=== PATIENT | male | born 1960 | race Caucasian/White ===

== ENCOUNTER → 2016-04-05 | Outpatient (CLI) | payer OTHER ==
[~2016-04-05] MED LIST: ALBUAER19 INH; AMLO-114 PO; AMOX1TAB43 PO; AMOX875T PO; ASPEC81 PO; ATOR-54 PO; DOXY100C76 PO; EMPA1TAB PO; FLUT230A INH; FRS/40 PO; GLC/500 PO; IMIQ0.00 TOP; INSUINJ4 SC; LISI40TA PO; LPT40 PO; POTA20TA13 PO; SITA1TAB27 PO
--- NOTE | 2016-04-05 14:27 | DIAGNOSTIC IMAGING REPORT ---
CT OF THE CHEST WITHOUT IV CONTRAST CLINICAL HISTORY: Hilar adenopathy COMPARISON STUDY: 12/18/2015 CT DOSE: 647.98 mGy.cm TECHNIQUE: CT of the thorax was performed from the thoracic inlet to the lung bases. Images are reviewed in the axial, sagittal, and coronal planes. IV contrast was not administered for this examination. FINDINGS: Thyroid: Imaged portions of the thyroid gland are normal in appearance. Thoracic aorta: The thoracic aorta is normal in course and caliber, noting standard 3 vessel arch anatomy. Heart: There are coronary artery calcifications present. There is a trace pericardial effusion. Lungs and pleural spaces: No pleural effusions are visualized. There is no focal pulmonary consolidation. Mediastinum: There is mild mediastinal lymphadenopathy similar to the preceding study. The largest right paratracheal lymph node measures 11 mm in short axis. There is also a stable prominent right cardiophrenic angle lymph node measuring 1 cm in short axis. Marian: Hilar structures are difficult to evaluate given the absence of intravenous contrast. Mildly prominent hilar lymph nodes remain stable. Axilla: There is no evidence of pathologic axillary lymphadenopathy Upper abdomen: The liver appears enlarged. The liver has a serrated serosal surface. Cirrhosis must be considered. The gallbladder surgically absent. Skeletal structures: There are no lytic or blastic osseous lesions. IMPRESSION: 1. Mild mediastinal lymphadenopathy, unchanged from the prior study 2. No evidence of focal pulmonary consolidation. No suspicious pulmonary nodules 3. Hepatomegaly. Cirrhotic liver morphology. Electronically signed by: Dylon London M.D. 04/05/2016 2:25 PM Dictated Date/Time: 04/05/2016 2:20 PM
== END | disposition home or self-care (01) ==
LOC: C.CTS 14:10
PROVIDERS: ATTEND Surgery
DX: R59.0 Localized enlarged lymph nodes (principal); K74.60 Unspecified cirrhosis of liver

== ENCOUNTER → 2016-06-23 | Day surgery (SDC) | payer OTHER ==
[2016-06-15 14:08] VITALS: Ht 177.8 cm; Wt 104.5 kg
[~2016-06-23] VITALS: Ht 177.8 cm; Wt 104.5 kg
[~2016-06-23] MED LIST changes: -AMOX1TAB43 PO; -AMOX875T PO; +ATOR-26 PO; -ATOR-54 PO; +ATROPINE SULFATE 0.1 MG/ML 5ML SYR IV PRN; +CETI10TA84 PO; +DEXL30CA5 PO; +EMPA1TAB3 PO; +EpHEDrine SULFATE INJ 50 MG/ML AMP IV PRN; +FURO40TA3 PO; -IMIQ0.00 TOP; +IMIQ5CRE4 TOP; +INSDGI SC; +INSU100I23 SQ; +LIDOCAINE HCL 2% 2 ML VIAL (20MG/ML) ONE; +NICO14DI5 TD; +PROPOFOL IV EMULSION 10 MG/ML 20 ML VIAL IV ONE; +SODIUM CHLORIDE 0.9% 500ML 500 ML IV ONE; +VNTHFA/IN INH
--- NOTE | 2016-06-23 09:18 | Endo History and Physical ---
History & Physical Date of Service: Jun 23, 2016. Chief Complaint: screening Referring Physician: Dr. Clotilde Vásquez History of Present Illness 55 yo presenting for screening colonoscopy-no symptoms and average risk. Past Medical History Diabetes, Reflux, High Cholesterol, Hypertension Past Surgical History Hx Cardiac Surgery: No Hx Internal Defibrillator: No Hx Pacemaker: No Hx Abdominal Surgery: Yes (cholecystectomy) Hx of Implantable Prosthesis: No Hx Post-Op Nausea and Vomiting: Yes Hx Cancer Surgery: No Hx Thoracic Surgery: No Hx Orthopedic: Yes (RIGHT FOOT MULTIPLE SURGERIES) Hx Urinary Tract Surgery: Yes (vasectomy) Family History None Social History Smoking Status: Former Smoker Hx Substance Use: No Hx Alcohol Use: No Allergies Coded Allergies: BEE STING (Verified Allergy, Intermediate, swelling, 06/15/16) Vancomycin (Verified Allergy, Unknown, ANAPHYLAXIS, 06/15/16) renal failure Current Medications Reported Home Medications Medications Dose Route/Sig Max Daily Dose Days Date Category Dose Instructions Zestril (Lisinopril) 40 Mg Tab 40 Mg PO QAM 06/15/16 Reported Imiquimod 5 % Cre 1 Dose TOP DAILY PRN 06/15/16 Reported Atorvastatin Calcium (Atorvastatin) 40 Mg Tab 40 Mg PO QAM 06/15/16 Reported Glucophage (Metformin Hcl) 500 Mg Tab 500 Mg PO BID 06/13/16 Reported Jardiance (Empagliflozin) 10 Mg Tab 10 Mg PO QAM 06/13/16 Reported Monodox (Doxycycline Monohydrate) 100 Mg Cap 100 Mg PO BID 30 05/10/16 Reported Potassium Chloride Er (Potassium Chloride Microencaps) 20 Meq Tab 1 Tab PO QAM 30 02/16/16 Reported Norvasc (Amlodipine Besylate) 10 Mg Tab 10 Mg PO QAM 11/03/15 Reported Lasix (Furosemide) 40 Mg Tab 40 Mg PO BID 11/03/15 Reported Aspirin EC Low Dose (Aspirin) 81 Mg Ectab 81 Mg PO Q2D 10/14/15 Reported Advair Hfa 230/21 Mcg (Fluticasone-Salmeterol 230/21 Mcg) 1 Aer Aer 2 Puffs INH BID 10/14/15 Reported RINSE MOUTH AFTER USE Ventolin Inhaler (Albuterol) Aers 2 Puffs INH QID PRN 10/14/15 Reported Januvia (Sitagliptin) 100 Mg Tab 100 Mg PO QAM 10/14/15 Reported Lantus Solostar Pen (Insulin Glargine) 100 Unit/ Inj 50 Units SC HS 10/14/15 Reported Vital Signs Weight (Kilograms): 104.55 Height (Feet): 5 Height (Inches): 10 Date Time Temp Pulse Resp B/P Pulse Ox O2 Delivery O2 Flow Rate FiO2 06/23/16 09:00 36.5 57 16 116/44 94 Room Air Physical Exam General Appearance: + obese Respiratory/Chest: Respiratory effort: no dyspnea Auscultation: breath sounds normal, CTA except as noted, no wheezing Cardiovascular: Apical Impulse: not displaced Heart Auscultation: RRR, normal S1, normal S2 Abdomen: Bowel Sounds: normal Inspection & Palpation: soft, non-distended Assessment and Plan 55 yo presenting for screening colonoscopy
--- NOTE | 2016-06-23 09:59 | GI REPORT ---
Procedure Date: 06/23/2016 8:59 AM Procedure: Colonoscopy Indications: Screening for colorectal malignant neoplasm Medicines: General Anesthesia Complications: No immediate complications. Estimated blood loss: None. Estimated Blood Loss: Estimated blood loss: none. Procedure: Pre-Anesthesia Assessment: - Pre-Anesthesia Assessment: - Prior to the procedure, a History and Physical was performed, and patient medications, allergies and sensitivities were reviewed. The patient's tolerance of previous anesthesia was reviewed. Please see [facility] for complete details. - The risks and benefits of the procedure and the sedation options and risks were discussed with the patient. All questions were answered and informed consent was obtained. - Patient identification and proposed procedure were verified prior to the procedure by the physician and the nurse. The procedure was verified in the pre-procedure area in the procedure room. After obtaining informed consent, the endoscope was passed carefully and meticuously under direct vision and only advanced when the lumen was clearly identified, C02 insuflation was utilized throughout the entirity of the procedure. Throughout the procedure, the patient's blood pressure, pulse, and oxygen saturations were monitored continuously. After I obtained informed consent, the scope was passed under direct vision. Throughout the procedure, the patient's blood pressure, pulse, and oxygen saturations were monitored continuously. The scope was introduced through the anus and advanced to the cecum, identified by appendiceal orifice and ileocecal valve. The colonoscopy was performed without difficulty. The patient tolerated the procedure well. The quality of the bowel preparation was unsatisfactory. Findings: Extensive amounts of stool was found in the entire colon, precluding visualization. A 3 mm polyp was found in the sigmoid colon. The polyp was sessile. The polyp was removed with a cold snare. Resection and retrieval were complete. Impression: - Preparation of the colon was unsatisfactory. - Stool in the entire examined colon. - One 3 mm polyp in the sigmoid colon, removed with a cold snare. Resected and retrieved. Recommendation: - Discharge patient to home (with escort). - Return to referring physician as previously scheduled. - Repeat colonoscopy with a 2 day prep because the bowel preparation was poor. Bill Flood MD 06/23/2016 9:58:49 AM This report has been signed electronically. Note Initiated On: 06/23/2016 8:59 AM I attest to the content of the Intraoperative Record and orders documented therein, exceptions below
--- NOTE | 2016-06-23 10:02 | Anesthesiology Progress Note ---
Anesthesia Post Op Note Date & Time Jun 23, 2016 at 10:01 Vital Signs Pain Intensity: 0 Vital Signs Past 12 Hours Date Time Temp Pulse Resp B/P Pulse Ox O2 Delivery O2 Flow Rate FiO2 06/23/16 09:00 36.5 57 16 116/44 94 Room Air Notes Mental Status: alert / awake / arousable, participated in evaluation Pt Amnestic to Procedure: Yes Nausea / Vomiting: adequately controlled Pain: adequately controlled Airway Patency, RR, SpO2: stable & adequate BP & HR: stable & adequate Hydration State: stable & adequate Anesthetic Complications: no major complications apparent
[2016-06-23 10:25] VITALS: BP 127/60; PULSE 58; O2SAT 94
--- NOTE | 2016-06-23 10:32 | Discharge Instructions ---
Endoscopy Patient Instructions Date / Procedure(s) Performed Jun 23, 2016. Colonoscopy Allergy Information Coded Allergies: BEE STING (Verified Allergy, Intermediate, swelling, 06/15/16) Vancomycin (Verified Allergy, Unknown, ANAPHYLAXIS, 06/15/16) renal failure Discharge Date / Findings Jun 23, 2016. - Preparation of the colon was unsatisfactory. - Stool in the entire examined colon. - One 3 mm polyp in the sigmoid colon, removed with a cold snare. Resected and retrieved. Recommendation: - Repeat colonoscopy with a 2 day prep because the bowel preparation was poor. Medication Instructions Stopped Medication(s): took Baby ASA yesterday Provider Instructions Activity Restrictions - No exercising or heavy lifting for 24 hours. - Do not drink alcohol the day of the procedure. - Do not drive a car or operate machinery until the day after the procedure. - Do not make any important decisions or sign important papers in 24 hours after the procedure. Following Day: - Return to full activity which may include returning to work/school. Diet Start your diet with liquids and light foods (jello, soup, juice, toast). Then eat your usual diet if not nauseated. Treatment For Common After Affects For mild abdominal pain, bloating, or excessive gas: - Rest - Eat lightly - Lie on right side Follow-Up Information Follow-up with Dr. Clotilde Vásquez as scheduled Anesthesia Information What You Should Know You have had a procedure that required some medicine to reduce anxiety and discomfort. This treatment is called moderate sedation. After receiving the treatment, you may be sleepy, but you will be able to breathe on your own. The effects of the treatment may last for several hours. Follow these instructions along with Activity/Diet recommendations noted above: * Do NOT do anything where dizziness or clumsiness would be dangerous. * Rest quietly at home today, then you can be up and about tomorrow. * Have a responsible person stay with you the rest of today. * You may have had an I.V. today. If so, you may take the dressing off later today. Recommendations Call your doctor if: * Trouble breathing * Continuous vomiting for more than 24 hours * Temperature above 101 degrees * Severe abdominal pain or bloating * Pain not relieved by pain medicine ordered * There is increased drainage or redness from any incision * A large amount of rectal bleeding greater than 2-3 tablespoons. (If you had a polyp/s removed or have hemorrhoids, a small amount of blood - from the rectum is to be expected.) * You have any unanswered questions or concerns. IN THE EVENT OF A SERIOUS EMERGENCY, GO TO THE NEAREST EMERGENCY ROOM Your discharge instructions were prepared by provider Bill Flood. Patient Instructions Signature Page Srinivasa Robertson Patient (or Guardian) Signature/Date: I have read and understand the instructions given to me by my caregivers. Caregiver/RN/Doctor Signature/Date: The above-named patient and/or guardian has received patient instructions on this date. + Original Patient Signature Page (only) stays with chart. Please make copy for patient.
== END | disposition home or self-care (01) ==
LOC: C.GI 08:06
PROVIDERS: ATTEND Internal Medicine
DX: Z12.11 Encounter for screening for malignant neoplasm of colon (principal); D12.5 Benign neoplasm of sigmoid colon; K21.9 Gastro-esophageal reflux disease without esophagitis; E11.9 Type 2 diabetes mellitus without complications; E78.5 Hyperlipidemia, unspecified; I10 Essential (primary) hypertension; Z79.4 Long term (current) use of insulin; Z98.890 Other specified postprocedural states; Z87.890 Personal history of sex reassignment; Z88.1 Allergy status to other antibiotic agents; Z79.82 Long term (current) use of aspirin

== ENCOUNTER 2016-12-15 17:16 | Inpatient (IN) | payer OTHER ==
[~2016-12-15] VITALS: Ht 175.3 cm; Wt 123.6 kg
[~2016-12-15 17:16] MED LIST changes: -ATOR-26 PO; -ATROPINE SULFATE 0.1 MG/ML 5ML SYR IV PRN; -CETI10TA84 PO; -DEXL30CA5 PO; -EMPA1TAB3 PO; -EpHEDrine SULFATE INJ 50 MG/ML AMP IV PRN; -FURO40TA3 PO; -INSDGI SC; -INSU100I23 SQ; -LIDOCAINE HCL 2% 2 ML VIAL (20MG/ML) ONE; -NICO14DI5 TD; -PROPOFOL IV EMULSION 10 MG/ML 20 ML VIAL IV ONE; -SODIUM CHLORIDE 0.9% 500ML 500 ML IV ONE; -VNTHFA/IN INH
--- NOTE | 2016-12-15 17:32 | EMERGENCY ROOM VISIT NOTE ---
History First contact with patient: 17:20 Chief Complaint: CARDIAC ASSESSMENT Stated Complaint: CARDIAC/ 3RD DEGREE BLOCK History of Present Illness The patient is a 55 year old male with a history of IDDMII who presents to the Emergency Room from [facility] via EMS. The patient notes that approx a month prior the patient started to suffer from billat LE edema R>L. The patient thought it was secondary to his right ankle surgery he had in the past and when he went to see his PCP the Lasix was increased in dose. The patient notes he had continued worsening in the bilat LE swelling but also worsening SOB. 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 He never suffered from any chest pain, syncope or dizziness. He followed up with his PCP today and with concern for this worsening SOB an EKG was done and was concerning for a third degree heart block. ED was contacted and patient was sent over via EMS. He has no cardiac history however patient is a smoker. Patient notes his father had multiple cardiac bypass surgeries around his age and also required a pig valve however he was unsure why. He notes no knowledge of a murmur in the past. last echo was 2015 and reflected preserved EF at that time. Review of Systems A 10 point review of systems was completed and was negative aside from above Past Medical/Surgical History Medical Problems: (1) Asthma, Unspecified (2) CAD (coronary artery disease) (3) Cellulitis (4) COPD (chronic obstructive pulmonary disease) (5) Diab Jill Wo Compl, Type Ii Or Unspec Type, Not Uncntrld (6) Diabetic foot ulcer (7) Diabetic peripheral neuropathy associated with type 2 diabetes mellitus (8) Esophageal Reflux (9) Hyperlipidemia Nec/Nos (10) Hypertension Nos (11) Loss of sensation (12) Osteomyelitis (13) Ulcer Surgical Problems: (1) H/O vasectomy (2) History of cholecystectomy Family History Cancer FH: hypertension FH: kidney disease FHx: heart disease Heart disease Lung disease Social History Smoking Status: Former Smoker Alcohol Use: occasionally Drug Use: none Marital Status: in relationship Occupation Status: employed Current/Historical Medications Scheduled Albuterol Hfa (Ventolin Hfa), 2-4 PUFFS INH Q6H Amlodipine (Norvasc), 10 MG PO QAM Aspirin (Aspirin EC Low Dose), 81 MG PO Q2D Atorvastatin (Atorvastatin Calcium), 40 MG PO QAM Empagliflozin (Jardiance), 10 MG PO QAM Fluticasone-Salmeterol 230/21 Mcg (Advair Hfa 230/21 Mcg), 2 PUFFS INH BID Furosemide (Lasix), 40 MG PO BID Insulin Glargine (Lantus), 50 UNITS SC HS Lisinopril (Zestril), 40 MG PO QAM Metformin Hcl (Glucophage), 500 MG PO BID Potassium Chloride Microencaps (Potassium Chloride Er), 1 TAB PO QAM Sitagliptin (Januvia), 100 MG PO QAM Scheduled PRN Imiquimod (Imiquimod), 1 DOSE TOP DAILY PRN for PRN Allergies Vancomycin Physical Exam Vital Signs Date Time Temp Pulse Resp B/P (MAP) Pulse Ox O2 Delivery O2 Flow Rate FiO2 12/15/16 19:00 95 22 85 Room Air 12/15/16 18:58 69 18 137/75 93 Room Air 12/15/16 18:55 88 18 95 Room Air 12/15/16 17:50 66 12/15/16 17:28 93 Room Air 12/15/16 17:23 36.3 58 18 159/64 93 Room Air 12/15/16 17:23 93 Room Air Physical Exam General: ambulatory, SOB with ambulation, obese Skin: no rashes noted, no suspicious lesions, no areas of inflammations/ lacerations/ erythema noted CVS: S1/ S2 noted, RRR, 3/6 systolic murmur noted ( new in onset), no cyanosis RVS: Poor air movement, no expiratory wheezing, not in acute respiratory distress ENT: no erythema/ injection/ ulcerations noted in the pharynx, no lymphadenopathy Neck: inspection WNL, full ROM of neck ABD: BSx4, no pain/ tenderness on palpation however distended abdomen; questionable ascites, organomegaly difficult to discern with obesity, negative murphys, psoas, Rovsing, CVA tenderness MSK: inspection of all limbs WNL except for bilat LE edema R>L +4, motor and sensation intact in all limbs NVS:PERRL, EOMI, sensation intact in all extremities Lymph: No lymphadenopathy palpable Medical Decision & Procedures ER Provider Diagnostic Interpretation: CHEST ONE VIEW PORTABLE HISTORY: 55 years-old Male SOB acute shortness of breath. COMPARISON: Chest radiograph 12/01/2016, chest CT 04/05/2016 TECHNIQUE: Portable upright AP view of the chest FINDINGS: Cardiac silhouette is mildly enlarged. Fullness of the right paratracheal tissues appears unchanged. Mild pulmonary vascular congestion is noted without pneumothorax, pleural effusion, focal airspace consolidation or overt pulmonary edema. The bones are grossly intact. IMPRESSION: 1. Cardiomegaly and pulmonary vascular congestion without overt pulmonary edema. 2. Fullness of the right paratracheal tissues redemonstrated, correlating with adenopathy seen on comparison chest CT. Laboratory Results 12/15/16 17:12 Red Blood Count 5.08, Mean Corpuscular Volume 87.4, Mean Corpuscular Hemoglobin 28.3, Mean Corpuscular Hemoglobin Concent 32.4, Mean Platelet Volume 10.4, Neutrophils (%) (Auto) 72.7, Lymphocytes (%) (Auto) 19.0, Monocytes (%) (Auto) 6.3, Eosinophils (%) (Auto) 1.4, Basophils (%) (Auto) 0.3, Neutrophils # (Auto) 11.01, Lymphocytes # (Auto) 2.88, Monocytes # (Auto) 0.95, Eosinophils # (Auto) 0.21, Basophils # (Auto) 0.05 12/15/16 17:12 Test 12/15/16 17:12 White Blood Count 15.15 K/uL (4.8-10.8) Red Blood Count 5.08 M/uL (4.7-6.1) Hemoglobin 14.4 g/dL (14.0-18.0) Hematocrit 44.4 % (42-52) Mean Corpuscular Volume 87.4 fL (80-100) Mean Corpuscular Hemoglobin 28.3 pg (25-34) Mean Corpuscular Hemoglobin Concent 32.4 g/dl (32-36) Platelet Count 312 K/uL (130-400) Mean Platelet Volume 10.4 fL (7.4-10.4) Neutrophils (%) (Auto) 72.7 % Lymphocytes (%) (Auto) 19.0 % Monocytes (%) (Auto) 6.3 % Eosinophils (%) (Auto) 1.4 % Basophils (%) (Auto) 0.3 % Neutrophils # (Auto) 11.01 K/uL (1.4-6.5) Lymphocytes # (Auto) 2.88 K/uL (1.2-3.4) Monocytes # (Auto) 0.95 K/uL (0.11-0.59) Eosinophils # (Auto) 0.21 K/uL (0-0.5) Basophils # (Auto) 0.05 K/uL (0-0.2) RDW Standard Deviation 47.5 fL (36.4-46.3) RDW Coefficient of Variation 14.8 % (11.5-14.5) Immature Granulocyte % (Auto) 0.3 % Immature Granulocyte # (Auto) 0.05 K/uL (0.00-0.02) Anion Gap 6.0 mmol/L (3-11) Est Creatinine Clear Calc Drug Dose 83.4 ml/min Estimated GFR () 71.2 Estimated GFR (Non- 61.4 BUN/Creatinine Ratio 18.2 (10-20) Calcium Level 9.0 mg/dl (8.5-10.1) Total Bilirubin 0.5 mg/dl (0.2-1) Aspartate Amino Transf (AST/SGOT) 19 U/L (15-37) Alanine Aminotransferase (ALT/SGPT) 24 U/L (12-78) Alkaline Phosphatase 173 U/L (45-117) Creatine Kinase MB 1.5 ng/ml (0.5-3.6) Creatine Kinase MB Ratio (0-3.0) Troponin I < 0.015 ng/ml (0-0.045) Pro-B-Type Natriuretic Peptide 381 pg/ml (0-900) Total Protein 8.2 gm/dl (6.4-8.2) Albumin 3.3 gm/dl (3.4-5.0) Globulin 4.9 gm/dl (2.5-4.0) Albumin/Globulin Ratio 0.7 (0.9-2) Lipase 200 U/L (73-393) Medications Administered Medications (Trade) Dose Ordered Sig/Jerica Route Start Time Stop Time Status Last Admin Dose Admin Albuterol/ Ipratropium (Duoneb) 3 ml NOW INH 12/15/16 18:00 12/15/16 18:30 DC 12/15/16 17:53 3 ML ECG Indication: SOB/dyspnea Rate (beats per minute): 51 Rhythm: other (AV dissociation; junctional rhythm ) Findings: no acute ischemic change, no ectopy Change: Change as noted above ED Course 1720: Assessed and evaluated by resident 1800: Duoneb 3 ml X 1 via nebulizer 1830: Patient reassessed and no improvement of symptoms 185: Ambulation trial 85% on RA with ambulation 1929: Discussed case with Dr Lockhart, plan for 40 mg IV lasix and valdes placement , patient will be assessed further by hospitalist Medical Decision Differential diagnosis includes but is not limited to myocardial infarction, COPD exacerbation, cirrhosis, CHF exacerbation, cor pulmonale, Av block. This is a 55 yo m that presented to the ED with SOB/ LE swelling and abnormal EKG. The patient's CBC reflected a leukocytosis however CXR did not reveal a source for infection and neither did the UA. The patient's CMP was unremarkable without acute process. Troponin and CKMB was negative and BNP was also negative. It is questionable considering the new onset murmur if the patient's worsening SOB and LE swelling is secondary to CHF vs COPD exacerbation. The patient did not have improvement of symptoms after duoneb administration and continued to remain hypoxic with ambulation. Considering ongoing hypoxia with physical exam reflecting right heart failure it would be appropriate for lasix 40 mg IV x 1. We will also place a valdes to adequately measure output. Patient will be evaluated further by the hospitalist with concern for evolving cardiovascular pathology. Blood Pressure Screening Patient's blood pressure: Elevated blood pressure Blood pressure disposition: Elevated BP felt to be situational Impression Primary Impression: Hypoxia Additional Impressions: Pulmonary congestion Lower extremity edema Departure Information Dispostion Admitted as an inpatient Condition [facility] (PCP) Patient Instructions My [facility] Problem Qualifiers
[2016-12-15 17:39] LABS: BASO % 0.3 %; BASO ABS # 0.05 K/uL (0-0.2); COMPLETE YES; EOS % 1.4 %; HEMATOCRIT 44.4 % (42-52); IG% 0.3 %; LYMPH ABS # 2.88 K/uL (1.2-3.4); MEAN CELL VOLUME 87.4 fL (80-100); MEAN CORPUSCULAR HEMOGLOBIN 28.3 pg (25-34); MEAN CORPUSCULAR HGB CONC 32.4 g/dl (32-36); MEAN PLATELET VOLUME 10.4 fL (7.4-10.4); MONO % 6.3 %; NEUT % 72.7 %; PLATELET COUNT 312 K/uL (130-400); RED BLOOD COUNT 5.08 M/uL (4.7-6.1); WHITE BLOOD COUNT 15.15 K/uL (4.8-10.8)
--- NOTE | 2016-12-15 17:52 | DIAGNOSTIC IMAGING REPORT ---
CHEST ONE VIEW PORTABLE HISTORY: 55 years-old Male SOB acute shortness of breath. COMPARISON: Chest radiograph 12/01/2016, chest CT 04/05/2016 TECHNIQUE: Portable upright AP view of the chest FINDINGS: Cardiac silhouette is mildly enlarged. Fullness of the right paratracheal tissues appears unchanged. Mild pulmonary vascular congestion is noted without pneumothorax, pleural effusion, focal airspace consolidation or overt pulmonary edema. The bones are grossly intact. IMPRESSION: 1. Cardiomegaly and pulmonary vascular congestion without overt pulmonary edema. 2. Fullness of the right paratracheal tissues redemonstrated, correlating with adenopathy seen on comparison chest CT. The above report was generated using voice recognition software. It may contain grammatical, syntax or spelling errors. Electronically signed by: Camron Granado M.D. 12/15/2016 5:51 PM Dictated Date/Time: 12/15/2016 5:48 PM
[2016-12-15] MEDS ORDERED: ALBUT/IPRATROP 3MG/0.5MG NEB 3 ML VIAL INH SCH (18:00)
[2016-12-15 18:02] LABS: ALT/SGPT 24 U/L (12-78); BLOOD UREA NITROGEN 24 mg/dl (7-18); BUN/CREATININE RATIO 18.2 (10-20); CARBON DIOXIDE 29 mmol/L (21-32); CHLORIDE 102 mmol/L (98-107); GLUCOSE 156 mg/dl (70-99); POTASSIUM 3.8 mmol/L (3.5-5.1); SODIUM 137 mmol/L (136-145)
[2016-12-15 18:08] LABS: ALB/GLOB RATIO 0.7 (0.9-2); ALKALINE PHOSPHATASE 173 U/L (45-117); AST/SGOT 19 U/L (15-37)
[2016-12-15] MEDS ORDERED: INSDGI SC (18:22)
[2016-12-15] MEDS ORDERED: VNTHFA/IN INH (18:22)
--- NOTE | 2016-12-15 18:39 | EMERGENCY ROOM VISIT NOTE ---
ED Visit Note First contact with patient: 17:20 Pt seen and evaluated at bedside with the resident when he arrived. Discussed with pt recent sx. States no sx currently. Concerning story for evolving pulmonary or cardiac pathology. Orders and results reviewed with resident. Pt hypoxic with ambulation. No sx at rest. Pt admitted to medicine service. VS otw stable.
[2016-12-15] MEDS ORDERED: FUROSEMIDE 40 MG/4 ML VIAL IV STA (20:21)
[2016-12-15 20:54] LABS: INR 1.1 (0.9-1.1); PROTHROMBIN TIME (PATIENT) 11.9 SECONDS (9.0-12.0)
--- NOTE | 2016-12-15 22:04 | DIAGNOSTIC IMAGING REPORT ---
KUB HISTORY: disended abdomen, patient feels bloated wt gain, const x 1 wk COMPARISON: Chest and abdominal series 12/19/2005. FINDINGS: The bowel gas pattern is unremarkable. There are no dilated loops of small bowel to suggest an obstruction. No renal calculi. No ureteral calculi. No pneumoperitoneum or pneumatosis. Vascular are noted. Large oval-shaped soft tissue mass within the pelvis. This measures 20 cm and likely represents a distended bladder. Cholecystectomy. IMPRESSION: 20 cm soft tissue mass within the pelvis which likely represents a distended bladder. Follow-up pelvic/bladder ultrasound recommended for confirmation. Electronically signed by: Darren Alexander M.D. 12/15/2016 10:02 PM Dictated Date/Time: 12/15/2016 10:00 PM
[2016-12-15 22:10] VITALS: BP 155/66; PULSE 54; TEMP 36.9; O2SAT 93; BMI 39.2
[2016-12-15] MEDS ORDERED: ACETAMINOPHEN 325 MG TAB PO PRN (22:15)
[2016-12-15] MEDS ORDERED: ONDANSETRON INJ 2 MG/ML 2 ML VIAL IV PRN (22:15)
[2016-12-15] MEDS ORDERED: DEXTROSE 50% 50 ML SYR IV PRN (22:15)
[2016-12-15] MEDS ORDERED: POLYETHYLENE (MIRALAX) 17 GM PACK PO PRN (22:15)
[2016-12-15] MEDS ORDERED: GLUCOSE 10 TABS/TUBE PO PRN (22:15)
[2016-12-15] MEDS ORDERED: GLUCAGON FOR INJ 1 MG VIAL SQ PRN (22:15)
[2016-12-15] MEDS ORDERED: GLUCOSE 40% GEL 15 GM TUBE PO PRN (22:15)
[2016-12-15] MEDS ORDERED: EMPA1TAB3 PO (22:16)
[2016-12-15] MEDS ORDERED: FURO40TA3 PO (22:16)
[2016-12-15] MEDS ORDERED: CETI10TA84 PO (22:16)
[2016-12-15] MEDS ORDERED: DEXL30CA5 PO (22:16)
[2016-12-15] MEDS ORDERED: ATOR-26 PO (22:16)
[2016-12-15] MEDS ORDERED: INSU100I23 SQ (22:16)
[2016-12-15] MEDS ORDERED: ASPIRIN 325 MG ECTAB PO STA (22:19)
--- NOTE | 2016-12-15 22:36 | History and Physical ---
History & Physical Date & Time of Service: Dec 15, 2016 at 21:51 Chief Complaint: Cardiac/ 3RD Degree Block Primary Care Physician: Kathy,[facility] History of Present Illness Source: patient, clinic records, hospital records This is a 55yo man with a PMH of DM II, non-obstructive CAD, HTN, HLD, tobacco use disorder and diastolic heart dysfunction who presents with worsening lower extremity edema. Patient has had a degree of swelling in his right leg since having ankle surgery a few years ago. However, swelling has worsened bilaterally over the last month despite patient's PCP increasing his lasix dose. A few weeks ago, patient endorses worsening dyspnea on exertion as well. 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 Has a been smoking for over 35 years but has reduced the amount in the last few years to 1/2 PPD. Also admits to drinking heavily at a family wedding a few weeks ago around the time that his LE edema and dyspnea worsened. Admits to a 20 pound weight gain in the last month. Went to the PCP for these worsening symptoms earlier today and had an EKG performed that was concerning for third degree heart block. Patient was encouraged to come to the ER for further evaluation. Patient denies any lightheadedness, chest pain, palpitations, PND, wheezing, abdominal pain, nausea, vomiting, calf pain, LE weakness or syncopal events. Does endorse orthopnea and a chronic dry cough. Has been experiencing constipation with associated abd distention. States that it has been "days" since his last bowel movement. Denies any history of MIs or arrhythmias. Had an echo performed in Oct 2015 that showed normal LV size, some left ventricular hypertrophy and normal systolic function with an EF of 60-65%. + Family history for CAD (father). Past Medical/Surgical History Medical Problems: (1) Asthma, Unspecified Status: Chronic (2) CAD (coronary artery disease) Status: Chronic (3) COPD (chronic obstructive pulmonary disease) Status: Chronic (4) Diab Jill Wo Compl, Type Ii Or Unspec Type, Not Uncntrld Status: Chronic (5) Esophageal Reflux Status: Chronic (6) Hyperlipidemia Nec/Nos Status: Chronic (7) Hypertension Nos Status: Chronic Surgical Problems: (1) H/O vasectomy Status: Resolved (2) History of cholecystectomy Status: Resolved Family History Cancer FH: hypertension FH: kidney disease FHx: heart disease Heart disease Lung disease Social History Smoking Status: Current Every Day Smoker (Smoked for over 35 years. Has reduced to 1/2 PPD for the last few years.) Alcohol Use: heavy (Endorses drinking heavily in the past. Reduced amount a few years ago.) Drug Use: none Marital Status: in relationship Housing status: lives alone Occupational Status: employed Multi-Drug Resistant Organisms History of MDRO: Yes Type of MDRO: MRSA Allergies Coded Allergies: BEE STING (Verified Allergy, Intermediate, swelling, 12/15/16) Vancomycin (Verified Allergy, Unknown, ANAPHYLAXIS, 12/15/16) renal failure Home Medications Scheduled Amlodipine (Norvasc), 10 MG PO QAM Atorvastatin (Lipitor), 80 MG PO HS Cetirizine (Zyrtec), 10 MG PO DAILY Dexlansoprazole (Dexilant), 30 MG PO DAILY Empagliflozin (Jardiance), 25 MG PO DAILY Furosemide (Lasix), 80 MG PO DAILY Furosemide (Lasix), 40 MG PO DAILY@1400 Insulin Glargine (Basaglar Kwikpen), 50 UNITS SQ HS Lisinopril (Zestril), 40 MG PO QAM Metformin Hcl (Glucophage), 500 MG PO BID Potassium Chloride Microencaps (Potassium Chloride Er), 40 MEQ PO QAM Sitagliptin (Januvia), 100 MG PO QAM Review of Systems Constitutional- no fever; no weight loss Eyes- no acute visual changes ENT- no sinus drainage; no pharyngitis Pulmonary- no cough, no wheezing, no shortness of breath Cardiac- See HPI GI- See HPI - no dysuria, no hematuria Musculoskeletal- no arthralgias, no myalgias Derm- no rashes, no new skin lesions, no changing skin lesions Hematologic- no unusual bruising, no unusual bleeding Lymphatics- no adenopathy Endocrine- no polyuria or polydipsia; no heat or cold intolerance Neuro- no headaches, no focal neurologic symptoms Psych- no anxiety, no depression Physical Exam Vital Signs Date Time Temp Pulse Resp B/P (MAP) Pulse Ox O2 Delivery O2 Flow Rate FiO2 12/15/16 20:45 53 16 110/70 96 Room Air 12/15/16 19:00 95 22 85 Room Air 12/15/16 18:58 69 18 137/75 93 Room Air 12/15/16 18:55 88 18 95 Room Air 12/15/16 17:50 66 12/15/16 17:28 93 Room Air 12/15/16 17:23 36.3 58 18 159/64 93 Room Air 12/15/16 17:23 93 Room Air General Appearance: no apparent distress, + obese Head: normocephalic, atraumatic Eyes: normal inspection, sclerae normal ENT: hearing grossly normal Neck: supple, no JVD, trachea midline, + pertinent finding (Thick, short neck ) Respiratory/Chest: chest non-tender, normal breath sounds, no respiratory distress, no accessory muscle use, + crackles (Bibasilar coarse crackles observed ) Cardiovascular: regular rate, rhythm, no murmur, normal peripheral pulses, + pertinent finding (Distant heart sounds ) Abdomen/GI: non tender, no organomegaly, + abnormal bowel sounds (decreased), + distended (Tense but non-tender) Back: normal inspection, no CVA tenderness Extremities/Musculoskelatal: no calf tenderness, no pedal edema, + swelling ( Bilateral LE swelling (R>L). 2+ pitting edema on L, 3+ on R. No skin breakdown. ), + pertinent finding (Clubbing of digits ) Neurologic/Psych: alert, normal mood/affect, oriented x 3 Skin: normal color, warm/dry, no rash Diagnostics Laboratory Results Results Past 24 Hours Test 12/15/16 17:12 Range/Units White Blood Count 15.15 4.8-10.8 K/uL Red Blood Count 5.08 4.7-6.1 M/uL Hemoglobin 14.4 14.0-18.0 g/dL Hematocrit 44.4 42-52 % Mean Corpuscular Volume 87.4 80-100 fL Mean Corpuscular Hemoglobin 28.3 25-34 pg Mean Corpuscular Hemoglobin Concent 32.4 32-36 g/dl Platelet Count 312 130-400 K/uL Mean Platelet Volume 10.4 7.4-10.4 fL Neutrophils (%) (Auto) 72.7 % Lymphocytes (%) (Auto) 19.0 % Monocytes (%) (Auto) 6.3 % Eosinophils (%) (Auto) 1.4 % Basophils (%) (Auto) 0.3 % Neutrophils # (Auto) 11.01 1.4-6.5 K/uL Lymphocytes # (Auto) 2.88 1.2-3.4 K/uL Monocytes # (Auto) 0.95 0.11-0.59 K/uL Eosinophils # (Auto) 0.21 0-0.5 K/uL Basophils # (Auto) 0.05 0-0.2 K/uL RDW Standard Deviation 47.5 36.4-46.3 fL RDW Coefficient of Variation 14.8 11.5-14.5 % Immature Granulocyte % (Auto) 0.3 % Immature Granulocyte # (Auto) 0.05 0.00-0.02 K/uL Prothrombin Time 11.9 9.0-12.0 SECONDS Prothromb Time International Ratio 1.1 0.9-1.1 Sodium Level 137 136-145 mmol/L Potassium Level 3.8 3.5-5.1 mmol/L Chloride Level 102 98-107 mmol/L Carbon Dioxide Level 29 21-32 mmol/L Anion Gap 6.0 3-11 mmol/L Blood Urea Nitrogen 24 7-18 mg/dl Creatinine 1.30 0.60-1.40 mg/dl Est Creatinine Clear Calc Drug Dose 83.4 ml/min Estimated GFR () 71.2 Estimated GFR (Non- 61.4 BUN/Creatinine Ratio 18.2 10-20 Random Glucose 156 70-99 mg/dl Calcium Level 9.0 8.5-10.1 mg/dl Total Bilirubin 0.5 0.2-1 mg/dl Aspartate Amino Transf (AST/SGOT) 19 15-37 U/L Alanine Aminotransferase (ALT/SGPT) 24 12-78 U/L Alkaline Phosphatase 173 45-117 U/L Creatine Kinase MB 1.5 0.5-3.6 ng/ml Creatine Kinase MB Ratio 0-3.0 Troponin I < 0.015 0-0.045 ng/ml Pro-B-Type Natriuretic Peptide 381 0-900 pg/ml Total Protein 8.2 6.4-8.2 gm/dl Albumin 3.3 3.4-5.0 gm/dl Globulin 4.9 2.5-4.0 gm/dl Albumin/Globulin Ratio 0.7 0.9-2 Lipase 200 73-393 U/L Diagnostic Radiology CXR: IMPRESSION: 1. Cardiomegaly and pulmonary vascular congestion without overt pulmonary edema. 2. Fullness of the right paratracheal tissues re-demonstrated, correlating with adenopathy seen on comparison chest CT. EKG Sinus bradycardia with A-V dissociation and Wide QRS rhythm Right bundle branch block , plus right ventricular hypertrophy (unconfirmed) My interpretation in sinus bradycardia with a possible junctional rhythm. RBBB, RVH, ST depression in V5-V6. Impression Assessment and Plan This is a 55yo man with a PMH of DM II, non-obstructive CAD, HTN, HLD, tobacco use disorder and diastolic heart dysfunction who presents with worsening lower extremity edema. Acutely decompensated HF: -Patient with history of diastolic dysfunction, LVH on 2016 echo -Presents with worsening LE edema, dyspnea on exertion, crackles on exam -Endorses recent alcohol binge, high Na diet, reported 20# wt gain -CXR with vascular congestion -EKG with evidence of RVH, ST depression in V5-V6 -Given 40 IV Lasix in ER -Ordered echo, repeat EKG for AM -Daily weights, strict I&Os, Na restriction diet -Cardio consult CAD: -Non obstructive -Denies chest pain -Continue statin, started on aspirin -EKG with evidence of ischemia -Trend enzymes, repeat EKG in AM HTN: -Normotensive -Continue home meds of amlodipine and lisinopril -Monitor kidney function and consider holding lisinopril if worsened DM II: -Hgb a1c of 8.4 on 10/27 -Hold home meds -Basal bolus regimen while in-patient -BG checks AC HS Urinary retention: -KUB with distended bladder -Follow up pelvic/bladder ultrasound recommended -Has not urinated since admission, despite 40 Lasix -Refused valdes catheter -Closely monitor Constipation: -Presents with abd distention, bloating -Has not had a bowel movement in a week -KUB without evidence of bowel obstruction -Scheduled suppository, miralax Bladder distention: -20 cm soft tissue mass within the pelvis which likely represents a distended bladder -Follow-up pelvic/bladder ultrasound recommended for confirmation Tobacco use disorder: -Discussed benefits of cessation in terms of chronic disease -Not interested in quitting at this time -Denies COPD diagnosis HLD: -Continue statin DVT Ppx: Lovenox Code status: FULL PCP: [facility] (used to see Janette) Dispo: Plan to return home once medically stable ADDENDUM: I have seen and examined the patient above and agree with the assessment and plan as stated. He ended up urinating shortly after the Lasix 1300cc in one go--clearly feeling much less distended. He was demonstrating no conversational dyspnea and was not requiring oxygen. Phys exam revealed a normal heart exam, clear lungs to auscultation, 2+LE edema bilaterally and abdominal distension without TTP and hypoactive bowel sounds. Cont with efforts to relieve constipation. Already seems improved from a respiratory standpoint. Also of concern were EKG findings related to AV dissociation--he was sent in from [facility] with concerns for 3HB, however, sinus edenilson was observed on most EKGs available and p-waves marched out with some occasional dropped, but overall looked to be a sinus rhythm with occasional junction rhythm. Morning EKG revealed Mobitz I block (Wenkebach). Trending serial cardiac enzymes, monitor on tele and echo ordered for am. Humberto, DO Level of Care Telemetry Resuscitation Status FULL RESUSCITATION VTE Prophylaxis VTE Risk Assessment Done? Y/N: Yes Risk Level: Moderate Given or contraindicated: Enoxaparin (Lovenox)SQ
[2016-12-15] MEDS ORDERED: BISACODYL 10 MG SUPP PR STA (22:43)
[2016-12-15 23:30] VITALS: BP 115/68; PULSE 71; TEMP 36.9; O2SAT 91
[2016-12-15] MEDS ORDERED: PNEUMOCOCCAL POLYSACCHARIDES 25 MCG/0.5 ML VIAL/SYR IM. ONE (23:30)
[2016-12-15] MEDS ORDERED: PNEUMOCOCCAL ADMINISTRATION CHARGE ONE (23:30)
[2016-12-15] MEDS ORDERED: GLYCERIN ADULT 1 EA SUPP PR PRN (23:45)
[2016-12-15 23:50] LABS: CKMB/CK RATIO 2.2 (0-3.0)
[2016-12-16] MEDS: INSULIN GLARGINE SOLOSTAR 100 UNITS/ML 3 ML PEN SC SCH ×3 (00:13→20:50)
[2016-12-16] MEDS: POLYETHYLENE (MIRALAX) 17 GM PACK PO SCH ×4 (00:16→20:45)
[2016-12-16] MEDS: ATORVASTATIN 40 MG TAB PO SCH ×2 (00:16→20:46)
[2016-12-16 04:25] VITALS: BP 116/54; PULSE 50; TEMP 36.8; O2SAT 90
[2016-12-16 04:39] LABS: URINE APPEARANCE CLEAR (CLEAR); URINE BILIRUBIN NEG (NEG); URINE COLOR YELLOW; URINE NITRITE NEG (NEG); URINE SPECIFIC GRAVITY 1.016 (1.000-1.030); UROBILINOGEN NEG (NEG)
[2016-12-16 04:43] LABS: MANUAL MICROSCOPIC REQUIRED? NO; REVIEW REQ? NO
[2016-12-16 05:41] LABS: HEMATOCRIT 42.2 % (42-52); MEAN CELL VOLUME 87.6 fL (80-100); MEAN CORPUSCULAR HEMOGLOBIN 27.4 pg (25-34); MEAN CORPUSCULAR HGB CONC 31.3 g/dl (32-36); MEAN PLATELET VOLUME 10.2 fL (7.4-10.4); PLATELET COUNT 297 K/uL (130-400); RED BLOOD COUNT 4.82 M/uL (4.7-6.1); WHITE BLOOD COUNT 16.54 K/uL (4.8-10.8)
[2016-12-16 06:10] LABS: BLOOD UREA NITROGEN 28 mg/dl (7-18); CALCIUM 8.5 mg/dl (8.5-10.1); CARBON DIOXIDE 31 mmol/L (21-32); CHLORIDE 103 mmol/L (98-107); CHOLESTEROL 102 mg/dl (0-200); GLUCOSE 188 mg/dl (70-99); POTASSIUM 3.6 mmol/L (3.5-5.1); SODIUM 139 mmol/L (136-145); TRIGLYCERIDES 152 mg/dl (0-150); VERY LOW DENSITY LIPOPROT CALC 30 mg/dl
[2016-12-16 06:20] LABS: CHOLESTEROL/HDL RATIO 4.6; CKMB/CK RATIO 2.1 (0-3.0); HDL CHOLESTEROL 22 mg/dl; LDL CHOLESTEROL CALCULATED 50 mg/dl
[2016-12-16] MEDS ORDERED: MILK AND MOLASSES ENEMA PR SCH (08:00)
[2016-12-16] MEDS ORDERED: PERFLUTREN LIPID MICROSPHERE (DEFINITY) IV ONE (08:05)
[2016-12-16] MEDS: ASPIRIN 81 MG ECTAB PO SCH (08:12)
[2016-12-16] MEDS: PANTOprazole SOD 40 MG TAB PO SCH (08:12)
[2016-12-16] MEDS: CETIRIZINE HCL 10 MG TAB PO SCH (08:14)
[2016-12-16] MEDS: AMLODIPINE BESYLATE 5 MG TAB PO SCH (08:14)
[2016-12-16 08:15] VITALS: BP 149/63; PULSE 86; TEMP 36.8; O2SAT 91
[2016-12-16] MEDS: INSULIN ASPART 100 UNITS/ML 3 ML PEN SC SCH ×4 (08:19→20:47)
[2016-12-16] MEDS ORDERED: LISINOPRIL 40 MG TAB PO SCH (09:00)
[2016-12-16] MEDS ORDERED: POTASSIUM CHLORIDE 20 MEQ TABCR PO SCH ×2 (09:00)
[2016-12-16] MEDS ORDERED: INSULIN GLARGINE SOLOSTAR 100 UNITS/ML 3 ML PEN SC SCH (09:00)
[2016-12-16] MEDS ORDERED: FUROSEMIDE INJ 40 MG in SYRINGE 0 ML IV ONE (09:30)
[2016-12-16] MEDS: ENOXAPARIN 40 MG/0.4 ML SYR SC SCH (09:35)
--- NOTE | 2016-12-16 09:56 | ECHOCARDIOGRAM REPORT ---
*NOTICE TO RECEIVING LIBERTARIAN AGENCY This information is strictly Confidential and protected under [place] law. [place] law prohibits you from making any further disclosure of this information unless further disclosure is expressly permitted by the written consent of the person to whom it pertains or is authorized by law. A general authorization for the release of medical or other information is not sufficient for this purpose. Hospital accepts no responsibility if the information is made available to any other person, INCLUDING THE PATIENT. Interpretation Summary * Name: KENDRA MANJARREZ Study Date: 12/16/2016 07:22 AM BP: 116/54 mmHg * Patient Location: C.2E\S\E202\S\1 HR: 50 * : 1960 (M/d/yyyy) Gender: Male Height: 69 in * Age: 55 yrs Ethnicity: [place] Weight: 272 lb * Ordering Physician: Mary Paul * Referring Physician: [facility] [place] [facility] * Performed By: Shahnaz Huang RDCS * * Reason For Study: CHF exacerbation, right heart strain * BSA: 2.4 m2 * -- Conclusions -- * Normal LV chamber size with mild concentric LVH. * Normal LV systolic function, EF 55-60%. * Mild hypokinesis of the mid to apical portions of the inferior/inferolateral jean, otherwise, hyperdynamic wall motion. * Grade II diastolic dysfunction. * Moderately calcified, trileaflet aortic valve with mild stenosis, no regurgitation. * Mild left atrial enlargement. Procedure Details * A complete two-dimensional transthoracic echocardiogram was performed (2D, M-mode, Doppler and color flow Doppler). * A contrast injection of Definity was performed to improve assessment of LV function. * Contrast was injected into an intravenous site in the left arm. * One vial of Definity ultrasound contrast was diluted in normal saline to a total volume of 10 ml. A total of '2' ml of solution was administered during imaging. * Lot # [id number] of Definity utilized for procedure. * Expiration date dec 28. * The attending nurse who injected the contrast agent was Robbie Dunlap RN. Left Ventricle * The left ventricle is normal in size. * There is mild concentric left ventricular hypertrophy. * Ejection Fraction = 55-60%. * Left ventricular systolic function is normal. * Mild hypokinesis of the mid to apical portions of the inferior/inferolateral jean, otherwise, hyperdynamic wall motion. Right Ventricle * The right ventricular cavity size is normal (basal dimension <4.2 cm in right ventricular apical 4-chamber view). * The right ventricular systolic function is normal as assessed by tricuspid annular plane systolic excursion (TAPSE) (normal >1.5 cm). Atria * The left atrium is mildly dilated. * Right atrial size is normal. * No ASD detected; PFO is not assessed. Mitral Valve * The mitral valve is normal in structure and function. Tricuspid Valve * The tricuspid valve is normal in structure and function. Aortic Valve * The aortic valve is trileaflet. * Moderately calcified, trileaflet aortic valve with mild stenosis, no regurgitation. Pulmonic Valve * The pulmonary valve is not well seen, but the Doppler examination is normal without significant regurgitation or stenosis. Great Vessels * The aortic root is normal size. Pericardium/Pleural * There is no pericardial effusion. Left Ventricular Diastolic Function * Diastolic dysfunction, Grade II (pseudonormalization pattern). MMode 2D Measurements and Calculations IVSd 1.2 cm LVIDd 5.3 cm LVIDs 3.1 cm LVPWd 1.3 cm IVS/LVPW 0.90 FS 42.2 % EDV(Teich) 136.7 ml ESV(Teich) 37.2 ml EF(Teich) 72.8 % EDV(cubed) 150.8 ml ESV(cubed) 29.1 ml EF(cubed) 80.7 % LV mass(C)d 263.7 grams LV mass(C)dI 112.0 grams/m\S\2 SV(Teich) 99.5 ml SI(Teich) 42.3 ml/m\S\2 SV(cubed) 121.7 ml SI(cubed) 51.7 ml/m\S\2 Ao root diam 3.3 cm Ao root area 8.7 cm\S\2 ACS 1.9 cm LA dimension 4.4 cm asc Aorta Diam 3.0 cm LA/Ao 1.3 LVAd ap4 36.1 cm\S\2 LVLd ap4 8.6 cm EDV(MOD-sp4) 125.2 ml EDV(sp4-el) 127.8 ml LVAs ap4 16.8 cm\S\2 LVLs ap4 6.7 cm ESV(MOD-sp4) 34.5 ml ESV(sp4-el) 35.7 ml EF(MOD-sp4) 72.4 % EF(sp4-el) 72.1 % LVAd ap2 38.0 cm\S\2 LVLd ap2 8.5 cm EDV(MOD-sp2) 140.1 ml EDV(sp2-el) 143.4 ml LVAs ap2 17.5 cm\S\2 LVLs ap2 6.2 cm ESV(MOD-sp2) 41.1 ml ESV(sp2-el) 42.0 ml EF(MOD-sp2) 70.6 % EF(sp2-el) 70.7 % LVLd %diff -1.41 % EDV(MOD-bp) 133.2 ml LVLs %diff -7.50 % ESV(MOD-bp) 38.7 ml EF(MOD-bp) 71.0 % SV(MOD-sp4) 90.7 ml SI(MOD-sp4) 38.5 ml/m\S\2 SV(MOD-sp2) 98.9 ml SI(MOD-sp2) 42.0 ml/m\S\2 SV(MOD-bp) 94.5 ml SI(MOD-bp) 40.1 ml/m\S\2 SV(sp4-el) 92.1 ml SI(sp4-el) 39.1 ml/m\S\2 SV(sp2-el) 101.4 ml SI(sp2-el) 43.1 ml/m\S\2 Doppler Measurements and Calculations MV E max lila 151.3 cm/sec MV dec time 0.31 sec Ao V2 max 314.8 cm/sec Ao max PG 39.8 mmHg Ao max PG (full) 33.2 mmHg Ao V2 mean 174.4 cm/sec Ao mean PG 15.7 mmHg Ao V2 VTI 67.0 cm LV V1 max PG 6.5 mmHg LV V1 max 127.8 cm/sec SV(Ao) 585.1 ml SI(Ao) 248.6 ml/m\S\2 PA V2 max 113.9 cm/sec PA max PG 5.2 mmHg PA acc slope 634.1 cm/sec\S\2 PA acc time 0.13 sec TR max lila 266.6 cm/sec PA pr(Accel) 22.8 mmHg
[2016-12-16] MEDS ORDERED: ATROPINE SULFATE 0.1 MG/ML 5ML SYR ONE (10:46)
--- NOTE | 2016-12-16 11:02 | CARDIOLOGY CONSULTATION ---
DATE OF CONSULTATION: 12/16/2016 CONSULTATION REQUESTED BY: Forrest Dueñas PA-C. REASON FOR CONSULTATION: Acute decompensated heart failure. HISTORY OF PRESENT ILLNESS: Mr. Robertson is a 55-year-old gentleman who has been lost to cardiac followup for over a year now. He presented to [facility] on 12/15/2016 with a complaint of dyspnea on exertion and lower extremity edema. The patient states he noticed his symptoms starting approximately 3-4 weeks ago. He states that he felt his legs starting to become swollen with fluid. He is not sure if his abdomen became more distended either, but he did note a 20-pound weight gain. At that time, he also started developing some dyspnea with exertion. 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 Otherwise, he denies any chest pain, palpitations or syncope. He states that he has been compliant with his medications, however, admits to dietary indiscretion and did have a week of binge drinking alcohol approximately 2 weeks ago for his son's wedding. Also, of note, the patient was last seen as an outpatient in 11/2015 when nuclear stress test was ordered; however, the patient did not follow up with the stress testing nor with followup cardiac appointments since then. PAST SURGICAL HISTORY: 1. Vasectomy. 2. Cholecystectomy. 3. Colonoscopy. MEDICAL ILLNESSES: 1. Diabetes. 2. Obesity. 3. Nonobstructive coronary artery disease by cardiac catheterization in 2012. 4. History of poor healing foot ulcers. 5. Dyslipidemia. 6. Ongoing tobacco abuse. 7. Hypertension. FAMILY HISTORY: Remarkable for father who developed heart disease in his 50s and myocardial infarction at age 58. SOCIAL HISTORY: The patient is a lifelong smoker and continues to smoke; however, he states he has been cutting down. He has a previous history of alcohol abuse, last alcoholic beverage approximately 2 weeks ago at his son's wedding. Denies recreational drug use. He does not exercise. REVIEW OF SYSTEMS: As per HPI. All other review of systems reviewed and negative at this time. ALLERGIES: 1. VANCOMYCIN. 2. BEE STINGS. MEDICATIONS AN OUTPATIENT: 1. Aspirin 81 mg daily. 2. Atorvastatin 40 mg daily. 3. Amlodipine 10 mg daily. 4. Lasix 40 mg b.i.d. 5. Lisinopril 40 mg daily. 6. Potassium chloride 20 mEq daily. 7. Metformin b.i.d. 8. Insulin as directed. 9. Prilosec daily. PHYSICAL EXAMINATION: VITAL SIGNS: Temperature 36.8, pulse 86, respiratory rate 12, blood pressure 149/63. GENERAL: Awake, alert, oriented x3, in no acute distress. HEENT: Normocephalic, atraumatic. Pupils equal, round and reactive to light and accommodation. Extraocular muscles intact. Anicteric sclerae. Moist mucous membranes. NECK: Short. Unable to appreciate for any JVD. No bruits. CARDIOVASCULAR: Regular but distant. Unable to appreciate any murmurs, rubs or gallops. PULMONARY: Poor air movement in bilateral bases with scant rhonchi. No rales or wheezing. ABDOMEN: Bowel sounds x4, soft, obese. No rebound, guarding, tenderness. No organomegaly. EXTREMITIES: +3 lower extremity pitting edema on the right, +2 on the left. Barely palpable pedal pulses bilaterally. SKIN: Warm and dry with chronic venous stasis changes of the lower extremities. TEST RESULTS: Chest x-ray upon admission was read as cardiomegaly and pulmonary vascular congestion without overt pulmonary edema, fullness of the right parenchymal tissue redemonstrated correlating with adenopathy seen on previous chest CT. A 12-lead EKG performed in the Emergency Department independently reviewed at this time shows sinus bradycardia with questionable AV disassociation and junctional rhythm. Telemetry monitoring shows intermittent Mobitz type 1 Wenckebach heart block, asymptomatic with rates down into the 40s. A 2D echocardiogram was read as normal LV chamber size with mild concentric LVH. Overall, normal LV systolic function, EF 55-60%, with mild hypokinesis of the mid to apical portions of the inferior/inferolateral jean, otherwise hyperdynamic motion. Grade 2 diastolic dysfunction, moderately calcified trileaflet aortic valve with mild stenosis, no regurgitation, mild left atrial enlargement. IMPRESSION: 1. Acute decompensated diastolic heart failure. 2. New inferior/inferolateral wall motion abnormality. 3. Intermittent asymptomatic Mobitz type 1 heart block. 4. History of renal failure with a combination of diuretics and lisinopril. 5. Ongoing tobacco abuse. 6. Hypertension. 7. Dyslipidemia. 8. Morbid obesity. RECOMMENDATIONS: Mr. Robertson was counseled given the fact that he did not undergo an ischemic evaluation a year ago and has continued to smoke since then, that I have no doubt he has progressive coronary artery disease, especially in light of the new wall motion abnormality on his echocardiogram. So I believe the most prudent course of action at this point will be for diuresis for now and close monitoring on telemetry for any higher grade AV block. His lisinopril will be discontinued given the history of renal failure. As he is diuresed, his electrolytes will be followed and repleted as necessary. My hope is that we would be able to diurese him for the next few days and then undergo cardiac catheterization, but this will be pending his renal function. He was counseled that my suspicion is that he does have significant atherosclerotic disease, but again, cardiac catheterization will be needed to accurately diagnose and evaluate. So at this point, no AV cierra blocking agents will be introduced obviously given the AV block. His lisinopril was held, but he will be continued on his amlodipine and we can add hydralazine if necessary for further blood pressure control. The above findings were all reviewed with the patient as was the possible serious nature of his disease. He states that he understands and wishes to proceed as per above recommendations.
[2016-12-16 12:40] VITALS: BP 137/61; PULSE 50; TEMP 36.7; O2SAT 92
[2016-12-16 13:43] VITALS: Ht 175.3 cm; Wt 123.6 kg
--- NOTE | 2016-12-16 16:13 | Progress Note ---
Internal Med Progress Note Date of Service: Dec 16, 2016. Provider Documentation: SUBJECTIVE: The patient was seen and examined Feels a little unwell but denies any CP,Palpitation ,SOB NO abdominal pain ,nausea and or vomiting OBJECTIVE: Vital Signs-as noted below Exam: General-NO distress at rest Eyes-normal ENT-normal Neck-Supple Lungs-Clear to auscultate bilaterally Heart-Regular Abdomen-Distended,soft,no organomegaly Bowel sound present Extremities-+2 edema bilaterally Neuro-AAOx3 Lab data as noted below. ASSESSMENT & PLAN: This is a 55yo man with a PMH of DM II, non-obstructive CAD, HTN, HLD, tobacco use disorder and diastolic heart dysfunction who presents with worsening lower extremity edema. Acutely decompensated Diastolic HF: -Patient with history of diastolic dysfunction, LVH on 2015 echo -Presents with worsening LE edema, dyspnea on exertion, crackles on exam and ~2- 0lbs weight gain -CXR with vascular congestion -EKG with evidence of RVH, ST depression in V5-V6.Intermittent 2nd Degree ,type I block -ECHO:: Normal LV chamber size with mild concentric LVH. * Normal LV systolic function, EF 55-60%. * Mild hypokinesis of the mid to apical portions of the inferior/ inferolateral jean, otherwise, hyperdynamic wall motion. * Grade II diastolic dysfunction. * Moderately calcified, trileaflet aortic valve with mild stenosis, no regurgitation. * Mild left atrial enlargement. Appreciate Cardiology input CAD: New Infero-lateral wall motion abnormality in ECHO -Non obstructive as per history -Continue statin, started on aspirin -Serial Dino -negative for ACS -Likely t o have Cardiac Cath on Monday HTN: -Normotensive now -Continue home meds of amlodipine -will hold Lisinopril -Monitor kidney function and consider holding lisinopril if worsened DM II: HB E8D-xbod at 8.8 -Hgb a1c of 8.4 on 10/27 -Hold home meds -Basal bolus regimen while in-patient -BG checks AC HS Urinary retention: -KUB with distended bladder -Follow up pelvic/bladder ultrasound recommended -Has not urinated since admission -Refused valdes catheter -Closely monitor Constipation: -Presents with abd distention, bloating -Has not had a bowel movement in a week -KUB without evidence of bowel obstruction -Scheduled suppository, miralax Tobacco use disorder: -Discussed benefits of cessation in terms of chronic disease -Not interested in quitting at this time -Denies COPD diagnosis HLD: -Continue statin DVT Ppx: Lovenox Code status: FULL Vital Signs: Date Time Temp Pulse Resp B/P (MAP) Pulse Ox O2 Delivery O2 Flow Rate FiO2 12/16/16 12:40 36.7 50 18 137/61 (86) 92 Room Air 12/16/16 12:00 Room Air 12/16/16 08:15 36.8 86 18 149/63 (91) 91 Room Air 12/16/16 08:00 Room Air 12/16/16 04:25 36.8 50 18 116/54 (74) 90 Room Air 12/16/16 04:00 Room Air 12/15/16 23:59 Room Air 12/15/16 23:30 36.9 71 18 115/68 (84) 91 Room Air 12/15/16 22:10 36.9 54 20 155/66 93 Room Air 12/15/16 20:45 53 16 110/70 96 Room Air 12/15/16 19:00 95 22 85 Room Air 12/15/16 18:58 69 18 137/75 93 Room Air 12/15/16 18:55 88 18 95 Room Air 12/15/16 17:50 66 12/15/16 17:28 93 Room Air 12/15/16 17:23 36.3 58 18 159/64 93 Room Air 12/15/16 17:23 93 Room Air Lab Results: Results Past 24 Hours Test 12/15/16 17:12 12/15/16 22:58 12/15/16 23:27 12/16/16 04:10 Range/Units White Blood Count 15.15 4.8-10.8 K/uL Red Blood Count 5.08 4.7-6.1 M/uL Hemoglobin 14.4 14.0-18.0 g/dL Hematocrit 44.4 42-52 % Mean Corpuscular Volume 87.4 80-100 fL Mean Corpuscular Hemoglobin 28.3 25-34 pg Mean Corpuscular Hemoglobin Concent 32.4 32-36 g/dl Platelet Count 312 130-400 K/uL Mean Platelet Volume 10.4 7.4-10.4 fL Neutrophils (%) (Auto) 72.7 % Lymphocytes (%) (Auto) 19.0 % Monocytes (%) (Auto) 6.3 % Eosinophils (%) (Auto) 1.4 % Basophils (%) (Auto) 0.3 % Neutrophils # (Auto) 11.01 1.4-6.5 K/uL Lymphocytes # (Auto) 2.88 1.2-3.4 K/uL Monocytes # (Auto) 0.95 0.11-0.59 K/uL Eosinophils # (Auto) 0.21 0-0.5 K/uL Basophils # (Auto) 0.05 0-0.2 K/uL RDW Standard Deviation 47.5 36.4-46.3 fL RDW Coefficient of Variation 14.8 11.5-14.5 % Immature Granulocyte % (Auto) 0.3 % Immature Granulocyte # (Auto) 0.05 0.00-0.02 K/uL Prothrombin Time 11.9 9.0-12.0 SECONDS Prothromb Time International Ratio 1.1 0.9-1.1 Sodium Level 137 136-145 mmol/L Potassium Level 3.8 3.5-5.1 mmol/L Chloride Level 102 98-107 mmol/L Carbon Dioxide Level 29 21-32 mmol/L Anion Gap 6.0 3-11 mmol/L Blood Urea Nitrogen 24 7-18 mg/dl Creatinine 1.30 0.60-1.40 mg/dl Est Creatinine Clear Calc Drug Dose 83.4 ml/min Estimated GFR () 71.2 Estimated GFR (Non- 61.4 BUN/Creatinine Ratio 18.2 10-20 Random Glucose 156 70-99 mg/dl Calcium Level 9.0 8.5-10.1 mg/dl Total Bilirubin 0.5 0.2-1 mg/dl Aspartate Amino Transf (AST/SGOT) 19 15-37 U/L Alanine Aminotransferase (ALT/SGPT) 24 12-78 U/L Alkaline Phosphatase 173 45-117 U/L Creatine Kinase MB 1.5 1.2 0.5-3.6 ng/ml Creatine Kinase MB Ratio 2.2 0-3.0 Troponin I < 0.015 < 0.015 0-0.045 ng/ml Pro-B-Type Natriuretic Peptide 381 0-900 pg/ml Total Protein 8.2 6.4-8.2 gm/dl Albumin 3.3 3.4-5.0 gm/dl Globulin 4.9 2.5-4.0 gm/dl Albumin/Globulin Ratio 0.7 0.9-2 Lipase 200 73-393 U/L Total Creatine Kinase 54 39-308 U/L Hepatitis C Antibody Screen NEG NEG Bedside Glucose 104 70-99 mg/dl Urine Color YELLOW Urine Appearance CLEAR CLEAR Urine pH 5.0 4.5-7.5 Urine Specific [place] 1.016 1.000-1.030 Urine Protein NEG NEG Urine Glucose (UA) 3+ NEG Urine Ketones NEG NEG Urine Occult Blood NEG NEG Urine Nitrite NEG NEG Urine Bilirubin NEG NEG Urine Urobilinogen NEG NEG Urine Leukocyte Esterase NEG NEG Test 12/16/16 05:16 12/16/16 06:54 12/16/16 11:26 Range/Units White Blood Count 16.54 4.8-10.8 K/uL Red Blood Count 4.82 4.7-6.1 M/uL Hemoglobin 13.2 14.0-18.0 g/dL Hematocrit 42.2 42-52 % Mean Corpuscular Volume 87.6 80-100 fL Mean Corpuscular Hemoglobin 27.4 25-34 pg Mean Corpuscular Hemoglobin Concent 31.3 32-36 g/dl RDW Standard Deviation 47.4 36.4-46.3 fL RDW Coefficient of Variation 14.9 11.5-14.5 % Platelet Count 297 130-400 K/uL Mean Platelet Volume 10.2 7.4-10.4 fL Sodium Level 139 136-145 mmol/L Potassium Level 3.6 3.5-5.1 mmol/L Chloride Level 103 98-107 mmol/L Carbon Dioxide Level 31 21-32 mmol/L Anion Gap 5.0 3-11 mmol/L Blood Urea Nitrogen 28 7-18 mg/dl Creatinine 1.20 0.60-1.40 mg/dl Est Creatinine Clear Calc Drug Dose 89.2 ml/min Estimated GFR () 78.4 Estimated GFR (Non- 67.7 BUN/Creatinine Ratio 23.0 10-20 Random Glucose 188 70-99 mg/dl Estimated Average Glucose 206 mg/dl Hemoglobin A1c 8.8 4.5-5.6 % Calcium Level 8.5 8.5-10.1 mg/dl Total Creatine Kinase 52 39-308 U/L Creatine Kinase MB 1.1 0.5-3.6 ng/ml Creatine Kinase MB Ratio 2.1 0-3.0 Troponin I < 0.015 0-0.045 ng/ml Triglycerides Level 152 0-150 mg/dl Cholesterol Level 102 0-200 mg/dl HDL Cholesterol 22 mg/dl LDL Cholesterol, Calculated 50 mg/dl VLDL Cholesterol, Calculated 30 mg/dl Cholesterol/HDL Ratio 4.6 Bedside Glucose 160 191 70-99 mg/dl Microbiology Results 12/16/16 Urine Culture, Received Pending
[2016-12-16 16:36] VITALS: BP 124/49; PULSE 51; TEMP 36.6; O2SAT 91
[2016-12-16] MEDS ORDERED: MAGNESIUM HYDROXIDE SUSP 30 ML UDC PO PRN (18:30)
[2016-12-16] MEDS ORDERED: NURSING VERBAL MED ORDER ONE (18:30)
[2016-12-16 19:46] VITALS: BP_SYST 124; BP_SYST 128; BP_DIAS 64; BP_DIAS 91; PULSE 50; PULSE 69; TEMP 36.5; TEMP 37.1; O2SAT 92
[2016-12-16] MEDS: FUROSEMIDE INJ 40 MG in SYRINGE 0 ML IV SCH (20:45)
[2016-12-16] MEDS: POTASSIUM CHLORIDE 20 MEQ TABCR PO SCH (20:46)
[2016-12-16] MEDS ORDERED: FUROSEMIDE INJ 40 MG in SYRINGE 0 ML IV SCH (21:00)
[2016-12-17] VITALS (8 sets, daily range): BP systolic 115–149; BP diastolic 59–76; PULSE 41–101; TEMP 36.5–36.7; O2SAT 79–94
[2016-12-17 06:02] LABS: HEMATOCRIT 40.5 % (42-52); MEAN CORPUSCULAR HGB CONC 31.9 g/dl (32-36); MEAN PLATELET VOLUME 10.3 fL (7.4-10.4); PLATELET COUNT 282 K/uL (130-400); WHITE BLOOD COUNT 15.36 K/uL (4.8-10.8)
[2016-12-17 06:53] LABS: BUN/CREATININE RATIO 26.3 (10-20); CALCIUM 8.6 mg/dl (8.5-10.1); CREATININE 1.4 mg/dl (0.60-1.40); MAGNESIUM 2.8 mg/dl (1.8-2.4); PHOSPHORUS 4.4 mg/dl (2.5-4.9); POTASSIUM 4.9 mmol/L (3.5-5.1)
[2016-12-17] MEDS: ASPIRIN 81 MG ECTAB PO SCH (07:55)
[2016-12-17] MEDS: AMLODIPINE BESYLATE 5 MG TAB PO SCH (07:56)
[2016-12-17] MEDS: CETIRIZINE HCL 10 MG TAB PO SCH (07:57)
[2016-12-17] MEDS: PANTOprazole SOD 40 MG TAB PO SCH (07:57)
[2016-12-17] MEDS: INSULIN GLARGINE SOLOSTAR 100 UNITS/ML 3 ML PEN SC SCH ×2 (07:58→20:48)
[2016-12-17] MEDS: INSULIN ASPART 100 UNITS/ML 3 ML PEN SC SCH ×4 (08:01→20:47)
[2016-12-17] MEDS: POTASSIUM CHLORIDE 20 MEQ TABCR PO SCH (08:02)
[2016-12-17] MEDS: POLYETHYLENE (MIRALAX) 17 GM PACK PO SCH ×2 (08:02→20:55)
[2016-12-17] MEDS: ENOXAPARIN 40 MG/0.4 ML SYR SC SCH (08:03)
[2016-12-17] MEDS: FUROSEMIDE INJ 40 MG in SYRINGE 0 ML IV SCH ×2 (08:04→20:44)
--- NOTE | 2016-12-17 11:19 | Cardiology Follow-Up ---
Subjective Subjective Date of Service: Dec 17, 2016. Pt evaluation today including: conversation w/ patient, physical exam, chart review, lab review, review of studies, review of inpatient medication list Additional Details: Pt seen and examined, states that he feels fine. Denies any change in sob since admission. Denies cp, palpitations, lightheadedness or dizziness. Tele reviewed: sinus rhythm with competing junctional rhythm and Mobitz type I. No sign of higher AV cierra block present. Problem List Medical Problems: (1) Chest pain Status: Acute (2) Lower extremity edema Status: Acute (3) PICC line infection Status: Acute (4) Pulmonary congestion Status: Acute (5) Scrotal edema Status: Acute (6) Swelling of both lower extremities Status: Acute Review of Systems Respiratory: + shortness of breath, + dyspnea on exertion, No see HPI, No cough , No sputum, No wheezing, No dyspnea at rest, No hemoptysis, No problem reported Cardiac: + palpitations, No see HPI, No chest pain, No orthopnea, No PND, No edema, No claudication, No problem reported Objective Vital Signs Last Vital Signs Documentation Date Time Temp Pulse Resp B/P (MAP) Pulse Ox O2 Delivery O2 Flow Rate FiO2 12/17/16 08:00 Room Air 12/17/16 07:55 36.5 45 18 130/61 (84) 90 12/17/16 04:22 2.0 Physical Exam: General Appearance: WD/WN, no apparent distress, + obese, + pertinent finding ( slight conversational dyspnea) Eyes: bilateral eyes normal inspection, bilateral eyes PERRL, bilateral eyes EOMI ENT: normal ENT inspection, hearing grossly normal, pharynx normal Neck: supple, no adenopathy, thyroid normal, no JVD, no carotid bruits, trachea midline Respiratory/Chest: chest non-tender, normal breath sounds, no respiratory distress, no accessory muscle use, + decreased breath sounds Cardiovascular: regular rate, rhythm, + bradycardia, + pertinent finding ( distant) Abdomen: normal bowel sounds, non tender, soft, no organomegaly, no pulsatile mass Extremities: non-tender, normal inspection, no calf tenderness, + pertinent finding (+1 B/L LE pitting edema) Neurologic/Psychiatric: lead handler II-XII nml as tested, no motor/sensory deficits, alert, normal mood/affect, oriented x 3 Skin: normal color, warm/dry, no rash Lymphatic: no adenopathy Assessment and Plan 1. acute decompensated systolic/diastolic failure diuresing well, over 3L out will cont with bid lasix for now stop KCl supplements cont strict I/O's renal function remaining stable will hold lasix in AM and dose further on physical exam 2. CAD new inferior wall abnormality likely represents myocardial infarction of the RCA, which would also explain arrhythmias no sign of active ischemia, no role for heparin no indication for emergent cardiac cath, clinically stable will cont with medical optimization prior to cath, likely 12/19 cont asa no beta blockers due to bradycardia 3. junctional rhythm/Mobitz I conduction system abnormality likely secondary to RCA infarct (the supplying vessel to the conduction system) clinically stable asymptomatic maintaining BP no need for temporary pacer at this time my suspicion is that conduction system disease is secondary to lack of perfusion, hopefully, once perfusion restored conduction system will improve avoid all AV cierra blocking agents cont to monitor closely in MICU atropine and external pacer at bedside 4. CKD stable even with diuresis lisinopril held cont to follow 5. tobacco abuse cessation counseling offered to speak to patient's family to discuss clinical findings and potentially grave nature, he declined
--- NOTE | 2016-12-17 13:39 | Progress Note ---
Internal Med Progress Note Date of Service: Dec 17, 2016. Provider Documentation: SUBJECTIVE: The patient was seen and examined Feels a little unwell but denies any CP,Palpitation ,SOB NO abdominal pain ,nausea and or vomiting No acute symptoms Remains stable otherwise OBJECTIVE: Vital Signs-as noted below Exam: General-NO distress at rest Eyes-normal ENT-normal Neck-Supple Lungs-Clear to auscultate bilaterally Heart-Regular Abdomen-Distended,soft,no organomegaly Bowel sound present Extremities-+2 edema bilaterally Neuro-AAOx3 Lab data as noted below. ASSESSMENT & PLAN: This is a 55yo man with a PMH of DM II, non-obstructive CAD, HTN, HLD, tobacco use disorder and diastolic heart dysfunction who presents with worsening lower extremity edema. Acutely decompensated Diastolic HF: -Patient with history of diastolic dysfunction, LVH on 2015 echo -Presents with worsening LE edema, dyspnea on exertion, crackles on exam and ~2- 0lbs weight gain -CXR with vascular congestion -EKG with evidence of RVH, ST depression in V5-V6.Intermittent 2nd Degree ,type I block -ECHO:: Normal LV chamber size with mild concentric LVH. * Normal LV systolic function, EF 55-60%. * Mild hypokinesis of the mid to apical portions of the inferior/ inferolateral jean, otherwise, hyperdynamic wall motion. * Grade II diastolic dysfunction. * Moderately calcified, trileaflet aortic valve with mild stenosis, no regurgitation. * Mild left atrial enlargement. Appreciate Cardiology input Diuresing well CAD: New Infero-lateral wall motion abnormality in ECHO -Non obstructive as per history -Continue statin, started on aspirin -Serial Dino -negative for ACS -Likely t o have Cardiac Cath on Monday Junctional Rhythm Admitted with 2nd degree Type 1 intermittent heart block Junction rhythm today -rate ~44 Remains hemodynamically stable May need PPM HTN: -Normotensive now -Continue home meds of amlodipine -will hold Lisinopril -Monitor kidney function and consider holding lisinopril if worsened DM II: HB G3Y-cdeg at 8.8 -Hgb a1c of 8.4 on 10/27 -Hold home meds -Basal bolus regimen while in-patient -BG checks AC HS Urinary retention: -KUB with distended bladder -Follow up pelvic/bladder ultrasound recommended -Refused valdes catheter -Closely monitor Constipation: -Presents with abd distention, bloating -Has not had a bowel movement in a week -KUB without evidence of bowel obstruction -Scheduled suppository, miralax Tobacco use disorder: -Discussed benefits of cessation in terms of chronic disease -Not interested in quitting at this time -Denies COPD diagnosis HLD: -Continue statin DVT Ppx: Lovenox Code status: FULL Vital Signs: Date Time Temp Pulse Resp B/P (MAP) Pulse Ox O2 Delivery O2 Flow Rate FiO2 12/17/16 11:55 36.5 41 18 149/62 (91) 94 Room Air 12/17/16 08:00 Room Air 12/17/16 07:55 36.5 45 18 130/61 (84) 90 Room Air 12/17/16 04:22 92 Nasal Cannula 2.0 12/17/16 04:17 36.5 48 19 122/59 (80) 79 Room Air 12/17/16 04:15 Room Air 12/17/16 00:32 36.7 54 20 136/59 (84) 91 Room Air 12/17/16 00:00 Room Air 12/16/16 20:00 Room Air 12/16/16 19:46 36.5 50 22 124/64 (84) 92 Room Air 12/16/16 16:36 36.6 51 20 124/49 (74) 91 Room Air 12/16/16 16:00 Room Air Lab Results: Results Past 24 Hours Test 12/16/16 16:24 12/16/16 20:37 12/17/16 05:16 12/17/16 06:27 Range/Units Bedside Glucose 143 160 154 70-99 mg/dl White Blood Count 15.36 4.8-10.8 K/uL Red Blood Count 4.60 4.7-6.1 M/uL Hemoglobin 12.9 14.0-18.0 g/dL Hematocrit 40.5 42-52 % Mean Corpuscular Volume 88.0 80-100 fL Mean Corpuscular Hemoglobin 28.0 25-34 pg Mean Corpuscular Hemoglobin Concent 31.9 32-36 g/dl RDW Standard Deviation 47.9 36.4-46.3 fL RDW Coefficient of Variation 14.9 11.5-14.5 % Platelet Count 282 130-400 K/uL Mean Platelet Volume 10.3 7.4-10.4 fL Sodium Level 139 136-145 mmol/L Potassium Level 4.9 3.5-5.1 mmol/L Chloride Level 103 98-107 mmol/L Carbon Dioxide Level 29 21-32 mmol/L Anion Gap 7.0 3-11 mmol/L Blood Urea Nitrogen 37 7-18 mg/dl Creatinine 1.40 0.60-1.40 mg/dl Est Creatinine Clear Calc Drug Dose 76.6 ml/min Estimated GFR () 65.1 Estimated GFR (Non- 56.2 BUN/Creatinine Ratio 26.3 10-20 Random Glucose 174 70-99 mg/dl Calcium Level 8.6 8.5-10.1 mg/dl Phosphorus Level 4.4 2.5-4.9 mg/dl Magnesium Level 2.8 1.8-2.4 mg/dl Test 12/17/16 11:30 Range/Units Bedside Glucose 208 70-99 mg/dl
[2016-12-17] MEDS ORDERED: NURSING VERBAL MED ORDER ONE (16:30)
[2016-12-17] MEDS ORDERED: NITROGLYCERIN 0.4 MG SL PER TAB CHARGE SL PRN (16:45)
[2016-12-17] MEDS ORDERED: MAGNESIUM CITRATE 296 ML/BTL PO PRN (18:00)
[2016-12-17] MEDS: ATORVASTATIN 40 MG TAB PO SCH (20:44)
[2016-12-18] VITALS (15 sets, daily range): BP systolic 114–163; BP diastolic 51–79; PULSE 41–50; TEMP 36.4–36.8; O2SAT 89–98
[2016-12-18] MEDS: INSULIN ASPART 100 UNITS/ML 3 ML PEN SC SCH ×4 (07:00→20:36)
[2016-12-18] MEDS: ENOXAPARIN 40 MG/0.4 ML SYR SC SCH (09:00)
[2016-12-18] MEDS: CETIRIZINE HCL 10 MG TAB PO SCH (09:00)
[2016-12-18] MEDS: ASPIRIN 81 MG ECTAB PO SCH (09:00)
[2016-12-18] MEDS: PANTOprazole SOD 40 MG TAB PO SCH (09:00)
[2016-12-18] MEDS: AMLODIPINE BESYLATE 5 MG TAB PO SCH (09:00)
[2016-12-18] MEDS: POLYETHYLENE (MIRALAX) 17 GM PACK PO SCH ×2 (09:00→20:37)
[2016-12-18] MEDS: INSULIN GLARGINE SOLOSTAR 100 UNITS/ML 3 ML PEN SC SCH ×2 (09:00→20:36)
[2016-12-18 09:32] LABS: BUN/CREATININE RATIO 28.5 (10-20); CALCIUM 8.9 mg/dl (8.5-10.1); CREATININE 1.4 mg/dl (0.60-1.40); POTASSIUM 5.5 mmol/L (3.5-5.1)
--- NOTE | 2016-12-18 09:36 | Cardiology Follow-Up ---
Subjective Subjective Date of Service: Dec 18, 2016. Pt evaluation today including: conversation w/ patient, physical exam, chart review, lab review, review of studies, review of inpatient medication list Additional Details: Pt seen and examined urgently, called by nursing this AM with concern for worsening bradycardia and questionable QRS duration change. Pt states that he "feels pissy cause you won't let me eat". He denies cp, sob, palpitations, lightheadness or dizziness. States that he feels fine and wants to go home. Tele reviewed: junctional rhythm persists with rates down into 30's while sleeping, witnessed apnea reported. Problem List Medical Problems: (1) Chest pain Status: Acute (2) Lower extremity edema Status: Acute (3) PICC line infection Status: Acute (4) Pulmonary congestion Status: Acute (5) Scrotal edema Status: Acute (6) Swelling of both lower extremities Status: Acute Review of Systems Respiratory: + shortness of breath, + dyspnea on exertion, No see HPI, No cough , No sputum, No wheezing, No dyspnea at rest, No hemoptysis, No problem reported Cardiac: + palpitations, No see HPI, No chest pain, No orthopnea, No PND, No edema, No claudication, No problem reported Objective Vital Signs Last Vital Signs Documentation Date Time Temp Pulse Resp B/P (MAP) Pulse Ox O2 Delivery O2 Flow Rate FiO2 12/18/16 08:00 91 Nasal Cannula 3.0 12/18/16 07:57 36.5 50 20 147/58 (87) Physical Exam: General Appearance: WD/WN, no apparent distress, + obese, + pertinent finding ( slight conversational dyspnea) Eyes: bilateral eyes normal inspection, bilateral eyes PERRL, bilateral eyes EOMI ENT: normal ENT inspection, hearing grossly normal, pharynx normal Neck: supple, no adenopathy, thyroid normal, no JVD, no carotid bruits, trachea midline Respiratory/Chest: chest non-tender, normal breath sounds, no respiratory distress, no accessory muscle use, + decreased breath sounds Cardiovascular: regular rate, rhythm, + bradycardia, + pertinent finding ( distant) Abdomen: normal bowel sounds, non tender, soft, no organomegaly, no pulsatile mass Extremities: non-tender, normal inspection, no calf tenderness, + pertinent finding (+1 B/L LE pitting edema) Neurologic/Psychiatric: cardiovascular technologist II-XII nml as tested, no motor/sensory deficits, alert, normal mood/affect, oriented x 3 Skin: normal color, warm/dry, no rash Lymphatic: no adenopathy Assessment and Plan 1. acute decompensated systolic/diastolic failure diuresing well, over 3L out will hold further diuretics for now 2. CAD new inferior wall abnormality likely represents myocardial infarction of the RCA, which would also explain arrhythmias no sign of active ischemia, no role for heparin no indication for emergent cardiac cath, clinically stable will cont with medical optimization prior to cath, likely 12/19 cont asa no beta blockers due to bradycardia 3. junctional rhythm/Mobitz I conduction system abnormality likely secondary to RCA infarct (the supplying vessel to the conduction system) clinically stable asymptomatic maintaining BP no need for temporary pacer at this time my suspicion is that conduction system disease is secondary to lack of perfusion, hopefully, once perfusion restored conduction system will improve avoid all AV cierra blocking agents no real change overnight, no indication for emergent cath or temporary pacemaker at this time will transfer to SICU for closer monitoring temporary pacer pads in place 4. CKD stable even with diuresis lisinopril held cont to follow 5. tobacco abuse cessation counseling offered to speak to patient's family to discuss clinical findings and potentially grave nature, he declined. I have now insisted that I speak to family and he is currently deciding who to call but doesn't want to bother his children.
--- NOTE | 2016-12-18 12:16 | Progress Note ---
Progress Note Date of Service Dec 18, 2016. Progress Note Pt chose to have me speak with soon to be daughter in law, Reta Ramos. Discussed findings, clinical setting, concerns, risks and possible outcomes with her. She verbalized that she understood, agreed with the plan and that all her questions were answered to satisfaction.
[2016-12-18] MEDS ORDERED: INSULIN HUMAN REGULAR IV SCH (14:30)
[2016-12-18] MEDS ORDERED: DEXTROSE 50% 50 ML SYR IV ONE ×2 (14:30→14:45)
--- NOTE | 2016-12-18 14:35 | Progress Note ---
Internal Med Progress Note Date of Service: Dec 18, 2016. Provider Documentation: SUBJECTIVE: The patient was seen and examined Generally tired Noted to have very slow Junctional rhythm Transferred to ICU for Possible Temp. PM OBJECTIVE: Vital Signs-as noted below Exam: General-NO distress at rest Eyes-normal ENT-normal Neck-Supple Lungs-Clear to auscultate bilaterally Heart-Regular Abdomen-Distended,soft,no organomegaly Bowel sound present Extremities-+2 edema bilaterally Neuro-AAOx3 Lab data as noted below. ASSESSMENT & PLAN: This is a 55yo man with a PMH of DM II, non-obstructive CAD, HTN, HLD, tobacco use disorder and diastolic heart dysfunction who presents with worsening lower extremity edema. Junctional Bradyarrhythmia Admitted with 2nd degree Type 1 intermittent heart block Junction rhythm today -rate ~44 Remains hemodynamically stable Heart rate went down to 20s at some point Appreciate prompt response from cardiology Patient transferee to ICU for Possible Temporary PM and or Isoproterenol infusion Acutely decompensated Diastolic HF: -Patient with history of diastolic dysfunction, LVH on 2015 echo -Presents with worsening LE edema, dyspnea on exertion, crackles on exam and ~2- 0lbs weight gain -CXR with vascular congestion -EKG with evidence of RVH, ST depression in V5-V6.Intermittent 2nd Degree ,type I block -ECHO:: Normal LV chamber size with mild concentric LVH. * Normal LV systolic function, EF 55-60%. * Mild hypokinesis of the mid to apical portions of the inferior/ inferolateral jean, otherwise, hyperdynamic wall motion. * Grade II diastolic dysfunction. * Moderately calcified, trileaflet aortic valve with mild stenosis, no regurgitation. * Mild left atrial enlargement. Appreciate Cardiology input Diuresing well Continue current dose of Lasix CAD: New Infero-lateral wall motion abnormality in ECHO -Non obstructive as per history -Continue statin, started on aspirin -Serial Dino -negative for ACS -Likely t o have Cardiac Cath on Monday -And PPM placement -may be at the same sitting HTN: -Normotensive now -Continue home meds of amlodipine -will hold Lisinopril -Monitor kidney function and consider holding lisinopril if worsened DM II: HB L3X-aooi at 8.8 -Hgb a1c of 8.4 on 10/27 -Hold home meds -Basal bolus regimen while in-patient -BG checks AC HS Urinary retention: -KUB with distended bladder -Follow up pelvic/bladder ultrasound recommended -Refused valdes catheter -Closely monitor Constipation: -Presents with abd distention, bloating -Has not had a bowel movement in a week -KUB without evidence of bowel obstruction -Scheduled suppository, miralax Tobacco use disorder: -Discussed benefits of cessation in terms of chronic disease -Not interested in quitting at this time -Denies COPD diagnosis HLD: -Continue statin DVT Ppx: Lovenox Code status: FULL Vital Signs: Date Time Temp Pulse Resp B/P (MAP) Pulse Ox O2 Delivery O2 Flow Rate FiO2 12/18/16 13:00 42 18 114/58 (76) 95 Room Air 4.0 12/18/16 08:00 91 Nasal Cannula 3.0 12/18/16 07:57 36.5 50 20 147/58 (87) 95 2.0 12/18/16 04:20 Nasal Cannula 3.0 12/18/16 04:03 36.4 45 18 149/64 (92) 90 Nasal Cannula 3.0 12/18/16 00:25 Nasal Cannula 3.0 12/18/16 00:05 36.6 49 18 122/56 (78) 93 Nasal Cannula 3.0 12/17/16 20:44 Room Air 12/17/16 20:28 36.7 43 18 121/59 (79) 91 Room Air 12/17/16 16:47 36.7 43 18 133/61 (85) 91 Room Air 12/17/16 16:00 Room Air Lab Results: Results Past 24 Hours Test 12/17/16 16:29 12/17/16 16:32 12/17/16 20:18 12/18/16 00:20 Range/Units Troponin I < 0.015 < 0.015 0-0.045 ng/ml Bedside Glucose 226 226 70-99 mg/dl Test 12/18/16 07:07 12/18/16 08:55 12/18/16 11:27 Range/Units Bedside Glucose 180 158 70-99 mg/dl Sodium Level 136 136-145 mmol/L Potassium Level 5.5 3.5-5.1 mmol/L Chloride Level 101 98-107 mmol/L Carbon Dioxide Level 33 21-32 mmol/L Anion Gap 2.0 3-11 mmol/L Blood Urea Nitrogen 40 7-18 mg/dl Creatinine 1.40 0.60-1.40 mg/dl Est Creatinine Clear Calc Drug Dose 77.3 ml/min Estimated GFR () 65.1 Estimated GFR (Non- 56.2 BUN/Creatinine Ratio 28.5 10-20 Random Glucose 180 70-99 mg/dl Calcium Level 8.9 8.5-10.1 mg/dl Microbiology Results 12/18/16 MRSA DNA Surveillance Screen, Received Pending
[2016-12-18] MEDS ORDERED: INSULIN HUMAN REGULAR PER UNIT 10 UNITS in SYRINGE 9.9 ML IV ONE (14:50)
[2016-12-18 17:55] LABS: BUN/CREATININE RATIO 34.4 (10-20); CALCIUM 8.8 mg/dl (8.5-10.1); CREATININE 1.2 mg/dl (0.60-1.40); MAGNESIUM 3.6 mg/dl (1.8-2.4); POTASSIUM 5.1 mmol/L (3.5-5.1)
--- NOTE | 2016-12-18 18:32 | Critical Care Consultation ---
Critical Care Consultation Date of Consultation: Dec 18, 2016. Attending Physician: Fabi Rebolledo M.D. Reason for Consultation: Bradycardia. History of Present Illness I personally examined this patient, reviewed his clinical and laboratory data, interpreted his x-ray, discuss patient with cardiology colleagues and formulate further plan of care. In summary, the patient is a 55 year old gentleman lifelong smoker who presented to [facility] complaining of exertional shortness of breath, 20 pound weight gain, increasing lower extremity edema over the last 3-4 weeks. He denied having any chest pain. Patient was initially treated in the regular nursing floor. His echocardiography revealed normal biventricular systolic function, concentric left ventricular hypertrophy , mild hypokinesis of the mid to apical portions of the inferior/inferolateral jean, otherwise hyperdynamic wall motion, grade 2 diastolic dysfunction. Diuresis was initiated with creatinine elevation up to 1.4. Patient was noticed to have intermittent Mobitz type I heart block with episodes of idioventricular rhythm and heart rate reaching below 30. Patient was transferred critically ill to the cardiovascular intensive care unit for further monitoring and management in preparation for cardiac catheterization. Past Medical/Surgical History Past medical history: 1. Diabetes. 2. Obesity. 3. Nonobstructive coronary artery disease by cardiac catheterization in 2012. 4. History of poor healing foot ulcers. 5. Dyslipidemia. 6. Ongoing tobacco abuse. 7. Hypertension. Past surgical history: 1. Vasectomy. 2. Cholecystectomy. 3. Colonoscopy. Family History Cancer FH: hypertension FH: kidney disease FHx: heart disease Heart disease Lung disease FAMILY HISTORY: Remarkable for father who developed heart disease in his 50s and myocardial infarction at age 58. Social History Lifelong smoker, still actively smoking. He states that he has been cutting down. Social alcohol use, denies any IV or recreational drug use. Smoking Status: Current Every Day Smoker (Smoked for over 35 years. Has reduced to 1/2 PPD for the last few years.) Alcohol Use: heavy (Endorses drinking heavily in the past. Reduced amount a few years ago.) Drug Use: none Marital Status: in relationship Occupation Status: employed Allergies Coded Allergies: BEE STING (Verified Allergy, Intermediate, swelling, 12/15/16) Vancomycin (Verified Allergy, Unknown, ANAPHYLAXIS, 12/15/16) renal failure Home Medications Scheduled Amlodipine (Norvasc), 10 MG PO QAM Atorvastatin (Lipitor), 80 MG PO HS Cetirizine (Zyrtec), 10 MG PO DAILY Dexlansoprazole (Dexilant), 30 MG PO DAILY Empagliflozin (Jardiance), 25 MG PO DAILY Furosemide (Lasix), 80 MG PO DAILY Furosemide (Lasix), 40 MG PO DAILY@1400 Insulin Glargine (Basaglar Kwikpen), 50 UNITS SQ HS Lisinopril (Zestril), 40 MG PO QAM Metformin Hcl (Glucophage), 500 MG PO BID Potassium Chloride Microencaps (Potassium Chloride Er), 40 MEQ PO QAM Sitagliptin (Januvia), 100 MG PO QAM Current Inpatient Medications Current Inpatient Medications Medications (Trade) Dose Ordered Sig/Jerica Route Start Time Stop Time Status Last Admin Dose Admin Enoxaparin Sodium (Lovenox Inj) 40 mg DAILY SC 12/16/16 09:00 01/15/17 08:59 12/17/16 08:03 40 MG Acetaminophen (Tylenol Tab) 650 mg Q4H PRN PO 12/15/16 22:15 01/14/17 22:14 Ondansetron HCl (Zofran Inj) 4 mg Q6H PRN IV 12/15/16 22:15 01/14/17 22:14 Aspirin (Ecotrin Tab) 81 mg QAM PO 12/16/16 09:00 01/15/17 08:59 12/17/16 07:55 81 MG Polyethylene (Miralax Powder Packet) 17 gm DAILY PRN PO 12/15/16 22:15 01/14/17 22:14 Insulin Aspart (novoLOG ASPART) SLIDING SCALE If C... ACHS SC 12/16/16 07:00 01/15/17 06:59 12/17/16 20:47 2 UNITS Glucose (Glucose 40% Gel) 15-30 GRAMS 15 GRAMS... UD PRN PO 12/15/16 22:15 01/14/17 22:14 Glucose (Glucose Chew Tab) 4-8 Tablets 4 Tabl... UD PRN PO 12/15/16 22:15 01/14/17 22:14 Dextrose (Dextrose 50% 50ML Syringe) 25-50ML OF 50% DW IV FOR... UD PRN IV 12/15/16 22:15 01/14/17 22:14 Glucagon (Glucagon Inj) 1 mg UD PRN SQ 12/15/16 22:15 01/14/17 22:14 Insulin Glargine (Lantus Solostar Pen) 11 units Q12 SC 12/15/16 22:18 01/15/17 08:59 12/17/16 20:48 11 UNITS Amlodipine Besylate (Norvasc Tab) 10 mg QAM PO 12/16/16 09:00 01/15/17 08:59 12/17/16 07:56 10 MG Atorvastatin Calcium (Lipitor Tab) 80 mg HS PO 12/15/16 22:30 01/14/17 22:29 12/17/16 20:44 80 MG Cetirizine HCl (zyrTEC TAB) 10 mg DAILY PO 12/16/16 09:00 01/15/17 08:59 12/17/16 07:57 10 MG Pantoprazole Sodium (Protonix Tab) 40 mg QAM PO 12/16/16 09:00 01/15/17 08:59 12/17/16 07:57 40 MG Glycerin (Glycerin Adult Supp) [address] 12/15/16 23:45 01/14/17 23:44 12/16/16 01:04 1 EA Polyethylene (Miralax Powder Packet) 17 gm BID PO 12/16/16 09:00 01/15/17 08:59 12/17/16 20:55 17 GM Magnesium Hydroxide (Milk Of Magnesia Susp) 30 ml BID PRN PO 12/16/16 18:30 01/15/17 18:29 12/17/16 15:56 30 ML Nitroglycerin (Nitrostat Tab) 0.4 mg Q5M PRN SL 12/17/16 16:45 01/16/17 16:44 Magnesium Citrate (Citrate Of Magnesia Soln) 296 ml DAILY PRN PO 12/17/16 18:00 01/16/17 17:59 12/17/16 17:50 296 ML Review of Systems Patient complains of exertional shortness of breath, lower extremity swelling, weight gain. Otherwise, he denies having any chest pain, chest tightness, fever , chills, productive cough, sputum production, abdominal pain, nausea, vomiting , diarrhea, constipation, lower back pain. Physical Exam Date Time Temp Pulse Resp B/P (MAP) Pulse Ox O2 Delivery O2 Flow Rate FiO2 12/18/16 16:00 95 Nasal Cannula 4.0 12/18/16 16:00 36.8 47 17 142/57 (85) 94 Room Air 4.0 12/18/16 15:00 49 15 124/51 (75) 95 Room Air 4.0 12/18/16 14:00 47 15 114/58 (76) 96 Room Air 4.0 12/18/16 13:00 42 18 114/58 (76) 95 Room Air 4.0 12/18/16 12:00 Nasal Cannula 4.0 12/18/16 08:00 91 Nasal Cannula 3.0 12/18/16 07:57 36.5 50 20 147/58 (87) 95 2.0 12/18/16 04:20 Nasal Cannula 3.0 12/18/16 04:03 36.4 45 18 149/64 (92) 90 Nasal Cannula 3.0 12/18/16 00:25 Nasal Cannula 3.0 12/18/16 00:05 36.6 49 18 122/56 (78) 93 Nasal Cannula 3.0 12/17/16 20:44 Room Air 12/17/16 20:28 36.7 43 18 121/59 (79) 91 Room Air VITAL SIGNS: Temperature 36.8, pulse 86, respiratory rate 12, blood pressure 149/63. GENERAL: Awake, alert, oriented x3, in no acute distress sitting in the bed. HEENT: Normocephalic, atraumatic. Pupils equal, round and reactive to light and accommodation. Extraocular muscles intact. Anicteric sclerae. Moist mucous membranes, no rash. NECK: Supple, no bruit, no apparent JVD. CARDIOVASCULAR: Distant heart sounds, regular S1-S2, no S3. No murmurs. PULMONARY: Poor air movement bilaterally, no crackles no wheezing. ABDOMEN: Soft, nontender, no hepatosplenomegaly, no palpable masses. Bowel sounds were present. EXTREMITIES: +3 lower extremity pitting edema on the right, +2 on the left. Barely palpable pedal pulses bilaterally. SKIN: Warm and dry with chronic venous stasis changes of the lower extremities. Neurology: Alert and oriented 3, nonfocal examination. Psychiatric: Normal affect. Laboratory Results Last 24 Hours Test 12/17/16 20:18 12/18/16 00:20 12/18/16 07:07 12/18/16 08:55 Bedside Glucose 226 mg/dl 180 mg/dl Troponin I < 0.015 ng/ml Sodium Level 136 mmol/L Potassium Level 5.5 mmol/L Chloride Level 101 mmol/L Carbon Dioxide Level 33 mmol/L Anion Gap 2.0 mmol/L Blood Urea Nitrogen 40 mg/dl Creatinine 1.40 mg/dl Est Creatinine Clear Calc Drug Dose 77.3 ml/min Estimated GFR () 65.1 Estimated GFR (Non- 56.2 BUN/Creatinine Ratio 28.5 Random Glucose 180 mg/dl Calcium Level 8.9 mg/dl Test 12/18/16 11:27 12/18/16 16:03 12/18/16 17:05 Bedside Glucose 158 mg/dl 156 mg/dl Sodium Level 137 mmol/L Potassium Level 5.1 mmol/L Chloride Level 102 mmol/L Carbon Dioxide Level 30 mmol/L Anion Gap 5.0 mmol/L Blood Urea Nitrogen 41 mg/dl Creatinine 1.20 mg/dl Est Creatinine Clear Calc Drug Dose 90.2 ml/min Estimated GFR () 78.4 Estimated GFR (Non- 67.7 BUN/Creatinine Ratio 34.4 Random Glucose 152 mg/dl Calcium Level 8.8 mg/dl Magnesium Level 3.6 mg/dl Assessment & Plan 1. Acute decompensated diastolic heart failure with normal biventricular systolic function. Diuresis is on hold in view of increasing creatinine in preparation for cardiac catheterization 2. Mobitz type I heart block with episodes of idioventricular rhythm and bradycardia into the 30s. We'll monitor patient in the ICU setting. Pacemaker at the bedside. Should patient develop benign cause significant bradycardia we will proceed with temporary transvenous pacemaker placement. 3. History of renal dysfunction, elevated creatinine with diuresis and lisinopril. Diuresis is on hold. 4. Leukocytosis is likely reactive in no signs of infection. 5. Hypertension on Norvasc. 6. Dyslipidemia on Lipitor. 7. Morbid obesity 8. Active smoking. Patient was counseled about smoking cessation. 9. Diabetes mellitus on Lantus and insulin sliding scale. 10. GI: Protonix for stress ulcer prophylaxis. 9. Patient is full code. I spent totally 31 minutes of critical care time about managing this patient.
[2016-12-18] MEDS ORDERED: ATROPINE SULFATE 0.1 MG/ML 5ML SYR ONE (18:34)
[2016-12-18] MEDS: ATORVASTATIN 40 MG TAB PO SCH (20:37)
[2016-12-19] VITALS (45 sets, daily range): BP systolic 118–163; BP diastolic 51–76; PULSE 40–90; TEMP 36.4–37; O2SAT 81–98
[2016-12-19 06:05] LABS: HEMATOCRIT 41.2 % (42-52); MEAN CELL VOLUME 90.4 fL (80-100); MEAN CORPUSCULAR HEMOGLOBIN 29.2 pg (25-34); MEAN CORPUSCULAR HGB CONC 32.3 g/dl (32-36); MEAN PLATELET VOLUME 10.3 fL (7.4-10.4); PLATELET COUNT 266 K/uL (130-400); RED BLOOD COUNT 4.56 M/uL (4.7-6.1); WHITE BLOOD COUNT 20.36 K/uL (4.8-10.8)
[2016-12-19 07:11] LABS: BUN/CREATININE RATIO 33.2 (10-20); CALCIUM 8.5 mg/dl (8.5-10.1); CREATININE 1.3 mg/dl (0.60-1.40); POTASSIUM 6.5 mmol/L (3.5-5.1)
[2016-12-19] MEDS: INSULIN ASPART 100 UNITS/ML 3 ML PEN SC SCH ×4 (08:06→21:00)
[2016-12-19] MEDS: PANTOprazole SOD 40 MG TAB PO SCH (08:08)
[2016-12-19] MEDS: AMLODIPINE BESYLATE 5 MG TAB PO SCH (08:08)
[2016-12-19] MEDS ORDERED: DEXTROSE 50% 50 ML SYR IV STA ×2 (08:19→08:24)
[2016-12-19] MEDS ORDERED: ALBUTEROL 0.5% NEB SOLN 2.5 MG/0.5 ML VIAL INH STA (08:20)
[2016-12-19] MEDS ORDERED: SODIUM POLYST. SULF SUSP 15G/60ML PO STA (08:21)
[2016-12-19] MEDS ORDERED: INSULIN HUMAN REGULAR PER UNIT 10 UNITS in SYRINGE 9.9 ML IV STA (08:24)
[2016-12-19] MEDS ORDERED: CALCIUM GLUCONATE 10% 1,000 MG in SODIUM CHLORIDE 0.9% 50ML 50 ML IV STA (08:30)
[2016-12-19] MEDS ORDERED: INSULIN HUMAN REGULAR IV SCH (08:30)
[2016-12-19] MEDS ORDERED: SODIUM BICARB 8.4% INJ 50 MEQ/50 ML SYR IV STA (08:32)
[2016-12-19] MEDS: CETIRIZINE HCL 10 MG TAB PO SCH (09:00)
[2016-12-19] MEDS: ASPIRIN 81 MG ECTAB PO SCH (09:06)
[2016-12-19] MEDS ORDERED: PHARMACY GLYCEMIC MGMT CONSULT PRN (09:30)
[2016-12-19] MEDS: INSULIN GLARGINE SOLOSTAR 100 UNITS/ML 3 ML PEN SC SCH ×2 (09:40→21:43)
[2016-12-19 10:01] LABS: VEN BLD GAS O2 SATURATION 66.5 %
--- NOTE | 2016-12-19 11:07 | Cardiology Follow-Up ---
Subjective Subjective Date of Service: Dec 19, 2016. Pt evaluation today including: conversation w/ patient, conversation w/ family , physical exam, chart review, lab review, review of studies, review of inpatient medication list Additional Details: Pt seen and examined with mother at bedside, issues with potassium this AM, being corrected. Remains symptom free, anxious for discharge and to eat. Denies cp, sob, palpitations, lightheadedness or dizziness. Tele reviewed: junction rhythm with ectopy. Problem List Medical Problems: (1) Chest pain Status: Acute (2) Lower extremity edema Status: Acute (3) PICC line infection Status: Acute (4) Pulmonary congestion Status: Acute (5) Scrotal edema Status: Acute (6) Swelling of both lower extremities Status: Acute Review of Systems Respiratory: + shortness of breath, + dyspnea on exertion, No see HPI, No cough , No sputum, No wheezing, No dyspnea at rest, No hemoptysis, No problem reported Cardiac: + palpitations, No see HPI, No chest pain, No orthopnea, No PND, No edema, No claudication, No problem reported Objective Vital Signs Last Vital Signs Documentation Date Time Temp Pulse Resp B/P (MAP) Pulse Ox O2 Delivery O2 Flow Rate FiO2 12/19/16 09:52 Oxymask 6.0 12/19/16 09:30 47 21 95 12/19/16 09:02 138/57 (84) 12/19/16 08:19 36.9 Physical Exam: General Appearance: WD/WN, no apparent distress, + obese, + pertinent finding ( slight conversational dyspnea) Eyes: bilateral eyes normal inspection, bilateral eyes PERRL, bilateral eyes EOMI ENT: normal ENT inspection, hearing grossly normal, pharynx normal Neck: supple, no adenopathy, thyroid normal, no JVD, no carotid bruits, trachea midline Respiratory/Chest: chest non-tender, normal breath sounds, no respiratory distress, no accessory muscle use, + decreased breath sounds Cardiovascular: regular rate, rhythm, + bradycardia, + pertinent finding ( distant) Abdomen: normal bowel sounds, non tender, soft, no organomegaly, no pulsatile mass Extremities: non-tender, normal inspection, no calf tenderness, + pertinent finding (+1 B/L LE pitting edema) Neurologic/Psychiatric: mink slicer II-XII nml as tested, no motor/sensory deficits, alert, normal mood/affect, oriented x 3 Skin: normal color, warm/dry, no rash Lymphatic: no adenopathy Assessment and Plan 1. acute decompensated systolic/diastolic failure diuresing well, over 3L out will hold further diuretics for now 2. CAD new inferior wall abnormality likely represents myocardial infarction of the RCA, which would also explain arrhythmias no sign of active ischemia, no role for heparin no indication for emergent cardiac cath, clinically stable after further discussion and contemplation given that there is no sign of active ischemia and that the inferior wall is likely scar at this point will prioritize pacemaker placement over cath today will need further work up but will consider cath vs. nuclear stress to evaluate for potential ischemia 3. junctional rhythm/Mobitz I conduction system abnormality likely secondary to RCA infarct (the supplying vessel to the conduction system) clinically stable will proceed with dual chamber ppm placement today appreciate Dr. Saini's input 4. CKD stable even with diuresis lisinopril held cont to follow 5. tobacco abuse cessation counseling 6. hyperkalemia unclear etiology given diuresis and the fact that CATHERINE has been held for several days receiving appropriate treatment long discussion with patient and his mother, both agree with above plan
[2016-12-19] MEDS ORDERED: CEFAZOLIN IV 1,000 MG in DEXTROSE 5% 50ML 50 ML IV SCH (11:30)
[2016-12-19] MEDS: LIDOCAINE HCL 1% 20 ML VIAL ONE ×2 (11:37→12:18)
[2016-12-19] MEDS: MIDAZOLAM HCL 5 MG/ML 1 ML VIAL ONE ×2 (11:37→12:18)
[2016-12-19] MEDS: FENTANYL CITRATE INJ 50 MCG/1 ML 2 ML VIAL ONE (11:37)
[2016-12-19] MEDS: BUPIVACAINE 0.5 % 5 MG/1 ML MPF 30ML VIAL ONE ×2 (11:38→12:19)
[2016-12-19] MEDS: BACITRACIN 50000 UNIT VIAL ONE ×2 (11:38→12:18)
[2016-12-19] MEDS: KEFZOL SPECIAL PROCEDURE STOCK 1 GM ADDVIAL IV ONE ×2 (12:00→12:19)
--- NOTE | 2016-12-19 12:53 | Procedure Note ---
Procedure Note Date of Service Dec 19, 2016. Procedure Note Procedure performed: Implant of dual chamber permanent pacemaker Staff web page developer: Jax Saini MD Indication: symptomatic bradycardia. The patient is a 55-year-old gentleman who was recent med to [facility] with symptoms of dyspnea on exertion. He was noted to have an element of significant bradycardia. He has also noted on telemetry to have significant sinus node dysfunction with resultant junctional rhythm. Based on his symptoms and conduction disease he was felt to be a good candidate for permanent pacemaker due to symptomatic non reversible sinus node dysfunction. A dual-chamber device was selected as he has intact AV conduction and we wish to maintain AV synchrony. Procedure detail: The patient was informed of the risks benefits and alternatives to the intended procedure and he wished to proceed. He was taken to the electrophysiology suite in a fasting state. A preoperative antibiotic had been administered. The patient was monitored electrocardiographically throughout today's procedure and conscious sedation was administered per protocol. The left upper pectoral area is prepped and draped in usual sterile fashion. This area was anesthetized using subcutaneous menstruation of a xylocaine solution. An incision was made at this site and carried down to the prepectoralis fascia using sharp dissection. Electrocautery was also employed for dissection as well as for hemostasis. A device pocket was fashioned tissues above the pectoralis muscle. Subsequent to this maneuver the left axillary vein was accessed using modified Seldinger technique. Sheaths were placed over guidewires at this site use salt a passage of the pacing leads to the respective chambers under fluoroscopic guidance. This included right atrial and right ventricular leads. Adequate sensing and threshold parameters were obtained prior to Active fixation of the leads to the endocardial surface. The proximal portion leads were then sutured the prepectoral fascia using nonabsorbable suture. The device pocket was irrigated with antibiotic solution. The leads were then attached to the device. The device and leads were then placed in the pocket and pocket was closed in 3 layers of absorbable suture. Steri-Strips and sterile dressing were applied. The device was tested noninvasively prior to occlusion the procedure. The patient tolerated procedure well there no immediate complications. Equipment used: New pulse generator: Labelling Machine Operator [employer]. Model number A2DR01. Serial number [id number] Right atrial lead: Labelling Machine Operator [employer]. Model 4. 076. Serial number [id number] Right ventricular lead: Labelling Machine Operator [employer]: Model 4. 076. Serial number [id number] Measured data: Right atrial lead: P-waves measure 1. 5 mV. Pacing threshold was 1 volt at 0.4 milliseconds with a pacing impedance of 615 Ohms Right ventricular lead: R-waves measured 5.1 mV. Pacing threshold was 0.9 volts at 0.4 milliseconds with a pacing impedance of 679 Ohms Impression: Successful implantation of dual-chamber permanent pacemaker
--- NOTE | 2016-12-19 13:23 | Pharmacy Progress Note ---
Glycemic Control Intl Consult Date of Service Dec 19, 2016. Scope Glycemic Pharmacist consulted by Dr Rome on 12/19/16 for glycemic control and to write orders per [facility] inpatient glycemic control protocol Objective Weight (Kilograms): 125.100 Accuchecks BSG (last 24hrs): Test 12/18/16 16:03 12/18/16 17:05 12/18/16 20:29 12/19/16 04:36 Bedside Glucose 156 mg/dl (70-99) 180 mg/dl (70-99) 157 mg/dl (70-99) Random Glucose 152 mg/dl (70-99) Test 12/19/16 05:33 Random Glucose 162 mg/dl (70-99) Laboratory Data (last 24hrs) Test 12/18/16 17:05 12/19/16 05:33 12/19/16 07:23 12/19/16 09:39 Anion Gap 5.0 mmol/L 5.0 mmol/L BUN/Creatinine Ratio 34.4 33.2 Blood Urea Nitrogen 41 mg/dl 43 mg/dl Creatinine 1.20 mg/dl 1.30 mg/dl Potassium Level 5.1 mmol/L 6.5 mmol/L 6.4 mmol/L 5.5 mmol/L Sodium Level 137 mmol/L 135 mmol/L White Blood Count 20.36 K/uL Test 12/19/16 12:00 HbA1c Test 12/16/16 05:16 Hemoglobin A1c 8.8 % (4.5-5.6) H Recent Pertinent Medications Outpatient Anti-diabetic Regimen: * Insulin glargine 100 units/mL 50 units HS * Orals (Januvia, Jardiance) The patient is currently receiving: * Basal insulin: Lantus 11 units every 12 hours * Correctional Insulin: Novolog Correction per scale ACHS Goal Range: Low 140 mg/dL - High 180 mg/dL Correction Factor: 35 mg/dL/unit * Prandial insulin: Per carb ratio of 1 unit per 12 grams CHO consumed Risk Factors for Insulin Resistance: * Diet Assessment & Plan ASSESSMENT: * 55 yo M admitted to ICU with CHF/mobitz 1 * Pt NPO for cardiac intervention this AM * Fasting BSG 162 mg/dL - I instructed nurse to go ahead and give Lantus this AM as this is a low dose (wt base stress of 1) * Pt normally takes a very basal heavy regimen as an outpatient * When eating, I feel he will need tighter coverage and will make appropriate changes today and titrate tomorrow * ADA & AACE recommend a goal blood sugar range 140-180 mg/dl for the majority of critically ill & non-critically ill patients. However, more stringent targets may be selected in individual cases. PLAN FOR INPATIENT GLYCEMIC CONTROL: * Hold outpatient oral diabetes medications * Basal insulin with LANTUS 10-20 units SQ BID, depending on BSG * Correctional Insulin with NOVOLOG per scale ACHS * Goal Range: Low 120 mg/dL - High 160 mg/dL * Correction Factor: 25 mg/dL/unit * Nutritional / Prandial insulin per carb ratio of 1 unit per 8 grams CHO consumed * Please note that the plan above was derived based on current level of insulin resistance and hospital stress. These recommendations are appropriate for inpatient admission only. Plan of care upon discharge will need to be reassessed to avoid potential outpatient hypo/hyperglycemia. Thank you.
[2016-12-19] MEDS: ENOXAPARIN 40 MG/0.4 ML SYR SC SCH (14:49)
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
--- NOTE | 2016-12-19 16:13 | Progress Note ---
Progress Note Date of Service Dec 19, 2016. Progress Note Pt received dual chamber ppm, tolerated well. Discussed options for ischemic work up given lack of symptoms or objective ischemia. Will proceed with 2day Lexiscan nuclear stress test. Ok to transfer to tele from cardiac standpoint.
--- NOTE | 2016-12-19 17:40 | Progress Note ---
Internal Med Progress Note Date of Service: Dec 19, 2016. Provider Documentation: SUBJECTIVE: The patient was seen and examined Generally tired Noted to have very slow Junctional rhythm Transferred to ICU for Possible Temp. PM Remains bradycardic Will have PPM this morning OBJECTIVE: Vital Signs-as noted below Exam: General-NO distress at rest Eyes-normal ENT-normal Neck-Supple Lungs-Clear to auscultate bilaterally Heart-Regular Abdomen-Distended,soft,no organomegaly Bowel sound present Extremities-+2 edema bilaterally Neuro-AAOx3 Lab data as noted below. ASSESSMENT & PLAN: This is a 55yo man with a PMH of DM II, non-obstructive CAD, HTN, HLD, tobacco use disorder and diastolic heart dysfunction who presents with worsening lower extremity edema. Hyperkalemia Acute and repeat test remained high Received Insulin+Dextrose,Albuterol Nebs,Calcium Gluconate ,Sodi-bicarb and Kayexalate Will recheck if elevated will give more Kayexalate Junctional Bradyarrhythmia Admitted with 2nd degree Type 1 intermittent heart block Junction rhythm today -rate ~44 Remains hemodynamically stable Heart rate went down to 20s at some point Appreciate prompt response from cardiology Patient transferee to ICU for Possible Temporary PM and or Isoproterenol infusion No Cardiac Cath now S/P PPM placement Acutely decompensated Diastolic HF: -Patient with history of diastolic dysfunction, LVH on 2015 echo -Presents with worsening LE edema, dyspnea on exertion, crackles on exam and ~2- 0lbs weight gain -CXR with vascular congestion -EKG with evidence of RVH, ST depression in V5-V6.Intermittent 2nd Degree ,type I block -ECHO:: Normal LV chamber size with mild concentric LVH. * Normal LV systolic function, EF 55-60%. * Mild hypokinesis of the mid to apical portions of the inferior/ inferolateral jean, otherwise, hyperdynamic wall motion. * Grade II diastolic dysfunction. * Moderately calcified, trileaflet aortic valve with mild stenosis, no regurgitation. * Mild left atrial enlargement. Appreciate Cardiology input Diuresing well Continue current dose of Lasix CAD: New Infero-lateral wall motion abnormality in ECHO -Non obstructive as per history -Continue statin, started on aspirin -Serial Dino -negative for ACS -Likely t o have Cardiac Cath on Monday-not now -s/p PPM placement -Myocardial Perfusion scan down the line HTN: -Normotensive now -Continue home meds of amlodipine -will hold Lisinopril -Monitor kidney function and consider holding lisinopril if worsened DM II: HB [id number] at 8.8 -Hgb a1c of 8.4 on 10/27 -Hold home meds -Basal bolus regimen while in-patient -BG checks AC HS Urinary retention: -KUB with distended bladder -Follow up pelvic/bladder ultrasound recommended -Refused valdes catheter -Closely monitor Constipation: -Presents with abd distention, bloating -Has not had a bowel movement in a week -KUB without evidence of bowel obstruction -Scheduled suppository, miralax Tobacco use disorder: -Discussed benefits of cessation in terms of chronic disease -Not interested in quitting at this time -Denies COPD diagnosis HLD: -Continue statin DVT Ppx: Lovenox Code status: FULL Vital Signs: Date Time Temp Pulse Resp B/P (MAP) Pulse Ox O2 Delivery O2 Flow Rate FiO2 12/19/16 16:00 94 Nasal Cannula 4.0 12/19/16 13:46 60 14 139/59 (85) 97 Oxymask 6.0 12/19/16 13:31 60 21 145/60 (88) 97 12/19/16 13:16 60 19 163/70 (101) 92 12/19/16 13:15 97 Oxymask 7.0 12/19/16 13:06 61 20 140/60 (86) 92 Oxymask 6.0 12/19/16 12:58 60 18 124/57 (79) 93 Mask 6 12/19/16 12:45 60 18 126/57 (80) 93 Mask 6 12/19/16 11:03 42 18 118/53 (74) 97 12/19/16 11:00 42 22 96 12/19/16 09:52 Oxymask 6.0 12/19/16 09:30 47 21 95 12/19/16 09:02 54 21 138/57 (84) 95 12/19/16 09:00 73 18 97 12/19/16 08:39 48 14 95 Mask 6.0 12/19/16 08:30 54 24 81 12/19/16 08:19 36.9 47 16 133/64 (87) 97 Oxymask 6.0 12/19/16 08:00 47 11 98 12/19/16 08:00 Oxymask 12/19/16 07:45 95 Oxymask 6.0 12/19/16 07:30 60 20 93 12/19/16 07:02 90 19 131/56 (81) 92 12/19/16 07:00 79 21 94 Oxymask 6.0 12/19/16 06:02 69 22 132/67 (88) 94 Oxymask 6.0 12/19/16 05:41 36.5 44 18 128/63 97 Mask 6.0 12/19/16 05:01 53 17 119/52 (74) 95 Oxymask 6.0 12/19/16 04:01 36.8 63 19 136/64 (88) 91 Oxymask 6.0 12/19/16 04:00 97 Oxymask 6.0 12/19/16 03:02 44 18 128/63 (84) 90 Oxymask 6.0 12/19/16 02:02 71 21 145/60 (88) 95 Oxymask 6.0 12/19/16 01:01 42 15 135/59 (84) 94 Oxymask 6.0 12/19/16 00:01 36.5 40 14 138/53 (81) 95 Oxymask 6.0 12/19/16 00:01 97 Oxymask 6.0 12/18/16 23:02 44 16 148/59 (88) 95 Oxymask 6.0 12/18/16 22:05 41 20 133/61 (85) 95 Nasal Cannula 4.0 12/18/16 20:00 96 Nasal Cannula 4.0 12/18/16 19:56 36.4 42 22 137/59 (85) 95 Nasal Cannula 4.0 12/18/16 18:00 43 15 163/58 (93) 95 Room Air 4.0 Lab Results: Results Past 24 Hours Test 12/18/16 20:29 12/19/16 04:36 12/19/16 05:33 12/19/16 07:23 Range/Units Bedside Glucose 180 157 70-99 mg/dl White Blood Count 20.36 4.8-10.8 K/uL Red Blood Count 4.56 4.7-6.1 M/uL Hemoglobin 13.3 14.0-18.0 g/dL Hematocrit 41.2 42-52 % Mean Corpuscular Volume 90.4 80-100 fL Mean Corpuscular Hemoglobin 29.2 25-34 pg Mean Corpuscular Hemoglobin Concent 32.3 32-36 g/dl RDW Standard Deviation 49.5 36.4-46.3 fL RDW Coefficient of Variation 15.0 11.5-14.5 % Platelet Count 266 130-400 K/uL Mean Platelet Volume 10.3 7.4-10.4 fL Sodium Level 135 136-145 mmol/L Potassium Level 6.5 6.4 3.5-5.1 mmol/L Chloride Level 102 98-107 mmol/L Carbon Dioxide Level 28 21-32 mmol/L Anion Gap 5.0 3-11 mmol/L Blood Urea Nitrogen 43 7-18 mg/dl Creatinine 1.30 0.60-1.40 mg/dl Est Creatinine Clear Calc Drug Dose 84.0 ml/min Estimated GFR () 71.2 Estimated GFR (Non- 61.4 BUN/Creatinine Ratio 33.2 10- Random Glucose 162 70-99 mg/dl Calcium Level 8.5 8.5-10.1 mg/dl Test 12/19/16 09:39 12/19/16 09:47 12/19/16 13:28 12/19/16 15:12 Range/Units Potassium Level 5.5 6.0 3.5-5.1 mmol/L Osmolality 307 301 280-300 mOsm/kg Thyroid Stimulating Hormone (TSH) 2.290 0.300-4.500 uIu/ml Random Cortisol 20.96 mcg/dl Venous Blood pH 7.31 7.36-7.41 Venous Blood Partial Pressure CO2 64 38.0-50.0 mmHg Venous Blood Partial Pressure O2 38 mmHg Venous Blood HCO3 31 mmol/L Venous Blood Oxygen Saturation 66.5 % Venous Blood Base Excess 3.0 mEq/L Bedside Glucose 162 70-99 mg/dl Test 12/19/16 15:30 12/19/16 15:43 12/19/16 15:46 Range/Units Urine pH 5.0 4.5-7.5 Urine Osmolality 398 500-800 mOms/kg Bedside Glucose 135 70-99 mg/dl Urine Random Sodium 34 mEq/L Urine Random Potassium 26.7 mEq/L Urine Random Chloride 28 mEq/L
--- NOTE | 2016-12-19 18:12 | Cardiology Consultation ---
Cardiology Consultation Date of Consultation: Dec 19, 2016. Requesting Physician: Bruce Reason for Consultation: bradycardia History of Present Illness Patient is a 61-year-old gentleman with a history of nonobstructive coronary disease who presents to [facility] with symptoms of progressive dyspnea and weight gain. Patient states that for several weeks he has been experiencing dyspnea on exertion. This has been associated with some weight gain as well. Patient denies significant symptoms at rest and did not describe overt orthopnea. He is not aware of any palpitations. He has been having some mild lightheadedness at times and dizziness but no syncope. He denies any symptoms of chest discomfort. He did not report symptoms of chest discomfort with exertion or at other times recently. Past Medical/Surgical History Nonobstructive coronary disease on catheterization in 2012 Diabetes mellitus Hyperlipidemia Hypertension Tobacco abuse Past surgical history Vasectomy Cholecystectomy Family History Cancer FH: hypertension FH: kidney disease FHx: heart disease Heart disease Lung disease Significant for coronary artery disease at a premature age in his father Social History Smoking Status: Current Every Day Smoker History of Alcohol Use: No Moderate alcohol use. Continued tobacco abuse Review of Systems Respiratory: + shortness of breath, + dyspnea on exertion, No see HPI, No cough , No sputum, No wheezing, No dyspnea at rest, No hemoptysis, No problem reported Cardiac: + palpitations, No see HPI, No chest pain, No orthopnea, No PND, No edema, No claudication, No problem reported All Other Systems: Reviewed and Negative Allergies Coded Allergies: BEE STING (Verified Allergy, Intermediate, swelling, 12/15/16) Vancomycin (Verified Allergy, Unknown, ANAPHYLAXIS, 12/15/16) renal failure Medications Current Inpatient Medications Medications (Trade) Dose Ordered Sig/Jerica Route Start Time Stop Time Status Last Admin Dose Admin Enoxaparin Sodium (Lovenox Inj) 40 mg DAILY SC 12/16/16 09:00 01/15/17 08:59 12/19/16 14:49 40 MG Acetaminophen (Tylenol Tab) 650 mg Q4H PRN PO 12/15/16 22:15 01/14/17 22:14 Ondansetron HCl (Zofran Inj) 4 mg Q6H PRN IV 12/15/16 22:15 01/14/17 22:14 Aspirin (Ecotrin Tab) 81 mg QAM PO 12/16/16 09:00 01/15/17 08:59 10/9/17 09:06 81 MG Polyethylene (Miralax Powder Packet) 17 gm DAILY PRN PO 12/15/16 22:15 01/14/17 22:14 Insulin Aspart (novoLOG ASPART) SLIDING SCALE If C... ACHS SC 12/16/16 07:00 01/15/17 06:59 12/19/16 17:36 3 UNITS Glucose (Glucose 40% Gel) 15-30 GRAMS 15 GRAMS... UD PRN PO 12/15/16 22:15 01/14/17 22:14 Glucose (Glucose Chew Tab) 4-8 Tablets 4 Tabl... UD PRN PO 12/15/16 22:15 01/14/17 22:14 Dextrose (Dextrose 50% 50ML Syringe) 25-50ML OF 50% DW IV FOR... UD PRN IV 12/15/16 22:15 01/14/17 22:14 Glucagon (Glucagon Inj) 1 mg UD PRN SQ 12/15/16 22:15 01/14/17 22:14 Amlodipine Besylate (Norvasc Tab) 10 mg QAM PO 12/16/16 09:00 01/15/17 08:59 12/19/16 08:08 10 MG Atorvastatin Calcium (Lipitor Tab) 80 mg HS PO 12/15/16 22:30 01/14/17 22:29 12/18/16 20:37 80 MG Cetirizine HCl (zyrTEC TAB) 10 mg DAILY PO 12/16/16 09:00 01/15/17 08:59 12/17/16 07:57 10 MG Pantoprazole Sodium (Protonix Tab) 40 mg QAM PO 12/16/16 09:00 01/15/17 08:59 12/19/16 08:08 40 MG Glycerin (Glycerin Adult Supp) 1 ea DAILY PRN AR 12/15/16 23:45 01/14/17 23:44 12/16/16 01:04 1 EA Magnesium Hydroxide (Milk Of Magnesia Susp) 30 ml BID PRN PO 12/16/16 18:30 01/15/17 18:29 12/17/16 15:56 30 ML Nitroglycerin (Nitrostat Tab) 0.4 mg Q5M PRN SL 12/17/16 16:45 01/16/17 16:44 Magnesium Citrate (Citrate Of Magnesia Soln) 296 ml DAILY PRN PO 12/17/16 18:00 01/16/17 17:59 12/17/16 17:50 296 ML Miscellaneous Information (Consult Glycemic Management Pharmacy) 1 ea UD PRN N/A 12/19/16 09:30 01/18/17 09:29 Cefazolin Sodium 1000 mg/Dextrose 55 ml @ 110 mls/hr PREOP IV 12/19/16 11:30 12/19/16 23:59 Insulin Glargine (Lantus Solostar Pen) SEE PROTOCOL Q12 SC 12/19/16 21:00 01/18/17 20:59 Cefazolin Sodium 1000 mg/Dextrose 55 ml @ 100 mls/hr Q8H IV 12/19/16 20:00 12/20/16 04:32 Oxycodone HCl (Roxicodone Immediate Rel Tab) 5 mg Q4 PRN PO 12/19/16 13:00 01/02/17 12:59 Physical Exam Vital Signs Past 12 Hours Date Time Temp Pulse Resp B/P (MAP) Pulse Ox O2 Delivery O2 Flow Rate FiO2 12/19/16 16:00 94 Nasal Cannula 4.0 12/19/16 13:46 60 14 139/59 (85) 97 Oxymask 6.0 12/19/16 13:31 60 21 145/60 (88) 97 12/19/16 13:16 60 19 163/70 (101) 92 12/19/16 13:15 97 Oxymask 7.0 12/19/16 13:06 61 20 140/60 (86) 92 Oxymask 6.0 12/19/16 12:58 60 18 124/57 (79) 93 Mask 6 12/19/16 12:45 60 18 126/57 (80) 93 Mask 6 12/19/16 11:03 42 18 118/53 (74) 97 12/19/16 11:00 42 22 96 12/19/16 09:52 Oxymask 6.0 12/19/16 09:30 47 21 95 12/19/16 09:02 54 21 138/57 (84) 95 12/19/16 09:00 73 18 97 12/19/16 08:39 48 14 95 Mask 6.0 12/19/16 08:30 54 24 81 12/19/16 08:19 36.9 47 16 133/64 (87) 97 Oxymask 6.0 12/19/16 08:00 47 11 98 12/19/16 08:00 Oxymask 12/19/16 07:45 95 Oxymask 6.0 12/19/16 07:30 60 20 93 12/19/16 07:02 90 19 131/56 (81) 92 12/19/16 07:00 79 21 94 Oxymask 6.0 Data Laboratory Results: Last 24 Hours Test 12/18/16 20:29 12/19/16 04:36 12/19/16 05:33 12/19/16 07:23 Bedside Glucose 180 mg/dl 157 mg/dl White Blood Count 20.36 K/uL Red Blood Count 4.56 M/uL Hemoglobin 13.3 g/dL Hematocrit 41.2 % Mean Corpuscular Volume 90.4 fL Mean Corpuscular Hemoglobin 29.2 pg Mean Corpuscular Hemoglobin Concent 32.3 g/dl RDW Standard Deviation 49.5 fL RDW Coefficient of Variation 15.0 % Platelet Count 266 K/uL Mean Platelet Volume 10.3 fL Sodium Level 135 mmol/L Potassium Level 6.5 mmol/L 6.4 mmol/L Chloride Level 102 mmol/L Carbon Dioxide Level 28 mmol/L Anion Gap 5.0 mmol/L Blood Urea Nitrogen 43 mg/dl Creatinine 1.30 mg/dl Est Creatinine Clear Calc Drug Dose 84.0 ml/min Estimated GFR () 71.2 Estimated GFR (Non- 61.4 BUN/Creatinine Ratio 33.2 Random Glucose 162 mg/dl Calcium Level 8.5 mg/dl Test 12/19/16 09:39 12/19/16 09:47 12/19/16 13:28 12/19/16 15:12 Potassium Level 5.5 mmol/L 6.0 mmol/L Osmolality 307 mOsm/kg 301 mOsm/kg Thyroid Stimulating Hormone (TSH) 2.290 uIu/ml Random Cortisol 20.96 mcg/dl Venous Blood pH 7.31 Venous Blood Partial Pressure CO2 64 mmHg Venous Blood Partial Pressure O2 38 mmHg Venous Blood HCO3 31 mmol/L Venous Blood Oxygen Saturation 66.5 % Venous Blood Base Excess 3.0 mEq/L Bedside Glucose 162 mg/dl Test 12/19/16 15:30 12/19/16 15:43 12/19/16 15:46 12/19/16 18:00 Urine pH 5.0 Urine Osmolality 398 mOms/kg Bedside Glucose 135 mg/dl Urine Random Sodium 34 mEq/L Urine Random Potassium 26.7 mEq/L Urine Random Chloride 28 mEq/L Imaging: Chest x-ray did not demonstrate any acute cardiopulmonary disease EKG: Severe sinus bradycardia with competing junctional rhythm and right bundle -branch block Telemetry reviewed: AV dissociation Assessment & Plan Symptomatic bradycardia: Patient appears to have significant sinus node dysfunction with very slow sinus rates and competing junctional rhythm. It is very likely that this accounts for the symptoms leading up to his admission. He likely has an element of chronotropic incompetence associated with his conduction disease. He does have some new wall motion abnormalities but overall his left ventricular function is preserved. There is a possibility that he did have a inferior myocardial infarction and resultant conduction disease, but the primary problem appears to be sinus node dysfunction not AV node dysfunction. The patient monitored for some time without any resolution of his conduction disease and continues to have symptoms. He likely will require medical therapy for his suspected infarct to include beta blockade which at this time is contraindicated given his conduction disease. Therefore, would seem reasonable to recommend a dual-chamber pacemaker in order to improve his symptoms, address is conduction disease and facilitate optimal medical therapy. I discussed the risks benefits alternatives with the patient today and that he has consented to the procedure.
[2016-12-19] MEDS: OXYCODONE HCL IR 5 MG TAB (IMMEDIATE RELEASE) PO PRN (18:39)
[2016-12-19 18:55] LABS: BUN/CREATININE RATIO 30.3 (10-20); CALCIUM 8.4 mg/dl (8.5-10.1); CREATININE 1.3 mg/dl (0.60-1.40); MAGNESIUM 3.1 mg/dl (1.8-2.4)
[2016-12-19 18:56] LABS: POTASSIUM 4.9 mmol/L (3.5-5.1)
[2016-12-19 19:30] LABS: BETA-HYDROXYBUTYRATE 0.41 mg/dL (0.2-2.81)
[2016-12-19] MEDS: CEFAZOLIN IV 1,000 MG in DEXTROSE 5% 50ML 50 ML IV SCH (19:41)
--- NOTE | 2016-12-19 21:11 | Nephrology Consultation ---
Nephrology Consultation Date of Consultation: Dec 19, 2016. Attending Physician: Dr Rebolledo Requesting Physician: Dr Rebolledo Reason for Consultation: Hyperkalemia History of Present Illness 55 year old male presented here w/ worsening LE edema and concerns per pt about eadmitted 12/15 for acute systolic/diastolic HF whom I'm asked to see for hyperkalemia. Other PMH includes DM, HTN, HL, active tobacco use, GERD, seasonal allergies. His admission K was 3.8. He has been gently diuresed ( about 3L over 4 days) and was continued on 40 mEq po bid K supplements, last dose 12/17. Yesterday am his K was 5.5; this am it was 6.5. He had calcium, insulin IV, albuterol, kayexalate this am. K went down initially but on recheck at 1500 is back to 6.0. Lasix had been given liberally but is now since 12/17 stopped. Lisinopril was stopped 12/16. his baseline creatinine appears to range from 1.0-1.4 and has been in this range since admission. cardiology has been following and notes new probable RCA infarct, accompanied by junctional rhythm at times; the pt went for pacer placement today and is undergoing myocardial perfusion scan. Progressive hypoxia starting 12/18. On recheck this evening w/ no intervention, K is down to 4.9. So far through this hospital stay, creatinine has remained at baseline 1.1-1.3. Past Medical/Surgical History -DM on metformin, sitagliptin, empagliflozin, lantus -HTN on lisinopril, amlodipine, lasix -HL -chronic hypokalemia on 40 mEq daily -tobacco abuse -remberto -extensive surgeries to R foot 04/2014 and long f/u at wound clinic afterward, chronic RLE edema ever since Family History Cancer FH: hypertension FH: kidney disease FHx: heart disease Heart disease Lung disease Social History Smoking Status: Current Every Day Smoker Alcohol Use: occasionally Drug Use: none Marital Status: in relationship Occupation Status: employed Allergies Coded Allergies: BEE STING (Verified Allergy, Intermediate, swelling, 12/15/16) Vancomycin (Verified Allergy, Unknown, ANAPHYLAXIS, 12/15/16) renal failure Medications Current Inpatient Medications Medications (Trade) Dose Ordered Sig/Jerica Route Start Time Stop Time Status Last Admin Dose Admin Enoxaparin Sodium (Lovenox Inj) 40 mg DAILY SC 12/16/16 09:00 01/15/17 08:59 12/19/16 14:49 40 MG Acetaminophen (Tylenol Tab) 650 mg Q4H PRN PO 12/15/16 22:15 01/14/17 22:14 Ondansetron HCl (Zofran Inj) 4 mg Q6H PRN IV 12/15/16 22:15 01/14/17 22:14 Aspirin (Ecotrin Tab) 81 mg QAM PO 12/16/16 09:00 01/15/17 08:59 12/19/16 09:06 81 MG Polyethylene (Miralax Powder Packet) 17 gm DAILY PRN PO 12/15/16 22:15 01/14/17 22:14 Insulin Aspart (novoLOG ASPART) SLIDING SCALE If C... ACHS SC 12/16/16 07:00 01/15/17 06:59 12/18/16 20:36 2 UNITS Glucose (Glucose 40% Gel) 15-30 GRAMS 15 GRAMS... UD PRN PO 12/15/16 22:15 01/14/17 22:14 Glucose (Glucose Chew Tab) 4-8 Tablets 4 Tabl... UD PRN PO 12/15/16 22:15 01/14/17 22:14 Dextrose (Dextrose 50% 50ML Syringe) 25-50ML OF 50% DW IV FOR... UD PRN IV 12/15/16 22:15 01/14/17 22:14 Glucagon (Glucagon Inj) 1 mg UD PRN SQ 12/15/16 22:15 01/14/17 22:14 Amlodipine Besylate (Norvasc Tab) 10 mg QAM PO 12/16/16 09:00 01/15/17 08:59 12/19/16 08:08 10 MG Atorvastatin Calcium (Lipitor Tab) 80 mg HS PO 12/15/16 22:30 01/14/17 22:29 12/18/16 20:37 80 MG Cetirizine HCl (zyrTEC TAB) 10 mg DAILY PO 12/16/16 09:00 01/15/17 08:59 12/17/16 07:57 10 MG Pantoprazole Sodium (Protonix Tab) 40 mg QAM PO 12/16/16 09:00 01/15/17 08:59 12/19/16 08:08 40 MG Glycerin (Glycerin Adult Supp) 1 ea DAILY PRN MA 12/15/16 23:45 01/14/17 23:44 12/16/16 01:04 1 EA Magnesium Hydroxide (Milk Of Magnesia Susp) 30 ml BID PRN PO 12/16/16 18:30 01/15/17 18:29 12/17/16 15:56 30 ML Nitroglycerin (Nitrostat Tab) 0.4 mg Q5M PRN SL 12/17/16 16:45 01/16/17 16:44 Magnesium Citrate (Citrate Of Magnesia Soln) 296 ml DAILY PRN PO 12/17/16 18:00 01/16/17 17:59 12/17/16 17:50 296 ML Miscellaneous Information (Consult Glycemic Management Pharmacy) 1 ea UD PRN N/A 12/19/16 09:30 01/18/17 09:29 Cefazolin Sodium 1000 mg/Dextrose 55 ml @ 110 mls/hr PREOP IV 12/19/16 11:30 12/19/16 23:59 Insulin Glargine (Lantus Solostar Pen) SEE PROTOCOL Q12 SC 12/19/16 21:00 01/18/17 20:59 Cefazolin Sodium 1000 mg/Dextrose 55 ml @ 100 mls/hr Q8H IV 12/19/16 20:00 12/20/16 04:32 Oxycodone HCl (Roxicodone Immediate Rel Tab) 5 mg Q4 PRN PO 12/19/16 13:00 01/02/17 12:59 Home Meds and Scripts Medications Dose Route/Sig Max Daily Dose Days Date Category Dexilant (Dexlansoprazole) 30 Mg Cap 30 Mg PO DAILY 12/15/16 Reported Zyrtec (Cetirizine HCl) 10 Mg Tab 10 Mg PO DAILY 12/15/16 Reported Basaglar Kwikpen (Insulin Glargine) 100 Unit/Ml Inj 50 Units SQ HS 12/15/16 Reported Lipitor (Atorvastatin Calcium) 80 Mg Tab 80 Mg PO HS 30 12/15/16 Reported Jardiance (Empagliflozin) 25 Mg Tab 25 Mg PO DAILY 12/15/16 Reported Zestril (Lisinopril) 40 Mg Tab 40 Mg PO QAM 06/15/16 Reported Glucophage (Metformin Hcl) 500 Mg Tab 500 Mg PO BID 06/13/16 Reported Potassium Chloride Er (Potassium Chloride Microencaps) 20 Meq Tab 40 Meq PO QAM 30 02/16/16 Reported Norvasc (Amlodipine Besylate) 10 Mg Tab 10 Mg PO QAM 11/03/15 Reported Lasix (Furosemide) 40 Mg Tab 80 Mg PO DAILY 11/03/15 Reported Januvia (Sitagliptin) 100 Mg Tab 100 Mg PO QAM 10/14/15 Reported Review of Systems Constitutional: + weakness, + fatigue, No fever Eyes: No worsening of vision ENT: No hearing loss Respiratory: + shortness of breath Cardiac: + edema, No chest pain, No palpitations Abdomen: No pain, No nausea, No vomiting, No diarrhea Musculoskeletal: + joint pain (currently L shoulder pain after pacer), No muscle pain Male : No dysuria, No urinary frequency, No incontinence Neuro: + weakness, No memory loss Psych: + anxiety, No depression symptoms Heme: No abnormal bleeding/bruising Endo: + fatigue Skin: No rash Physical Exam Date Time Temp Pulse Resp B/P (MAP) Pulse Ox O2 Delivery O2 Flow Rate FiO2 12/19/16 16:00 94 Nasal Cannula 4.0 12/19/16 13:46 60 14 139/59 (85) 97 Oxymask 6.0 12/19/16 13:31 60 21 145/60 (88) 97 12/19/16 13:16 60 19 163/70 (101) 92 12/19/16 13:15 97 Oxymask 7.0 12/19/16 13:06 61 20 140/60 (86) 92 Oxymask 6.0 12/19/16 12:58 60 18 124/57 (79) 93 Mask 6 12/19/16 12:45 60 18 126/57 (80) 93 Mask 6 12/19/16 11:03 42 18 118/53 (74) 97 12/19/16 11:00 42 22 96 12/19/16 09:52 Oxymask 6.0 12/19/16 09:30 47 21 95 12/19/16 09:02 54 21 138/57 (84) 95 12/19/16 09:00 73 18 97 12/19/16 08:39 48 14 95 Mask 6.0 12/19/16 08:30 54 24 81 12/19/16 08:19 36.9 47 16 133/64 (87) 97 Oxymask 6.0 12/19/16 08:00 47 11 98 12/19/16 08:00 Oxymask 12/19/16 07:45 95 Oxymask 6.0 12/19/16 07:30 60 20 93 12/19/16 07:02 90 19 131/56 (81) 92 12/19/16 07:00 79 21 94 Oxymask 6.0 12/19/16 06:02 69 22 132/67 (88) 94 Oxymask 6.0 12/19/16 05:41 36.5 44 18 128/63 97 Mask 6.0 12/19/16 05:01 53 17 119/52 (74) 95 Oxymask 6.0 12/19/16 04:01 36.8 63 19 136/64 (88) 91 Oxymask 6.0 12/19/16 04:00 97 Oxymask 6.0 12/19/16 03:02 44 18 128/63 (84) 90 Oxymask 6.0 12/19/16 02:02 71 21 145/60 (88) 95 Oxymask 6.0 12/19/16 01:01 42 15 135/59 (84) 94 Oxymask 6.0 12/19/16 00:01 36.5 40 14 138/53 (81) 95 Oxymask 6.0 12/19/16 00:01 97 Oxymask 6.0 12/18/16 23:02 44 16 148/59 (88) 95 Oxymask 6.0 12/18/16 22:05 41 20 133/61 (85) 95 Nasal Cannula 4.0 12/18/16 20:00 96 Nasal Cannula 4.0 12/18/16 19:56 36.4 42 22 137/59 (85) 95 Nasal Cannula 4.0 12/18/16 18:00 43 15 163/58 (93) 95 Room Air 4.0 24-Hour Column 12/20/16 08:00 Intake Total 70 ml Balance 70 ml General Appearance: no apparent distress, + obese, + pertinent finding (on 02 NC up in chair oriented x 3, irritable) Eyes: EOMI ENT: hearing grossly normal Neck: supple Respiratory/Chest: no respiratory distress, + decreased breath sounds, + crackles (R side; minimal air mvt on L) Cardiovascular: regular rate, rhythm (paced), + pertinent finding (RLE 3+ edema , LLE 1+) Abdomen: normal bowel sounds, non tender, soft (no valdes) Extremities: + pedal edema (R>L) Neurologic/Psych: alert, normal mood/affect, oriented x 3 Skin: no jaundice, warm/dry, no rash Diagnostics Last 24 Hours Test 12/18/16 20:29 12/19/16 04:36 12/19/16 05:33 12/19/16 07:23 Bedside Glucose 180 mg/dl 157 mg/dl White Blood Count 20.36 K/uL Red Blood Count 4.56 M/uL Hemoglobin 13.3 g/dL Hematocrit 41.2 % Mean Corpuscular Volume 90.4 fL Mean Corpuscular Hemoglobin 29.2 pg Mean Corpuscular Hemoglobin Concent 32.3 g/dl RDW Standard Deviation 49.5 fL RDW Coefficient of Variation 15.0 % Platelet Count 266 K/uL Mean Platelet Volume 10.3 fL Sodium Level 135 mmol/L Potassium Level 6.5 mmol/L 6.4 mmol/L Chloride Level 102 mmol/L Carbon Dioxide Level 28 mmol/L Anion Gap 5.0 mmol/L Blood Urea Nitrogen 43 mg/dl Creatinine 1.30 mg/dl Est Creatinine Clear Calc Drug Dose 84.0 ml/min Estimated GFR () 71.2 Estimated GFR (Non- 61.4 BUN/Creatinine Ratio 33.2 Random Glucose 162 mg/dl Calcium Level 8.5 mg/dl Test 12/19/16 09:39 12/19/16 09:47 12/19/16 13:28 12/19/16 15:12 Potassium Level 5.5 mmol/L 6.0 mmol/L Osmolality 307 mOsm/kg 301 mOsm/kg Thyroid Stimulating Hormone (TSH) 2.290 uIu/ml Random Cortisol 20.96 mcg/dl Venous Blood pH 7.31 Venous Blood Partial Pressure CO2 64 mmHg Venous Blood Partial Pressure O2 38 mmHg Venous Blood HCO3 31 mmol/L Venous Blood Oxygen Saturation 66.5 % Venous Blood Base Excess 3.0 mEq/L Bedside Glucose 162 mg/dl Test 12/19/16 15:30 12/19/16 15:43 12/19/16 15:46 Urine pH 5.0 Urine Osmolality 398 mOms/kg Bedside Glucose 135 mg/dl Urine Random Sodium 34 mEq/L Urine Random Potassium 26.7 mEq/L Urine Random Chloride 28 mEq/L Diagnostic Radiology: CXR > cardiomegaly and mild plm vascular congestion; fullness of R paratracheal tissues KUB 12/15>large ST mass, likely his bladder Assessment & Plan 55 y/o M w/ combined systolic/diastolic HF, newly discovered RCA infarct and some junctional rhythms has ongoing hyperkalemia. Hyperkalemia appears to be medication related but will rule out other causes like tissue injury. Last lasix dose was 12/17 2100. He was on RA on 12/17 but has had ongoing and often > 3L 02nc requirement since then. -added ck to labs from earlier though doubt an issue here -check pvr q shift x2 > had urinary retention on presentation -redose lasix in AM, sooner if worsening respiratory distress -redose kayexalate 30 gm, insulin if K > 5.5 -recheck bmp at 2300 and again in am; lactate w/ 2300 labs -mary renin ratio will be nearly impossible to interpret in this clinical context w/ so many parameters changing at once Appreciate consult; will follow with you. Care coordinated w/ Dr Rome
[2016-12-19] MEDS: ATORVASTATIN 40 MG TAB PO SCH (21:42)
[2016-12-20] VITALS (7 sets, daily range): BP systolic 119–144; BP diastolic 49–65; PULSE 60–63; TEMP 36.7–37.1; O2SAT 88–94
[2016-12-20] MEDS: OXYCODONE HCL IR 5 MG TAB (IMMEDIATE RELEASE) PO PRN ×2 (00:04→12:38)
[2016-12-20 00:13] LABS: POTASSIUM 4.8 mmol/L (3.5-5.1)
[2016-12-20] MEDS: CEFAZOLIN IV 1,000 MG in DEXTROSE 5% 50ML 50 ML IV SCH (04:06)
[2016-12-20 04:21] LABS: MEAN CELL VOLUME 89.9 fL (80-100); MEAN CORPUSCULAR HEMOGLOBIN 28.8 pg (25-34); MEAN PLATELET VOLUME 10.3 fL (7.4-10.4); PLATELET COUNT 263 K/uL (130-400); RED BLOOD COUNT 4.45 M/uL (4.7-6.1); WHITE BLOOD COUNT 18.33 K/uL (4.8-10.8)
[2016-12-20 05:01] LABS: BUN/CREATININE RATIO 30.7 (10-20); CALCIUM 8.5 mg/dl (8.5-10.1); CREATININE 1.2 mg/dl (0.60-1.40); MAGNESIUM 3.2 mg/dl (1.8-2.4); POTASSIUM 5.1 mmol/L (3.5-5.1)
[2016-12-20] MEDS ORDERED: CEFAZOLIN SOD 1000MG/55 ML D5W IV SCH (06:00)
--- NOTE | 2016-12-20 06:46 | Critical Care Progress Note ---
Critical Care Progress Note Date of Service Dec 20, 2016. ICU Day ICU Day Number: [address] Rome Subjective The patient was seen and examined at bedside. No acute overnight events. Telemetry shows paced rhythm in the 60s. Pt is NPO for the second half of his stress test today. Pt received two total tabs of Roxicodone the previous evening for pain. Approx 15 min was spent in the room this AM. Pt lamented his medical condition. Stated that he sits at home sometimes wondering "what the hell happened". Pt enjoys spending time with his sons who like to go out to dinner. Pt denies suicidal ideation or plans to self harm. Pt is also lamenting the at times fractured structure of medicine, "one doc tells you this, and another doc tells you that" specifically referring to his leg injury several years ago where he was told two separate times that he would have to have a leg amputation. Patient is resting comfortably in bed. Denies having any pain. No pain from the pacer site. Plan of care was described to the patient and all questions were answered. ROS: No chest pain, no SOB, no dyspnea on exertion, no palpitations, no fevers, no chills, no nausea, no vomiting, no diarrhea, no dysuria, no rash. Objective Gen: No acute distress. Sitting at bedside. Denies SI. Pt is conversive, reports enjoying spending time with sons. HEENT: Head - normocephalic and atraumatic. Pupils are equal, round, and reactive to light. Extraocular eye muscles are intact and sclera are anicteric. Ears - bilaterally patent canals with noninjected tympanic membranes and no evidence of hemotympanum. Nose - moist nasal mucosa without discharge. Mouth - moist buccal mucosa. Oropharynx is nonerythematous and there is no tonsillar exudate or edema noted. Neck: Supple; no JVD, nuchal rigidity, cervical lymphadenopathy, or auscultated bruits. Heart: Regular rate and rhythm. There is a normal S1 and S2 with no murmurs, clicks, or gallops appreciated. Pacer site non tender, non erythematous, covered by dressing. Lungs: Clear to auscultation bilaterally with no wheezes, rales, or rhonchi. Abdomen: Soft, completely nontender, nondistended, with good bowel sounds. There are no palpable pulsatile masses or hepatosplenomegaly. There is no guarding, rigidity, or rebound noted. Extremities: No evidence of cyanosis, clubbing, or edema. There are easily palpable peripheral pulses. Neuro: The patient is awake and alert, oriented to day, time, and place. Muscle strength is 5/5 in all 4 extremities. 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 There are no cerebellar signs. Current SOFA Score SOFA Score Response (Comments) Value Platelets (x10) > 150 0 Bilirubin (mg/dL) < 1.2 0 Erik Coma Score 15 0 Level of Hypotension No Hypotension 0 Creatinine (mg/dL) 1.2 - 1.9 1 Total 1 Assessment & Plan 55M with a PMHx of CAD, DM2, HTN and tobacco smoking p/w dyspnea and worsening LE edema x 4 weeks. Pt was found to have a Motbitz Type 1 heart rhythm that progressed to a Junctional Rhythm. Pt received a dual chamber permanent biventricular pacemaker on 12/19/[address] Saini. Second half of nuclear stress test today with Dr. Barrera. Possible discharge if findings are benign. Hospital course has been complicated by Hyperkalemia. Neuro: * AAOx3 * Pain control with Tylenol 650mg PO Q6H PRN + Roxicodone 5mg Q4H PRN. ( received 2 doses in 24 hours) CV - * s/p Bi Ventricular Pacemaker Placement on 12/19/16. * Pt now has a ventricularly paced rhythm. * Second half of cardiac stress test today with Dr. Barrera. * CAD: c/w ASA 81mg daily, Lipitor 80mg, * HTN: c/w Amlodipine 10mg daily, holding Lisinopril due to EDWARD. * HLD: Lipitor 40mg daily. * Smoker: Advised to quit smoking. Nicotine Patch PRN for Anxiety. Resp - * O2 titrated down to 3LNC/min, pt may be developing a new oxygen requirement. Because pt is self pay, Medicare Application pending, obtaining home oxygen may be cost prohibitive. * X-ray results showed no acute process. * Allergies: c/w Cetirizine 10mg daily. Renal/ - * EDWARD: Creatinine is 1.3-->1.2 (today) * -4.5L out since admission. * Pt was on Lasix 80mg Am and 40mg PM at home. * We will resume diuresis with IV Lasix 40mg BID. * Had a discussing with patient about taking daily weights at home - this was suggested to pt by [id number] who are both in the medical field. Daily weights is unlikely to be harmful for the pt and I mentioned that it was not a bad idea. GI/Diet - * NPO until stress test then DM2 Diet, low sodium, low potassium. * GI Proph: Pantoprazole 40mg daily Endo - * Blood Sugars elevated on admission, HBA1C was 8.8, pt started in insulin (not on insulin at home). * K+ was 6.5-->5.1 today, likely will trend down with insulin and resuming Lasix * Renal on board and recommendations include restarting Lasix, low sodium diet, checking BMP and Lactate at 5pm today. * Mg2+ was 3.6. Heme - * Hgb 13.30-->12.8, Platelets 266K-->263K * DVT Proph: Lovenox 40mg SQ daily ID - * Afebrile, WBC elevated, likely reactive. * Pt received Ancef pre Pacemaker Placement. MSK - * PT and OT on board. Dispo: Likely home today after Stress test. Full Code Resident Physician Supervision Note: Dr. Westfall was resident physician during care of patient. I separately evaluated patient and did history and exam. I discussed the case with the resident and generally agree with the findings and plan. Patient has continued hyperkalemia, albeit to a much lesser extent. Seen by nephrology and started on diuretics again. I suspect the patient's hypoxemia while his oxygen requirement is new and he has likely had long-standing COPD and will require follow-up in the near future. He currently has a application in for medical assistance does not have health insurance. This appears to be unfortunately, however understandably, influencing his care decisions. He has been cleared by cardiology, he is stable for downgraded out of the ICU to finish his evaluation of his hyper ketonemia which is likely multifactorial to ensure safe discharge and follow-up. Documented By: Reji Rome DO Consults & Procedures Consultants: Cardiology Human Resources Trainer Nephrology - 12/19/16 Procedures: Dual Chamber Pacemaker Placement on 12/19/16 Data Medications: Current Inpatient Medications Medications (Trade) Dose Ordered Sig/Jerica Route Start Time Stop Time Status Last Admin Dose Admin Enoxaparin Sodium (Lovenox Inj) 40 mg DAILY SC 12/16/16 09:00 01/15/17 08:59 12/19/16 14:49 40 MG Acetaminophen (Tylenol Tab) 650 mg Q4H PRN PO 12/15/16 22:15 01/14/17 22:14 Ondansetron HCl (Zofran Inj) 4 mg Q6H PRN IV 12/15/16 22:15 01/14/17 22:14 Aspirin (Ecotrin Tab) 81 mg QAM PO 12/16/16 09:00 01/15/17 08:59 12/19/16 09:06 81 MG Polyethylene (Miralax Powder Packet) 17 gm DAILY PRN PO 12/15/16 22:15 01/14/17 22:14 Insulin Aspart (novoLOG ASPART) SLIDING SCALE If C... ACHS SC 12/16/16 07:00 01/15/17 06:59 12/19/16 21:00 3 UNITS Glucose (Glucose 40% Gel) 15-30 GRAMS 15 GRAMS... UD PRN PO 12/15/16 22:15 01/14/17 22:14 Glucose (Glucose Chew Tab) 4-8 Tablets 4 Tabl... UD PRN PO 12/15/16 22:15 01/14/17 22:14 Dextrose (Dextrose 50% 50ML Syringe) 25-50ML OF 50% DW IV FOR... UD PRN IV 12/15/16 22:15 01/14/17 22:14 Glucagon (Glucagon Inj) 1 mg UD PRN SQ 12/15/16 22:15 01/14/17 22:14 Amlodipine Besylate (Norvasc Tab) 10 mg QAM PO 12/16/16 09:00 01/15/17 08:59 12/19/16 08:08 10 MG Atorvastatin Calcium (Lipitor Tab) 80 mg HS PO 12/15/16 22:30 01/14/17 22:29 12/19/16 21:42 80 MG Cetirizine HCl (zyrTEC TAB) 10 mg DAILY PO 12/16/16 09:00 01/15/17 08:59 12/17/16 07:57 10 MG Pantoprazole Sodium (Protonix Tab) 40 mg QAM PO 12/16/16 09:00 01/15/17 08:59 12/19/16 08:08 40 MG Glycerin (Glycerin Adult Supp) 1 ea DAILY PRN [place] 12/15/16 23:45 01/14/17 23:44 12/16/16 01:04 1 EA Magnesium Hydroxide (Milk Of Magnesia Susp) 30 ml BID PRN PO 12/16/16 18:30 01/15/17 18:29 12/17/16 15:56 30 ML Nitroglycerin (Nitrostat Tab) 0.4 mg Q5M PRN SL 12/17/16 16:45 01/16/17 16:44 Magnesium Citrate (Citrate Of Magnesia Soln) 296 ml DAILY PRN PO 12/17/16 18:00 01/16/17 17:59 12/17/16 17:50 296 ML Miscellaneous Information (Consult Glycemic Management Pharmacy) 1 ea UD PRN N/A 12/19/16 09:30 01/18/17 09:29 Insulin Glargine (Lantus Solostar Pen) SEE PROTOCOL Q12 SC 12/19/16 21:00 01/18/17 20:59 12/19/16 21:43 20 UNITS Oxycodone HCl (Roxicodone Immediate Rel Tab) 5 mg Q4 PRN PO 12/19/16 13:00 01/02/17 12:59 12/20/16 00:04 5 MG Vital Signs: Date Time Temp Pulse Resp B/P (MAP) Pulse Ox O2 Delivery O2 Flow Rate FiO2 12/20/16 06:00 36.8 61 21 140/58 (85) 93 Nasal Cannula 4.0 12/20/16 04:00 36.9 60 19 144/62 (89) 92 Nasal Cannula 4.0 12/20/16 04:00 Nasal Cannula 4.0 12/20/16 02:00 63 19 119/54 (75) 94 Nasal Cannula 4.0 12/20/16 00:00 Nasal Cannula 4.0 12/20/16 00:00 37.1 60 18 130/49 (76) 94 Nasal Cannula 4.0 12/19/16 23:00 63 21 149/64 (92) 94 Nasal Cannula 4.0 12/19/16 22:00 60 21 154/63 (93) 95 Nasal Cannula 4.0 12/19/16 21:00 60 27 138/70 (92) 95 Nasal Cannula 4.0 12/19/16 20:00 Nasal Cannula 4.0 12/19/16 20:00 37.0 60 25 152/74 (100) 95 Nasal Cannula 4.0 12/19/16 19:32 58 24 140/72 (94) 95 Nasal Cannula 4.0 12/19/16 17:47 60 23 150/51 (84) 12/19/16 17:32 60 23 149/58 (88) 94 Nasal Cannula 4.0 12/19/16 17:16 60 17 150/71 (97) 12/19/16 17:02 60 23 140/56 (84) Nasal Cannula 4.0 12/19/16 17:00 60 20 12/19/16 16:47 60 26 149/61 (90) 12/19/16 16:31 60 24 136/70 (92) 95 Nasal Cannula 4.0 12/19/16 16:16 60 17 145/66 (92) 12/19/16 16:01 72 20 156/76 (102) 12/19/16 16:00 94 Nasal Cannula 4.0 12/19/16 16:00 61 18 Nasal Cannula 4.0 12/19/16 15:47 36.4 62 19 151/71 (97) 94 12/19/16 15:01 60 16 129/72 (91) 98 12/19/16 15:00 60 17 98 12/19/16 13:46 60 14 139/59 (85) 97 Oxymask 6.0 12/19/16 13:31 60 21 145/60 (88) 97 12/19/16 13:16 60 19 163/70 (101) 92 12/19/16 13:15 97 Oxymask 7.0 12/19/16 13:06 61 20 140/60 (86) 92 Oxymask 6.0 12/19/16 12:58 60 18 124/57 (79) 93 Mask 6 12/19/16 12:45 60 18 126/57 (80) 93 Mask 6 12/19/16 11:03 42 18 118/53 (74) 97 12/19/16 11:00 42 22 96 12/19/16 09:52 Oxymask 6.0 12/19/16 09:30 47 21 95 12/19/16 09:02 54 21 138/57 (84) 95 12/19/16 09:00 73 18 97 12/19/16 08:39 48 14 95 Mask 6.0 12/19/16 08:30 54 24 81 12/19/16 08:19 36.9 47 16 133/64 (87) 97 Oxymask 6.0 12/19/16 08:00 47 11 98 12/19/16 08:00 Oxymask 12/19/16 07:45 95 Oxymask 6.0 12/19/16 07:30 60 20 93 12/19/16 07:02 90 19 131/56 (81) 92 12/19/16 07:00 79 21 94 Oxymask 6.0 Laboratory Results: Last 24 Hours Test 12/19/16 07:23 12/19/16 09:39 12/19/16 09:47 12/19/16 13:28 Potassium Level 6.4 mmol/L 5.5 mmol/L Osmolality 307 mOsm/kg Thyroid Stimulating Hormone (TSH) 2.290 uIu/ml Random Cortisol 20.96 mcg/dl Venous Blood pH 7.31 Venous Blood Partial Pressure CO2 64 mmHg Venous Blood Partial Pressure O2 38 mmHg Venous Blood HCO3 31 mmol/L Venous Blood Oxygen Saturation 66.5 % Venous Blood Base Excess 3.0 mEq/L Bedside Glucose 162 mg/dl Test 12/19/16 15:12 12/19/16 15:30 12/19/16 15:43 12/19/16 15:46 Potassium Level 6.0 mmol/L Osmolality 301 mOsm/kg Urine pH 5.0 Urine Osmolality 398 mOms/kg Bedside Glucose 135 mg/dl Urine Random Sodium 34 mEq/L Urine Random Potassium 26.7 mEq/L Urine Random Chloride 28 mEq/L Test 12/19/16 18:12 12/19/16 21:39 12/19/16 23:55 12/20/16 03:57 Sodium Level 133 mmol/L 134 mmol/L Potassium Level 4.9 mmol/L 4.8 mmol/L 5.1 mmol/L Chloride Level 99 mmol/L 100 mmol/L Carbon Dioxide Level 30 mmol/L 29 mmol/L Anion Gap 4.0 mmol/L 5.0 mmol/L Blood Urea Nitrogen 39 mg/dl 37 mg/dl Creatinine 1.30 mg/dl 1.20 mg/dl Est Creatinine Clear Calc Drug Dose 84.0 ml/min 91.0 ml/min Estimated GFR () 71.2 78.4 Estimated GFR (Non- 61.4 67.7 BUN/Creatinine Ratio 30.3 30.7 Random Glucose 304 mg/dl 151 mg/dl Calcium Level 8.4 mg/dl 8.5 mg/dl Magnesium Level 3.1 mg/dl 3.2 mg/dl Beta-Hydroxybutyric Acid 0.41 mg/dL Bedside Glucose 208 mg/dl Total Creatine Kinase 50 U/L White Blood Count 18.33 K/uL Red Blood Count 4.45 M/uL Hemoglobin 12.8 g/dL Hematocrit 40.0 % Mean Corpuscular Volume 89.9 fL Mean Corpuscular Hemoglobin 28.8 pg Mean Corpuscular Hemoglobin Concent 32.0 g/dl RDW Standard Deviation 49.0 fL RDW Coefficient of Variation 14.7 % Platelet Count 263 K/uL Mean Platelet Volume 10.3 fL Phosphorus Level 4.0 mg/dl Resident Involvement: Resident Care Provided Care Provided: Adult Hospital Medicine
--- NOTE | 2016-12-20 06:55 | DIAGNOSTIC IMAGING REPORT ---
CHEST 2 VIEWS ROUTINE CLINICAL HISTORY: 55 years-old Male presenting with EXACT TIME ORDERED Evaluate for pneumothorax and lead placement. TECHNIQUE: PA and lateral views of the chest were obtained. COMPARISON: 12/15/2016. FINDINGS: Left-sided cardiac pacer with leads to the right atrium and right ventricular apex. Prominence of the superior mediastinal contour in the right paratracheal region, unchanged and likely correlating to a combination of mediastinal lymphadenopathy and mediastinal lipomatosis better seen on CT from 04/05/2016. Hazy bibasilar opacities, slightly increased from prior. Small bilateral pleural effusions increased from prior. No pneumothorax. Osseous structures normal. Upper abdomen normal. IMPRESSION: 1. Cardiomegaly with increasing bibasilar opacities could represent developing pulmonary edema. Increasing small bilateral pleural effusions. 2. No pneumothorax. Electronically signed by: Shawn Ferrara M.D. 12/20/2016 6:54 AM Dictated Date/Time: 12/20/2016 6:52 AM
[2016-12-20] MEDS: AMLODIPINE BESYLATE 5 MG TAB PO SCH (08:13)
[2016-12-20] MEDS: ASPIRIN 81 MG ECTAB PO SCH (08:13)
[2016-12-20] MEDS: CETIRIZINE HCL 10 MG TAB PO SCH (08:14)
[2016-12-20] MEDS: ENOXAPARIN 40 MG/0.4 ML SYR SC SCH (08:14)
[2016-12-20] MEDS: PANTOprazole SOD 40 MG TAB PO SCH (08:14)
[2016-12-20] MEDS: INSULIN ASPART 100 UNITS/ML 3 ML PEN SC SCH ×4 (08:18→20:33)
[2016-12-20] MEDS: INSULIN GLARGINE SOLOSTAR 100 UNITS/ML 3 ML PEN SC SCH ×2 (08:24→20:33)
[2016-12-20] MEDS ORDERED: FUROSEMIDE INJ 20 MG in SYRINGE 0 ML IV STA (09:39)
--- NOTE | 2016-12-20 09:54 | Nephrology Progress Note ---
Nephrology Progress Note Date of Service: Dec 20, 2016. Subjective c/o poor sleep, being NPO; feels edema slightly better; denies voiding issues; NPO currently for 11 am remainder of cardiac test; also still on 4L 02 Objective Date Time Temp Pulse Resp B/P (MAP) Pulse Ox O2 Delivery O2 Flow Rate FiO2 12/20/16 08:00 93 Nasal Cannula 2.0 12/20/16 08:00 36.9 60 21 131/61 (84) 93 Nasal Cannula 3.0 12/20/16 06:00 36.8 61 21 140/58 (85) 93 Nasal Cannula 4.0 12/20/16 04:00 36.9 60 19 144/62 (89) 92 Nasal Cannula 4.0 12/20/16 04:00 Nasal Cannula 4.0 12/20/16 02:00 63 19 119/54 (75) 94 Nasal Cannula 4.0 12/20/16 00:00 Nasal Cannula 4.0 12/20/16 00:00 37.1 60 18 130/49 (76) 94 Nasal Cannula 4.0 12/19/16 23:00 63 21 149/64 (92) 94 Nasal Cannula 4.0 12/19/16 22:00 60 21 154/63 (93) 95 Nasal Cannula 4.0 12/19/16 21:00 60 27 138/70 (92) 95 Nasal Cannula 4.0 12/19/16 20:00 Nasal Cannula 4.0 12/19/16 20:00 37.0 60 25 152/74 (100) 95 Nasal Cannula 4.0 12/19/16 19:32 58 24 140/72 (94) 95 Nasal Cannula 4.0 12/19/16 17:47 60 23 150/51 (84) 12/19/16 17:32 60 23 149/58 (88) 94 Nasal Cannula 4.0 12/19/16 17:16 60 17 150/71 (97) 12/19/16 17:02 60 23 140/56 (84) Nasal Cannula 4.0 12/19/16 17:00 60 20 12/19/16 16:47 60 26 149/61 (90) 12/19/16 16:31 60 24 136/70 (92) 95 Nasal Cannula 4.0 12/19/16 16:16 60 17 145/66 (92) 12/19/16 16:01 72 20 156/76 (102) 12/19/16 16:00 94 Nasal Cannula 4.0 12/19/16 16:00 61 18 Nasal Cannula 4.0 12/19/16 15:47 36.4 62 19 151/71 (97) 94 12/19/16 15:01 60 16 129/72 (91) 98 12/19/16 15:00 60 17 98 12/19/16 13:46 60 14 139/59 (85) 97 Oxymask 6.0 12/19/16 13:31 60 21 145/60 (88) 97 12/19/16 13:16 60 19 163/70 (101) 92 12/19/16 13:15 97 Oxymask 7.0 12/19/16 13:06 61 20 140/60 (86) 92 Oxymask 6.0 12/19/16 12:58 60 18 124/57 (79) 93 Mask 6 12/19/16 12:45 60 18 126/57 (80) 93 Mask 6 12/19/16 11:03 42 18 118/53 (74) 97 12/19/16 11:00 42 22 96 12/19/16 09:52 Oxymask 6.0 Physical Exam: General Appearance: no apparent distress, + obese, + pertinent finding (on NC 3-4L up in chair oriented x 3, today less irritable) Eyes: EOMI ENT: hearing grossly normal Neck: supple Respiratory/Chest: no respiratory distress, + decreased breath sounds, + crackles (again R side; minimal air mvt on L) Cardiovascular: regular rate, rhythm (paced), + pertinent finding (RLE 3+ edema , LLE 1+) Abdomen: normal bowel sounds, non tender, soft (no valdes) Extremities: + pedal edema (R>L) Neurologic/Psych: alert, normal mood/affect, oriented x 3 Skin: no jaundice, warm/dry, no rash Current Inpatient Medications Medications (Trade) Dose Ordered Sig/Jerica Route Start Time Stop Time Status Last Admin Dose Admin Enoxaparin Sodium (Lovenox Inj) 40 mg DAILY SC 12/16/16 09:00 01/15/17 08:59 12/20/16 08:14 40 MG Acetaminophen (Tylenol Tab) 650 mg Q4H PRN PO 12/15/16 22:15 01/14/17 22:14 Ondansetron HCl (Zofran Inj) 4 mg Q6H PRN IV 12/15/16 22:15 01/14/17 22:14 Aspirin (Ecotrin Tab) 81 mg QAM PO 12/16/16 09:00 01/15/17 08:59 12/20/16 08:13 81 MG Polyethylene (Miralax Powder Packet) 17 gm DAILY PRN PO 12/15/16 22:15 01/14/17 22:14 Insulin Aspart (novoLOG ASPART) SLIDING SCALE If C... ACHS SC 12/16/16 07:00 01/15/17 06:59 12/20/16 08:18 1 UNITS Glucose (Glucose 40% Gel) 15-30 GRAMS 15 GRAMS... UD PRN PO 12/15/16 22:15 01/14/17 22:14 Glucose (Glucose Chew Tab) 4-8 Tablets 4 Tabl... UD PRN PO 12/15/16 22:15 01/14/17 22:14 Dextrose (Dextrose 50% 50ML Syringe) 25-50ML OF 50% DW IV FOR... UD PRN IV 12/15/16 22:15 01/14/17 22:14 Glucagon (Glucagon Inj) 1 mg UD PRN SQ 12/15/16 22:15 01/14/17 22:14 Amlodipine Besylate (Norvasc Tab) 10 mg QAM PO 12/16/16 09:00 01/15/17 08:59 12/20/16 08:13 10 MG Atorvastatin Calcium (Lipitor Tab) 80 mg HS PO 12/15/16 22:30 01/14/17 22:29 12/19/16 21:42 80 MG Cetirizine HCl (zyrTEC TAB) 10 mg DAILY PO 12/16/16 09:00 01/15/17 08:59 12/20/16 08:14 10 MG Pantoprazole Sodium (Protonix Tab) 40 mg QAM PO 12/16/16 09:00 01/15/17 08:59 12/20/16 08:14 40 MG Glycerin (Glycerin Adult Supp) 1 ea DAILY PRN [place] 12/15/16 23:45 01/14/17 23:44 12/16/16 01:04 1 EA Magnesium Hydroxide (Milk Of Magnesia Susp) 30 ml BID PRN PO 12/16/16 18:30 01/15/17 18:29 12/17/16 15:56 30 ML Nitroglycerin (Nitrostat Tab) 0.4 mg Q5M PRN SL 12/17/16 16:45 01/16/17 16:44 Magnesium Citrate (Citrate Of Magnesia Soln) 296 ml DAILY PRN PO 12/17/16 18:00 01/16/17 17:59 12/17/16 17:50 296 ML Miscellaneous Information (Consult Glycemic Management Pharmacy) 1 ea UD PRN N/A 12/19/16 09:30 01/18/17 09:29 Insulin Glargine (Lantus Solostar Pen) SEE PROTOCOL Q12 SC 12/19/16 21:00 01/18/17 20:59 12/20/16 08:24 15 UNITS Oxycodone HCl (Roxicodone Immediate Rel Tab) 5 mg Q4 PRN PO 12/19/16 13:00 01/02/17 12:59 12/20/16 00:04 5 MG Last 24 Hours Test 12/19/16 09:39 12/19/16 09:47 12/19/16 13:28 12/19/16 15:12 Potassium Level 5.5 mmol/L 6.0 mmol/L Osmolality 307 mOsm/kg 301 mOsm/kg Thyroid Stimulating Hormone (TSH) 2.290 uIu/ml Random Cortisol 20.96 mcg/dl Venous Blood pH 7.31 Venous Blood Partial Pressure CO2 64 mmHg Venous Blood Partial Pressure O2 38 mmHg Venous Blood HCO3 31 mmol/L Venous Blood Oxygen Saturation 66.5 % Venous Blood Base Excess 3.0 mEq/L Bedside Glucose 162 mg/dl Test 12/19/16 15:30 12/19/16 15:43 12/19/16 15:46 12/19/16 18:12 Urine pH 5.0 Urine Osmolality 398 mOms/kg Bedside Glucose 135 mg/dl Urine Random Sodium 34 mEq/L Urine Random Potassium 26.7 mEq/L Urine Random Chloride 28 mEq/L Sodium Level 133 mmol/L Potassium Level 4.9 mmol/L Chloride Level 99 mmol/L Carbon Dioxide Level 30 mmol/L Anion Gap 4.0 mmol/L Blood Urea Nitrogen 39 mg/dl Creatinine 1.30 mg/dl Est Creatinine Clear Calc Drug Dose 84.0 ml/min Estimated GFR () 71.2 Estimated GFR (Non- 61.4 BUN/Creatinine Ratio 30.3 Random Glucose 304 mg/dl Calcium Level 8.4 mg/dl Magnesium Level 3.1 mg/dl Beta-Hydroxybutyric Acid 0.41 mg/dL Test 12/19/16 21:39 12/19/16 23:55 12/20/16 03:57 12/20/16 07:11 Bedside Glucose 208 mg/dl 150 mg/dl Potassium Level 4.8 mmol/L 5.1 mmol/L Total Creatine Kinase 50 U/L White Blood Count 18.33 K/uL Red Blood Count 4.45 M/uL Hemoglobin 12.8 g/dL Hematocrit 40.0 % Mean Corpuscular Volume 89.9 fL Mean Corpuscular Hemoglobin 28.8 pg Mean Corpuscular Hemoglobin Concent 32.0 g/dl RDW Standard Deviation 49.0 fL RDW Coefficient of Variation 14.7 % Platelet Count 263 K/uL Mean Platelet Volume 10.3 fL Sodium Level 134 mmol/L Chloride Level 100 mmol/L Carbon Dioxide Level 29 mmol/L Anion Gap 5.0 mmol/L Blood Urea Nitrogen 37 mg/dl Creatinine 1.20 mg/dl Est Creatinine Clear Calc Drug Dose 91.0 ml/min Estimated GFR () 78.4 Estimated GFR (Non- 67.7 BUN/Creatinine Ratio 30.7 Random Glucose 151 mg/dl Calcium Level 8.5 mg/dl Phosphorus Level 4.0 mg/dl Magnesium Level 3.2 mg/dl Test 12/20/16 08:12 Potassium Level 5.5 mmol/L Assessment & Plan 55 y/o M w/ combined systolic/diastolic HF, newly discovered RCA infarct and some junctional rhythms has ongoing mild hyperkalemia. Hyperkalemia appears to be medication related but will rule out other causes like tissue injury. Only med he remains on that commonly contributes is enoxaparin, obviously not optional. Last lasix dose was 12/17 2099. He was on RA on 12/17 but has had ongoing and often >3L 02nc requirement since then. CXR 12/20 shows possible early pulm edema. CK is wnl. -recheck bmp at 1700 ordered; would also check lactate then as it is not yet done -restarted lasix 40 mg IV twice daily, timed so as not to disrupt sleep -needs low K, <2 gm daily Na, diabetic diet when taking po -agree w/ daily standing weight Appreciate consult; will follow with you. Care coordinated w/ [facility]
[2016-12-20] MEDS ORDERED: FUROSEMIDE INJ 40 MG in SYRINGE 0 ML IV ONE ×2 (10:00→15:00)
--- NOTE | 2016-12-20 10:07 | Cardiology Follow-Up ---
Subjective Date of Service: Dec 20, 2016. Pt evaluation today including: conversation w/ patient, physical exam, chart review, lab review, review of studies, conversation w/ executive search consultant, review of inpatient medication list History of Present Illness This morning the patient claims to be feeling well. He does have some discomfort at the pacemaker implant site which is fairly mild and improving. He had some concerns regarding discharge in the timing of discharge. He has been ambulatory around his room and denies significant complaints. He states that overall he feels slightly better than he did yesterday. Social History Smoking Status: Current Every Day Smoker History of Alcohol Use: No Review of Systems Respiratory: + shortness of breath Cardiac: + edema, No chest pain, No palpitations Objective Vital Signs Past 12 Hours Date Time Temp Pulse Resp B/P (MAP) Pulse Ox O2 Delivery O2 Flow Rate FiO2 12/20/16 08:00 93 Nasal Cannula 2.0 12/20/16 08:00 36.9 60 21 131/61 (84) 93 Nasal Cannula 3.0 12/20/16 06:00 36.8 61 21 140/58 (85) 93 Nasal Cannula 4.0 12/20/16 04:00 36.9 60 19 144/62 (89) 92 Nasal Cannula 4.0 12/20/16 04:00 Nasal Cannula 4.0 12/20/16 02:00 63 19 119/54 (75) 94 Nasal Cannula 4.0 12/20/16 00:00 Nasal Cannula 4.0 12/20/16 00:00 37.1 60 18 130/49 (76) 94 Nasal Cannula 4.0 12/19/16 23:00 63 21 149/64 (92) 94 Nasal Cannula 4.0 Last Recorded Weight-Kilograms: 123.600 Physical Exam The patient is alert and oriented. Mood and affect appeared normal. He answered all questions appropriately. The pacemaker implant site was clean dry and intact. There is no significant bleeding or ecchymosis. This is a very small hematoma at the implant site. Minimally tender to palpation. Data Laboratory Results: Last 24 Hours Test 12/19/16 13:28 12/19/16 15:12 12/19/16 15:30 12/19/16 15:43 Bedside Glucose 162 mg/dl 135 mg/dl Potassium Level 6.0 mmol/L Osmolality 301 mOsm/kg Urine pH 5.0 Urine Osmolality 398 mOms/kg Test 12/19/16 15:46 12/19/16 18:12 12/19/16 21:39 12/19/16 23:55 Urine Random Sodium 34 mEq/L Urine Random Potassium 26.7 mEq/L Urine Random Chloride 28 mEq/L Sodium Level 133 mmol/L Potassium Level 4.9 mmol/L 4.8 mmol/L Chloride Level 99 mmol/L Carbon Dioxide Level 30 mmol/L Anion Gap 4.0 mmol/L Blood Urea Nitrogen 39 mg/dl Creatinine 1.30 mg/dl Est Creatinine Clear Calc Drug Dose 84.0 ml/min Estimated GFR () 71.2 Estimated GFR (Non- 61.4 BUN/Creatinine Ratio 30.3 Random Glucose 304 mg/dl Calcium Level 8.4 mg/dl Magnesium Level 3.1 mg/dl Beta-Hydroxybutyric Acid 0.41 mg/dL Bedside Glucose 208 mg/dl Total Creatine Kinase 50 U/L Test 12/20/16 03:57 12/20/16 07:11 12/20/16 08:12 White Blood Count 18.33 K/uL Red Blood Count 4.45 M/uL Hemoglobin 12.8 g/dL Hematocrit 40.0 % Mean Corpuscular Volume 89.9 fL Mean Corpuscular Hemoglobin 28.8 pg Mean Corpuscular Hemoglobin Concent 32.0 g/dl RDW Standard Deviation 49.0 fL RDW Coefficient of Variation 14.7 % Platelet Count 263 K/uL Mean Platelet Volume 10.3 fL Sodium Level 134 mmol/L Potassium Level 5.1 mmol/L 5.5 mmol/L Chloride Level 100 mmol/L Carbon Dioxide Level 29 mmol/L Anion Gap 5.0 mmol/L Blood Urea Nitrogen 37 mg/dl Creatinine 1.20 mg/dl Est Creatinine Clear Calc Drug Dose 91.0 ml/min Estimated GFR () 78.4 Estimated GFR (Non- 67.7 BUN/Creatinine Ratio 30.7 Random Glucose 151 mg/dl Calcium Level 8.5 mg/dl Phosphorus Level 4.0 mg/dl Magnesium Level 3.2 mg/dl Bedside Glucose 150 mg/dl Imaging: Chest x-ray demonstrated stable lead positions. There was no pneumothorax. He did have evidence of some pulmonary vascular congestion and a small effusion. Telemetry reviewed: Atrial paced rhythm A complete device interrogation was performed this morning. Normal lead function. Good sensing and thresholds. Normal device function. Assessment and Plan Symptomatic bradycardia: Status post implantation of Medtronic dual-chamber permanent pacemaker. No complications from the procedure. Normal device function. This point I recommend keeping the wound dry and Steri-Strips intact until follow-up in the clinic within 1 week. He should refrain from lifting left arm above his shoulder behind his neck for a period of 6 weeks.
[2016-12-20] MEDS ORDERED: REGADENOSON 0.4 MG/5 ML SYR ONE (10:36)
--- NOTE | 2016-12-20 11:56 | Pharmacy Progress Note ---
Glycemic: Assessment & Plan Date of Service Dec 20, 2016. Assessment & Plan ASSESSMENT: * 55 yo M s/p pacemaker placement, remains in ICU * Pt NPO this AM for further cardiac work up around 11am but should be able to eat after * Fasting BSG 150 mg/dL * Continue current Lantus orders and re-evaluate as diet advances * Pt normally takes a very basal heavy regimen as an outpatient so basal has been reduced while here to adjust for addition of Novolog * When eating his needs will increase but I have not been able to assess current Novolog coverage to make any changes * Re-evaluate in the AM if still admitted PLAN FOR INPATIENT GLYCEMIC CONTROL: * Hold outpatient oral diabetes medications * Basal insulin with LANTUS 10-20 units SQ BID, depending on BSG * Correctional Insulin with NOVOLOG per scale ACHS * Goal Range: Low 110 mg/dL - High 140 mg/dL * Correction Factor: 20 mg/dL/unit * Nutritional / Prandial insulin per carb ratio of 1 unit per 6 grams CHO consumed * Please note that the plan above was derived based on current level of insulin resistance and hospital stress. These recommendations are appropriate for inpatient admission only. Plan of care upon discharge will need to be reassessed to avoid potential outpatient hypo/hyperglycemia. Thank you.
[2016-12-20] MEDS: NICOTINE 14 MG/24 HR TDSY TD SCH (12:26)
--- NOTE | 2016-12-20 12:36 | Progress Note ---
Internal Med Progress Note Date of Service: Dec 20, 2016. Provider Documentation: SUBJECTIVE: The patient was seen and examined Generally tired Noted to have very slow Junctional rhythm Transferred to ICU for Possible Temp. PM S/P Dual Chamber PPM on 12/19/16 Doing well following that OBJECTIVE: Vital Signs-as noted below Exam: General-No distress at rest Eyes-normal ENT-normal Neck-Supple Lungs-Clear to auscultate bilaterally Heart-Regular Abdomen-Distended,soft,no organomegaly Bowel sound present Extremities-+2 edema bilaterally ,Chronic Neuro-AAOx3 Lab data as noted below. ASSESSMENT & PLAN: This is a 55yo man with a PMH of DM II, non-obstructive CAD, HTN, HLD, tobacco use disorder and diastolic heart dysfunction who presents with worsening lower extremity edema. Hyperkalemia Acute and repeat test remained high Received Insulin+Dextrose,Albuterol Nebs,Calcium Gluconate ,Sodi-bicarb and Kayexalate Will recheck if elevated will give more Kayexalate Appreciate Nephrology input Potassium is reasonably stable Junctional Bradyarrhythmia Admitted with 2nd degree Type 1 intermittent heart block Junction rhythm today -rate ~44 Remains hemodynamically stable Heart rate went down to 20s at some point Appreciate prompt response from cardiology Patient transferee to ICU for Possible Temporary PM and or Isoproterenol infusion No Cardiac Cath now S/P PPM placement 12/19/16 Acutely decompensated Diastolic HF: -Patient with history of diastolic dysfunction, LVH on 2015 echo -Presents with worsening LE edema, dyspnea on exertion, crackles on exam and ~2- 0lbs weight gain -CXR with vascular congestion -EKG with evidence of RVH, ST depression in V5-V6.Intermittent 2nd Degree ,type I block -ECHO:: Normal LV chamber size with mild concentric LVH. * Normal LV systolic function, EF 55-60%. * Mild hypokinesis of the mid to apical portions of the inferior/ inferolateral jean, otherwise, hyperdynamic wall motion. * Grade II diastolic dysfunction. * Moderately calcified, trileaflet aortic valve with mild stenosis, no regurgitation. * Mild left atrial enlargement. Appreciate Cardiology input Diuresing well Continue current dose of Lasix Will have Myocardial perfusion scan today CAD: New Infero-lateral wall motion abnormality in ECHO -Non obstructive as per history -Continue statin, started on aspirin -Serial Dino -negative for ACS -Likely t o have Cardiac Cath on Monday-not now -s/p PPM placement -Myocardial Perfusion scan today HTN: -Normotensive now -Continue home meds of amlodipine -will hold Lisinopril -Monitor kidney function and consider holding lisinopril if worsened DM II: HB A0V-[id number] at 8.8 -Hgb a1c of 8.4 on 10/27 -Hold home meds -Basal bolus regimen while in-patient -BG checks AC HS Urinary retention: -KUB with distended bladder -Follow up pelvic/bladder ultrasound recommended -Refused valdes catheter -Closely monitor Constipation: -Presents with abd distention, bloating -Has not had a bowel movement in a week -KUB without evidence of bowel obstruction -Scheduled suppository, miralax Tobacco use disorder: -Discussed benefits of cessation in terms of chronic disease -Not interested in quitting at this time -Denies COPD diagnosis HLD: -Continue statin DVT Ppx: Lovenox Code status: FULL Vital Signs: Date Time Temp Pulse Resp B/P (MAP) Pulse Ox O2 Delivery O2 Flow Rate FiO2 12/20/16 08:00 Nasal Cannula 12/20/16 08:00 93 Nasal Cannula 2.0 12/20/16 08:00 36.9 60 21 131/61 (84) 93 Nasal Cannula 3.0 12/20/16 06:00 36.8 61 21 140/58 (85) 93 Nasal Cannula 4.0 12/20/16 04:00 36.9 60 19 144/62 (89) 92 Nasal Cannula 4.0 12/20/16 04:00 Nasal Cannula 4.0 12/20/16 02:00 63 19 119/54 (75) 94 Nasal Cannula 4.0 12/20/16 00:00 Nasal Cannula 4.0 12/20/16 00:00 37.1 60 18 130/49 (76) 94 Nasal Cannula 4.0 12/19/16 23:00 63 21 149/64 (92) 94 Nasal Cannula 4.0 12/19/16 22:00 60 21 154/63 (93) 95 Nasal Cannula 4.0 12/19/16 21:00 60 27 138/70 (92) 95 Nasal Cannula 4.0 12/19/16 20:00 Nasal Cannula 4.0 12/19/16 20:00 37.0 60 25 152/74 (100) 95 Nasal Cannula 4.0 12/19/16 19:32 58 24 140/72 (94) 95 Nasal Cannula 4.0 12/19/16 17:47 60 23 150/51 (84) 12/19/16 17:32 60 23 149/58 (88) 94 Nasal Cannula 4.0 12/19/16 17:16 60 17 150/71 (97) 12/19/16 17:02 60 23 140/56 (84) Nasal Cannula 4.0 12/19/16 17:00 60 20 12/19/16 16:47 60 26 149/61 (90) 12/19/16 16:31 60 24 136/70 (92) 95 Nasal Cannula 4.0 12/19/16 16:16 60 17 145/66 (92) 12/19/16 16:01 72 20 156/76 (102) 12/19/16 16:00 94 Nasal Cannula 4.0 12/19/16 16:00 61 18 Nasal Cannula 4.0 12/19/16 15:47 36.4 62 19 151/71 (97) 94 12/19/16 15:01 60 16 129/72 (91) 98 12/19/16 15:00 60 17 98 12/19/16 13:46 60 14 139/59 (85) 97 Oxymask 6.0 12/19/16 13:31 60 21 145/60 (88) 97 12/19/16 13:16 60 19 163/70 (101) 92 12/19/16 13:15 97 Oxymask 7.0 12/19/16 13:06 61 20 140/60 (86) 92 Oxymask 6.0 12/19/16 12:58 60 18 124/57 (79) 93 Mask 6 12/19/16 12:45 60 18 126/57 (80) 93 Mask 6 Lab Results: Results Past 24 Hours Test 12/19/16 13:28 12/19/16 15:12 12/19/16 15:30 12/19/16 15:43 Range/Units Bedside Glucose 162 135 70-99 mg/dl Potassium Level 6.0 3.5-5.1 mmol/L Osmolality 301 280-300 mOsm/kg Urine pH 5.0 4.5-7.5 Urine Osmolality 398 500-800 mOms/kg Test 12/19/16 15:46 12/19/16 18:12 12/19/16 21:39 12/19/16 23:55 Range/Units Urine Random Sodium 34 mEq/L Urine Random Potassium 26.7 mEq/L Urine Random Chloride 28 mEq/L Sodium Level 133 136-145 mmol/L Potassium Level 4.9 4.8 3.5-5.1 mmol/L Chloride Level 99 98-107 mmol/L Carbon Dioxide Level 30 21-32 mmol/L Anion Gap 4.0 3-11 mmol/L Blood Urea Nitrogen 39 7-18 mg/dl Creatinine 1.30 0.60-1.40 mg/dl Est Creatinine Clear Calc Drug Dose 84.0 ml/min Estimated GFR () 71.2 Estimated GFR (Non- 61.4 BUN/Creatinine Ratio 30.3 10-20 Random Glucose 304 70-99 mg/dl Calcium Level 8.4 8.5-10.1 mg/dl Magnesium Level 3.1 1.8-2.4 mg/dl Beta-Hydroxybutyric Acid 0.41 0.2-2.81 mg/dL Bedside Glucose 208 70-99 mg/dl Total Creatine Kinase 50 39-308 U/L Test 12/20/16 03:57 12/20/16 07:11 12/20/16 08:12 Range/Units White Blood Count 18.33 4.8-10.8 K/uL Red Blood Count 4.45 4.7-6.1 M/uL Hemoglobin 12.8 14.0-18.0 g/dL Hematocrit 40.0 42-52 % Mean Corpuscular Volume 89.9 80-100 fL Mean Corpuscular Hemoglobin 28.8 25-34 pg Mean Corpuscular Hemoglobin Concent 32.0 32-36 g/dl RDW Standard Deviation 49.0 36.4-46.3 fL RDW Coefficient of Variation 14.7 11.5-14.5 % Platelet Count 263 130-400 K/uL Mean Platelet Volume 10.3 7.4-10.4 fL Sodium Level 134 136-145 mmol/L Potassium Level 5.1 5.5 3.5-5.1 mmol/L Chloride Level 100 98-107 mmol/L Carbon Dioxide Level 29 21-32 mmol/L Anion Gap 5.0 3-11 mmol/L Blood Urea Nitrogen 37 7-18 mg/dl Creatinine 1.20 0.60-1.40 mg/dl Est Creatinine Clear Calc Drug Dose 91.0 ml/min Estimated GFR () 78.4 Estimated GFR (Non- 67.7 BUN/Creatinine Ratio 30.7 10-20 Random Glucose 151 70-99 mg/dl Calcium Level 8.5 8.5-10.1 mg/dl Phosphorus Level 4.0 2.5-4.9 mg/dl Magnesium Level 3.2 1.8-2.4 mg/dl Bedside Glucose 150 70-99 mg/dl
--- NOTE | 2016-12-20 14:26 | Cardiology Follow-Up ---
Subjective Subjective Date of Service: Dec 20, 2016. Pt evaluation today including: conversation w/ patient, conversation w/ family , physical exam, chart review, lab review, review of studies, review of inpatient medication list Additional Details: Pt seen and examined, states that he feels well. Notices that breathing has improved since pacemaker insertion and strength has improved. Denies cp, sob, palpitations, lightheadedness or dizziness. Tele reviewed: atrial-paced rhythm Device interrogation: appropriate function with 98% atrial pacing Problem List Medical Problems: (1) Chest pain Status: Acute (2) Lower extremity edema Status: Acute (3) PICC line infection Status: Acute (4) Pulmonary congestion Status: Acute (5) Scrotal edema Status: Acute (6) Swelling of both lower extremities Status: Acute Review of Systems Constitutional: + weakness, + fatigue, No fever Eyes: No worsening of vision Respiratory: No see HPI, No cough, No sputum, No wheezing, No shortness of breath, No dyspnea on exertion, No dyspnea at rest, No hemoptysis, No problem reported Cardiac: No see HPI, No chest pain, No orthopnea, No PND, No edema, No claudication, No palpitations, No problem reported Musculoskeletal: + joint pain (currently L shoulder pain after pacer), No muscle pain Male : No dysuria, No urinary frequency, No incontinence Neurologic: + weakness, No memory loss Psychiatric: + anxiety, No depression symptoms Heme: No abnormal bleeding/bruising Endo: + fatigue Objective Vital Signs Last Vital Signs Documentation Date Time Temp Pulse Resp B/P (MAP) Pulse Ox O2 Delivery O2 Flow Rate FiO2 12/20/16 12:30 92 Nasal Cannula 2.0 12/20/16 12:30 36.7 60 20 136/65 (88) Physical Exam: General Appearance: WD/WN, no apparent distress, + obese, + pertinent finding ( slight conversational dyspnea) Eyes: bilateral eyes normal inspection, bilateral eyes PERRL, bilateral eyes EOMI ENT: normal ENT inspection, hearing grossly normal, pharynx normal Neck: supple, no adenopathy, thyroid normal, no JVD, no carotid bruits, trachea midline Respiratory/Chest: chest non-tender, normal breath sounds, no respiratory distress, no accessory muscle use, + decreased breath sounds Cardiovascular: regular rate, rhythm, no edema, no JVD, no murmur, + gallop/S4 Abdomen: normal bowel sounds, non tender, soft, no organomegaly, no pulsatile mass Extremities: non-tender, normal inspection, no calf tenderness, + pertinent finding (+1 B/L LE pitting edema) Neurologic/Psychiatric: bin packer II-XII nml as tested, no motor/sensory deficits, alert, normal mood/affect, oriented x 3 Skin: normal color, warm/dry, no rash Lymphatic: no adenopathy Assessment and Plan 1. acute decompensated systolic/diastolic failure diuresed well diuretics restarted for potassium level 2. CAD no obstructive disease present nonischemic Lexiscan nuclear stress no need for further work up at this time did reinforce need for lifestyle modification to decrease future risk 3. junctional rhythm/Mobitz I s/p dual chamber PPM tolerated well 98% pacing overnight likely the cause of decompensation 4. CKD stable even with diuresis lisinopril held 5. tobacco abuse cessation counseling 6. hyperkalemia unclear etiology given diuresis and the fact that CATHERINE has been held for several days nephrology following overall, ok to d/c to home or to [facility] from cardiac standpoint my office will arrange pacer follow up and follow up with me would d/c home on aspirin and amlodipine likely will need further antihypertensives given that CATHERINE is held possibly HCTZ, will discuss with nephrology before making any diuretic changes
--- NOTE | 2016-12-20 14:27 | MYOCARDIAL PERFUSION SCAN ---
MYOCARDIAL PERFUSION REPORT DATE OF STRESS PORTION: 12/20/2016 This is a 2-day nuclear medicine [facility] technetium-99 myocardial perfusion scan. INDICATION: Acute decompensated heart failure with possible inferior wall hypokinesis. REST EKG: Showed a ventricularly paced rhythm at 60 beats per minute. Stress EKG was unchanged. TECHNIQUE: For the stress portion of the study 23.9 mCi of technetium-99m Cardiolite IV was injected at 11:25 a.m. on 12/20/2016. Thirty minutes following the injection imaging of the heart was performed in multiple projections. For the rest portion of the study 24 mCi of technetium-99m Cardiolite was injected at 1730 on 12/19/2016. One hour following the injection imaging of the heart was performed in the same projections. FINDINGS: Shows homogenous perfusion throughout the myocardium with no deficits. Gated imaging is suboptimal given pacing but unremarkable. CONCLUSION: Normal myocardial perfusion imaging study with no inducible ischemia or scar.
[2016-12-20] MEDS ORDERED: FUROSEMIDE INJ 20 MG in SYRINGE 0 ML IV SCH (15:00)
[2016-12-20] MEDS ORDERED: SODIUM CHLORIDE 0.65% NA SOLN 45 ML (OCEAN) ONE (17:34)
[2016-12-20 18:05] LABS: BUN/CREATININE RATIO 28.6 (10-20); CALCIUM 8.7 mg/dl (8.5-10.1); CREATININE 1.2 mg/dl (0.60-1.40); POTASSIUM 4.6 mmol/L (3.5-5.1)
[2016-12-20] MEDS: ATORVASTATIN 40 MG TAB PO SCH (20:30)
[2016-12-21 00:18] VITALS: BP 151/67; PULSE 60; TEMP 36.8; O2SAT 92
[2016-12-21 03:05] VITALS: BP 143/61; PULSE 71; TEMP 36.9; O2SAT 93
[2016-12-21 04:26] LABS: HEMATOCRIT 38.7 % (42-52); MEAN CELL VOLUME 87.8 fL (80-100); MEAN CORPUSCULAR HEMOGLOBIN 28.3 pg (25-34); MEAN CORPUSCULAR HGB CONC 32.3 g/dl (32-36); MEAN PLATELET VOLUME 9.9 fL (7.4-10.4); PLATELET COUNT 237 K/uL (130-400); RED BLOOD COUNT 4.41 M/uL (4.7-6.1); WHITE BLOOD COUNT 16.26 K/uL (4.8-10.8)
[2016-12-21 05:01] LABS: BUN/CREATININE RATIO 33.1 (10-20); CALCIUM 8.4 mg/dl (8.5-10.1); CREATININE 1.1 mg/dl (0.60-1.40); MAGNESIUM 2.7 mg/dl (1.8-2.4); POTASSIUM 4.7 mmol/L (3.5-5.1)
[2016-12-21 05:09] LABS: PHOSPHORUS 2.7 mg/dl (2.5-4.9)
[2016-12-21 07:30] VITALS: BP 167/74; PULSE 60; TEMP 36.8; O2SAT 94
[2016-12-21] MEDS: CETIRIZINE HCL 10 MG TAB PO SCH (07:44)
[2016-12-21] MEDS: FUROSEMIDE INJ 40 MG in SYRINGE 0 ML IV SCH ×2 (07:44→14:50)
[2016-12-21] MEDS: ASPIRIN 81 MG ECTAB PO SCH (07:44)
[2016-12-21] MEDS: AMLODIPINE BESYLATE 5 MG TAB PO SCH (07:44)
[2016-12-21] MEDS: PANTOprazole SOD 40 MG TAB PO SCH (07:44)
[2016-12-21] MEDS: ENOXAPARIN 40 MG/0.4 ML SYR SC SCH (07:45)
[2016-12-21] MEDS: NICOTINE 14 MG/24 HR TDSY TD SCH (07:46)
[2016-12-21] MEDS: INSULIN ASPART 100 UNITS/ML 3 ML PEN SC SCH ×2 (09:42→12:21)
[2016-12-21] MEDS: INSULIN GLARGINE SOLOSTAR 100 UNITS/ML 3 ML PEN SC SCH (09:43)
[2016-12-21 11:30] VITALS: BP 132/66; PULSE 60; TEMP 36.7; O2SAT 95
--- NOTE | 2016-12-21 11:51 | Progress Note ---
Internal Med Progress Note Date of Service: Dec 21, 2016. Provider Documentation: SUBJECTIVE: The patient was seen and examined Generally tired Noted to have very slow Junctional rhythm Transferred to ICU for Possible Temp. PM S/P Dual Chamber PPM on 12/19/16 S/P negative myocardial perfusion scan 12/21 Has had some nose bleed last night No more bleeding this morning Also saturation went down last night to 70s Normalized with the administration of Oxygen OBJECTIVE: Vital Signs-as noted below Exam: General-No distress at rest Eyes-normal ENT-normal Neck-Supple Lungs-Clear to auscultate bilaterally decreased braeth sound bilaterally Heart-Regular Abdomen-Distended,soft,no organomegaly Bowel sound present Extremities-+2 edema bilaterally ,Chronic Neuro-AAOx3 Lab data as noted below. ASSESSMENT & PLAN: This is a 55yo man with a PMH of DM II, non-obstructive CAD, HTN, HLD, tobacco use disorder and diastolic heart dysfunction who presents with worsening lower extremity edema. Hyperkalemia-resolved Acute and repeat test remained high Received Insulin+Dextrose,Albuterol Nebs,Calcium Gluconate ,Sodi-bicarb and Kayexalate Will recheck if elevated will give more Kayexalate Appreciate Nephrology input and recommendation Potassium is reasonably stable Potassium this AM is 4.7 Discharge on Lasix 80 mg ,no Potassium now May need to start Lisinopril down the line Junctional Bradyarrhythmia Admitted with 2nd degree Type 1 intermittent heart block Junction rhythm today -rate ~44 Remains hemodynamically stable Heart rate went down to 20s at some point Appreciate prompt response from cardiology Patient transferee to ICU for Possible Temporary PM and or Isoproterenol infusion No Cardiac Cath now S/P PPM placement 12/19/16 No more issues Acutely decompensated Diastolic HF: -Patient with history of diastolic dysfunction, LVH on 2015 echo -Presents with worsening LE edema, dyspnea on exertion, crackles on exam and ~2- 0lbs weight gain -CXR with vascular congestion -EKG with evidence of RVH, ST depression in V5-V6.Intermittent 2nd Degree ,type I block -ECHO:: Normal LV chamber size with mild concentric LVH. * Normal LV systolic function, EF 55-60%. * Mild hypokinesis of the mid to apical portions of the inferior/ inferolateral jean, otherwise, hyperdynamic wall motion. * Grade II diastolic dysfunction. * Moderately calcified, trileaflet aortic valve with mild stenosis, no regurgitation. * Mild left atrial enlargement. Appreciate Cardiology input Diuresing well Continue current dose of Lasix S/P Negative Myocardial perfusion scan CAD: New Infero-lateral wall motion abnormality in ECHO -Non obstructive as per history -Continue statin, started on aspirin -Serial Dino -negative for ACS -Likely t o have Cardiac Cath on Monday-not now -s/p PPM placement -Myocardial Perfusion scan-Negative HTN: -Normotensive now -Continue home meds of amlodipine -will hold Lisinopril -Monitor kidney function and consider holding lisinopril if worsened DM II: HB I0F-ncgg at 8.8 -Hgb a1c of 8.4 on 10/27 -Hold home meds -Basal bolus regimen while in-patient -BG checks AC HS -remains stable Urinary retention: -KUB with distended bladder -Follow up pelvic/bladder ultrasound recommended -Refused valdes catheter -Closely monitor Constipation: -Presents with abd distention, bloating -Has not had a bowel movement in a week -KUB without evidence of bowel obstruction -Scheduled suppository, miralax Tobacco use disorder: -Discussed benefits of cessation in terms of chronic disease -Not interested in quitting at this time -Denies COPD diagnosis HLD: -Continue statin DVT Ppx: Lovenox Code status: FULL Discharge home today Vital Signs: Date Time Temp Pulse Resp B/P (MAP) Pulse Ox O2 Delivery O2 Flow Rate FiO2 12/21/16 11:30 36.7 60 18 132/66 (88) 95 Nasal Cannula 2.0 Humidified Oxygen 12/21/16 08:00 Room Air Nasal Cannula 12/21/16 07:30 36.8 60 18 167/74 (105) 94 Nasal Cannula 2.0 12/21/16 04:00 Room Air 12/21/16 03:05 36.9 71 18 143/61 (88) 93 Nasal Cannula 2.0 12/21/16 00:18 36.8 60 20 151/67 (95) 92 Nasal Cannula 2.0 12/21/16 00:00 Room Air 12/20/16 20:00 Room Air 12/20/16 16:00 Nasal Cannula 2.0 12/20/16 16:00 36.8 60 20 127/60 (82) 88 Room Air 12/20/16 12:30 92 Nasal Cannula 2.0 12/20/16 12:30 36.7 60 20 136/65 (88) 92 Nasal Cannula 2.0 Lab Results: Results Past 24 Hours Test 12/20/16 12:28 12/20/16 16:16 12/20/16 16:55 12/21/16 00:55 Range/Units Bedside Glucose 150 191 196 70-99 mg/dl Sodium Level 132 136-145 mmol/L Potassium Level 4.6 3.5-5.1 mmol/L Chloride Level 98 98-107 mmol/L Carbon Dioxide Level 32 21-32 mmol/L Anion Gap 2.0 3-11 mmol/L Blood Urea Nitrogen 34 7-18 mg/dl Creatinine 1.20 0.60-1.40 mg/dl Est Creatinine Clear Calc Drug Dose 90.4 ml/min Estimated GFR () 78.4 Estimated GFR (Non- 67.7 BUN/Creatinine Ratio 28.6 10-20 Random Glucose 199 70-99 mg/dl Lactic Acid Level 1.0 0.4-2.0 mmol/L Calcium Level 8.7 8.5-10.1 mg/dl Test 12/21/16 04:09 12/21/16 04:44 12/21/16 06:18 Range/Units White Blood Count 16.26 4.8-10.8 K/uL Red Blood Count 4.41 4.7-6.1 M/uL Hemoglobin 12.5 14.0-18.0 g/dL Hematocrit 38.7 42-52 % Mean Corpuscular Volume 87.8 80-100 fL Mean Corpuscular Hemoglobin 28.3 25-34 pg Mean Corpuscular Hemoglobin Concent 32.3 32-36 g/dl RDW Standard Deviation 47.2 36.4-46.3 fL RDW Coefficient of Variation 14.5 11.5-14.5 % Platelet Count 237 130-400 K/uL Mean Platelet Volume 9.9 7.4-10.4 fL Sodium Level 136 136-145 mmol/L Potassium Level 4.7 3.5-5.1 mmol/L Chloride Level 100 98-107 mmol/L Carbon Dioxide Level 34 21-32 mmol/L Anion Gap 2.0 3-11 mmol/L Blood Urea Nitrogen 36 7-18 mg/dl Creatinine 1.10 0.60-1.40 mg/dl Est Creatinine Clear Calc Drug Dose 98.6 ml/min Estimated GFR () 87.1 Estimated GFR (Non- 75.2 BUN/Creatinine Ratio 33.1 10-20 Random Glucose 175 70-99 mg/dl Calcium Level 8.4 8.5-10.1 mg/dl Phosphorus Level 2.7 2.5-4.9 mg/dl Magnesium Level 2.7 1.8-2.4 mg/dl Bedside Glucose 157 70-99 mg/dl
--- NOTE | 2016-12-21 12:28 | Cardiology Follow-Up ---
Subjective General Date of Service: Dec 21, 2016. Chief Complaint: SOB Pt evaluation today including: conversation w/ patient, physical exam, chart review, lab review, review of studies, review of inpatient medication list History of Present Illness Patient sitting in chair this morning. Notes ongoing LE edema, unchanged. States SOB improved from yesterday. Still wearing O2. No chest pain. No significant incisional pain from pacemaker. No orthopnea, PND. Cough improving. Allergies Coded Allergies: BEE STING (Verified Allergy, Intermediate, swelling, 12/15/16) Vancomycin (Verified Allergy, Unknown, ANAPHYLAXIS, 12/15/16) renal failure Social History Smoking Status: Current Every Day Smoker Hx Tobacco Use In Past Year?: Yes Hx Alcohol Use - Type And Amou: No Hx Substance Use - Type And Am: No Problem List Medical Problems: (1) Chest pain Status: Acute (2) Lower extremity edema Status: Acute (3) PICC line infection Status: Acute (4) Pulmonary congestion Status: Acute (5) Scrotal edema Status: Acute (6) Swelling of both lower extremities Status: Acute Review of Systems Respiratory: + shortness of breath, + dyspnea on exertion, No cough, No dyspnea at rest, No hemoptysis Cardiac: + edema, No chest pain, No orthopnea, No PND, No palpitations Physical Exam Vital Signs Last Vital Signs Documentation Date Time Temp Pulse Resp B/P (MAP) Pulse Ox O2 Delivery O2 Flow Rate FiO2 12/21/16 07:30 36.8 60 18 167/74 (105) 94 Nasal Cannula 2.0 Physical Exam Constitutional: General Apperance: overweight Level of Distress: NAD, chronically ill Psychiatric: Mental Status: active & alert Orientation: to time, to place, to person Eyes: Pupils: PERRLA Neck: supple Lungs: Auscultation: deminished air movement, expiratory wheezing, wet rales/ crackles Cardiovascular: Heart Auscultation: RRR, no murmurs Extremities: edema (2+ b/l) Assessment and Plan Assessment and Plan 1. acute decompensated systolic/diastolic failure diuresing well on IV diuretic therapy. Takes furosemide 40 mg BID at home. 2. CAD no obstructive disease present nonischemic Lexiscan nuclear stress no need for further work up at this time did reinforce need for lifestyle modification to decrease future risk 3. junctional rhythm/Mobitz I s/p dual chamber PPM tolerated well 98% pacing overnight likely the cause of decompensation 4. CKD stable lisinopril held 5. tobacco abuse cessation counseling 6. hyperkalemia -improved unclear etiology given diuresis and the fact that CATHERINE has been held for several days nephrology following Continue IV diuretic therapy today, transition to oral pending discharge today or tomorrow. Recommend 2 Step Will need 1 week device check and 2-4 week f/u with Dr. Barrera. Case discussed with Dr. Rashid. CARDIOLOGY ATTENDING ADDENDUM: The patient was seen and personally examined. Agree with Sandi Lr PA-C's findings and plans as documented above. Ok for D/C and outpatient follow-up Laboratory Results Last 24 Hours Test 12/20/16 12:28 12/20/16 16:16 12/20/16 16:55 12/21/16 00:55 Bedside Glucose 150 mg/dl 191 mg/dl 196 mg/dl Sodium Level 132 mmol/L Potassium Level 4.6 mmol/L Chloride Level 98 mmol/L Carbon Dioxide Level 32 mmol/L Anion Gap 2.0 mmol/L Blood Urea Nitrogen 34 mg/dl Creatinine 1.20 mg/dl Est Creatinine Clear Calc Drug Dose 90.4 ml/min Estimated GFR () 78.4 Estimated GFR (Non- 67.7 BUN/Creatinine Ratio 28.6 Random Glucose 199 mg/dl Lactic Acid Level 1.0 mmol/L Calcium Level 8.7 mg/dl Test 12/21/16 04:09 12/21/16 04:44 12/21/16 06:18 White Blood Count 16.26 K/uL Red Blood Count 4.41 M/uL Hemoglobin 12.5 g/dL Hematocrit 38.7 % Mean Corpuscular Volume 87.8 fL Mean Corpuscular Hemoglobin 28.3 pg Mean Corpuscular Hemoglobin Concent 32.3 g/dl RDW Standard Deviation 47.2 fL RDW Coefficient of Variation 14.5 % Platelet Count 237 K/uL Mean Platelet Volume 9.9 fL Sodium Level 136 mmol/L Potassium Level 4.7 mmol/L Chloride Level 100 mmol/L Carbon Dioxide Level 34 mmol/L Anion Gap 2.0 mmol/L Blood Urea Nitrogen 36 mg/dl Creatinine 1.10 mg/dl Est Creatinine Clear Calc Drug Dose 98.6 ml/min Estimated GFR () 87.1 Estimated GFR (Non- 75.2 BUN/Creatinine Ratio 33.1 Random Glucose 175 mg/dl Calcium Level 8.4 mg/dl Phosphorus Level 2.7 mg/dl Magnesium Level 2.7 mg/dl Bedside Glucose 157 mg/dl
[2016-12-21] MEDS ORDERED: ASPEC81 PO (14:03)
[2016-12-21] MEDS ORDERED: NICO14DI5 TD (14:03)
--- NOTE | 2016-12-21 14:07 | Discharge Instructions ---
Discharge Instructions Date of Service Dec 21, 2016. Admission Reason for Admission: Dyspnea And Respiratory Abnormalities Discharge Discharge Diagnosis / Problem: Acute CHF,Junctional Bradyarrhythmia s/p PPM.DM Discharge Goals Goal(s): Prevent Disease Progression Activity Recommendations Activity Limitations: resume your previous activity . Instructions / Follow-Up Instructions / Follow-Up Please make an appointment with your PCP in 1 week.Have your PRP checked.Cardiology will call you with appointment.This point I recommend keeping the wound dry and Steri-Strips intact until follow-up in the clinic within 1 week. He should refrain from lifting left arm above his shoulder behind his neck for a period of 6 weeks. Current Hospital Diet Patient's current hospital diet: Low Sodium Diet (2gm Na), Diabetes Type 1 Diet , Low Potassium Diet (2g K) Discharge Diet Recommended Diet: Low Sodium Diet (2gm Na), Diabetes Type 2 Diet, Low Potassium Diet (2g K) Fluid Restriction: 1500 ml (6 cups) Pending Studies Studies pending at discharge: no Laboratory Results Hemoglobin A1c Test 12/16/16 05:16 Range/Units Estimated Average Glucose 206 mg/dl Hemoglobin A1c 8.8 H 4.5-5.6 % Lipid Panel Test 12/16/16 05:16 Range/Units Triglycerides Level 152 H 0-150 mg/dl Cholesterol Level 102 0-200 mg/dl HDL Cholesterol 22 mg/dl Cholesterol/HDL Ratio 4.6 LDL Cholesterol, Calculated 50 mg/dl Medical Emergencies . Who to Call and When: Medical Emergencies: If at any time you feel your situation is an emergency, please call 911 immediately. . Non-Emergent Contact Non-Emergency issues call your: Primary Care Provider . Past History Medical & Surgical History: (1) Asthma, Unspecified (2) Hypertension Nos (3) CAD (coronary artery disease) (4) HLD (hyperlipidemia) (5) Diabetes type 2, uncontrolled (6) Diabetic peripheral neuropathy associated with type 2 diabetes mellitus (7) Tobacco use disorder (8) Pulmonary congestion (9) History of alcohol abuse (10) Lower extremity edema (11) History of cholecystectomy (12) H/O vasectomy . "Provider Documentation" section prepared by Fabi Rebolledo. . Synchronous Motor Assembler Recommendations Synchronous Motor Assembler Recommendations: Keep the wound dry and Steri-Strips intact until follow-up in the clinic within 1 week VTE Core Measure Inpt VTE Proph given/why not?: Enoxaparin (Lovenox)SQ
[2016-12-21 14:20] VITALS: BP 132/66; PULSE 60; TEMP 36.7; O2SAT 95
--- NOTE | 2016-12-27 17:12 | Discharge Summary ---
Discharge Summary Date of Service Dec 27, 2016. Discharge Summary Admission Date: Dec 15, 2016 at 20:32 Discharge Date: Dec 21, 2016 Discharge Disposition: Home Principal Diagnosis: Acute CHF,Junctional Bradyarrhythmia s/p PPM.DM Secondary Diagnoses/Problems: Please see H&P and Hospital Progress note Consultations: Cardiology,Nephrology and Metal Cleaner Medication Reconciliation New Medications: Aspirin (Aspirin EC Low Dose) 81 Mg Ectab 81 MG PO QAM for 30 Days, #30 Nicotine (Nicoderm Cq 14MG Patch) 14 Mg/24 Hr Dis 1 PATCH TD DAILY for 30 Days, #30 Continued Medications: Amlodipine (Norvasc) 10 Mg Tab 10 MG PO QAM, TAB Atorvastatin (Lipitor) 80 Mg Tab 80 MG PO HS for 30 Days, TAB 5 Refills Cetirizine (Zyrtec) 10 Mg Tab 10 MG PO DAILY, TAB Dexlansoprazole (Dexilant) 30 Mg Cap 30 MG PO DAILY Empagliflozin (Jardiance) 25 Mg Tab 25 MG PO DAILY Furosemide (Lasix) 40 Mg Tab 80 MG PO DAILY, TAB Furosemide (Lasix) 40 Mg Tab 40 MG PO DAILY@1400, TAB Insulin Glargine (Basaglar Kwikpen) 100 Unit/Ml Inj 50 UNITS SQ HS Lisinopril (Zestril) 40 Mg Tab 40 MG PO QAM, TAB Metformin Hcl (Glucophage) 500 Mg Tab 500 MG PO BID, TAB Potassium Chloride Microencaps (Potassium Chloride Er) 20 Meq Tab 20 MEQ PO QAM for 30 Days, #30 TAB 5 Refills Sitagliptin (Januvia) 100 Mg Tab 100 MG PO QAM Admission Information HPI (per Admitting provider): This is a 55yo man with a PMH of DM II, non-obstructive CAD, HTN, HLD, tobacco use disorder and diastolic heart dysfunction who presents with worsening lower extremity edema. Patient has had a degree of swelling in his right leg since having ankle surgery a few years ago. However, swelling has worsened bilaterally over the last month despite patient's PCP increasing his lasix dose. A few weeks ago, patient endorses worsening dyspnea on exertion as well. 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 Has a been smoking for over 35 years but has reduced the amount in the last few years to 1/2 PPD. Also admits to drinking heavily at a family wedding a few weeks ago around the time that his LE edema and dyspnea worsened. Admits to a 20 pound weight gain in the last month. Went to the PCP for these worsening symptoms earlier today and had an EKG performed that was concerning for third degree heart block. Patient was encouraged to come to the ER for further evaluation. Patient denies any lightheadedness, chest pain, palpitations, PND, wheezing, abdominal pain, nausea, vomiting, calf pain, LE weakness or syncopal events. Does endorse orthopnea and a chronic dry cough. Has been experiencing constipation with associated abd distention. States that it has been "days" since his last bowel movement. Denies any history of MIs or arrhythmias. Had an echo performed in Oct 2015 that showed normal LV size, some left ventricular hypertrophy and normal systolic function with an EF of 60-65%. + Family history for CAD (father). Past Medical/Surgical History Medical Problems: (1) Asthma, Unspecified Status: Chronic (2) CAD (coronary artery disease) Status: Chronic (3) COPD (chronic obstructive pulmonary disease) Status: Chronic (4) Diab Jill Wo Compl, Type Ii Or Unspec Type, Not Uncntrld Status: Chronic (5) Esophageal Reflux Status: Chronic (6) Hyperlipidemia Nec/Nos Status: Chronic (7) Hypertension Nos Status: Chronic Surgical Problems: (1) H/O vasectomy Status: Resolved (2) History of cholecystectomy Status: Resolved Family History Cancer FH: hypertension FH: kidney disease FHx: heart disease Heart disease Lung disease Social History Smoking Status: Current Every Day Smoker (Smoked for over 35 years. Has reduced to 1/2 PPD for the last few years.) Alcohol Use: heavy (Endorses drinking heavily in the past. Reduced amount a few years ago.) Drug Use: none Marital Status: in relationship Housing status: lives alone Occupational Status: employed Multi-Drug Resistant Organisms History of MDRO: Yes Type of MDRO: MRSA Allergies Coded Allergies: BEE STING (Verified Allergy, Intermediate, swelling, 12/15/16) Vancomycin (Verified Allergy, Unknown, ANAPHYLAXIS, 12/15/16) renal failure Home Medications Scheduled Amlodipine (Norvasc), 10 MG PO QAM Atorvastatin (Lipitor), 80 MG PO HS Cetirizine (Zyrtec), 10 MG PO DAILY Dexlansoprazole (Dexilant), 30 MG PO DAILY Empagliflozin (Jardiance), 25 MG PO DAILY Furosemide (Lasix), 80 MG PO DAILY Furosemide (Lasix), 40 MG PO DAILY@1400 Insulin Glargine (Basaglar Kwikpen), 50 UNITS SQ HS Lisinopril (Zestril), 40 MG PO QAM Metformin Hcl (Glucophage), 500 MG PO BID Potassium Chloride Microencaps (Potassium Chloride Er), 40 MEQ PO QAM Sitagliptin (Januvia), 100 MG PO QAM Review of Systems Constitutional- no fever; no weight loss Eyes- no acute visual changes ENT- no sinus drainage; no pharyngitis Pulmonary- no cough, no wheezing, no shortness of breath Cardiac- See HPI GI- See HPI - no dysuria, no hematuria Musculoskeletal- no arthralgias, no myalgias Derm- no rashes, no new skin lesions, no changing skin lesions Hematologic- no unusual bruising, no unusual bleeding Lymphatics- no adenopathy Endocrine- no polyuria or polydipsia; no heat or cold intolerance Neuro- no headaches, no focal neurologic symptoms Psych- no anxiety, no depression Physical Exam Vital Signs Date Time Temp Pulse Resp B/P (MAP) Pulse Ox O2 Delivery O2 Flow Rate FiO2 12/15/16 20:45 53 16 110/70 96 Room Air 12/15/16 19:00 95 22 85 Room Air 12/15/16 18:58 69 18 137/75 93 Room Air 12/15/16 18:55 88 18 95 Room Air 12/15/16 17:50 66 12/15/16 17:28 93 Room Air 12/15/16 17:23 36.3 58 18 159/64 93 Room Air 12/15/16 17:23 93 Room Air General Appearance: no apparent distress, + obese Head: normocephalic, atraumatic Eyes: normal inspection, sclerae normal ENT: hearing grossly normal Neck: supple, no JVD, trachea midline, + pertinent finding (Thick, short neck ) Respiratory/Chest: chest non-tender, normal breath sounds, no respiratory distress, no accessory muscle use, + crackles (Bibasilar coarse crackles observed ) Cardiovascular: regular rate, rhythm, no murmur, normal peripheral pulses, + pertinent finding (Distant heart sounds ) Abdomen/GI: non tender, no organomegaly, + abnormal bowel sounds (decreased), + distended (Tense but non-tender) Back: normal inspection, no CVA tenderness Extremities/Musculoskelatal: no calf tenderness, no pedal edema, + swelling ( Bilateral LE swelling (R>L). 2+ pitting edema on L, 3+ on R. No skin breakdown. ), + pertinent finding (Clubbing of digits ) Neurologic/Psych: alert, normal mood/affect, oriented x 3 Skin: normal color, warm/dry, no rash Diagnostics Laboratory Results Results Past 24 Hours Test 12/15/16 17:12 Range/Units White Blood Count 15.15 4.8-10.8 K/uL Red Blood Count 5.08 4.7-6.1 M/uL Hemoglobin 14.4 14.0-18.0 g/dL Hematocrit 44.4 42-52 % Mean Corpuscular Volume 87.4 80-100 fL Mean Corpuscular Hemoglobin 28.3 25-34 pg Mean Corpuscular Hemoglobin Concent 32.4 32-36 g/dl Platelet Count 312 130-400 K/uL Mean Platelet Volume 10.4 7.4-10.4 fL Neutrophils (%) (Auto) 72.7 % Lymphocytes (%) (Auto) 19.0 % Monocytes (%) (Auto) 6.3 % Eosinophils (%) (Auto) 1.4 % Basophils (%) (Auto) 0.3 % Neutrophils # (Auto) 11.01 1.4-6.5 K/uL Lymphocytes # (Auto) 2.88 1.2-3.4 K/uL Monocytes # (Auto) 0.95 0.11-0.59 K/uL Eosinophils # (Auto) 0.21 0-0.5 K/uL Basophils # (Auto) 0.05 0-0.2 K/uL RDW Standard Deviation 47.5 36.4-46.3 fL RDW Coefficient of Variation 14.8 11.5-14.5 % Immature Granulocyte % (Auto) 0.3 % Immature Granulocyte # (Auto) 0.05 0.00-0.02 K/uL Prothrombin Time 11.9 9.0-12.0 SECONDS Prothromb Time International Ratio 1.1 0.9-1.1 Sodium Level 137 136-145 mmol/L Potassium Level 3.8 3.5-5.1 mmol/L Chloride Level 102 98-107 mmol/L Carbon Dioxide Level 29 21-32 mmol/L Anion Gap 6.0 3-11 mmol/L Blood Urea Nitrogen 24 7-18 mg/dl Creatinine 1.30 0.60-1.40 mg/dl Est Creatinine Clear Calc Drug Dose 83.4 ml/min Estimated GFR () 71.2 Estimated GFR (Non- 61.4 BUN/Creatinine Ratio 18.2 10-20 Random Glucose 156 70-99 mg/dl Calcium Level 9.0 8.5-10.1 mg/dl Total Bilirubin 0.5 0.2-1 mg/dl Aspartate Amino Transf (AST/SGOT) 19 15-37 U/L Alanine Aminotransferase (ALT/SGPT) 24 12-78 U/L Alkaline Phosphatase 173 45-117 U/L Creatine Kinase MB 1.5 0.5-3.6 ng/ml Creatine Kinase MB Ratio 0-3.0 Troponin I < 0.015 0-0.045 ng/ml Pro-B-Type Natriuretic Peptide 381 0-900 pg/ml Total Protein 8.2 6.4-8.2 gm/dl Albumin 3.3 3.4-5.0 gm/dl Globulin 4.9 2.5-4.0 gm/dl Albumin/Globulin Ratio 0.7 0.9-2 Lipase 200 73-393 U/L Diagnostic Radiology CXR: IMPRESSION: 1. Cardiomegaly and pulmonary vascular congestion without overt pulmonary edema. 2. Fullness of the right paratracheal tissues re-demonstrated, correlating with adenopathy seen on comparison chest CT. EKG Sinus bradycardia with A-V dissociation and Wide QRS rhythm Right bundle branch block , plus right ventricular hypertrophy (unconfirmed) My interpretation in sinus bradycardia with a possible junctional rhythm. RBBB, RVH, ST depression in V5-V6. Impression Assessment and Plan This is a 55yo man with a PMH of DM II, non-obstructive CAD, HTN, HLD, tobacco use disorder and diastolic heart dysfunction who presents with worsening lower extremity edema. Acutely decompensated HF: -Patient with history of diastolic dysfunction, LVH on 2016 echo -Presents with worsening LE edema, dyspnea on exertion, crackles on exam -Endorses recent alcohol binge, high Na diet, reported 20# wt gain -CXR with vascular congestion -EKG with evidence of RVH, ST depression in V5-V6 -Given 40 IV Lasix in ER -Ordered echo, repeat EKG for AM -Daily weights, strict I&Os, Na restriction diet -Cardio consult CAD: -Non obstructive -Denies chest pain -Continue statin, started on aspirin -EKG with evidence of ischemia -Trend enzymes, repeat EKG in AM HTN: -Normotensive -Continue home meds of amlodipine and lisinopril -Monitor kidney function and consider holding lisinopril if worsened DM II: -Hgb a1c of 8.4 on 10/27 -Hold home meds -Basal bolus regimen while in-patient -BG checks AC HS Urinary retention: -KUB with distended bladder -Follow up pelvic/bladder ultrasound recommended -Has not urinated since admission, despite 40 Lasix -Refused valdes catheter -Closely monitor Constipation: -Presents with abd distention, bloating -Has not had a bowel movement in a week -KUB without evidence of bowel obstruction -Scheduled suppository, miralax Bladder distention: -20 cm soft tissue mass within the pelvis which likely represents a distended bladder -Follow-up pelvic/bladder ultrasound recommended for confirmation Tobacco use disorder: -Discussed benefits of cessation in terms of chronic disease -Not interested in quitting at this time -Denies COPD diagnosis HLD: -Continue statin DVT Ppx: Lovenox Code status: FULL PCP: [facility] (used to see [facility]) Dispo: Plan to return home once medically stable ADDENDUM: I have seen and examined the patient above and agree with the assessment and plan as stated. He ended up urinating shortly after the Lasix 1300cc in one go--clearly feeling much less distended. He was demonstrating no conversational dyspnea and was not requiring oxygen. Phys exam revealed a normal heart exam, clear lungs to auscultation, 2+LE edema bilaterally and abdominal distension without TTP and hypoactive bowel sounds. Cont with efforts to relieve constipation. Already seems improved from a respiratory standpoint. Also of concern were EKG findings related to AV dissociation--he was sent in from CV with concerns for 3HB, however, sinus edenilson was observed on most EKGs available and p-waves marched out with some occasional dropped, but overall looked to be a sinus rhythm with occasional junction rhythm. Morning EKG revealed Mobitz I block (Wenkebach). Trending serial cardiac enzymes, monitor on tele and echo ordered for am. DO Humberto Level of Care Telemetry Resuscitation Status FULL RESUSCITATION VTE Prophylaxis VTE Risk Assessment Done? Y/N: Yes Risk Level: Moderate Given or contraindicated: Enoxaparin (Lovenox)SQ <Electronically signed by Jeanna Dueñas P.A.-C.> <Electronically signed by Mary Paul DO> Physical Exam (per Admitting): General Appearance: no apparent distress, + obese Head: normocephalic, atraumatic Eyes: normal inspection, sclerae normal ENT: hearing grossly normal Neck: supple, no JVD, trachea midline, + pertinent finding (Thick, short neck ) Respiratory/Chest: chest non-tender, normal breath sounds, no respiratory distress, no accessory muscle use, + crackles (Bibasilar coarse crackles observed ) Cardiovascular: regular rate, rhythm, no murmur, normal peripheral pulses, + pertinent finding (Distant heart sounds ) Abdomen/GI: non tender, no organomegaly, + abnormal bowel sounds (decreased) , + distended (Tense but non-tender) Back: normal inspection, no CVA tenderness Extremities/Musculoskelatal: no calf tenderness, no pedal edema, + swelling (Bilateral LE swelling (R>L). 2+ pitting edema on L, 3+ on R. No skin breakdown. ), + pertinent finding (Clubbing of digits ) Neurologic/Psych: alert, normal mood/affect, oriented x 3 Skin: normal color, warm/dry, no rash Hospital Course This is a 55yo man with a PMH of DM II, non-obstructive CAD, HTN, HLD, tobacco use disorder and diastolic heart dysfunction who presents with worsening lower extremity edema. Hyperkalemia-resolved Acute and repeat test remained high Received Insulin+Dextrose,Albuterol Nebs,Calcium Gluconate ,Sodi-bicarb and Kayexalate Will recheck if elevated will give more Kayexalate Appreciate Nephrology input and recommendation Potassium is reasonably stable Potassium this AM is 4.7 Discharge on Lasix 80 mg ,no Potassium now May need to start Lisinopril down the line Junctional Bradyarrhythmia Admitted with 2nd degree Type 1 intermittent heart block Junction rhythm today -rate ~44 Remains hemodynamically stable Heart rate went down to 20s at some point Appreciate prompt response from cardiology Patient transferee to ICU for Possible Temporary PM and or Isoproterenol infusion No Cardiac Cath now S/P PPM placement 12/19/16 No more issues Acutely decompensated Diastolic HF: -Patient with history of diastolic dysfunction, LVH on 2016 echo -Presents with worsening LE edema, dyspnea on exertion, crackles on exam and ~2- 0lbs weight gain -CXR with vascular congestion -EKG with evidence of RVH, ST depression in V5-V6.Intermittent 2nd Degree ,type I block -ECHO:: Normal LV chamber size with mild concentric LVH. * Normal LV systolic function, EF 55-60%. * Mild hypokinesis of the mid to apical portions of the inferior/ inferolateral jean, otherwise, hyperdynamic wall motion. * Grade II diastolic dysfunction. * Moderately calcified, trileaflet aortic valve with mild stenosis, no regurgitation. * Mild left atrial enlargement. Appreciate Cardiology input Diuresing well Continue current dose of Lasix S/P Negative Myocardial perfusion scan CAD: New Infero-lateral wall motion abnormality in ECHO -Non obstructive as per history -Continue statin, started on aspirin -Serial Dino -negative for ACS -Likely t o have Cardiac Cath on Monday-not now -s/p PPM placement -Myocardial Perfusion scan-Negative HTN: -Normotensive now -Continue home meds of amlodipine -will hold Lisinopril -Monitor kidney function and consider holding lisinopril if worsened DM II: HB [id number] at 8.8 -Hgb a1c of 8.4 on 10/27 -Hold home meds -Basal bolus regimen while in-patient -BG checks AC HS -remains stable Urinary retention: -KUB with distended bladder -Follow up pelvic/bladder ultrasound recommended -Refused valdes catheter -Closely monitor Constipation: -Presents with abd distention, bloating -Has not had a bowel movement in a week -KUB without evidence of bowel obstruction -Scheduled suppository, miralax Tobacco use disorder: -Discussed benefits of cessation in terms of chronic disease -Not interested in quitting at this time -Denies COPD diagnosis HLD: -Continue statin DVT Ppx: Lovenox Code status: FULL Discharge home today Total time spent on discharge = This includes examination of the patient, discharge planning, medication reconciliation, and communication with other providers. Discharge Instructions Date of Service Dec 21, 2016. Admission Reason for Admission: Dyspnea And Respiratory Abnormalities Discharge Discharge Diagnosis / Problem: Acute CHF,Junctional Bradyarrhythmia s/p PPM.DM Discharge Goals Goal(s): Prevent Disease Progression Activity Recommendations Activity Limitations: resume your previous activity . Instructions / Follow-Up Instructions / Follow-Up Please make an appointment with your PCP in 1 week.Have your PRP checked.Cardiology will call you with appointment.This point I recommend keeping the wound dry and Steri-Strips intact until follow-up in the clinic within 1 week. He should refrain from lifting left arm above his shoulder behind his neck for a period of 6 weeks. Current Hospital Diet Patient's current hospital diet: Low Sodium Diet (2gm Na), Diabetes Type 1 Diet , Low Potassium Diet (2g K) Discharge Diet Recommended Diet: Low Sodium Diet (2gm Na), Diabetes Type 2 Diet, Low Potassium Diet (2g K) Fluid Restriction: 1500 ml (6 cups) Pending Studies Studies pending at discharge: no Laboratory Results Hemoglobin A1c Test 12/16/16 05:16 Range/Units Estimated Average Glucose 206 mg/dl Hemoglobin A1c 8.8 H 4.5-5.6 % Lipid Panel Test 12/16/16 05:16 Range/Units Triglycerides Level 152 H 0-150 mg/dl Cholesterol Level 102 0-200 mg/dl HDL Cholesterol 22 mg/dl Cholesterol/HDL Ratio 4.6 LDL Cholesterol, Calculated 50 mg/dl Medical Emergencies . Who to Call and When: Medical Emergencies: If at any time you feel your situation is an emergency, please call 911 immediately. . Non-Emergent Contact Non-Emergency issues call your: Primary Care Provider . Past History Medical & Surgical History: (1) Asthma, Unspecified (2) Hypertension Nos (3) CAD (coronary artery disease) (4) HLD (hyperlipidemia) (5) Diabetes type 2, uncontrolled (6) Diabetic peripheral neuropathy associated with type 2 diabetes mellitus (7) Tobacco use disorder (8) Pulmonary congestion (9) History of alcohol abuse (10) Lower extremity edema (11) History of cholecystectomy (12) H/O vasectomy . "Provider Documentation" section prepared by Fabi Rebolledo. . Senior Research Project Manager Recommendations Senior Research Project Manager Recommendations: Keep the wound dry and Steri-Strips intact until follow-up in the clinic within 1 week VTE Core Measure Inpt VTE Proph given/why not?: Enoxaparin (Lovenox)SQ <Electronically signed by Fabi Rebolledo M.D.>
== END 2016-12-21 18:03 | disposition home or self-care (01) | DRG 243 ==
LOC: EDBD 17:16 → C.EDB 17:17 → C.2E 20:32 → ENRESERV 20:38 → C.MSICU 12-18 09:32 → C.2T 12-20 18:36
PROVIDERS: ADMIT Hospitalist; ATTEND Internal Medicine
PROC: 02HK3JZ Insertion of Pacemaker Lead into Right Ventricle, Percutaneous Approach (ICD-10-PCS; principal; 2016-12-19 11:53)
PROC: 02H63JZ Insertion of Pacemaker Lead into Right Atrium, Percutaneous Approach (ICD-10-PCS; principal; 2016-12-19 11:53)
PROC: 0JH606Z Insertion of Pacemaker, Dual Chamber into Chest Subcutaneous Tissue and Fascia, Open Approach (ICD-10-PCS; principal; 2016-12-19 11:53)
DX: I50.43 Acute on chronic combined systolic (congestive) and diastolic (congestive) heart failure (principal); I13.0 Hypertensive heart and chronic kidney disease with heart failure and stage 1 through stage 4 chronic kidney disease, or unspecified chronic kidney disease; N17.9 Acute kidney failure, unspecified; Z82.49 Family history of ischemic heart disease and other diseases of the circulatory system; F17.200 Nicotine dependence, unspecified, uncomplicated; I25.10 Atherosclerotic heart disease of native coronary artery without angina pectoris; E78.5 Hyperlipidemia, unspecified; R33.9 Retention of urine, unspecified; K59.00 Constipation, unspecified; N32.89 Other specified disorders of bladder; F10.21 Alcohol dependence, in remission; I44.1 Atrioventricular block, second degree; E66.01 Morbid (severe) obesity due to excess calories; N18.9 Chronic kidney disease, unspecified; Z79.82 Long term (current) use of aspirin; Z79.4 Long term (current) use of insulin; E11.22 Type 2 diabetes mellitus with diabetic chronic kidney disease; E87.5 Hyperkalemia; R00.1 Bradycardia, unspecified; Z72.89 Other problems related to lifestyle

== ENCOUNTER → 2017-04-25 | Day surgery (SDC) | payer OTHER ==
[2017-04-18 11:59] VITALS: Ht 177.8 cm; Wt 109.1 kg
[~2017-04-25] VITALS: Ht 177.8 cm; Wt 109.1 kg
[~2017-04-25] MED LIST changes: -ALBUAER19 INH; -ASPEC81 PO; +ASPI81TA28 PO; +ATOR-26 PO; +CETI10TA73 PO; -DOXY100C76 PO; -EMPA1TAB PO; +EMPA1TAB3 PO; +ERGO500037 PO; -FLUT230A INH; -FRS/40 PO; +FURO80TA63 PO; -IMIQ5CRE4 TOP; +INSU100I23 SQ; -INSUINJ4 SC; +KETAMINE HCL INJ 50 MG/ML 10 ML VIAL ONE; +LIDOCAINE HCL 2% 2 ML VIAL (20MG/ML) ONE; -LPT40 PO; +PRLSR20 PO; +PROPOFOL IV EMULSION 10 MG/ML 20 ML VIAL IV ONE; -SITA1TAB27 PO; +SODIUM CHLORIDE 0.9% 500ML 500 ML IV ONE; +VNTHFA/IN INH
--- NOTE | 2017-04-25 08:56 | Endo History and Physical ---
History & Physical Date of Service: Apr 25, 2017. Chief Complaint: Referring Physician: History of Present Illness 56 yo presenting for screening colonoscopy. Presented in 06/2016 for index exam, suboptimal preparation, he was recommended to repeat as soon as possible with 2 day prep, and now presents for exam. Past Medical History Diabetes, Reflux, High Cholesterol, Hypertension Past Surgical History Hx Cardiac Surgery: Yes (HEART CATH, NO STENTS) Hx Internal Defibrillator: No Hx Pacemaker: Yes (MEDTRONIC 12/2016) Hx Abdominal Surgery: Yes (DENIZ) Hx of Implantable Prosthesis: No Hx Post-Op Nausea and Vomiting: Yes Hx Cancer Surgery: No Hx Thoracic Surgery: No Hx Orthopedic: Yes (RIGHT FOOT AND ANKLE SURGERY) Hx Urinary Tract Surgery: No Family History None Social History Smoking Status: Current Every Day Smoker Hx Substance Use: No Hx Alcohol Use: No Allergies Coded Allergies: BEE STING (Verified Allergy, Intermediate, swelling, 04/18/17) Vancomycin (Verified Allergy, Unknown, ANAPHYLAXIS, 04/18/17) renal failure Current Medications Reported Home Medications Medications Dose Route/Sig Max Daily Dose Days Date Category Ventolin Hfa (Albuterol) 200 Puffs/72757 Mcg Aers 2-4 Puffs INH Q6H PRN 04/18/17 Reported Aspirin Ec (Aspirin) 81 Mg Tab 81 Mg PO QAM 04/18/17 Reported Vitamin D 97777 Unit (Ergocalciferol) 50,000 Unit Cap 50,000 Unit PO WK 04/18/17 Reported All Day Allergy (Cetirizine Hcl) 10 Mg Tab 1 Tab PO DAILY PRN 04/18/17 Reported Lasix (Furosemide) 80 Mg Tab 0.5 Tab PO QPM 04/18/17 Reported Lasix (Furosemide) 80 Mg Tab 1 Tab PO QAM 04/18/17 Reported Prilosec (Omeprazole) 20 Mg Capcr 20 Mg PO QAM 04/18/17 Reported Basaglar Kwikpen (Insulin Glargine) 100 Unit/Ml Inj 50 Units SQ HS 12/15/16 Reported Lipitor (Atorvastatin Calcium) 80 Mg Tab 80 Mg PO QAM 12/15/16 Reported Jardiance (Empagliflozin) 25 Mg Tab 25 Mg PO QAM 12/15/16 Reported Zestril (Lisinopril) 40 Mg Tab 40 Mg PO QAM 06/15/16 Reported Glucophage (Metformin Hcl) 500 Mg Tab 500 Mg PO BID 06/13/16 Reported Potassium Chloride Er (Potassium Chloride Microencaps) 20 Meq Tab 20 Meq PO QAM 02/16/16 Reported Norvasc (Amlodipine Besylate) 10 Mg Tab 10 Mg PO QAM 11/03/15 Reported Vital Signs Weight (Kilograms): 109.09 Height (Feet): 5 Height (Inches): 10 Physical Exam General Appearance: WD/WN, no apparent distress Respiratory/Chest: Respiratory effort: no dyspnea Auscultation: breath sounds normal, CTA except as noted Cardiovascular: Apical Impulse: not displaced Heart Auscultation: RRR, normal S1, normal S2 Abdomen: Bowel Sounds: normal Inspection & Palpation: soft, non-distended, no tenderness, guarding & rebound Assessment and Plan 56 yo presenting for colonoscopy for f/u screening colonoscopy after poor prep in June 2016.
--- NOTE | 2017-04-25 10:12 | GI REPORT ---
Procedure Date: 04/25/2017 9:16 AM Procedure: Colonoscopy Indications: High risk colon cancer surveillance: Personal history of colonic polyps Medicines: Monitored Anesthesia Care Complications: No immediate complications. Estimated blood loss: None. Estimated Blood Loss: Estimated blood loss: none. Procedure: Pre-Anesthesia Assessment: - Pre-Anesthesia Assessment: - Prior to the procedure, a History and Physical was performed, and patient medications, allergies and sensitivities were reviewed. The patient's tolerance of previous anesthesia was reviewed. Please see Whisper for complete details. - The risks and benefits of the procedure and the sedation options and risks were discussed with the patient. All questions were answered and informed consent was obtained. - Patient identification and proposed procedure were verified prior to the procedure by the physician and the nurse. The procedure was verified in the pre-procedure area in the procedure room. After obtaining informed consent, the endoscope was passed carefully and meticuously under direct vision and only advanced when the lumen was clearly identified, C02 insuflation was utilized throughout the entirity of the procedure. Throughout the procedure, the patient's blood pressure, pulse, and oxygen saturations were monitored continuously. After I obtained informed consent, the scope was passed under direct vision. Throughout the procedure, the patient's blood pressure, pulse, and oxygen saturations were monitored continuously. The scope was introduced through the anus and advanced to the cecum, identified by appendiceal orifice and ileocecal valve. The colonoscopy was performed without difficulty. The patient tolerated the procedure well. The quality of the bowel preparation was unsatisfactory. Findings: Semi-liquid stool was found in the entire colon, precluding visualization. A 5 mm polyp was found in the transverse colon. The polyp was sessile. The polyp was removed with a cold snare. Resection and retrieval were complete. A 6 mm polyp was found in the rectum. The polyp was pedunculated. The polyp was removed with a hot snare. Resection and retrieval were complete. Multiple small-mouthed diverticula were found in the sigmoid colon. Internal hemorrhoids were found during retroflexion. The perianal exam findings include anal condylomata. Impression: - Preparation of the colon was unsatisfactory. - Stool in the entire examined colon. - One 5 mm polyp in the transverse colon, removed with a cold snare. Resected and retrieved. - One 6 mm polyp in the rectum, removed with a hot snare. Resected and retrieved. - Diverticulosis in the sigmoid colon. - Internal hemorrhoids. - Anal condylomata found on perianal exam. Recommendation: - Discharge patient to home (with escort). - Repeat colonoscopy with a 2 day Go-Lytely prep because the bowel preparation was poor, this was recommended previously, but was not followed. - Return to referring physician as previously scheduled. - No internal condyloma were identified, external ones should be managed via dermatology and or surgical resection. Bill Flood MD 04/25/2017 10:12:18 AM This report has been signed electronically. Note Initiated On: 04/25/2017 9:16 AM I attest to the content of the Intraoperative Record and orders documented therein, exceptions below
--- NOTE | 2017-04-25 10:23 | Anesthesiology Progress Note ---
Anesthesia Post Op Note Date & Time Apr 25, 2017 at 10:23 Vital Signs Pain Intensity: 0 Vital Signs Past 12 Hours Date Time Temp Pulse Resp B/P (MAP) Pulse Ox O2 Delivery O2 Flow Rate FiO2 04/25/17 09:13 36.6 75 20 112/54 (73) 97 Room Air Notes Mental Status: alert / awake / arousable, participated in evaluation Pt Amnestic to Procedure: Yes Nausea / Vomiting: adequately controlled Pain: adequately controlled Airway Patency, RR, SpO2: stable & adequate BP & HR: stable & adequate Hydration State: stable & adequate Anesthetic Complications: no major complications apparent
--- NOTE | 2017-04-25 10:25 | Discharge Instructions ---
Endoscopy Patient Instructions Date / Procedure(s) Performed Apr 25, 2017. Colonoscopy Allergy Information Coded Allergies: Vancomycin (Verified Allergy, Severe, ANAPHYLAXIS, 04/25/17) renal failure BEE STING (Verified Allergy, Intermediate, swelling, 04/18/17) Discharge Date / Findings Apr 25, 2017. Findings: Semi-liquid stool was found in the entire colon, precluding visualization. A 5 mm polyp was found in the transverse colon. The polyp was sessile. The polyp was removed with a cold snare. Resection and retrieval were complete. A 6 mm polyp was found in the rectum. The polyp was pedunculated. The polyp was removed with a hot snare. Resection and retrieval were complete. Multiple small-mouthed diverticula were found in the sigmoid colon. Internal hemorrhoids were found during retroflexion. The perianal exam findings include anal condylomata. Impression: - Preparation of the colon was unsatisfactory. - Stool in the entire examined colon. - One 5 mm polyp in the transverse colon, removed with a cold snare. Resected and retrieved. - One 6 mm polyp in the rectum, removed with a hot snare. Resected and retrieved. - Diverticulosis in the sigmoid colon. - Internal hemorrhoids. - Anal condylomata found on perianal exam. Recommendation: - Discharge patient to home (with escort). - Repeat colonoscopy with a 2 day Go-Lytely prep because the bowel preparation was poor, this was recommended previously, but was not followed. - Return to referring physician as previously scheduled. - No internal condyloma were identified, external ones should be managed via dermatology and or surgical resection. Medication Instructions Stopped Medication(s): stopped ASA 04/23,Metformin 04/23 Provider Instructions Activity Restrictions - No exercising or heavy lifting for 24 hours. - Do not drink alcohol the day of the procedure. - Do not drive a car or operate machinery until the day after the procedure. - Do not make any important decisions or sign important papers in 24 hours after the procedure. Following Day: - Return to full activity which may include returning to work/school. Diet Start your diet with liquids and light foods (jello, soup, juice, toast). Then eat your usual diet if not nauseated. Treatment For Common After Affects For mild abdominal pain, bloating, or excessive gas: - Rest - Eat lightly - Lie on right side Follow-Up Information Follow-up with Dr.Timothy Savage as scheduled Anesthesia Information What You Should Know You have had a procedure that required some medicine to reduce anxiety and discomfort. This treatment is called moderate sedation. After receiving the treatment, you may be sleepy, but you will be able to breathe on your own. The effects of the treatment may last for several hours. Follow these instructions along with Activity/Diet recommendations noted above: * Do NOT do anything where dizziness or clumsiness would be dangerous. * Rest quietly at home today, then you can be up and about tomorrow. * Have a responsible person stay with you the rest of today. * You may have had an I.V. today. If so, you may take the dressing off later today. Recommendations Call your doctor if: * Trouble breathing * Continuous vomiting for more than 24 hours * Temperature above 101 degrees * Severe abdominal pain or bloating * Pain not relieved by pain medicine ordered * There is increased drainage or redness from any incision * A large amount of rectal bleeding greater than 2-3 tablespoons. (If you had a polyp/s removed or have hemorrhoids, a small amount of blood - from the rectum is to be expected.) * You have any unanswered questions or concerns. IN THE EVENT OF A SERIOUS EMERGENCY, GO TO THE NEAREST EMERGENCY ROOM Your discharge instructions were prepared by provider Bill Flood. Patient Instructions Signature Page Srinivasa Robertson Patient (or Guardian) Signature/Date: I have read and understand the instructions given to me by my caregivers. Caregiver/RN/Doctor Signature/Date: The above-named patient and/or guardian has received patient instructions on this date. + Original Patient Signature Page (only) stays with chart. Please make copy for patient.
[2017-04-25 10:44] VITALS: BP 110/46; PULSE 60; O2SAT 97
== END | disposition home or self-care (01) ==
LOC: C.GI 08:43
PROVIDERS: ATTEND Internal Medicine
DX: Z12.11 Encounter for screening for malignant neoplasm of colon (principal); D12.3 Benign neoplasm of transverse colon; K62.1 Rectal polyp; K57.30 Diverticulosis of large intestine without perforation or abscess without bleeding; K64.8 Other hemorrhoids; Z86.010 Personal history of colon polyps; E11.9 Type 2 diabetes mellitus without complications; E78.00 Pure hypercholesterolemia, unspecified; I10 Essential (primary) hypertension; J44.9 Chronic obstructive pulmonary disease, unspecified; F17.200 Nicotine dependence, unspecified, uncomplicated; Z91.030 Bee allergy status; Z88.1 Allergy status to other antibiotic agents; Z90.49 Acquired absence of other specified parts of digestive tract; Z98.890 Other specified postprocedural states; Z79.899 Other long term (current) drug therapy; Z79.4 Long term (current) use of insulin; Z95.0 Presence of cardiac pacemaker; I25.10 Atherosclerotic heart disease of native coronary artery without angina pectoris

== ENCOUNTER 2017-10-30 15:33 | Inpatient (IN) | payer OTHER ==
[2017-10-30] VITALS (7 sets, daily range): BP systolic 126–145; BP diastolic 54–74; PULSE 60–82; TEMP 35.8; O2SAT 83–93; BMI 41.7
[~2017-10-30] VITALS: Ht 175.3 cm; Wt 120.6 kg
[~2017-10-30 15:33] MED LIST changes: +ADVIN10/60 INH; -AMLO-114 PO; -ATOR-26 PO; +CRG3125 PO; -EMPA1TAB3 PO; +FLUT0.15 NAE; -FURO80TA63 PO; +FUROSEMIDE INJ 60 MG in SYRINGE 0 ML IV SCH; -GLC/500 PO; -KETAMINE HCL INJ 50 MG/ML 10 ML VIAL ONE; -LIDOCAINE HCL 2% 2 ML VIAL (20MG/ML) ONE; +METF1000 PO; +MRLP17X PO; +NRV/10 PO; -POTA20TA13 PO; -PROPOFOL IV EMULSION 10 MG/ML 20 ML VIAL IV ONE; -SODIUM CHLORIDE 0.9% 500ML 500 ML IV ONE; +SUCCINYLCHOLINE CHLORIDE 20 MG/ML 10 ML VIAL IV ONE
[2017-10-30] MEDS ORDERED: ASPIRIN 81 MG CHEW PO STA (16:09)
--- NOTE | 2017-10-30 16:36 | DIAGNOSTIC IMAGING REPORT ---
CHEST ONE VIEW PORTABLE CLINICAL HISTORY: 56 years-old Male presenting with CHEST PAIN. TECHNIQUE: Portable upright AP view of the chest was obtained. COMPARISON: 6 at . FINDINGS: Left subclavian pacer with lead to the right atrium and right ventricular apex. Persistent prominence of the superior mediastinal contour, possibly lipomatosis. Cardiac silhouette moderately enlarged. Pulmonary vascular prominence. Diffuse added density of the lungs suggested with a basilar predilection. Small right pleural effusion. No pneumothorax. IMPRESSION: 1. Cardiomegaly with volume overload/congestive change. No tenzin pulmonary edema. 2. Small right pleural effusion. Electronically signed by: Shawn Ferrara M.D. 10/30/2017 4:35 PM Dictated Date/Time: 10/30/2017 4:33 PM
[2017-10-30 16:38] LABS: BASO % 0.5 %; BASO ABS # 0.06 K/uL (0-0.2); EOS % 1.6 %; EOS ABS # 0.18 K/uL (0-0.5); HEMATOCRIT 41.1 % (42-52); IG# 0.03 K/uL (0.00-0.02); LYMPH % 20.8 %; MEAN CELL VOLUME 82.2 fL (80-100); MEAN CORPUSCULAR HGB CONC 31.6 g/dl (32-36); MEAN PLATELET VOLUME 9.6 fL (7.4-10.4); MONO % 7.2 %; MONO ABS # 0.83 K/uL (0.11-0.59); NEUT % 69.6 %; NEUT ABS # 8.02 K/uL (1.4-6.5); PLATELET COUNT 230 K/uL (130-400); RED CELL DISTRIBUTION WIDTH CV 16.6 % (11.5-14.5); RED CELL DISTRIBUTION WIDTH SD 50.4 fL (36.4-46.3); WHITE BLOOD COUNT 11.52 K/uL (4.8-10.8)
[2017-10-30] MEDS ORDERED: CETI10TA84 PO (16:52)
[2017-10-30] MEDS ORDERED: CARV3.122 PO (16:52)
[2017-10-30] MEDS ORDERED: [UNRECOGNIZED DRUG - CODE] PO (16:52)
[2017-10-30] MEDS ORDERED: INSU100I23 SC (16:52)
[2017-10-30] MEDS ORDERED: FLNIN/ NAE (16:52)
[2017-10-30] MEDS ORDERED: ADVIN10/60 INH (16:52)
[2017-10-30] MEDS ORDERED: POLY335019 PO (16:52)
[2017-10-30] MEDS ORDERED: SPIR100T PO (16:52)
[2017-10-30] MEDS ORDERED: LSX40 PO (16:52)
[2017-10-30 17:15] LABS: BLOOD UREA NITROGEN 54 mg/dl (7-18); CARBON DIOXIDE 33 mmol/L (21-32); CREATININE 1.48 mg/dl (0.60-1.40); GLUCOSE 89 mg/dl (70-99); POTASSIUM 4.3 mmol/L (3.5-5.1); SODIUM 137 mmol/L (136-145)
[2017-10-30] MEDS ORDERED: OPTIRAY 320 IV PRN (17:45)
--- NOTE | 2017-10-30 18:19 | DIAGNOSTIC IMAGING REPORT ---
CT ANGIOGRAPHY OF THE CHEST, PULMONARY EMBOLUS PROTOCOL CLINICAL HISTORY: Fluid. Abnormal labs. Evaluate for pulmonary embolus. COMPARISON STUDY: Chest CT August 25, 2017 and chest radiograph October 30, 2017. TECHNIQUE: Following IV administration of 107 mL of Optiray-320, helical axial images of the chest were obtained utilizing the pulmonary embolus protocol. Maximal intensity projections and sagittal and coronal reformats were viewed on an independent 3D workstation. IV contrast was administered without complication. A dose lowering technique was utilized adhering to the principles of ALARA. CT DOSE: 731.18 mGy.cm FINDINGS: No pulmonary emboli are identified although segmental and subsegmental pulmonary arteries are suboptimally assessed on this exam. There is no thoracic aortic dissection. Heart is moderately enlarged. There is no pericardial effusion. Extensive coronary artery calcification is noted. Multiple mildly enlarged mediastinal and bilateral hilar lymph nodes have mildly decreased in size since exam of August 25, 2017. An index right paratracheal lymph node shown image 226 of 283 measures 1.5 cm in short axis diameter. It previously measured 1.6 cm. A small right pleural effusion has slightly decreased in size since CT of August 25, 2017. Right lower lobe opacity favors atelectasis. There is no pneumothorax. Several healed left rib fractures are noted. Numerous upper lobe predominant pulmonary nodules are noted. These measure up to 6 mm. Overall, these have increased in number and size since exam of August 25, 2017 however nodules have likely decreased in size. Anasarca is noted. Moderate upper abdominal ascites is noted. Liver is cirrhotic. IMPRESSION: 1. No pulmonary emboli identified although segmental and subsegmental pulmonary arteries suboptimally assessed due to respiratory motion. 2. Small right pleural effusion with right lower lobe airspace opacity suggestive of atelectasis. 3. Slight improvement in mediastinal and bilateral hilar lymphadenopathy since CT of August 25, 2017. This remains indeterminate. Overall, increase in size and number of upper lobe predominant pulmonary nodules, including perifissural nodules. Metastatic disease is within the differential however the distribution is atypical. The findings raise the possibility of a granulomatous process such as sarcoidosis. Short-term follow-up chest CT in 3 months is recommended as a neoplastic process cannot be excluded. 4. Mild pulmonary edema. 5. Cirrhosis with upper abdominal ascites. Anasarca. Electronically signed by: Roberto Shultz M.D. 10/30/2017 6:17 PM Dictated Date/Time: 10/30/2017 5:57 PM
[2017-10-30] MEDS ORDERED: FUROSEMIDE INJ 40 MG in SYRINGE 0 ML IV ONE (18:30)
--- NOTE | 2017-10-30 19:14 | EMERGENCY ROOM VISIT NOTE ---
History Report prepared by Magy: Marisabel Macedo Under the Supervision of: Dr. Rafael Coffey M.D. First contact with patient: 15:55 Chief Complaint: ABNORMAL DIAGNOSTIC TESTING Stated Complaint: FLUID, ABNORMAL LABS, SENT BY History of Present Illness The patient is a 56 year old male who presents to the Emergency Room with complains of shortness of breath and feeling as though he is retaining fluid for the last 1 week ago. The patient states that he was put in Lasix and potassium by Dr. Barrera, who he last saw one week ago. He notes that he was taken off Lasix and switched on to a new medication, but that he was still retaining water. Therefore, he states that he started taking the Lasix again and stopped taking the newly prescribed medication. The patient states that the last time he took the prescribed medication was this morning. The patient complains of shortness of breath. The patient denies chest pain. . He denies dating any aspirin today. The patient notes that he has sleep apnea and a pacemaker. He notes that he sleeps laying flat with 1 pillow. Source of History: patient Onset: 1 week ago Position: other (full body) Quality: other (fluid retension) Timing: worsening Associated Symptoms: + SOB, No chest pain Review of Systems See HPI for pertinent positives and negatives. A total of ten systems were reviewed and were otherwise negative. Past Medical & Surgical Medical Problems: (1) Asthma, Unspecified (2) CAD (coronary artery disease) (3) Diabetes type 2, uncontrolled (4) Diabetic peripheral neuropathy associated with type 2 diabetes mellitus (5) Esophageal Reflux (6) History of alcohol abuse (7) History of diabetic ulcer of foot (8) HLD (hyperlipidemia) (9) Hypertension Nos (10) Respiratory failure, acute (11) Tobacco use disorder Surgical Problems: (1) H/O vasectomy (2) History of cholecystectomy Social History Problems: (1) Cellulitis (2) Osteomyelitis Family History Cancer FH: hypertension FH: kidney disease FHx: heart disease Heart disease Lung disease Social History Smoking Status: Never Smoker Alcohol Use: occasionally Drug Use: none Marital Status: in relationship Housing Status: lives with family Occupation Status: employed Current/Historical Medications Scheduled Amlodipine Besylate (Amlodipine Besylate), 10 MG PO DAILY Aspirin (Aspirin Ec), 81 MG PO QAM Atorvastatin (Lipitor), 40 MG PO DAILY Carvedilol (Coreg), 3.125 MG PO BIDM Ergocalciferol (Vitamin D 04287 Unit), 50,000 INTER.UNIT PO WK Fluticasone Prop/Salmeterol (Advair Diskus 100/50 60 Dose), 1 PUFF INH BID Furosemide (Furosemide), 40 MG PO BID Insulin Glargine (Basaglar Kwikpen), 70 UNITS SC HS Lisinopril (Zestril), 40 MG PO QAM Metformin HCl (Metformin Hydrochloride), 500 MG PO HOLD Omeprazole (Prilosec), 20 MG PO QAM Spironolactone (Aldactone), 100 MG PO QAM Scheduled PRN Albuterol Hfa (Ventolin Hfa), 2 PUFFS INH Q6H PRN for SOB/Wheezing Cetirizine (Zyrtec), 10 MG PO DAILY PRN for Allergy Symptoms Fluticasone Propionate (Fluticasone Propionate), 2 SPRAYS JANNIE DAILY PRN for Allergy Symptoms Polyethylene Glycol 3350 (Miralax), 17 GM PO DAILY PRN for Constipation Allergies Coded Allergies: Vancomycin (Verified Allergy, Severe, ANAPHYLAXIS, 10/06/17) renal failure BEE STING (Verified Allergy, Intermediate, swelling, 10/06/17) Physical Exam Vital Signs Date Time Temp Pulse Resp B/P (MAP) Pulse Ox O2 Delivery O2 Flow Rate FiO2 10/30/17 20:03 60 16 138/81 98 BiPAP 30 10/30/17 20:00 60 20 92 BiPAP/CPAP 30 10/30/17 19:55 61 93 30 10/30/17 19:53 61 23 117/70 90 BiPAP 30 10/30/17 19:21 71 18 109/64 10/30/17 18:07 60 18 95 Nasal Cannula 5.0 10/30/17 17:40 60 16 120/65 93 Nasal Cannula 5.0 10/30/17 17:39 60 10/30/17 17:21 63 14 92 Nasal Cannula 5.0 10/30/17 17:20 60 14 87 Nasal Cannula 4.0 10/30/17 17:04 60 20 115/65 91 Nasal Cannula 4.0 10/30/17 16:51 92 Nasal Cannula 10/30/17 16:15 Nasal Cannula 10/30/17 15:56 70 10/30/17 15:38 36.6 74 22 134/79 88 Room Air Physical Exam Physical Exam GENERAL: He is oriented to person, place, and time. He appears well-developed and well-nourished. He appears distressed. HENT: Exam performed. Head: Normocephalic and atraumatic. Right Ear: External ear normal. No mastoid tenderness. Left Ear: External ear normal. No mastoid tenderness. Mouth/Throat: The oropharynx is clear and moist. No trismus in the jaw. No dental abscesses or uvula swelling. No oropharyngeal exudate or tonsillar abscesses. EYES: Conjunctivae and EOM are normal. Pupils are equal, round, and reactive to light. Right eye exhibits no discharge. Left eye exhibits no discharge. No scleral icterus. NECK: Normal range of motion. Neck supple. Mild JVD present. No spinous process tenderness present. No carotid bruit present. No rigidity. No tracheal deviation and normal range of motion present. No Brudzinski's sign and no Kernig 's sign noted. CV: Normal rate, regular rhythm, normal heart sounds and intact distal pulses. 1+ pitting edema bilateral lower extremities. Palpable radial pulses bue. PULM/CHEST: Rales at the bases. Chest Wall: He exhibits no tenderness. ABD: The abdomen is soft. Bowel sounds are normal. He has no distension. No mass is present. There is no tenderness. There is no rebound, no guarding, no Caldwell's sign and no tenderness at McBurney's point. Rovsig negative. MUSC/SKEL: Normal range of motion. 1+ pitting edema bilaterally. LYMPH: No cervical adenopathy. NEURO: He is alert and oriented to person, place, and time. He has normal strength. No cranial nerve deficit or sensory deficit. Coordination and gait normal. GCS eye subscore is 4. GCS verbal subscore is 5. GCS motor subscore is 6. Cerebellar tests wnl. SKIN: Skin is warm and dry. He is not diaphoretic. PSYCH: He has a normal mood and affect. Behavior is normal. Judgment and thought content normal. Medical Decision & Procedures ER Provider Diagnostic Interpretation: Radiology results as stated below per my review and radiologist interpretation: CHEST ONE VIEW PORTABLE CLINICAL HISTORY: 56 years-old Male presenting with CHEST PAIN. TECHNIQUE: Portable upright AP view of the chest was obtained. COMPARISON: 6 at . FINDINGS: Left subclavian pacer with lead to the right atrium and right ventricular apex. Persistent prominence of the superior mediastinal contour, possibly lipomatosis. Cardiac silhouette moderately enlarged. Pulmonary vascular prominence. Diffuse added density of the lungs suggested with a basilar predilection. Small right pleural effusion. No pneumothorax. IMPRESSION: 1. Cardiomegaly with volume overload/congestive change. No tenzin pulmonary edema. 2. Small right pleural effusion. Electronically signed by: Shawn Ferrara M.D. 10/30/2017 4:35 PM Dictated Date/Time: 10/30/2017 4:[address] ANGIOGRAPHY OF THE CHEST, PULMONARY EMBOLUS PROTOCOL CLINICAL HISTORY: Fluid. Abnormal labs. Evaluate for pulmonary embolus. COMPARISON STUDY: Chest CT August 25, 2017 and chest radiograph October 30, 2017. TECHNIQUE: Following IV administration of 107 mL of Optiray-320, helical axial images of the chest were obtained utilizing the pulmonary embolus protocol. Maximal intensity projections and sagittal and coronal reformats were viewed on an independent 3D workstation. IV contrast was administered without complication. A dose lowering technique was utilized adhering to the principles of ALARA. CT DOSE: 731.18 mGy.cm FINDINGS: No pulmonary emboli are identified although segmental and subsegmental pulmonary arteries are suboptimally assessed on this exam. There is no thoracic aortic dissection. Heart is moderately enlarged. There is no pericardial effusion. Extensive coronary artery calcification is noted. Multiple mildly enlarged mediastinal and bilateral hilar lymph nodes have mildly decreased in size since exam of August 25, 2017. An index right paratracheal lymph node shown image 226 of 283 measures 1.5 cm in short axis diameter. It previously measured 1.6 cm. A small right pleural effusion has slightly decreased in size since CT of August 25, 2017. Right lower lobe opacity favors atelectasis. There is no pneumothorax. Several healed left rib fractures are noted. Numerous upper lobe predominant pulmonary nodules are noted. These measure up to 6 mm. Overall, these have increased in number and size since exam of August 25, 2017 however nodules have likely decreased in size. Anasarca is noted. Moderate upper abdominal ascites is noted. Liver is cirrhotic. IMPRESSION: 1. No pulmonary emboli identified although segmental and subsegmental pulmonary arteries suboptimally assessed due to respiratory motion. 2. Small right pleural effusion with right lower lobe airspace opacity suggestive of atelectasis. 3. Slight improvement in mediastinal and bilateral hilar lymphadenopathy since CT of August 25, 2017. This remains indeterminate. Overall, increase in size and number of upper lobe predominant pulmonary nodules, including perifissural nodules. Metastatic disease is within the differential however the distribution is atypical. The findings raise the possibility of a granulomatous process such as sarcoidosis. Short-term follow-up chest CT in 3 months is recommended as a neoplastic process cannot be excluded. 4. Mild pulmonary edema. 5. Cirrhosis with upper abdominal ascites. Anasarca. Electronically signed by: Roberto Shultz M.D. 10/30/2017 6:17 PM Dictated Date/Time: 10/30/2017 5:57 PM Laboratory Results 10/30/17 16:15 Red Blood Count 5.00, Mean Corpuscular Volume 82.2, Mean Corpuscular Hemoglobin 26.0, Mean Corpuscular Hemoglobin Concent 31.6, Mean Platelet Volume 9.6, Neutrophils (%) (Auto) 69.6, Lymphocytes (%) (Auto) 20.8, Monocytes (%) (Auto) 7.2, Eosinophils (%) (Auto) 1.6, Basophils (%) (Auto) 0.5, Neutrophils # (Auto) 8.02, Lymphocytes # (Auto) 2.40, Monocytes # (Auto) 0.83, Eosinophils # (Auto) 0.18, Basophils # (Auto) 0.06 10/30/17 16:15 Test 10/30/17 16:15 10/30/17 19:30 10/30/17 19:45 White Blood Count 11.52 K/uL (4.8-10.8) Red Blood Count 5.00 M/uL (4.7-6.1) Hemoglobin 13.0 g/dL (14.0-18.0) Hematocrit 41.1 % (42-52) Mean Corpuscular Volume 82.2 fL (80-100) Mean Corpuscular Hemoglobin 26.0 pg (25-34) Mean Corpuscular Hemoglobin Concent 31.6 g/dl (32-36) Platelet Count 230 K/uL (130-400) Mean Platelet Volume 9.6 fL (7.4-10.4) Neutrophils (%) (Auto) 69.6 % Lymphocytes (%) (Auto) 20.8 % Monocytes (%) (Auto) 7.2 % Eosinophils (%) (Auto) 1.6 % Basophils (%) (Auto) 0.5 % Neutrophils # (Auto) 8.02 K/uL (1.4-6.5) Lymphocytes # (Auto) 2.40 K/uL (1.2-3.4) Monocytes # (Auto) 0.83 K/uL (0.11-0.59) Eosinophils # (Auto) 0.18 K/uL (0-0.5) Basophils # (Auto) 0.06 K/uL (0-0.2) RDW Standard Deviation 50.4 fL (36.4-46.3) RDW Coefficient of Variation 16.6 % (11.5-14.5) Immature Granulocyte % (Auto) 0.3 % Immature Granulocyte # (Auto) 0.03 K/uL (0.00-0.02) Prothrombin Time 12.1 SECONDS (9.0-12.0) Prothromb Time International Ratio 1.2 (0.9-1.1) Activated Partial Thromboplast Time 29.2 SECONDS (21.0-31.0) Partial Thromboplastin Ratio 1.1 Anion Gap 6.0 mmol/L (3-11) Est Creatinine Clear Calc Drug Dose 75.2 ml/min Estimated GFR () 60.4 Estimated GFR (Non- 52.1 BUN/Creatinine Ratio 36.3 (10-20) Calcium Level 9.0 mg/dl (8.5-10.1) Troponin I < 0.015 ng/ml (0-0.045) Pro-B-Type Natriuretic Peptide 655 pg/ml (0-900) Venous Blood pH 7.26 (7.36-7.41) Venous Blood Partial Pressure CO2 71 mmHg (38.0-50.0) Venous Blood Partial Pressure O2 51 mmHg Venous Blood HCO3 32 mmol/L Venous Blood Oxygen Saturation 81.0 % Venous Blood Base Excess 2.7 mEq/L Bedside Glucose 81 mg/dl (70-99) Laboratory results reviewed by me Medications Administered Medications (Trade) Dose Ordered Sig/Jerica Route Start Time Stop Time Status Last Admin Dose Admin Aspirin (Aspirin Chew) 324 mg NOW STAT PO 10/30/17 16:09 10/30/17 16:10 DC 10/30/17 17:05 324 MG Furosemide 40 mg/ Syringe 4 ml @ 4 mls/min ONE ONCE IV 10/30/17 18:30 10/30/17 18:31 DC 10/30/17 19:25 4 MLS/MIN Albuterol/ Ipratropium (Duoneb) 3 ml NOW STAT INH 10/30/17 19:43 10/30/17 19:44 DC 10/30/17 19:59 3 ML Methylprednisolone Sodium Succinate (Solu-Medrol IV) 40 mg STK-MED ONCE .ROUTE 10/30/17 19:58 10/30/17 19:59 DC 10/30/17 20:00 40 MG ECG Per My Interpretation Indication: SOB/dyspnea Rate (beats per minute): 61 Findings: paced rhythm, other (883 NM interval. QRS 154. QTC 459. No ST segment elevation or depression.) ED Course 155: The patient was evaluated in room C7. A complete history and physical exam was performed. Patient was immediately placed on cardiac catheterization technician and oxygen saturation. Oxygen saturation on room air ranged from 80-85%. Patient states he does not wear oxygen at home. Patient's was stated started on 5 L oxygen and his oxygen saturation improved. 1609: Ordered Aspirin 324 mg PO. 1826: Vital signs were stable while on 5 liters of oxygen. The patient was resting comfortably on oxygen. The chest x-ray and CTAs are concerning for fluid overload. BMP was 655. The troponin was negative. The CTA was negative for PE. Will give Lasix 40 mg and admit to hospital services. 0: Ordered Furosemide 40 mg/Syringe 4 ml @ 4 mls/min IV. 0: Jeanna Aguila accepted the patient for admission. 5: Was called to bedside by nursing staff because the patient became more disoriented and confused. the oxygen was removed. It is thought that the supplemental oxygen decreased the patient's respiratory drive and a worsening hypercapnia as a reason for the patient's altered mental status. POC glucose was repeated. Repeat acuucheck within normal limits. Repeat VBG sent. Patient was moved to the recursion bay in B1. He became more oriented and alert on arrival to trauma bay. We made the decision to hold off with intubation. Patient was started on BiPAP 15/5 with [address] Farris- ICU who agreed to admit the patient. Dr Tamika Aguila was made aware and agreed with the plan. Patient's pO2 is pending and will be checked before sending to ICU. 2005: Patient is more awake on BiPAP. Awake, alert, and oriented X3. Repeated blood gas showed an improved pO2 of 71. Svetlana pH is 7.26. Patient will be continued on BiPAP. Will continue to hold off on intubation. Dr Tamika Aguila came down and evaluated the patient and agrees with the treatment plan. 2030: The patient was reevaluated with Dr Tamika Aguila. He states to hold off on intubation. We will see if he improves once BiPAP settings are changed. He will be reevaluated and closely monitored before sending to the ICU. Medical Decision 1556: The patient was evaluated in room C7. A complete history and physical exam was performed. Patient was immediately placed on cardiac catheterization technician and oxygen saturation. Oxygen saturation on room air ranged from 80-85%. Patient states he does not wear oxygen at home. Patient's was stated started on 5 L oxygen and his oxygen saturation improved. 1609: Ordered Aspirin 324 mg PO. 1826: Vital signs were stable while on 5 liters of oxygen. The patient was resting comfortably on oxygen. The chest x-ray and CTAs are concerning for fluid overload. BMP was 655. The troponin was negative. The CTA was negative for PE. Will give Lasix 40 mg and admit to hospital services. 1830: Ordered Furosemide 40 mg/Syringe 4 ml @ 4 mls/min IV. 1830: Jeanna Aguila accepted the patient for admission. 1945: Was called to bedside by nursing staff because the patient became more disoriented and confused. the oxygen was removed. It is thought that the supplemental oxygen decreased the patient's respiratory drive and a worsening hypercapnia as a reason for the patient's altered mental status. POC glucose was repeated. Repeat acuucheck within normal limits. Repeat VBG sent. Patient was moved to the recursion bay in B1. He became more oriented and alert on arrival to trauma bay. We made the decision to hold off with intubation. Patient was started on BiPAP 15/5 with [address] Farris- ICU who agreed to admit the patient. Dr Tamika Aguila was made aware and agreed with the plan. Patient's pO2 is pending and will be checked before sending to ICU. 2004: Patient is more awake on BiPAP. Awake, alert, and oriented X3. Repeated blood gas showed an improved pO2 of 71. Svetlana pH is 7.26. Patient will be continued on BiPAP. Will continue to hold off on intubation. Dr Tamika Aguila came down and evaluated the patient and agrees with the treatment plan. 2029: The patient was reevaluated with Dr Tamika Aguila. He states to hold off on intubation. We will see if he improves once BiPAP settings are changed. He will be reevaluated and closely monitored before sending to the ICU. Medication Reconcilliation Current Medication List: was personally reviewed by ri Blood Pressure Screening Patient's blood pressure: Normal blood pressure Consults Time Called: 1828 Consulting Physician: Jeanna Aguila Returned Call: [phone]: Jeanna Aguila accepted the patient for admission. Additional Consults: Time Called: 1939 Consulted Physician: Spoke with Dr. Farris- ICU Returned Call: 1944 Additional Comments: 1944: Was called to bedside by nursing staff because the patient became more disoriented and confused. the oxygen was removed. Respiratory drive was decreased due to supplementary oxygen. PCC was repeated. Repeat acuu within normal limits. [facility] He became more oriented and alert. We made the decision to hold off with intubation. Patient was started on BiPAP 15/5 with 30 FI oxygen. Spoke with Dr. Farris- ICU who agreed to admit the patient. Dr. Wayne was made aware and agreed with the plan. Patient's pO2 is pending and will be checked before sending to ICU. Time Called: 2003 Consulted Physician: Dr Tamika Aguila Returned Call: 2004 Additional Comments: 2004: Patient is more awake on BiPAP. Awake, alert, and oriented X3. Repeated blood gas showed an improved pO2 of 71. Svetlana pH is 7.26. Patient will be continued on BiPAP. Will continue to hold off on intubation. Dr Tamika Aguila came down and evaluated the patient and agrees with the treatment plan. Impression Primary Impression: Hypoxia Additional Impression: CHF exacerbation Critical Care I have personally spent greater than 95 minutes of critical care time in the direct management of this patient. This includes bedside care, interpretation of diagnostic studies, and testing, discussion with consultants, patient, and family members, and other required patient management activities. This 95 minutes is in excess of all separately billable procedures. Scribe Attestation The scribe's documentation has been prepared under my direction and personally reviewed by me in its entirety. I confirm that the note above accurately reflects all work, treatment, procedures, and medical decision making performed by me. The chart was completed utilizing [employer] Speech voice recognition software. Grammatical errors, random word insertions, pronoun errors, and incomplete sentences are an occasional consequence of this system due to software limitations, ambient noise, and hardware issues. Any formal questions or concerns about the content, text, or information contained within the body of this dictation should be directly addressed to the physician for clarification. Departure Information Dispostion Being Evaluated By Hospitalist Referrals Aashish Savage MD (PCP) Forms HOME CARE DOCUMENTATION FORM, IMPORTANT VISIT INFORMATION, WORK / SCHOOL INSTRUCTIONS Patient Instructions My [facility] Problem Qualifiers
[2017-10-30] MEDS ORDERED: RAPID SEQUENCE INDUCTION BAG ONE ×2 (19:36→22:53)
[2017-10-30] MEDS ORDERED: ALBUT/IPRATROP 3MG/0.5MG NEB 3 ML VIAL INH STA (19:43)
[2017-10-30] MEDS ORDERED: METHYLPREDNISOLONE IV 40 MG in SYRINGE 0 ML IV STA (19:54)
[2017-10-30] MEDS ORDERED: LPT40 PO (20:18)
[2017-10-30] MEDS ORDERED: CARBOHYDRATES FOR HYPOGLYCEMIA PO PRN (21:00)
[2017-10-30] MEDS ORDERED: LEVALBUTEROL/IPRATROPIUM NEB INH PRN (21:00)
[2017-10-30] MEDS ORDERED: DEXTROSE 50% 50 ML SYR IV PRN (21:00)
[2017-10-30] MEDS ORDERED: GLUCOSE 10 TABS/TUBE PO PRN (21:00)
[2017-10-30] MEDS ORDERED: ACETAMINOPHEN 325 MG TAB PO PRN (21:00)
[2017-10-30] MEDS ORDERED: ICU PROTOCOL FOR HYPERGLYCEMIA PRN (21:00)
[2017-10-30] MEDS ORDERED: GLUCAGON FOR INJ 1 MG VIAL SQ PRN (21:00)
[2017-10-30] MEDS ORDERED: NITROGLYCERIN 0.4 MG SL PER TAB CHARGE SL PRN (21:00)
[2017-10-30] MEDS ORDERED: GLUCOSE 40% GEL 15 GM TUBE PO PRN (21:00)
[2017-10-30] MEDS ORDERED: INSULIN ASPART 100 UNITS/ML 3 ML PEN SC STA (21:07)
[2017-10-30] MEDS ORDERED: INSULIN GLARGINE SOLOSTAR 100 UNITS/ML 3 ML PEN SC STA (21:11)
[2017-10-30 21:15] LABS: INR 1.2 (0.9-1.1); PTT PATIENT 29.2 SECONDS (21.0-31.0)
[2017-10-30] MEDS ORDERED: TRAMADOL HCL 50 MG TAB PO PRN (21:15)
[2017-10-30] MEDS ORDERED: POLYETHYLENE (MIRALAX) 17 GM PACK PO PRN (21:15)
[2017-10-30] MEDS ORDERED: PROCHLORPERAZINE INJ 5 MG in SYRINGE 4 ML IV PRN (21:15)
[2017-10-30] MEDS ORDERED: LEVALBUTEROL 1.25MG/0.5ML NEB INH PRN (21:30)
[2017-10-30] MEDS ORDERED: IPRATROPIUM BROMIDE NEB SOLN 0.02% 2.5 ML VIAL INH PRN (21:30)
[2017-10-30] MEDS ORDERED: NURSING VERBAL MED ORDER ONE (21:30)
[2017-10-30 21:44] LABS: ALBUMIN 3.2 gm/dl (3.4-5.0); TOTAL PROTEIN 8.4 gm/dl (6.4-8.2)
--- NOTE | 2017-10-30 22:05 | DIAGNOSTIC IMAGING REPORT ---
ASCITES-ABDOMEN LIMITED CLINICAL HISTORY: Abdominal distention. COMPARISON STUDY: CT of the abdomen and pelvis August 14, 2013. FINDINGS: Moderate abdominal and pelvic ascites is noted. The liver is cirrhotic. IMPRESSION: Moderate ascites. Electronically signed by: Roberto Shultz M.D. 10/30/2017 10:03 PM Dictated Date/Time: 10/30/2017 10:02 PM
--- NOTE | 2017-10-30 22:54 | Progress Note ---
Internal Med Progress Note Date of Service: Oct 30, 2017. Provider Documentation: Worsening respiratory acidosis noted on follow-up ABG on the BiPAP. Anesthesiologist information technology assistant (Dr. Gibbs) requested to intubate patient to facilitate mechanical ventilation. Patient family updated of plan of care. Vital Signs: Date Time Temp Pulse Resp B/P (MAP) Pulse Ox O2 Delivery O2 Flow Rate FiO2 10/31/17 09:09 100 10/31/17 07:22 100 10/31/17 06:01 36.8 60 20 112/52 (72) 94 Mechanical Ventilator 100 10/31/17 05:49 60 110/53 10/31/17 05:01 36.8 60 20 107/53 (71) 94 Mechanical Ventilator 100 10/31/17 04:20 100 10/31/17 04:01 36.7 61 24 114/58 (76) 95 Mechanical Ventilator 100 10/31/17 03:01 36.8 60 24 111/58 (75) 92 Mechanical Ventilator 100 10/31/17 02:01 36.7 61 24 111/58 (75) 93 Mechanical Ventilator 100 10/31/17 01:30 100 10/31/17 01:01 36.3 60 5 116/62 (80) 91 Mechanical Ventilator 80 10/31/17 00:02 62 20 94/49 (64) 91 Mechanical Ventilator 60 10/30/17 23:59 80 10/30/17 23:59 Mechanical Ventilator 80 10/30/17 23:30 80 10/30/17 23:01 79 20 126/54 (78) 83 BiPAP 50 10/30/17 22:02 63 12 145/60 (88) 86 BiPAP 50 10/30/17 21:01 35.8 61 18 128/74 (92) 92 BiPAP 40 10/30/17 21:00 35.8 82 18 133/71 90 BiPAP 5.0 30 10/30/17 21:00 74 29 133/71 (91) 91 BiPAP 30 10/30/17 20:59 64 90 30 10/30/17 20:40 64 21 126/86 93 10/30/17 20:20 63 21 131/72 95 BiPAP 30 10/30/17 20:03 60 16 138/81 98 BiPAP 30 10/30/17 20:00 60 20 92 BiPAP/CPAP 30 10/30/17 19:55 61 93 30 8/20/18 19:53 61 23 117/70 90 BiPAP 30 10/30/17 19:21 71 18 109/64 10/30/17 18:07 60 18 95 Nasal Cannula 5.0 10/30/17 17:40 60 16 120/65 93 Nasal Cannula 5.0 10/30/17 17:39 60 10/30/17 17:21 63 14 92 Nasal Cannula 5.0 10/30/17 17:20 60 14 87 Nasal Cannula 4.0 10/30/17 17:04 60 20 115/65 91 Nasal Cannula 4.0 10/30/17 16:51 92 Nasal Cannula 10/30/17 16:15 Nasal Cannula 10/30/17 15:56 70 10/30/17 15:38 36.6 74 22 134/79 88 Room Air Lab Results: Results Past 24 Hours Test 10/30/17 16:15 10/30/17 16:18 10/30/17 19:30 10/30/17 19:45 Range/Units White Blood Count 11.52 4.8-10.8 K/uL Red Blood Count 5.00 4.7-6.1 M/uL Hemoglobin 13.0 14.0-18.0 g/dL Hematocrit 41.1 42-52 % Mean Corpuscular Volume 82.2 80-100 fL Mean Corpuscular Hemoglobin 26.0 25-34 pg Mean Corpuscular Hemoglobin Concent 31.6 32-36 g/dl Platelet Count 230 130-400 K/uL Mean Platelet Volume 9.6 7.4-10.4 fL Neutrophils (%) (Auto) 69.6 % Lymphocytes (%) (Auto) 20.8 % Monocytes (%) (Auto) 7.2 % Eosinophils (%) (Auto) 1.6 % Basophils (%) (Auto) 0.5 % Neutrophils # (Auto) 8.02 1.4-6.5 K/uL Lymphocytes # (Auto) 2.40 1.2-3.4 K/uL Monocytes # (Auto) 0.83 0.11-0.59 K/uL Eosinophils # (Auto) 0.18 0-0.5 K/uL Basophils # (Auto) 0.06 0-0.2 K/uL RDW Standard Deviation 50.4 36.4-46.3 fL RDW Coefficient of Variation 16.6 11.5-14.5 % Immature Granulocyte % (Auto) 0.3 % Immature Granulocyte # (Auto) 0.03 0.00-0.02 K/uL Prothrombin Time 12.1 9.0-12.0 SECONDS Prothromb Time International Ratio 1.2 0.9-1.1 Activated Partial Thromboplast Time 29.2 21.0-31.0 SECONDS Partial Thromboplastin Ratio 1.1 Sodium Level 137 136-145 mmol/L Potassium Level 4.3 3.5-5.1 mmol/L Chloride Level 98 98-107 mmol/L Carbon Dioxide Level 33 21-32 mmol/L Anion Gap 6.0 3-11 mmol/L Blood Urea Nitrogen 54 7-18 mg/dl Creatinine 1.48 0.60-1.40 mg/dl Est Creatinine Clear Calc Drug Dose 75.2 ml/min Estimated GFR () 60.4 Estimated GFR (Non- 52.1 BUN/Creatinine Ratio 36.3 10-20 Random Glucose 89 70-99 mg/dl Calcium Level 9.0 8.5-10.1 mg/dl Magnesium Level 2.1 1.8-2.4 mg/dl Total Bilirubin 0.6 0.2-1 mg/dl Direct Bilirubin 0.2 0-0.2 mg/dl Aspartate Amino Transf (AST/SGOT) 17 15-37 U/L Alanine Aminotransferase (ALT/SGPT) 16 12-78 U/L Alkaline Phosphatase 175 45-117 U/L Troponin I < 0.015 0-0.045 ng/ml Pro-B-Type Natriuretic Peptide 655 0-900 pg/ml Total Protein 8.4 6.4-8.2 gm/dl Albumin 3.2 3.4-5.0 gm/dl Procalcitonin 0.17 0-0.5 ng/ml Venous Blood pH 7.30 7.26 7.36-7.41 Venous Blood Partial Pressure CO2 74 71 38.0-50.0 mmHg Venous Blood Partial Pressure O2 31 51 mmHg Venous Blood HCO3 35 32 mmol/L Venous Blood Oxygen Saturation < 60.0 81.0 % Venous Blood Base Excess 6.8 2.7 mEq/L Bedside Glucose 81 70-99 mg/dl Test 10/30/17 21:24 10/30/17 21:32 8/20/18 22:21 10/31/17 00:02 Range/Units Ammonia 39.1 11-32 umol/L Ethyl Alcohol mg/dL < 3.0 0-3 mg/dl Urine Color YELLOW Urine Appearance CLEAR CLEAR Urine pH 5.0 4.5-7.5 Urine Specific [place] 1.014 1.000-1.030 Urine Protein NEG NEG Urine Glucose (UA) NEG NEG Urine Ketones NEG NEG Urine Occult Blood NEG NEG Urine Nitrite NEG NEG Urine Bilirubin NEG NEG Urine Urobilinogen NEG NEG Urine Leukocyte Esterase NEG NEG Blood Gas Sample Site L Radial Bedside Blood Gas pH (LAB) 7.21 7.35-7.45 Bedside Blood Gas pCO2 (LAB) 84 35-46 mmHg Bedside Blood Gas pO2 (LAB) 70 80-95 mmHg Bedside Blood Gas HCO3 (LAB) 34 19-24 meq/L Bedside Blood Gas Total CO2 36 24-31 mEq/l Bedside Blood Gas Base Excess (LAB) 6.0 -9-1.8 meq/L Bedside Blood Gas O2 Saturation 89.0 90-95 % Tate Test Pass Oxygen Delivery Device BIPAP Bedside Oxygen Rate (breaths/min) 20 Bedside FiO2 40 % Blood Gas IPAP 20 Bedside Glucose 133 70-99 mg/dl Test 10/31/17 00:16 10/31/17 04:13 10/31/17 04:35 10/31/17 05:26 Range/Units Blood Gas Sample Site L Radial L Radial Bedside Blood Gas pH (LAB) 7.24 7.46 7.35-7.45 Bedside Blood Gas pCO2 (LAB) 77 40 35-46 mmHg Bedside Blood Gas pO2 (LAB) 56 67 80-95 mmHg Bedside Blood Gas HCO3 (LAB) 33 28 19-24 meq/L Bedside Blood Gas Total CO2 36 30 24-31 mEq/l Bedside Blood Gas Base Excess (LAB) 6.0 4.0 -9-1.8 meq/L Bedside Blood Gas O2 Saturation 83.0 94.0 90-95 % Tate Test Pass Pass Oxygen Delivery Device Ventilator Ventilator Bedside Oxygen Rate (breaths/min) 20 24 Blood Gas Minute Ventilation 10 12 Bedside FiO2 80 100 % Blood Gas Tidal Volume 500 550 Blood Gas PEEP 5 5 White Blood Count 11.80 4.8-10.8 K/uL Red Blood Count 4.91 4.7-6.1 M/uL Hemoglobin 12.5 14.0-18.0 g/dL Hematocrit 40.1 42-52 % Mean Corpuscular Volume 81.7 80-100 fL Mean Corpuscular Hemoglobin 25.5 25-34 pg Mean Corpuscular Hemoglobin Concent 31.2 32-36 g/dl Platelet Count 247 130-400 K/uL Mean Platelet Volume 9.8 7.4-10.4 fL Neutrophils (%) (Auto) 90.8 % Lymphocytes (%) (Auto) 7.6 % Monocytes (%) (Auto) 1.0 % Eosinophils (%) (Auto) 0.1 % Basophils (%) (Auto) 0.2 % Neutrophils # (Auto) 10.72 1.4-6.5 K/uL Lymphocytes # (Auto) 0.90 1.2-3.4 K/uL Monocytes # (Auto) 0.12 0.11-0.59 K/uL Eosinophils # (Auto) 0.01 0-0.5 K/uL Basophils # (Auto) 0.02 0-0.2 K/uL RDW Standard Deviation 49.6 36.4-46.3 fL RDW Coefficient of Variation 16.6 11.5-14.5 % Immature Granulocyte % (Auto) 0.3 % Immature Granulocyte # (Auto) 0.03 0.00-0.02 K/uL Sodium Level 135 136-145 mmol/L Potassium Level 5.0 3.5-5.1 mmol/L Chloride Level 100 98-107 mmol/L Carbon Dioxide Level 27 21-32 mmol/L Anion Gap 8.0 3-11 mmol/L Blood Urea Nitrogen 55 7-18 mg/dl Creatinine 1.51 0.60-1.40 mg/dl Est Creatinine Clear Calc Drug Dose 72.4 ml/min Estimated GFR () 59.0 Estimated GFR (Non- 50.9 BUN/Creatinine Ratio 36.7 10-20 Random Glucose 134 70-99 mg/dl Calcium Level 8.4 8.5-10.1 mg/dl Ammonia 21.0 11-32 umol/L Troponin I < 0.015 0-0.045 ng/ml Test 10/31/17 06:07 Range/Units Bedside Glucose 129 70-99 mg/dl Microbiology Results 10/30/17 MRSA DNA Surveillance Screen - Final, Complete Specimen Positive for MRSA by DNA Probe
[2017-10-30] MEDS ORDERED: PROPOFOL IV EMULSION 10 MG/ML 100 ML VIAL ONE (23:05)
--- NOTE | 2017-10-30 23:37 | Procedure Note ---
Procedure Note Procedure Date Oct 30, 2017. Procedure Description Procedure Name: Emergency Intubation Procedure time out: side/site verified, patient ID confirmed, correct procedure Consent obtained: emergent consent implied Performed by: attending Indications: therapeutic Contraindications: none Description: The patient's SpO2 was 89 on BiPap. BP was 120s/80s with HR 60s. The patient was moving around in bed but was not coherent. The patient was ramped with pillows behind his shoulders. The respiratory therapist bag mask ventilated the patient to SpO2 of 91%. Propofol 200 mg IV and succinylcholine 170 mg IV were given followed by a saline flush. A Glidescope 4 blade was inserted into the mouth. The patient's mouth was filled with thick mucus which was suctioned. His vocal cords were visualized and the 8.0 ETT was placed with some difficulty after readjusting the Glidescope blade. Placement was confirmed with EZ cap and bilateral breath sounds. The patient's SpO2 briefly dropped to 85 but soon increased to 98 with assisted bag ventilations. The patient's BP stayed in the 120s/80s with HR in the 60s. The Glidescope blade was noted to have what looked like white gum on it from the patient's mouth. A CXR will be done and read by Dr. Mojica to evaluate for proper placement. Dr. Mojica will monitor the patient, manage his ventilator settings, and provide further sedation. Report was given to the ICU staff. Complications: none Patient tolerated procedure: well Post-procedure vital signs: reviewed and stable Comments: I was called to help with an emergent intubation in the ICU by Dr. Mojica. The patient is a 56 y/o male in respiratory failure. He presented to the ED tonight with SOB. PMH includes CAD, dyslipidemia, pacemaker, HTN, CHF exacerbation, asthma, COPD, morbid obesity, DM type 2, hx alcohol abuse, peripheral neuropathy, kidney disease, and GERD. The patient has never had a stroke. His potassium is 4.3. The patient has a thick neck, 3 FB TMD, and intact teeth. MP exam was not able to be performed as the patient was grunting and moving around but not following commands.
[2017-10-31] VITALS (42 sets, daily range): BP systolic 92–127; BP diastolic 40–68; PULSE 60–63; TEMP 36.3–37.5; O2SAT 90–99; Ht 175.3 cm; Wt 120.6 kg
[2017-10-31] MEDS ORDERED: DOXYCYCLINE IV 100 MG in DEXTROSE 5% 100ML 100 ML IV ONE ×2
[2017-10-31] MEDS: PROPOFOL IV EMULSION 10 MG/ML 100 ML VIAL IV PRN ×8 (00:14→20:38)
[2017-10-31] MEDS: HEPARIN SOD 5000 UNIT/0.5 ML CARP SQ SCH ×4 (00:16→21:39)
[2017-10-31] MEDS: FENTANYL CITRATE INJ 50 MCG/1 ML 2 ML VIAL IV PRN ×4 (00:35→16:29)
[2017-10-31] MEDS ORDERED: LORAZEPAM 2 MG/ML 1 ML VIAL IV PRN (01:15)
[2017-10-31] MEDS: LEValbuterol HFA 15GM INHALER INH SCH ×5 (01:22→19:15)
[2017-10-31] MEDS: IPRATROPIUM BROMIDE HFA INHALER INH SCH ×5 (01:22→19:15)
[2017-10-31] MEDS ORDERED: FUROSEMIDE INJ 20 MG in SYRINGE 0 ML IV ONE ×2 (01:45→13:45)
[2017-10-31] MEDS ORDERED: LEVALBUTEROL 1.25MG/0.5ML NEB INH SCH (03:00)
[2017-10-31] MEDS ORDERED: IPRATROPIUM BROMIDE NEB SOLN 0.02% 2.5 ML VIAL INH SCH (03:00)
[2017-10-31] MEDS ORDERED: LEVALBUTEROL/IPRATROPIUM NEB INH SCH (03:00)
[2017-10-31] MEDS ORDERED: ACETAMINOPHEN IV 650 MG in EMPTY BAG 0 ML IV PRN (03:30)
[2017-10-31 04:50] LABS: BASO % 0.2 %; BASO ABS # 0.02 K/uL (0-0.2); EOS % 0.1 %; EOS ABS # 0.01 K/uL (0-0.5); HEMATOCRIT 40.1 % (42-52); HEMOGLOBIN 12.5 g/dL (14.0-18.0); IG# 0.03 K/uL (0.00-0.02); LYMPH % 7.6 %; MEAN CELL VOLUME 81.7 fL (80-100); MEAN CORPUSCULAR HEMOGLOBIN 25.5 pg (25-34); MEAN CORPUSCULAR HGB CONC 31.2 g/dl (32-36); MEAN PLATELET VOLUME 9.8 fL (7.4-10.4); MONO ABS # 0.12 K/uL (0.11-0.59); NEUT % 90.8 %; NEUT ABS # 10.72 K/uL (1.4-6.5); PLATELET COUNT 247 K/uL (130-400); RED CELL DISTRIBUTION WIDTH CV 16.6 % (11.5-14.5); RED CELL DISTRIBUTION WIDTH SD 49.6 fL (36.4-46.3)
[2017-10-31 05:11] LABS: BLOOD UREA NITROGEN 55 mg/dl (7-18); CALCIUM 8.4 mg/dl (8.5-10.1); CARBON DIOXIDE 27 mmol/L (21-32); CREATININE 1.51 mg/dl (0.60-1.40); GLUCOSE 134 mg/dl (70-99); SODIUM 135 mmol/L (136-145)
[2017-10-31] MEDS: METOPROLOL TARTRATE 1 MG/ML VIAL IV. SCH ×3 (05:49→16:44)
--- NOTE | 2017-10-31 06:34 | HISTORY & PHYSICAL EXAMINATION ---
DATE OF ADMISSION: 10/30/2017 CHIEF COMPLAINT: Abnormal labs, fluid as per records. PRIMARY CARE PHYSICIAN: Dr. Savage. HISTORY OF PRESENT ILLNESS: History obtained from patient, ER provider, family, and records. Limited history from the patient secondary to lethargic state. Medical history significant for chronic diastolic heart failure, EF of 55-60%, symptomatic bradycardia status post PPM, nonocclusive CAD; COPD/restrictive lung disease as per records, YECENIA, CPAP intolerance, DM2, insulin requiring, ongoing tobacco abuse, cirrhosis, past alcohol abuse, chronic anemia (baseline hemoglobin of 12-13) Ongoing tobacco abuse Recent confinement last August 2017 for decompensated heart failure. 2D echo during confinement showed EF of 55-60% grossly normal valvular structure and function. PFTs showed restrictive lung disease. Patient had a followup with [facility] Cardiology outpatient last week. Complaints of worsening abdominal bloating, lower extremity edema and dyspnea, progressive weight gain. Patient refused ER recommendations. Diuretics titrated. Outpatient blood work showed increase in creatinine 1.8. Patient's car distributor directed patient to go to the ER for admission and treatment. Patient denies cough symptoms. Patient's legs noted to be red as per mother. At the Emergency Room, the patient received Lasix. Later on noted to be unresponsive. BiPAP initiated. MEDICAL HISTORY: As above. OPERATIONS: Vasectomy, cholecystectomy, pacemaker placement. HOME MEDICATIONS: Include Prilosec, metformin, MiraLax, Aldactone, vitamin D, Advair, fluticasone, furosemide, Zestril, Ventolin, aspirin, Lipitor, amlodipine, Coreg, Zyrtec. ALLERGIES: TO BEE STING, VANCOMYCIN. FAMILY HISTORY: Cannot be obtained. PERSONAL AND SOCIAL HISTORY: Ongoing tobacco abuse as per children, past alcohol abuse. 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 REVIEW OF SYSTEMS: Could not be reliably obtained. PHYSICAL EXAMINATION: VITAL SIGNS: Blood pressure noted to be 134/69, pulse rate 74, RR 24, T 37 O2 sats 88 on room air, later 90 on BiPAP. GENERAL: Noted to be lethargic, obese, no respiratory distress. SKIN: Pallor, warm. HEENT: Partial alopecia. Pale palpebral conjunctivae. No ptosis. Dry mucosa. BiPAP in place NECK: Short, supple. CHEST: Decreased breath sounds, bilateral crackles. HEART: Regular rate and rhythm. No murmur. ABDOMEN: Some distention, nontender. EXTREMITIES: LE erythema, no tenderness. NEUROLOGIC: Lethargic. No facial asymmetry. Gait and stance not assessed. LABORATORY DATA: Hemoglobin 13 white cells 11.2, platelets 230. Sodium noted to be 137, potassium 4.3, chloride 98, CO2 30, BUN, crea 1.4, glucose was noted to be 89. VBG: pH 7.30, pCO2 74. EKG as per my interpretation, paced rhythm. CTA showed no PE, small R perfusion, atelectasis, pulmonary edema, anasarca, slight improvement of mediastinal bilateral hilar adenopathy from August 2017, increase in size in bilateral pulmonary nodules, possible granulomatous process. ASSESSMENT: 1. Acute hypoxemic, hypercapnic respiratory failure multifactorial : decompensated heart failure, medication noncompliance ? RLD exacerbation 2. Respiratory acidosis secondary to above 3. cirrhosis as per records Past history EtOH abuse Patient presenting w fluid overload, 4. abdominal distension, rule out ascites 5. LE swelling secondary to CHF/liver disease, cellulitis, no sepsis rule out DVT 6. YECENIA, CPAP noncompliance. 7. Hypertension, stable. 8. Symptomatic bradycardia status post pacemaker, paced rhythm. 9. hx nonocclusive CAD 10. ARF 2 to illness, diuretic Rx 11. DM2 insulin requiring, suboptimal control as of recent inpatient Hemoglobin A1c of 14.1 from August 2017. 12. ongoing tobacco abuse PLAN: ICU NIPPV Diuretic Rx, monitor daily renal function with diuretic Rx Strict IOs, daily weights, CHF re-education Cardiology consult. RE CHF Nebs, steroids for possible RLD exacerbation Pulmonary consult RE respiratory failure Follow-up ABG May need endotracheal intubation to facilitate mechanical ventilation if no improvement. N.p.o. for now. Abdominal ultrasound rule out ascites, may need dx/tx paracentesis if significant LE Dopplers rule out DVT, Doxycycline for LE cellulitis Hold Amlodipine for now given leg swelling. Hold CATHERINE inhibitor until creatinine at baseline. Basal insulin adjusted for n.p.o. state. ISS BG goal 140-180 PT, OT eval. Nicotine patch prn Patient will require re-education about chronic medical conditions once more awake. DVT prophylaxis, Heparin subQ. Full code. Total critical care time was 50 minutes. Patient's family updated on patient's critical condition. They are frustrated about not being aware of patient's chronic illnesses. Requesting updates from providers. Ms. Darling Robertson (mother) [phone] Mr. Wolfgang Robertson (son) [phone] Mr. Joel Robertson (son) [phone] [facility]
--- NOTE | 2017-10-31 07:02 | DIAGNOSTIC IMAGING REPORT ---
VENOUS DOPPLER LWR EXT BILA CLINICAL HISTORY: 56 years-old Male presenting with leg swelling. TECHNIQUE: Real-time grayscale and color and spectral Doppler ultrasound imaging of the veins of the bilateral lower extremities was performed. Compression and augmentation were also utilized. COMPARISON: 08/25/2017. FINDINGS: RIGHT: Common femoral vein: Patent. Greater saphenous vein: Patent. Deep femoral vein: Patent. Femoral vein: Patent. Popliteal vein: Patent. Calf veins: Patent. LEFT: Common femoral vein: Patent. Greater saphenous vein: Patent. Deep femoral vein: Patent. Femoral vein: Patent. Popliteal vein: Patent. Calf veins: Patent. Other: Bilateral enlarged though benign appearing lymph nodes in the inguinal regions. Subcutaneous edema in the bilateral lower extremities. IMPRESSION: No evidence of deep venous thrombosis. Electronically signed by: Shawn Ferrara M.D. 10/31/2017 7:00 AM Dictated Date/Time: 10/31/2017 6:34 AM
--- NOTE | 2017-10-31 07:13 | DIAGNOSTIC IMAGING REPORT ---
CHEST ONE VIEW PORTABLE CLINICAL HISTORY: 56 years-old Male presenting with post et. TECHNIQUE: Portable upright AP view of the chest was obtained. COMPARISON: 10/30/2017. FINDINGS: Left subclavian pacer with leads to the right atrium and right ventricular apex. Endotracheal tube terminates 4.3 cm from the angel. The superior mediastinum remains enlarged. Moderate cardiac silhouette enlargement. Pulmonary basilar prominence. Mildly low lung volumes. Diffuse added density of the lungs is increased from prior. No large pleural effusion or pneumothorax. Osseous structures normal. IMPRESSION: 1. Appropriately positioned endotracheal tube. 2. Cardiomegaly with volume overload. Added density of the lungs could suggest developing pulmonary edema. Electronically signed by: Shawn Ferrara M.D. 10/31/2017 7:12 AM Dictated Date/Time: 10/31/2017 6:34 AM
[2017-10-31] MEDS ORDERED: CARVEDILOL 3.125 MG TAB PO SCH (07:15)
[2017-10-31] MEDS: INSULIN ASPART 100 UNITS/ML 3 ML PEN SC SCH ×4 (07:39→20:51)
[2017-10-31] MEDS ORDERED: FUROSEMIDE INJ 60 MG in SYRINGE 0 ML IV SCH (09:00)
[2017-10-31] MEDS ORDERED: ASPIRIN 81 MG ECTAB PO SCH (09:00)
[2017-10-31] MEDS ORDERED: ATORVASTATIN 40 MG TAB PO SCH (09:00)
[2017-10-31] MEDS ORDERED: PANTOprazole SOD 40 MG TAB PO SCH (09:00)
[2017-10-31] MEDS ORDERED: FUROSEMIDE INJ 40 MG in SYRINGE 0 ML IV SCH (09:00)
[2017-10-31] MEDS ORDERED: ASPIRIN 81 MG CHEW PO SCH (09:00)
[2017-10-31] MEDS: DOXYCYCLINE IV 100 MG in DEXTROSE 5% 100ML 100 ML IV SCH ×2 (09:14→21:37)
[2017-10-31] MEDS: PANTOprazole INJ 40 MG in SYRINGE 0 ML IV SCH (09:14)
[2017-10-31] MEDS: METHYLPREDNISOLONE IV 20 MG in SYRINGE 0 ML IV SCH ×2 (09:15→16:02)
[2017-10-31] MEDS: INSULIN GLARGINE SOLOSTAR 100 UNITS/ML 3 ML PEN SC SCH ×2 (09:17→20:53)
--- NOTE | 2017-10-31 10:05 | Clinical Documentation Query ---
CHRISSIE Navarro : CLINICAL DOCUMENTATION QUERIES QUERY 1 OF 2 Patient is a 56 year old male admitted for "Acute hypoxemic, hypercapnic respiratory failure multifactorial : decompensated heart failure, medication noncompliance ? RLD exacerbation". Patient noted to be lethargic in the above setting. In the setting of hypercarbia and hypoxemia, consider this alteration of mental status as suggested below. Thank you. In your clinical opinion is this patient being managed for: ( X ) Metabolic encephalopathy ( ) Not Agree ( ) Other explanation of clinical findings (No explanation is considered a No Response) ( ) Unable to determine ( ) Need to Discuss (Phone CDS or qliq) (No discussion is considered a No Response) The medical record reflects the following clinical findings, treatment, and risk factors. Clinical Indicators: As above Treatment: PPV, subsequently intubated, supplemental oxygen, VBG's/ABG's, Lasix, Doxycycline, Solumedrol Risk Factors: Obesity, YECENIA, chronic diastolic CHF, COPD/RLD QUERY 2 OF 2 Please specify the type of CHF experienced by your patient. History of chronic diastolic heart failure, EF of 55-60% per records. In your clinical opinion is this patient being managed for: ( X) Acute (on chronic) diastolic CHF ( ) Not Agree ( ) Other explanation of clinical findings (No explanation is considered a No Response) ( ) Unable to determine ( ) Need to Discuss (Phone CDS or qliq) (No discussion is considered a No Response) The medical record reflects the following clinical findings, treatment, and risk factors. Clinical Indicators: As above Treatment: IV Lasix, daily weights, ICU admission, I/O, serial chemistries Risk Factors: Obesity, COPD, chronic diastolic CHF, YECENIA Please clarify and document your clinical opinion in the progress notes and discharge summary. Terms such as "probable", "suspected", "likely", "questionable", "possible", or "still to be ruled out" are acceptable. IF IN AGREEMENT, YOU MUST DOCUMENT ABOVE DIAGNOSTIC STATEMENT IN DAILY PROGRESS NOTES AND DISCHARGE SUMMARY. This document is not part of the patient's record. Thank You, Reji Jimenez, RN [phone]
--- NOTE | 2017-10-31 10:40 | ECHOCARDIOGRAM REPORT ---
*NOTICE TO RECEIVING DEMOCRAT AGENCY This information is strictly Confidential and protected under [place] law. [place] law prohibits you from making any further disclosure of this information unless further disclosure is expressly permitted by the written consent of the person to whom it pertains or is authorized by law. A general authorization for the release of medical or other information is not sufficient for this purpose. Hospital accepts no responsibility if the information is made available to any other person, INCLUDING THE PATIENT. Interpretation Summary * Name: KENDRA MANJARREZ Study Date: 10/31/2017 08:45 AM BP: 112/52 mmHg * Patient Location: .MSICU\S\E108\S\1 HR: 60 * : 1960 (M/d/yyyy) Gender: Male Height: 69 in * Age: 56 yrs Ethnicity: [place] Weight: 283 lb * Ordering Physician: Pedro Pablo Barrera DO * Referring Physician: Pedro Pablo Barrera D.O. * Performed By: Jocelyn Williamson RDCS * * Reason For Study: LV FUNCTION, CHF * BSA: 2.4 m2 * -- Conclusions -- * Limited study to assess LV systolic function. * Normal LV chamber size with moderate concentric LVH. * Hyperdynamic LV systolic function, EF >70%. * Paradoxical septal motion is consistent with right ventricular pressure overload, otherwise, no segmental left ventricular wall motion abnormalities are noted. * Small, loculated posterior pericardial effusion without hemodynamic significance. Procedure Details * The study was technically limited. * The study was technically difficult. * There were technical limitations due to patient'ssupine positioning while on mechanical ventilation * A contrast injection of Definity was performed to improve assessment of LV function. * Contrast was injected into an intravenous site in the right arm. * One vial of Definity ultrasound contrast was diluted in normal saline to a total volume of 10 ml. A total of '3' ml of solution was administered during imaging. * Lot # [id number] of Definity utilized for procedure. * Expiration date 09/28. Left Ventricle * The left ventricle is normal in size. * There is moderate concentric left ventricular hypertrophy. * Ejection Fraction = >70 %. * The left ventricle is hyperdynamic. * No segmental left ventricular wall motion abnormalities are noted. * The left ventricular wall motion is normal. * Paradoxical septal motion is consistent with right ventricular volume overload. MMode 2D Measurements and Calculations IVSd 1.0 cm IVSs 1.9 cm LVIDd 5.5 cm LVIDs 3.0 cm LVPWd 1.6 cm LVPWs 2.2 cm IVS/LVPW 0.63 FS 44.5 % EDV(Teich) 145.8 ml ESV(Teich) 36.2 ml EF(Teich) 75.2 % EDV(cubed) 164.0 ml ESV(cubed) 28.1 ml EF(cubed) 82.9 % % IVS thick 81.3 % % LVPW thick 35.4 % LV mass(C)d 317.7 grams LV mass(C)dI 132.7 grams/m\S\2 LV mass(C)s 283.9 grams LV mass(C)sI 118.6 grams/m\S\2 SV(Teich) 109.7 ml SI(Teich) 45.8 ml/m\S\2 SV(cubed) 135.9 ml SI(cubed) 56.8 ml/m\S\2 LVAd ap4 38.0 cm\S\2 LVLd ap4 8.9 cm EDV(MOD-sp4) 139.2 ml EDV(sp4-el) 137.3 ml LVAs ap4 16.6 cm\S\2 LVLs ap4 7.3 cm ESV(MOD-sp4) 31.4 ml ESV(sp4-el) 31.8 ml EF(MOD-sp4) 77.4 % EF(sp4-el) 76.8 % LVAd ap2 30.7 cm\S\2 LVLd ap2 7.7 cm EDV(MOD-sp2) 102.9 ml EDV(sp2-el) 103.6 ml LVAs ap2 14.0 cm\S\2 LVLs ap2 6.5 cm ESV(MOD-sp2) 24.4 ml ESV(sp2-el) 25.5 ml EF(MOD-sp2) 76.3 % EF(sp2-el) 75.3 % LVLd %diff -15.78 % EDV(MOD-bp) 128.2 ml LVLs %diff -12.50 % ESV(MOD-bp) 28.3 ml EF(MOD-bp) 78.0 % SV(MOD-sp4) 107.8 ml SI(MOD-sp4) 45.0 ml/m\S\2 SV(MOD-sp2) 78.5 ml SI(MOD-sp2) 32.8 ml/m\S\2 SV(MOD-bp) 100.0 ml SI(MOD-bp) 41.8 ml/m\S\2 SV(sp4-el) 105.5 ml SI(sp4-el) 44.1 ml/m\S\2 SV(sp2-el) 78.1 ml SI(sp2-el) 32.6 ml/m\S\2
--- NOTE | 2017-10-31 11:05 | DIAGNOSTIC IMAGING REPORT ---
KUB CLINICAL HISTORY: 56 years-old Male presenting with New OG tube inserted. Check placement. . TECHNIQUE: Single supine view of the abdomen was obtained. COMPARISON: 12/15/2016. FINDINGS: Orogastric tube terminates in the gastric body with sidehole also likely contained within the gastric lumen. Cholecystectomy clips noted. Nonobstructive bowel gas pattern. No gross pneumoperitoneum. Allowing for bowel gas and stool, no calcifications to suggest nephrolithiasis. Degenerative changes of the spine. Air bronchograms evident in the retrocardiac region. IMPRESSION: 1. Appropriately positioned orogastric tube. 2. No acute intra-abdominal pathology. 3. Consolidation versus atelectasis at the lung bases. Electronically signed by: Shawn Ferrara M.D. 10/31/2017 11:04 AM Dictated Date/Time: 10/31/2017 11:01 AM
--- NOTE | 2017-10-31 11:22 | Gastrointestinal Consultation ---
Gastrointestinal Consultation Date of Consultation: Oct 31, 2017 Attending Physician: Santos Trejo Consulting Physician: Vern Becerra Reason for Consultation: Ascites, cirrhosis. History of Present Illness Patient is a 56 year old male who presented to ED w respiratory distress, volume overload initially needing BiPAP and then intubation currently on mechanical vent. Unable to obtain hx from him, chart reviewed. He has hx of YECENIA on CPAP, chronic diastolic HF, EF 55-60%, COPD, DM II, CAD, anemia, cirrhosis suspected from ETOH abuse. GI consulted for ascites. He was managed by MELBA Taveras in outpt GI clinic. Had 20+lbs weight gain since 1 month ago. He had 3L ascites removal via u/s guided paracentesis on 10/06/17. SAAG >1.1 thus ascites suspected to be from heart failure related. He was maintained on Lasix 40mg BID, and Spironolactone 100mg BID. Cr rising from 0.9 -> 1.8 recently. Since admitted he's placed on Lasix 40mg IV BID, with 1.7L net negative output. Imaging studies: - CXR showed signs of cardiomegaly w congestive changes - Chest CTA showed no PEs, + pulmonary nodules ? sarcoidosis or metastatic disease, + mild pulmonary edema, cirrhosis w upper abd varices, anasarca - Abd u/s: moderate ascites - Venous doppler: no DVTs on bilateral LE. - Echocardiogram: completed, pending results. Past Medical/Surgical History Medical Problems: (1) Chest pain Status: Acute (2) CHF exacerbation Status: Acute (3) Hypomagnesemia Status: Acute (4) Hypoxia Status: Acute (5) Hypoxia Status: Acute (6) Lower extremity edema Status: Acute (7) PICC line infection Status: Acute (8) Pulmonary congestion Status: Acute (9) Pulmonary edema Status: Acute (10) Scrotal edema Status: Acute (11) Swelling of both lower extremities Status: Acute Past Medical History: See above. Past Surgical History: Lap cholecystectomy Vasectomy Family History Cancer FH: hypertension FH: kidney disease FHx: heart disease Heart disease Lung disease Social History Smoking Status: Current Every Day Smoker Alcohol Use: occasionally Drug Use: none Marital Status: in relationship Housing Status: lives with family Occupation Status: employed Allergies Coded Allergies: Vancomycin (Verified Allergy, Severe, ANAPHYLAXIS, 10/06/17) renal failure BEE STING (Verified Allergy, Intermediate, swelling, 10/06/17) Current Medications Home Meds and Scripts Medications Dose Route/Sig Max Daily Dose Days Date Category Dose Instructions Aldactone (Spironolactone) 100 Mg Tab 100 Mg PO QAM 10/30/17 Reported Fluticasone Propionate 120 Sprays/6000 Mcg Inha 2 Sprays JANNIE DAILY PRN 10/30/17 Reported Zyrtec (Cetirizine HCl) 10 Mg Tab 10 Mg PO DAILY PRN 10/30/17 Reported Furosemide 40 Mg Tab 40 Mg PO BID 10/30/17 Reported TAKE TWO TABLETS EVERY MORNING AND IN THE AFTERNOON Metformin Hydrochloride (Metformin HCl) 500 Mg Tab 500 Mg PO HOLD 10/30/17 Reported MEDICATION CURRENTLY BEING HELD UNTIL OTHERWISE DIRECTED TO TAKE BY PCP Basaglkelvin Juniorikpen (Insulin Glargine) 100 Unit/Ml Inj 70 Units SC HS 10/30/17 Reported Miralax (Polyethylene Glycol 3350) 1 Pow Pow 17 Gm PO DAILY PRN 10/30/17 Reported Advair Diskus 100/50 60 Dose (Fluticasone Prop/Salmeterol) 1 Ea Aerp 1 Puff INH BID 10/30/17 Reported Coreg (Carvedilol) 3.125 Mg Tab 3.125 Mg PO BIDM 10/30/17 Reported Amlodipine Besylate 10 Mg Tab 10 Mg PO DAILY 10/06/17 Reported Lipitor (Atorvastatin Calcium) 40 Mg Tab 40 Mg PO DAILY 08/25/17 Reported Ventolin Hfa (Albuterol) 200 Puffs/62145 Mcg Aers 2 Puffs INH Q6H PRN 04/18/17 Reported Aspirin Ec (Aspirin) 81 Mg Tab 81 Mg PO QAM 04/18/17 Reported Vitamin D 81571 Unit (Ergocalciferol) 50,000 Unit Cap 50,000 Inter.unit PO WK 04/18/17 Reported TAKE THIS MEDICATION EVERY MONDAY Prilosec (Omeprazole) 20 Mg Capcr 20 Mg PO QAM 04/18/17 Reported Zestril (Lisinopril) 40 Mg Tab 40 Mg PO QAM 06/15/16 Reported Review of Systems Constitutional: + see HPI (Unable to obtain, pt sedated on mechanical vent. ) Physical Exam Date Time Temp Pulse Resp B/P (MAP) Pulse Ox O2 Delivery O2 Flow Rate FiO2 10/31/17 09:09 100 10/31/17 07:22 100 10/31/17 06:01 36.8 60 20 112/52 (72) 94 Mechanical Ventilator 100 10/31/17 05:49 60 110/53 10/31/17 05:01 36.8 60 20 107/53 (71) 94 Mechanical Ventilator 100 10/31/17 04:20 100 10/31/17 04:01 36.7 61 24 114/58 (76) 95 Mechanical Ventilator 100 10/31/17 03:01 36.8 60 24 111/58 (75) 92 Mechanical Ventilator 100 10/31/17 02:01 36.7 61 24 111/58 (75) 93 Mechanical Ventilator 100 10/31/17 01:30 100 10/31/17 01:01 36.3 60 5 116/62 (80) 91 Mechanical Ventilator 80 10/31/17 00:02 62 20 94/49 (64) 91 Mechanical Ventilator 60 10/30/17 23:59 80 18 23:59 Mechanical Ventilator 80 10/30/17 23:30 80 10/30/17 23:01 79 20 126/54 (78) 83 BiPAP 50 18 22:02 63 12 145/60 (88) 86 BiPAP 50 18 21:01 35.8 61 18 128/74 (92) 92 BiPAP 40 18 21:00 35.8 82 18 133/71 90 BiPAP 5.0 30 18 21:00 74 29 133/71 (91) 91 BiPAP 30 18 20:59 64 90 30 18 20:40 64 21 126/86 93 18 20:20 63 21 131/72 95 BiPAP 30 10/30/18 20:03 60 16 138/81 98 BiPAP 30 820/18 20:00 60 20 92 BiPAP/CPAP 30 18 19:55 61 93 30 8/20/18 19:53 61 23 117/70 90 BiPAP 30 8/20/18 19:21 71 18 109/64 8/20/18 18:07 60 18 95 Nasal Cannula 5.0 2018 17:40 60 16 120/65 93 Nasal Cannula 5.0 18 17:39 60 8/20/18 17:21 63 14 92 Nasal Cannula 5.0 10/30/17 17:20 60 14 87 Nasal Cannula 4.0 10/30/17 17:04 60 20 115/65 91 Nasal Cannula 4.0 10/30/17 16:51 92 Nasal Cannula 10/30/17 16:15 Nasal Cannula 10/30/17 15:56 70 10/30/17 15:38 36.6 74 22 134/79 88 Room Air General Appearance: no apparent distress, + obese Respiratory/Chest: + decreased breath sounds, + pertinent finding (on mechanical vent) Cardiovascular: regular rate, rhythm, no gallop, no murmur Abdomen: + abnormal bowel sounds (hypoactive bowel sounds. ), + distended Extremities: + pedal edema Neurologic/Psych: + pertinent finding (sedated on mechanical vent) Skin: normal color, no jaundice, no rash Laboratory Results Last 24 Hours Test 10/30/17 16:15 10/30/17 16:18 10/30/17 19:30 10/30/17 19:45 White Blood Count 11.52 K/uL Red Blood Count 5.00 M/uL Hemoglobin 13.0 g/dL Hematocrit 41.1 % Mean Corpuscular Volume 82.2 fL Mean Corpuscular Hemoglobin 26.0 pg Mean Corpuscular Hemoglobin Concent 31.6 g/dl Platelet Count 230 K/uL Mean Platelet Volume 9.6 fL Neutrophils (%) (Auto) 69.6 % Lymphocytes (%) (Auto) 20.8 % Monocytes (%) (Auto) 7.2 % Eosinophils (%) (Auto) 1.6 % Basophils (%) (Auto) 0.5 % Neutrophils # (Auto) 8.02 K/uL Lymphocytes # (Auto) 2.40 K/uL Monocytes # (Auto) 0.83 K/uL Eosinophils # (Auto) 0.18 K/uL Basophils # (Auto) 0.06 K/uL RDW Standard Deviation 50.4 fL RDW Coefficient of Variation 16.6 % Immature Granulocyte % (Auto) 0.3 % Immature Granulocyte # (Auto) 0.03 K/uL Prothrombin Time 12.1 SECONDS Prothromb Time International Ratio 1.2 Activated Partial Thromboplast Time 29.2 SECONDS Partial Thromboplastin Ratio 1.1 Sodium Level 137 mmol/L Potassium Level 4.3 mmol/L Chloride Level 98 mmol/L Carbon Dioxide Level 33 mmol/L Anion Gap 6.0 mmol/L Blood Urea Nitrogen 54 mg/dl Creatinine 1.48 mg/dl Est Creatinine Clear Calc Drug Dose 75.2 ml/min Estimated GFR () 60.4 Estimated GFR (Non- 52.1 BUN/Creatinine Ratio 36.3 Random Glucose 89 mg/dl Calcium Level 9.0 mg/dl Magnesium Level 2.1 mg/dl Total Bilirubin 0.6 mg/dl Direct Bilirubin 0.2 mg/dl Aspartate Amino Transf (AST/SGOT) 17 U/L Alanine Aminotransferase (ALT/SGPT) 16 U/L Alkaline Phosphatase 175 U/L Troponin I < 0.015 ng/ml Pro-B-Type Natriuretic Peptide 655 pg/ml Total Protein 8.4 gm/dl Albumin 3.2 gm/dl Procalcitonin 0.17 ng/ml Venous Blood pH 7.30 7.26 Venous Blood Partial Pressure CO2 74 mmHg 71 mmHg Venous Blood Partial Pressure O2 31 mmHg 51 mmHg Venous Blood HCO3 35 mmol/L 32 mmol/L Venous Blood Oxygen Saturation < 60.0 % 81.0 % Venous Blood Base Excess 6.8 mEq/L 2.7 mEq/L Bedside Glucose 81 mg/dl Test 10/30/17 21:24 10/30/17 21:32 10/30/17 22:21 10/31/17 00:02 Ammonia 39.1 umol/L Ethyl Alcohol mg/dL < 3.0 mg/dl Urine Color YELLOW Urine Appearance CLEAR Urine pH 5.0 Urine Specific [place] 1.014 Urine Protein NEG Urine Glucose (UA) NEG Urine Ketones NEG Urine Occult Blood NEG Urine Nitrite NEG Urine Bilirubin NEG Urine Urobilinogen NEG Urine Leukocyte Esterase NEG Blood Gas Sample Site L Radial Bedside Blood Gas pH (LAB) 7.21 Bedside Blood Gas pCO2 (LAB) 84 mmHg Bedside Blood Gas pO2 (LAB) 70 mmHg Bedside Blood Gas HCO3 (LAB) 34 meq/L Bedside Blood Gas Total CO2 36 mEq/l Bedside Blood Gas Base Excess (LAB) 6.0 meq/L Bedside Blood Gas O2 Saturation 89.0 % Tate Test Pass Oxygen Delivery Device BIPAP Bedside Oxygen Rate (breaths/min) 20 Bedside FiO2 40 % Blood Gas IPAP 20 Bedside Glucose 133 mg/dl Test 10/31/17 00:16 10/31/17 04:13 10/31/17 04:35 10/31/17 05:26 Blood Gas Sample Site L Radial L Radial Bedside Blood Gas pH (LAB) 7.24 7.46 Bedside Blood Gas pCO2 (LAB) 77 mmHg 40 mmHg Bedside Blood Gas pO2 (LAB) 56 mmHg 67 mmHg Bedside Blood Gas HCO3 (LAB) 33 meq/L 28 meq/L Bedside Blood Gas Total CO2 36 mEq/l 30 mEq/l Bedside Blood Gas Base Excess (LAB) 6.0 meq/L 4.0 meq/L Bedside Blood Gas O2 Saturation 83.0 % 94.0 % Tate Test Pass Pass Oxygen Delivery Device Ventilator Ventilator Bedside Oxygen Rate (breaths/min) 20 24 Blood Gas Minute Ventilation 10 12 Bedside FiO2 80 % 100 % Blood Gas Tidal Volume 500 550 Blood Gas PEEP 5 5 White Blood Count 11.80 K/uL Red Blood Count 4.91 M/uL Hemoglobin 12.5 g/dL Hematocrit 40.1 % Mean Corpuscular Volume 81.7 fL Mean Corpuscular Hemoglobin 25.5 pg Mean Corpuscular Hemoglobin Concent 31.2 g/dl Platelet Count 247 K/uL Mean Platelet Volume 9.8 fL Neutrophils (%) (Auto) 90.8 % Lymphocytes (%) (Auto) 7.6 % Monocytes (%) (Auto) 1.0 % Eosinophils (%) (Auto) 0.1 % Basophils (%) (Auto) 0.2 % Neutrophils # (Auto) 10.72 K/uL Lymphocytes # (Auto) 0.90 K/uL Monocytes # (Auto) 0.12 K/uL Eosinophils # (Auto) 0.01 K/uL Basophils # (Auto) 0.02 K/uL RDW Standard Deviation 49.6 fL RDW Coefficient of Variation 16.6 % Immature Granulocyte % (Auto) 0.3 % Immature Granulocyte # (Auto) 0.03 K/uL Sodium Level 135 mmol/L Potassium Level 5.0 mmol/L Chloride Level 100 mmol/L Carbon Dioxide Level 27 mmol/L Anion Gap 8.0 mmol/L Blood Urea Nitrogen 55 mg/dl Creatinine 1.51 mg/dl Est Creatinine Clear Calc Drug Dose 72.4 ml/min Estimated GFR () 59.0 Estimated GFR (Non- 50.9 BUN/Creatinine Ratio 36.7 Random Glucose 134 mg/dl Calcium Level 8.4 mg/dl Ammonia umol/L 21.0 umol/L Troponin I < 0.015 ng/ml Test 10/31/17 06:07 10/31/17 10:11 Bedside Glucose 129 mg/dl Blood Gas Sample Site L Radial Bedside Blood Gas pH (LAB) 7.41 Bedside Blood Gas pCO2 (LAB) 45 mmHg Bedside Blood Gas pO2 (LAB) 72 mmHg Bedside Blood Gas HCO3 (LAB) 28 meq/L Bedside Blood Gas Total CO2 30 mEq/l Bedside Blood Gas Base Excess (LAB) 3.0 meq/L Bedside Blood Gas O2 Saturation 95.0 % Tate Test Pass Oxygen Delivery Device Ventilator Bedside Oxygen Rate (breaths/min) 20 Blood Gas Minute Ventilation 10 Bedside FiO2 100 % Blood Gas Tidal Volume 500 Blood Gas PEEP 8 Impression Patient is a 56 year old male presented with respiratory distress, currently sedated on mechanical vent; GI following for cirrhosis (suspected from ETOH abuse) and ascites. Last paracentesis done on 10/06/17 w 3.2L ascites removal, fluid analysis showed SAAG >1.1, total protein >2.5; suspected ascites accumulation related to heart failure. Plan - Radiology not able to perform bedside large volume paracentesis. Continue with diuretics for now. - Obtain Urine Na to r/o HRS; start Albumin 25% 12.5g q6h - Continue Protonix 40mg IV daily - We will follow along. I saw and evaluated the patient. Patient has multiple medical problems to include congestive heart failure and recently identified liver disease. The patient had a paracentesis performed about 3-4 weeks ago during which time he was found to have leukocytosis of the ascitic fluid. The serum albumin gradient at that time was 1.7 and suggestive of portal hypertension. The patient's past medical history is notable for prior alcohol abuse. Screening serologies did include an FLORY which was 1-320. Unfortunately the patient presented with respiratory failure yesterday evening and underwent urgent intubation. We are unable to obtain her own history from him this afternoon. Physical examination Intubated patient Diffuse edema noted of the dominant region, lower extremities. Impression: Patient with a complicated medical history to include renal insufficiency, congestive heart failure and what appears to be cirrhosis. Given the complexity of this patient it may be prudent to consider referral to a tertiary center as the patient may benefit from a transjugular liver biopsy with portal pressure measurement. This would be helpful to determine if the etiology of his liver disease is autoimmune related given the positive FLORY. In the meantime it may be castillo to obtain consultation with nephrology given the renal insufficiency. I would continue with Protonix prophylaxis as you are doing in addition to albumin as mentioned above. I would also suggest consideration of a diagnostic paracentesis to obtain fluid for cell count, culture and albumin. Recommendations Continue albumin as above Continue Protonix as above Would suggest broad-spectrum antibiotic given history of cirrhosis and ascites Consider paracentesis for diagnostic purposes Would urge referral to tertiary center given the complexity of this patient. He may benefit from a hepatology subspecialty evaluation per
[2017-10-31] MEDS: ASPIRIN 81 MG CHEW NG SCH (11:38)
[2017-10-31] MEDS: BACITRACIN OINT 15 GM TUBE EXT SCH ×2 (11:39→21:38)
[2017-10-31] MEDS: ATORVASTATIN 40 MG TAB NG SCH (11:39)
[2017-10-31] MEDS: ALBUMIN HUMAN 25% 12.5 GM/50 ML VIAL IV SCH ×2 (11:57→16:44)
--- NOTE | 2017-10-31 12:26 | CARDIOLOGY CONSULTATION ---
DATE OF CONSULTATION: 10/31/2017 CONSULTATION REQUESTED BY: Dr. Mojica. REASON FOR CONSULTATION: Acute decompensated diastolic heart failure. HISTORY OF PRESENT ILLNESS: Mr. Robertson is a very medically complex and medically noncompliant 56-year-old gentleman, who follows closely in our cardiology clinic with myself and Sandi Lr for his history of diastolic dysfunction. We have been trying for some time to convince the patient to come in the Emergency Department after he has been developing volume overloaded and he finally relented in the evening of 10/30/2017. Upon presentation in the Emergency Room, he was found to be significantly volume overloaded and started having some breathing difficulties. He was initially placed on BiPAP, but acutely decompensated and was intubated upon arrival to the intensive care unit. IV diuresis was also started with an initial good response and the patient was otherwise comfortable, overnight sedated and intubated. Most recently, the patient has been following with us as an outpatient, and on 09/26/2017, he was found to be volume overloaded and was seen by Sandi Lr and his weight was up 13 pounds at that time. It was recommended that he receive IV Lasix in the office; however, the patient refused and he was continued on oral torsemide and spironolactone. He was also found to be significantly bloated with ascites and was referred to gastroenterology at that time. The patient was then seen in reevaluation on October 23 after he underwent paracentesis with removal of 3.5 liters of fluid. At that time, he once again had worsening abdominal bloating and was up 16 pounds from his last evaluation. At that time, he voiced the fact that he did not believe his diuretics were working and he stopped the medications. At that time, it was voiced to the patient recommendations to go to [facility] Emergency Department, to be admitted to telemetry unit for aggressive IV diuresis, but once again, the patient refused. The patient was also seen as an outpatient by sleep medicine and was given a CPAP for significant obstructive sleep apnea; however, the patient has not been compliant with the CPAP either. The patient then had blood work drawn on 10/29. The results came in to me as the on-call banking analyst and he appeared to go in acute renal failure from a creatinine of 0.9-1.8. I then called the patient Monday morning, left a voice message that he need to come into the Emergency Department for further evaluation and treatment. The patient did not come into the Emergency Department. On followup Monday. Nurses from my office called the patient twice. The first time, the patient was called, became agitated, saying that he thought he was supposed to come into the office last week to get a miracle drug, but now he is being told differently and again the patient was advised that hospitalization was reiterated numerous times. Later in the afternoon, I followed up on the patient, and at 1430, the patient still not come in the Emergency Department as advised and again [facility] cardiology nursing called, the patient stated at that time, "I am pissed off with this whole situation" and he threw his phone earlier in the house this morning, could not find it or he states at that time, he was on his way out to the Emergency Department. PAST SURGICAL HISTORY: 1. Vasectomy. 2. Laparoscopic cholecystectomy. 3. Colonoscopy x2. 4. Recent paracentesis. MEDICAL ILLNESSES: 1. Sick sinus syndrome, status post dual chamber permanent pacemaker placement. 2. Diastolic heart failure, secondary to hypertensive heart disease. 3. Obesity. 4. Diabetes. 5. Chronic tobacco abuse. 6. History of alcoholism, resolved. 7. Recently diagnosed cirrhosis. 8. Recently diagnosed obstructive sleep apnea, noncompliant with CPAP. 9. Nonobstructive coronary artery disease. 10. Diabetes. 11. Dyslipidemia. FAMILY HISTORY: It is remarkable for the father who suffered a heart attack at age 58. SOCIAL HISTORY: The patient is a lifelong smoker and continues to smoke. The patient had a history of alcoholism and reportedly has not had a drink in 3 years. Denies any recreational drug use. REVIEW OF SYSTEMS: Unobtainable given the patient's current clinical status. ALLERGIES: VANCOMYCIN. MEDICATIONS: Currently: 1. Lasix 40 mg IV b.i.d. 2. Aspirin 81 mg via NG tube. 3. Atorvastatin 40 mg daily, NG tube. 4. Protonix IV. 5. Methylprednisolone IV q. 8 hours. 6. Metoprolol tartrate 2.5 mg IV q. 6 hours. 7. Insulin as directed. 8. Propofol drip. 9. Heparin subQ for DVT prophylaxis. PHYSICAL EXAMINATION: VITALS: Temperature 36.8, pulse 60, respiratory rate 12, blood pressure 112/52, saturating 94% on 100% FiO2. GENERAL: Sedated and intubated, minimally responding to verbal stimuli. HEENT: Normocephalic, atraumatic. Endotracheal tube in place. NECK: No JVD, no bruit. CARDIOVASCULAR: Regular, but distant. Unable to appreciate any murmurs, rubs or gallops. PULMONARY: Poor air movement in the bilateral bases, otherwise clear to auscultation. ABDOMEN: Bowel sounds x4. Distended with a significant fluid wave. No obvious rebound, guarding or tenderness. EXTREMITIES: +1 bilateral lower extremity pitting edema, no clubbing or cyanosis. +2 pedal pulses bilaterally. SKIN: Warm and dry. TEST RESULTS: A 12-lead EKG performed in the Emergency Department independently reviewed at this time shows atrially paced rhythm with an underlying right bundle-branch block. Limited echocardiogram performed to assess for LV systolic function showed normal LV chamber size with moderate concentric LVH, hyperdynamic LV systolic function, EF greater than 70%, small loculated posterior pericardial effusion without hemodynamic significance. LABORATORY STUDIES OF SIGNIFICANCE: Sodium 135, potassium 5, BUN 55, creatinine 1.5. Troponin negative x2. Alkaline phosphatase of 175, AST of 17, ALT of 16. T-bili of 0.6, direct bilirubin of 0.2. IMPRESSION: 1. Acute respiratory failure. 2. Decompensated diastolic heart failure. 3. Questionable cirrhosis with significant ascites. 4. Hypertension. 5. Medical noncompliance. 6. Obstructive sleep apnea, noncompliant with CPAP. 7. Diabetes. RECOMMENDATION: Mr. Robertson's mother who is at bedside was counseled on the above events and states that she had no idea of the patient was previously instructed to go the ER, saying the patient does not communicate his medical issues with the family, but I have stressed to her the fact that he has been contacted numerous times and each time he refused to follow medical recommendations. So at this time, we will continue with IV diuresis and we may need to up titrate based on renal function and urine output and should his renal function start to trend downwards, nephrology evaluation should be obtained. Otherwise, I have asked our gastroenterology colleagues to evaluate the patient to see if he might be a candidate for repeat paracentesis. He will be maintained on ventilator as per the critical care team at this time and further recommendations to follow based on the patient's response to clinical course. MTDD
--- NOTE | 2017-10-31 13:45 | Critical Care Consultation ---
Critical Care Consultation Date of Consultation: Oct 31, 2017. Attending Physician: Santos Trejo MD Reason for Consultation: Critical care and ventilator management History of Present Illness The patient is a 56-year-old man with a history of severe diastolic dysfunction , cor pulmonale, obesity, diabetes mellitus, COPD and obstructive sleep apnea as well as chronic noncompliance with medications and CPAP. He was admitted to ICU via the emergency department last night with volume overload and acute on chronic hypercarbic hypoxemic respiratory failure requiring BiPAP. He failed BiPAP overnight and required intubation. As an outpatient recently he has been experiencing progressive weight gain and a rising creatinine; his pattern mechanic have tried multiple times to get him to to the emergency room over the last week or so but the patient refused. There is no recent history of fevers or chills or other signs of infection and his chest x-ray suggested significant pulmonary vascular congestion. Echocardiogram done this morning shows hyperdynamic left ventricular function with evidence of paradoxical septal motion consistent with right heart pressure overload. Past Medical/Surgical History Nonocclusive coronary artery disease Recently diagnosed obstructive sleep apnea noncompliant with CPAP History of hepatic cirrhosis with previous alcohol abuse Severe diastolic dysfunction Obesity Sick sinus syndrome with previous pacemaker Type 2 diabetes COPD Family History Cancer FH: hypertension FH: kidney disease FHx: heart disease Heart disease Lung disease Social History Smoking Status: Current Every Day Smoker Alcohol Use: Previous heavy alcohol use current use unknown Drug Use: none Marital Status: in relationship Housing Status: lives with family Occupation Status: employed Allergies Coded Allergies: Vancomycin (Verified Allergy, Severe, ANAPHYLAXIS, 10/06/17) renal failure BEE STING (Verified Allergy, Intermediate, swelling, 10/06/17) Home Medications Scheduled Amlodipine Besylate (Amlodipine Besylate), 10 MG PO DAILY Aspirin (Aspirin Ec), 81 MG PO QAM Atorvastatin (Lipitor), 40 MG PO DAILY Carvedilol (Coreg), 3.125 MG PO BIDM Ergocalciferol (Vitamin D 72873 Unit), 50,000 INTER.UNIT PO WK Fluticasone Prop/Salmeterol (Advair Diskus 100/50 60 Dose), 1 PUFF INH BID Furosemide (Furosemide), 40 MG PO BID Insulin Glargine (Basaglar Kwikpen), 70 UNITS SC HS Lisinopril (Zestril), 40 MG PO QAM Metformin HCl (Metformin Hydrochloride), 500 MG PO HOLD Omeprazole (Prilosec), 20 MG PO QAM Spironolactone (Aldactone), 100 MG PO QAM Scheduled PRN Albuterol Hfa (Ventolin Hfa), 2 PUFFS INH Q6H PRN for SOB/Wheezing Cetirizine (Zyrtec), 10 MG PO DAILY PRN for Allergy Symptoms Fluticasone Propionate (Fluticasone Propionate), 2 SPRAYS JANNIE DAILY PRN for Allergy Symptoms Polyethylene Glycol 3350 (Miralax), 17 GM PO DAILY PRN for Constipation Current Inpatient Medications Current Inpatient Medications Medications (Trade) Dose Ordered Sig/Jerica Route Start Time Stop Time Status Last Admin Dose Admin Ioversol (Optiray 320) 111 ml UD PRN IV 10/30/17 17:45 11/03/17 17:44 Heparin Sodium (Porcine) (Heparin Sq 5000 Unit/0.5ml) 5,000 unit Q8 SQ 10/30/17 22:00 11/29/17 21:59 10/31/17 05:48 5,000 UNIT Nitroglycerin (Nitrostat Tab) 0.4 mg UD PRN SL 10/30/17 21:00 11/29/17 20:59 Miscellaneous Information (Icu Protocol For Hyperglycemia) 1 ea PRN PRN N/A 10/30/17 21:00 11/01/17 20:59 Insulin Aspart (novoLOG ASPART) SLIDING SCALE If C... ACHS SC 10/31/17 06:45 11/30/17 06:44 Glucose (Glucose 40% Gel) 15-30 GRAMS 15 GRAMS... UD PRN PO 10/30/17 21:00 11/29/17 20:59 Glucose (Glucose Chew Tab) 4-8 Tablets 4 Tabl... UD PRN PO 10/30/17 21:00 11/29/17 20:59 Dextrose (Dextrose 50% 50ML Syringe) 25-50ML 25ML FOR ... UD PRN IV 10/30/17 21:00 11/29/17 20:59 Glucagon (Glucagon Inj) 1 mg UD PRN SQ 10/30/17 21:00 11/29/17 20:59 Carbohydrates (Carbohydrates For Hypoglycemia) 15-30 GRAMS 15 grams if BSG 54-69... UD PRN PO 10/30/17 21:00 11/29/17 20:59 Prochlorperazine Edisylate 5 mg/ Syringe 5 ml @ 5 mls/min Q6H PRN IV 10/30/17 21:15 11/29/17 21:14 Aspirin (Ecotrin Tab) 81 mg QAM PO 10/31/17 09:00 11/30/17 08:59 Future Hold Insulin Glargine (Lantus Solostar Pen) 5 units BID SC 10/31/17 09:00 11/30/17 08:59 10/31/17 09:17 5 UNITS Ipratropium [place] (Atrovent 0.02% 0.5MG/2.5ML Neb) 0.5 mg Q4H PRN INH 10/30/17 21:30 11/29/17 21:29 Propofol (Diprivan Iv Emulsion 100ml Vial) 1 dose UD PRN IV 10/30/17 23:18 11/02/17 23:17 10/31/17 11:59 1 DOSE Methylprednisolone Sodium Succinate 20 mg/Syringe 0.32 ml @ 1.5 mls/min Q8H IV 10/31/17 08:00 11/30/17 07:59 10/31/17 09:15 1.5 MLS/MIN Levalbuterol (Xopenex Hfa Inhaler) 4 puffs Q6R INH 10/31/17 00:00 11/30/17 00:00 10/31/17 07:22 4 PUFFS Ipratropium [place] (Atrovent Hfa Inhaler) 4 puffs Q6R INH 10/31/17 00:00 11/30/17 00:00 10/31/17 07:22 4 PUFFS Doxycycline Hyclate 100 mg/ Dextrose 110 ml @ 50 mls/hr BID IV 10/31/17 09:00 11/10/17 08:59 10/31/17 09:14 50 MLS/HR Pantoprazole Sodium 40 mg/ Syringe 10 ml @ 5 mls/min DAILY IV 10/31/17 09:00 11/30/17 08:59 10/31/17 09:14 5 MLS/MIN Fentanyl Citrate (Fentanyl Inj) 25 mcg Q1H PRN IV 10/30/17 23:30 11/13/17 23:29 10/31/17 11:39 25 MCG Lorazepam (Ativan Inj) 1 mg Q1H PRN IV 10/31/17 01:15 11/30/17 01:14 10/31/17 01:35 1 MG Metoprolol Tartrate (Lopressor Iv) 2.5 mg Q6H IV. 10/31/17 06:00 11/30/17 05:59 10/31/17 11:41 2.5 MG Acetaminophen 650 mg/Empty Bag 65 ml @ 260 mls/hr Q8H PRN IV 10/31/17 03:30 11/30/17 03:29 Atorvastatin Calcium (Lipitor Tab) 40 mg DAILY NG 10/31/17 09:00 11/30/17 08:59 10/31/17 11:39 40 MG Aspirin (Aspirin Chew) 81 mg DAILY NG 10/31/17 09:00 11/30/17 08:59 10/31/17 11:38 81 MG Bacitracin (Bacitracin Oint) 1 appln BID EXT 10/31/17 09:00 11/04/17 21:01 10/31/17 11:39 1 APPLN Furosemide 40 mg/ Syringe 4 ml @ 4 mls/min BID17 IV 10/31/17 09:00 11/30/17 08:59 10/31/17 09:15 4 MLS/MIN Albumin Human (Albumin 25%) 12.5 gm Q6 IV 10/31/17 12:00 11/03/17 11:59 10/31/17 11:57 12.5 GM Ceftriaxone Sodium 2000 mg/ Dextrose 70 ml @ 100 mls/hr DAILY IV 11/01/17 09:00 11/11/17 08:59 UNV Review of Systems Unobtainable patient intubated and sedated Physical Exam Date Time Temp Pulse Resp B/P (MAP) Pulse Ox O2 Delivery O2 Flow Rate FiO2 10/31/17 11:41 60 108/45 10/31/17 11:05 100 10/31/17 09:09 100 10/31/17 07:22 100 10/31/17 06:01 36.8 60 20 112/52 (72) 94 Mechanical Ventilator 100 10/31/17 05:49 60 110/53 10/31/17 05:01 36.8 60 20 107/53 (71) 94 Mechanical Ventilator 100 18 04:20 100 818 04:01 36.7 61 24 114/58 (76) 95 Mechanical Ventilator 100 18 03:01 36.8 60 24 111/58 (75) 92 Mechanical Ventilator 100 818 02:01 36.7 61 24 111/58 (75) 93 Mechanical Ventilator 100 18 01:30 100 10/31/17 01:01 36.3 60 5 116/62 (80) 91 Mechanical Ventilator 80 18 00:02 62 20 94/49 (64) 91 Mechanical Ventilator 60 18 23:59 80 8/20/18 23:59 Mechanical Ventilator 80 18 23:30 80 818 23:01 79 20 126/54 (78) 83 BiPAP 50 18 22:02 63 12 145/60 (88) 86 BiPAP 50 18 21:01 35.8 61 18 128/74 (92) 92 BiPAP 40 10/30/17 21:00 35.8 82 18 133/71 90 BiPAP 5.0 30 18 21:00 74 29 133/71 (91) 91 BiPAP 30 18 20:59 64 90 30 18 20:40 64 21 126/86 93 10/30/18 20:20 63 21 131/72 95 BiPAP 30 18 20:03 60 16 138/81 98 BiPAP 30 18 20:00 60 20 92 BiPAP/CPAP 30 10/30/17 19:55 61 93 30 18 19:53 61 23 117/70 90 BiPAP 30 10/30/18 19:21 71 18 109/64 8/18 18:07 60 18 95 Nasal Cannula 5.0 18 17:40 60 16 120/65 93 Nasal Cannula 5.0 18 17:39 60 820/18 17:21 63 14 92 Nasal Cannula 5.0 18 17:20 60 14 87 Nasal Cannula 4.0 18 17:04 60 20 115/65 91 Nasal Cannula 4.0 18 16:51 92 Nasal Cannula 10/30/17 16:15 Nasal Cannula 10/30/17 15:56 70 10/30/17 15:38 36.6 74 22 134/79 88 Room Air General Appearance: obese (Intubated, sedated) Head: normocephalic Eyes: PERRLA, no discharge, sclerae normal Neck: supple, other (Unable to assess JVD due to body habitus) Respiratory: other (Very distant breath sounds, no wheezing rales or rhonchi) Cardiovasular: regular rate/rhythm, no M/G/R Abdomen: non tender, normal bowel sounds, other (Massively obese) Edema: Bilateral LE (3+ edema extending up into the flanks) Laboratory Results Last 24 Hours Test 10/30/17 16:15 10/30/17 16:18 10/30/17 19:30 10/30/17 19:45 White Blood Count 11.52 K/uL Red Blood Count 5.00 M/uL Hemoglobin 13.0 g/dL Hematocrit 41.1 % Mean Corpuscular Volume 82.2 fL Mean Corpuscular Hemoglobin 26.0 pg Mean Corpuscular Hemoglobin Concent 31.6 g/dl Platelet Count 230 K/uL Mean Platelet Volume 9.6 fL Neutrophils (%) (Auto) 69.6 % Lymphocytes (%) (Auto) 20.8 % Monocytes (%) (Auto) 7.2 % Eosinophils (%) (Auto) 1.6 % Basophils (%) (Auto) 0.5 % Neutrophils # (Auto) 8.02 K/uL Lymphocytes # (Auto) 2.40 K/uL Monocytes # (Auto) 0.83 K/uL Eosinophils # (Auto) 0.18 K/uL Basophils # (Auto) 0.06 K/uL RDW Standard Deviation 50.4 fL RDW Coefficient of Variation 16.6 % Immature Granulocyte % (Auto) 0.3 % Immature Granulocyte # (Auto) 0.03 K/uL Prothrombin Time 12.1 SECONDS Prothromb Time International Ratio 1.2 Activated Partial Thromboplast Time 29.2 SECONDS Partial Thromboplastin Ratio 1.1 Sodium Level 137 mmol/L Potassium Level 4.3 mmol/L Chloride Level 98 mmol/L Carbon Dioxide Level 33 mmol/L Anion Gap 6.0 mmol/L Blood Urea Nitrogen 54 mg/dl Creatinine 1.48 mg/dl Est Creatinine Clear Calc Drug Dose 75.2 ml/min Estimated GFR () 60.4 Estimated GFR (Non- 52.1 BUN/Creatinine Ratio 36.3 Random Glucose 89 mg/dl Calcium Level 9.0 mg/dl Magnesium Level 2.1 mg/dl Total Bilirubin 0.6 mg/dl Direct Bilirubin 0.2 mg/dl Aspartate Amino Transf (AST/SGOT) 17 U/L Alanine Aminotransferase (ALT/SGPT) 16 U/L Alkaline Phosphatase 175 U/L Troponin I < 0.015 ng/ml Pro-B-Type Natriuretic Peptide 655 pg/ml Total Protein 8.4 gm/dl Albumin 3.2 gm/dl Procalcitonin 0.17 ng/ml Venous Blood pH 7.30 7.26 Venous Blood Partial Pressure CO2 74 mmHg 71 mmHg Venous Blood Partial Pressure O2 31 mmHg 51 mmHg Venous Blood HCO3 35 mmol/L 32 mmol/L Venous Blood Oxygen Saturation < 60.0 % 81.0 % Venous Blood Base Excess 6.8 mEq/L 2.7 mEq/L Bedside Glucose 81 mg/dl Test 10/30/17 21:24 10/30/17 21:32 10/30/17 22:21 10/31/17 00:02 Ammonia 39.1 umol/L Ethyl Alcohol mg/dL < 3.0 mg/dl Urine Color YELLOW Urine Appearance CLEAR Urine pH 5.0 Urine Specific [place] 1.014 Urine Protein NEG Urine Glucose (UA) NEG Urine Ketones NEG Urine Occult Blood NEG Urine Nitrite NEG Urine Bilirubin NEG Urine Urobilinogen NEG Urine Leukocyte Esterase NEG Blood Gas Sample Site L Radial Bedside Blood Gas pH (LAB) 7.21 Bedside Blood Gas pCO2 (LAB) 84 mmHg Bedside Blood Gas pO2 (LAB) 70 mmHg Bedside Blood Gas HCO3 (LAB) 34 meq/L Bedside Blood Gas Total CO2 36 mEq/l Bedside Blood Gas Base Excess (LAB) 6.0 meq/L Bedside Blood Gas O2 Saturation 89.0 % Tate Test Pass Oxygen Delivery Device BIPAP Bedside Oxygen Rate (breaths/min) 20 Bedside FiO2 40 % Blood Gas IPAP 20 Bedside Glucose 133 mg/dl Test 10/31/17 00:16 10/31/17 04:13 10/31/17 04:35 10/31/17 05:26 Blood Gas Sample Site L Radial L Radial Bedside Blood Gas pH (LAB) 7.24 7.46 Bedside Blood Gas pCO2 (LAB) 77 mmHg 40 mmHg Bedside Blood Gas pO2 (LAB) 56 mmHg 67 mmHg Bedside Blood Gas HCO3 (LAB) 33 meq/L 28 meq/L Bedside Blood Gas Total CO2 36 mEq/l 30 mEq/l Bedside Blood Gas Base Excess (LAB) 6.0 meq/L 4.0 meq/L Bedside Blood Gas O2 Saturation 83.0 % 94.0 % Tate Test Pass Pass Oxygen Delivery Device Ventilator Ventilator Bedside Oxygen Rate (breaths/min) 20 24 Blood Gas Minute Ventilation 10 12 Bedside FiO2 80 % 100 % Blood Gas Tidal Volume 500 550 Blood Gas PEEP 5 5 White Blood Count 11.80 K/uL Red Blood Count 4.91 M/uL Hemoglobin 12.5 g/dL Hematocrit 40.1 % Mean Corpuscular Volume 81.7 fL Mean Corpuscular Hemoglobin 25.5 pg Mean Corpuscular Hemoglobin Concent 31.2 g/dl Platelet Count 247 K/uL Mean Platelet Volume 9.8 fL Neutrophils (%) (Auto) 90.8 % Lymphocytes (%) (Auto) 7.6 % Monocytes (%) (Auto) 1.0 % Eosinophils (%) (Auto) 0.1 % Basophils (%) (Auto) 0.2 % Neutrophils # (Auto) 10.72 K/uL Lymphocytes # (Auto) 0.90 K/uL Monocytes # (Auto) 0.12 K/uL Eosinophils # (Auto) 0.01 K/uL Basophils # (Auto) 0.02 K/uL RDW Standard Deviation 49.6 fL RDW Coefficient of Variation 16.6 % Immature Granulocyte % (Auto) 0.3 % Immature Granulocyte # (Auto) 0.03 K/uL Sodium Level 135 mmol/L Potassium Level 5.0 mmol/L Chloride Level 100 mmol/L Carbon Dioxide Level 27 mmol/L Anion Gap 8.0 mmol/L Blood Urea Nitrogen 55 mg/dl Creatinine 1.51 mg/dl Est Creatinine Clear Calc Drug Dose 72.4 ml/min Estimated GFR () 59.0 Estimated GFR (Non- 50.9 BUN/Creatinine Ratio 36.7 Random Glucose 134 mg/dl Calcium Level 8.4 mg/dl Ammonia umol/L 21.0 umol/L Troponin I < 0.015 ng/ml Test 10/31/17 06:07 10/31/17 10:11 10/31/17 11:44 Bedside Glucose 129 mg/dl 137 mg/dl Blood Gas Sample Site L Radial Bedside Blood Gas pH (LAB) 7.41 Bedside Blood Gas pCO2 (LAB) 45 mmHg Bedside Blood Gas pO2 (LAB) 72 mmHg Bedside Blood Gas HCO3 (LAB) 28 meq/L Bedside Blood Gas Total CO2 30 mEq/l Bedside Blood Gas Base Excess (LAB) 3.0 meq/L Bedside Blood Gas O2 Saturation 95.0 % Tate Test Pass Oxygen Delivery Device Ventilator Bedside Oxygen Rate (breaths/min) 20 Blood Gas Minute Ventilation 10 Bedside FiO2 100 % Blood Gas Tidal Volume 500 Blood Gas PEEP 8 Assessment & Plan (1) CHF exacerbation Due to diastolic dysfunction with severe total body fluid overload, chronic cor pulmonale with resultant acute on chronic hypercarbic hypoxemic respiratory failure requiring intubation Plan: Diuresis, monitor creatinine and potassium Mechanical ventilation Cardiology has been consulted (2) Cirrhosis of liver Suspect due to previous versus current alcohol abuse along with severe passive congestion. Patient has history of ascites with previous paracentesis Plan: Ultrasound of abdomen to evaluate need for ultrasound-guided paracentesis (3) Diabetes type 2, uncontrolled Sliding scale insulin (4) Tobacco use disorder Discuss smoking cessation strategies once extubated (5) History of alcohol abuse Continue sedation with propofol, monitor for signs of withdrawal Critical care time 40 minutes
--- NOTE | 2017-10-31 14:10 | Progress Note ---
Medicine Progress Note Date & Time of Visit: Oct 31, 2017 at 14:03. Subjective seen with brother at bedside [facility], sedated with Propofol not in distress, no accessory muscle use Lasix IV ordered Echo ordered no other acute events over night Objective Last 8 Hrs Date Time Temp Pulse Resp B/P (MAP) Pulse Ox O2 Delivery O2 Flow Rate FiO2 10/31/17 11:41 60 108/45 10/31/17 11:05 100 10/31/17 09:09 100 10/31/17 07:22 100 Physical Exam: General- sedated, not in distress, no acc muscle use Head- atraumatic Eyes- anicteric Neck- supple, no JVD, no adenopathy Lungs- mild rhonchi bilaterally, anteriorly Heart- regular rhythm; no murmur, normal rate Abdomen- normal bowel sounds, soft, nontender Extremities- no pretibial edema, no calf tenderness Neuro- patient sedated, on mechanical ventilator Skin- warm & dry Laboratory Results: Last 24 Hours Test 10/30/17 16:15 10/30/17 16:18 10/30/17 19:30 10/30/17 19:45 White Blood Count 11.52 K/uL Red Blood Count 5.00 M/uL Hemoglobin 13.0 g/dL Hematocrit 41.1 % Mean Corpuscular Volume 82.2 fL Mean Corpuscular Hemoglobin 26.0 pg Mean Corpuscular Hemoglobin Concent 31.6 g/dl Platelet Count 230 K/uL Mean Platelet Volume 9.6 fL Neutrophils (%) (Auto) 69.6 % Lymphocytes (%) (Auto) 20.8 % Monocytes (%) (Auto) 7.2 % Eosinophils (%) (Auto) 1.6 % Basophils (%) (Auto) 0.5 % Neutrophils # (Auto) 8.02 K/uL Lymphocytes # (Auto) 2.40 K/uL Monocytes # (Auto) 0.83 K/uL Eosinophils # (Auto) 0.18 K/uL Basophils # (Auto) 0.06 K/uL RDW Standard Deviation 50.4 fL RDW Coefficient of Variation 16.6 % Immature Granulocyte % (Auto) 0.3 % Immature Granulocyte # (Auto) 0.03 K/uL Prothrombin Time 12.1 SECONDS Prothromb Time International Ratio 1.2 Activated Partial Thromboplast Time 29.2 SECONDS Partial Thromboplastin Ratio 1.1 Sodium Level 137 mmol/L Potassium Level 4.3 mmol/L Chloride Level 98 mmol/L Carbon Dioxide Level 33 mmol/L Anion Gap 6.0 mmol/L Blood Urea Nitrogen 54 mg/dl Creatinine 1.48 mg/dl Est Creatinine Clear Calc Drug Dose 75.2 ml/min Estimated GFR () 60.4 Estimated GFR (Non- 52.1 BUN/Creatinine Ratio 36.3 Random Glucose 89 mg/dl Calcium Level 9.0 mg/dl Magnesium Level 2.1 mg/dl Total Bilirubin 0.6 mg/dl Direct Bilirubin 0.2 mg/dl Aspartate Amino Transf (AST/SGOT) 17 U/L Alanine Aminotransferase (ALT/SGPT) 16 U/L Alkaline Phosphatase 175 U/L Troponin I < 0.015 ng/ml Pro-B-Type Natriuretic Peptide 655 pg/ml Total Protein 8.4 gm/dl Albumin 3.2 gm/dl Procalcitonin 0.17 ng/ml Venous Blood pH 7.30 7.26 Venous Blood Partial Pressure CO2 74 mmHg 71 mmHg Venous Blood Partial Pressure O2 31 mmHg 51 mmHg Venous Blood HCO3 35 mmol/L 32 mmol/L Venous Blood Oxygen Saturation < 60.0 % 81.0 % Venous Blood Base Excess 6.8 mEq/L 2.7 mEq/L Bedside Glucose 81 mg/dl Test 10/30/17 21:24 10/30/17 21:32 10/30/17 22:21 10/31/17 00:02 Ammonia 39.1 umol/L Ethyl Alcohol mg/dL < 3.0 mg/dl Urine Color YELLOW Urine Appearance CLEAR Urine pH 5.0 Urine Specific [place] 1.014 Urine Protein NEG Urine Glucose (UA) NEG Urine Ketones NEG Urine Occult Blood NEG Urine Nitrite NEG Urine Bilirubin NEG Urine Urobilinogen NEG Urine Leukocyte Esterase NEG Blood Gas Sample Site L Radial Bedside Blood Gas pH (LAB) 7.21 Bedside Blood Gas pCO2 (LAB) 84 mmHg Bedside Blood Gas pO2 (LAB) 70 mmHg Bedside Blood Gas HCO3 (LAB) 34 meq/L Bedside Blood Gas Total CO2 36 mEq/l Bedside Blood Gas Base Excess (LAB) 6.0 meq/L Bedside Blood Gas O2 Saturation 89.0 % Tate Test Pass Oxygen Delivery Device BIPAP Bedside Oxygen Rate (breaths/min) 20 Bedside FiO2 40 % Blood Gas IPAP 20 Bedside Glucose 133 mg/dl Test 10/31/17 00:16 10/31/17 04:13 10/31/17 04:35 10/31/17 05:26 Blood Gas Sample Site L Radial L Radial Bedside Blood Gas pH (LAB) 7.24 7.46 Bedside Blood Gas pCO2 (LAB) 77 mmHg 40 mmHg Bedside Blood Gas pO2 (LAB) 56 mmHg 67 mmHg Bedside Blood Gas HCO3 (LAB) 33 meq/L 28 meq/L Bedside Blood Gas Total CO2 36 mEq/l 30 mEq/l Bedside Blood Gas Base Excess (LAB) 6.0 meq/L 4.0 meq/L Bedside Blood Gas O2 Saturation 83.0 % 94.0 % Tate Test Pass Pass Oxygen Delivery Device Ventilator Ventilator Bedside Oxygen Rate (breaths/min) 20 24 Blood Gas Minute Ventilation 10 12 Bedside FiO2 80 % 100 % Blood Gas Tidal Volume 500 550 Blood Gas PEEP 5 5 White Blood Count 11.80 K/uL Red Blood Count 4.91 M/uL Hemoglobin 12.5 g/dL Hematocrit 40.1 % Mean Corpuscular Volume 81.7 fL Mean Corpuscular Hemoglobin 25.5 pg Mean Corpuscular Hemoglobin Concent 31.2 g/dl Platelet Count 247 K/uL Mean Platelet Volume 9.8 fL Neutrophils (%) (Auto) 90.8 % Lymphocytes (%) (Auto) 7.6 % Monocytes (%) (Auto) 1.0 % Eosinophils (%) (Auto) 0.1 % Basophils (%) (Auto) 0.2 % Neutrophils # (Auto) 10.72 K/uL Lymphocytes # (Auto) 0.90 K/uL Monocytes # (Auto) 0.12 K/uL Eosinophils # (Auto) 0.01 K/uL Basophils # (Auto) 0.02 K/uL RDW Standard Deviation 49.6 fL RDW Coefficient of Variation 16.6 % Immature Granulocyte % (Auto) 0.3 % Immature Granulocyte # (Auto) 0.03 K/uL Sodium Level 135 mmol/L Potassium Level 5.0 mmol/L Chloride Level 100 mmol/L Carbon Dioxide Level 27 mmol/L Anion Gap 8.0 mmol/L Blood Urea Nitrogen 55 mg/dl Creatinine 1.51 mg/dl Est Creatinine Clear Calc Drug Dose 72.4 ml/min Estimated GFR () 59.0 Estimated GFR (Non- 50.9 BUN/Creatinine Ratio 36.7 Random Glucose 134 mg/dl Calcium Level 8.4 mg/dl Ammonia umol/L 21.0 umol/L Troponin I < 0.015 ng/ml Test 10/31/17 06:07 10/31/17 10:11 10/31/17 11:44 Bedside Glucose 129 mg/dl 137 mg/dl Blood Gas Sample Site L Radial Bedside Blood Gas pH (LAB) 7.41 Bedside Blood Gas pCO2 (LAB) 45 mmHg Bedside Blood Gas pO2 (LAB) 72 mmHg Bedside Blood Gas HCO3 (LAB) 28 meq/L Bedside Blood Gas Total CO2 30 mEq/l Bedside Blood Gas Base Excess (LAB) 3.0 meq/L Bedside Blood Gas O2 Saturation 95.0 % Tate Test Pass Oxygen Delivery Device Ventilator Bedside Oxygen Rate (breaths/min) 20 Blood Gas Minute Ventilation 10 Bedside FiO2 100 % Blood Gas Tidal Volume 500 Blood Gas PEEP 8 Date/Time Source Procedure Growth Status 10/30/17 21:32 Nasal MRSA DNA Surveillance Screen - Final Specimen Positive for MRSA by DNA Probe Complete Assessment & Plan ASSESSMENT: 1. Acute hypoxemic, hypercapnic respiratory failure multifactorial : decompensated heart failure, medication noncompliance RLD exacerbation -- echo: pending -- on Lasix 40mg IV BID Cardiology consulted [facility] Vent Mgt per Mgmt Analyst 2. Respiratory acidosis secondary to above 3. Liver Cirrhosis with Ascites -- Abd US: (+) moderate ascites -- GI consulted [facility] -- CPAP noncompliance. Hypertension, stable. Symptomatic bradycardia status post pacemaker, paced rhythm. Acute Renal Failure -- baseline crea 0.9 -- now 1.5 monitor while on Lasix may need nephro consult if not improving DM2 insulin requiring, suboptimal control as of recent inpatient Hemoglobin A1c of 14.1 from August 2017. Ongoing tobacco abuse, past alcohol use discussed case with patient's brother at the bedside, all questions answered Current Inpatient Medications: Current Inpatient Medications Medications (Trade) Dose Ordered Sig/[place] Route Start Time Stop Time Status Last Admin Dose Admin Ioversol (Optiray 320) 111 ml UD PRN IV 10/30/17 17:45 11/03/17 17:44 Heparin Sodium (Porcine) (Heparin Sq 5000 Unit/0.5ml) 5,000 unit Q8 SQ 10/30/17 22:00 11/29/17 21:59 10/31/17 13:30 5,000 UNIT Nitroglycerin (Nitrostat Tab) 0.4 mg UD PRN SL 10/30/17 21:00 11/29/17 20:59 Miscellaneous Information (Icu Protocol For Hyperglycemia) 1 ea PRN PRN N/A 10/30/17 21:00 11/01/17 20:59 Insulin Aspart (novoLOG ASPART) SLIDING SCALE If C... ACHS SC 10/31/17 06:45 11/30/17 06:44 Glucose (Glucose 40% Gel) 15-30 GRAMS 15 GRAMS... UD PRN PO 10/30/17 21:00 11/29/17 20:59 Glucose (Glucose Chew Tab) 4-8 Tablets 4 Tabl... UD PRN PO 10/30/17 21:00 11/29/17 20:59 Dextrose (Dextrose 50% 50ML Syringe) 25-50ML 25ML FOR ... UD PRN IV 10/30/17 21:00 11/29/17 20:59 Glucagon (Glucagon Inj) 1 mg UD PRN SQ 10/30/17 21:00 11/29/17 20:59 Carbohydrates (Carbohydrates For Hypoglycemia) 15-30 GRAMS 15 grams if BSG 54-69... UD PRN PO 10/30/17 21:00 11/29/17 20:59 Prochlorperazine Edisylate 5 mg/ Syringe 5 ml @ 5 mls/min Q6H PRN IV 10/30/17 21:15 11/29/17 21:14 Aspirin (Ecotrin Tab) 81 mg QAM PO 10/31/17 09:00 11/30/17 08:59 Future Hold Insulin Glargine (Lantus Solostar Pen) 5 units BID SC 10/31/17 09:00 11/30/17 08:59 10/31/17 09:17 5 UNITS Ipratropium [place] (Atrovent 0.02% 0.5MG/2.5ML Neb) 0.5 mg Q4H PRN INH 10/30/17 21:30 11/29/17 21:29 Propofol (Diprivan Iv Emulsion 100ml Vial) 1 dose UD PRN IV 10/30/17 23:18 11/02/17 23:17 10/31/17 11:59 1 DOSE Methylprednisolone Sodium Succinate 20 mg/Syringe 0.32 ml @ 1.5 mls/min Q8H IV 10/31/17 08:00 11/30/17 07:59 10/31/17 09:15 1.5 MLS/MIN Levalbuterol (Xopenex Hfa Inhaler) 4 puffs Q6R INH 10/31/17 00:00 11/30/17 00:00 10/31/17 07:22 4 PUFFS Ipratropium [place] (Atrovent Hfa Inhaler) 4 puffs Q6R INH 10/31/17 00:00 11/30/17 00:00 10/31/17 07:22 4 PUFFS Doxycycline Hyclate 100 mg/ Dextrose 110 ml @ 50 mls/hr BID IV 10/31/17 09:00 11/10/17 08:59 10/31/17 09:14 50 MLS/HR Pantoprazole Sodium 40 mg/ Syringe 10 ml @ 5 mls/min DAILY IV 10/31/17 09:00 11/30/17 08:59 10/31/17 09:14 5 MLS/MIN Fentanyl Citrate (Fentanyl Inj) 25 mcg Q1H PRN IV 10/30/17 23:30 11/13/17 23:29 10/31/17 11:39 25 MCG Lorazepam (Ativan Inj) 1 mg Q1H PRN IV 10/31/17 01:15 11/30/17 01:14 10/31/17 01:35 1 MG Metoprolol Tartrate (Lopressor Iv) 2.5 mg Q6H IV. 10/31/17 06:00 11/30/17 05:59 10/31/17 11:41 2.5 MG Acetaminophen 650 mg/Empty Bag 65 ml @ 260 mls/hr Q8H PRN IV 10/31/17 03:30 11/30/17 03:29 Atorvastatin Calcium (Lipitor Tab) 40 mg DAILY NG 10/31/17 09:00 11/30/17 08:59 10/31/17 11:39 40 MG Aspirin (Aspirin Chew) 81 mg DAILY NG 10/31/17 09:00 11/30/17 08:59 10/31/17 11:38 81 MG Bacitracin (Bacitracin Oint) 1 appln BID EXT 10/31/17 09:00 11/04/17 21:01 8/21/18 11:39 1 APPLN Furosemide 40 mg/ Syringe 4 ml @ 4 mls/min BID17 IV 10/31/17 09:00 11/30/17 08:59 10/31/17 09:15 4 MLS/MIN Albumin Human (Albumin 25%) 12.5 gm Q6 IV 10/31/17 12:00 11/03/17 11:59 10/31/17 11:57 12.5 GM Ceftriaxone Sodium 2000 mg/ Dextrose 70 ml @ 100 mls/hr Q24H IV 10/31/17 14:00 11/10/17 13:59
[2017-10-31] MEDS: CEFTRIAXONE SOD INJ 2,000 MG in DEXTROSE 5% 50ML 50 ML IV SCH (14:29)
[2017-10-31] MEDS ORDERED: FUROSEMIDE INJ 60 MG in SYRINGE 0 ML IV STA (15:23)
--- NOTE | 2017-10-31 15:23 | Progress Note ---
Progress Note Date of Service Oct 31, 2017. Progress Note urine output has decreased will increase lasix to 60mg IV q8hrs and follow closely
[2017-10-31] MEDS: FUROSEMIDE INJ 60 MG in SYRINGE 0 ML IV SCH (21:37)
[2017-11-01] VITALS (53 sets, daily range): BP systolic 104–139; BP diastolic 50–76; PULSE 58–80; TEMP 36.2–37.2; O2SAT 89–97
[2017-11-01] MEDS: PROPOFOL IV EMULSION 10 MG/ML 100 ML VIAL IV PRN ×8 (00:12→21:57)
[2017-11-01] MEDS: ALBUMIN HUMAN 25% 12.5 GM/50 ML VIAL IV SCH ×4 (00:15→18:17)
[2017-11-01] MEDS: METOPROLOL TARTRATE 1 MG/ML VIAL IV. SCH ×4 (00:16→18:18)
[2017-11-01] MEDS: METHYLPREDNISOLONE IV 20 MG in SYRINGE 0 ML IV SCH ×2 (00:16→06:11)
[2017-11-01] MEDS: INSULIN ASPART 100 UNITS/ML 3 ML PEN SC SCH ×4 (00:17→18:21)
[2017-11-01] MEDS: FENTANYL CITRATE INJ 50 MCG/1 ML 2 ML VIAL IV PRN ×3 (00:20→08:57)
[2017-11-01] MEDS: IPRATROPIUM BROMIDE HFA INHALER INH SCH ×4 (01:48→19:38)
[2017-11-01] MEDS: LEValbuterol HFA 15GM INHALER INH SCH ×4 (01:48→19:29)
[2017-11-01 05:09] LABS: CALCIUM 8.2 mg/dl (8.5-10.1); CREATININE 1.94 mg/dl (0.60-1.40); POTASSIUM 4.5 mmol/L (3.5-5.1)
[2017-11-01] MEDS: FUROSEMIDE INJ 60 MG in SYRINGE 0 ML IV SCH ×3 (06:11→21:16)
[2017-11-01] MEDS: HEPARIN SOD 5000 UNIT/0.5 ML CARP SQ SCH ×3 (06:16→21:16)
[2017-11-01] MEDS: ASPIRIN 81 MG CHEW NG SCH (08:06)
[2017-11-01] MEDS: ATORVASTATIN 40 MG TAB NG SCH (08:06)
[2017-11-01] MEDS: PANTOprazole INJ 40 MG in SYRINGE 0 ML IV SCH (08:06)
[2017-11-01] MEDS: DOXYCYCLINE IV 100 MG in DEXTROSE 5% 100ML 100 ML IV SCH (08:06)
[2017-11-01] MEDS: INSULIN GLARGINE SOLOSTAR 100 UNITS/ML 3 ML PEN SC SCH ×2 (08:06→21:15)
[2017-11-01] MEDS: BACITRACIN OINT 15 GM TUBE EXT SCH ×2 (08:07→21:17)
[2017-11-01 08:42] LABS: BASO % 0.1 %; BASO ABS # 0.01 K/uL (0-0.2); HEMATOCRIT 38.4 % (42-52); HEMOGLOBIN 12.5 g/dL (14.0-18.0); IG# 0.06 K/uL (0.00-0.02); LYMPH % 5.8 %; LYMPH ABS # 0.94 K/uL (1.2-3.4); MEAN CELL VOLUME 80.3 fL (80-100); MEAN CORPUSCULAR HEMOGLOBIN 26.2 pg (25-34); MEAN CORPUSCULAR HGB CONC 32.6 g/dl (32-36); MEAN PLATELET VOLUME 10.2 fL (7.4-10.4); MONO % 4.3 %; MONO ABS # 0.69 K/uL (0.11-0.59); NEUT % 89.4 %; NEUT ABS # 14.43 K/uL (1.4-6.5); PLATELET COUNT 266 K/uL (130-400); RED CELL DISTRIBUTION WIDTH CV 16.5 % (11.5-14.5); RED CELL DISTRIBUTION WIDTH SD 48.3 fL (36.4-46.3); WHITE BLOOD COUNT 16.13 K/uL (4.8-10.8)
--- NOTE | 2017-11-01 09:25 | Cardiology Follow-Up ---
Subjective Subjective Date of Service: Nov 01, 2017. Pt evaluation today including: conversation w/ patient, physical exam, chart review, lab review, review of studies, conversation w/ lactation consultant, review of inpatient medication list Additional Details: Pt seen and examined, remains sedated and intubated. Tele reviewed: sinus rhythm with rare pacing, no arrhythmias. Problem List Medical Problems: (1) Chest pain Status: Acute (2) CHF exacerbation Status: Acute (3) Hypomagnesemia Status: Acute (4) Hypoxia Status: Acute (5) Hypoxia Status: Acute (6) Lower extremity edema Status: Acute (7) PICC line infection Status: Acute (8) Pulmonary congestion Status: Acute (9) Pulmonary edema Status: Acute (10) Scrotal edema Status: Acute (11) Swelling of both lower extremities Status: Acute Review of Systems Constitutional: + see HPI (Unable to obtain, pt sedated on mechanical vent. ) Respiratory: + shortness of breath, + dyspnea on exertion Cardiac: + edema Musculoskeletal: + joint pain Neurologic: + weakness Psychiatric: + anxiety Endo: + fatigue Objective Vital Signs Last Vital Signs Documentation Date Time Temp Pulse Resp B/P (MAP) Pulse Ox O2 Delivery O2 Flow Rate FiO2 11/01/17 06:13 60 106/56 11/01/17 06:01 36.7 20 92 Mechanical Ventilator 11/01/17 04:55 70 10/30/17 21:00 5.0 Physical Exam: General Appearance: WD/WN, no apparent distress, + obese, + pertinent finding ( sedated, intubated) Eyes: bilateral eyes normal inspection, bilateral eyes PERRL, bilateral eyes EOMI ENT: normal ENT inspection, hearing grossly normal, pharynx normal Neck: supple, no adenopathy, thyroid normal, no JVD, no carotid bruits, trachea midline Respiratory/Chest: chest non-tender, normal breath sounds, no respiratory distress, no accessory muscle use, + decreased breath sounds Cardiovascular: regular rate, rhythm, no edema, no JVD, no murmur, + gallop/S4 Abdomen: normal bowel sounds, no pulsatile mass, + distended, + pertinent finding (fluid wave is present) Extremities: non-tender, normal inspection, + pertinent finding Skin: normal color, warm/dry, no rash Lymphatic: no adenopathy Assessment and Plan 1. volume overload likely multifactorial given: diastolic dysfunction, cirrhosis, renal failure and untreated sleep apnea along with medical noncompliance would have expected more diuresis after diuretics increased renal function also took a down turn will cont with lasix 60mg iv q8 for now but will ask our nephrology colleagues for their input ?lasix gtt with albumin maintain strict I/O's 2. hypercapnic respiratory failure management as per critical care team still requiring 70% FiO2 3. worsening renal function appreciate nephrology input 4. cirrhosis appreciate GI input
--- NOTE | 2017-11-01 10:24 | Nephrology Consultation ---
Nephrology Consultation Date of Consultation: Nov 01, 2017. Attending Physician: Dr Trejo Requesting Physician: Dr Barrera Reason for Consultation: EDWARD History of Present Illness 56 year old male admitted 10/30 for acute on chronic HF exacerbation and acute respiratory failure after being sent to ER by cardiology for worsening volume overload and increased creatinine to 1.8 on presentation whom I'm asked to evaluate for acute renal failure. He had been asked to be evaluated 10/27 by cardiology in ER but did not go; his diuretics were decreased w/o effect prior to admission on 10/27 d/t worsening renal parameters. Pt w/ hx of not following outpt recommendations including medication dosing. He had a documented 28 lb wt gain in [facility] from 09/15-10/23. Also underwent 3L paracentesis 10/06/17. His creatinine on presentation was 1.5 (baseline as of August 1.1-1.3). Other PMH includes DM on insulin/metformin, 2 admissions past 10 mos for acute on chronic HF (most recently 08/2017), liver cirrhosis. He was placed on Bipap in ER. Today his creatinine is 1.9. He had CT chest PE protocol on presentation and a bland urine sediment. His outpatient lasix 80 mg bid was changed to 40 mg IV bid; his full dose ACEI and 100 mg daily spironolactone were held on presentation. Despite being negative about 1.5L, his respiratory status worsened and he was intubated on 10/31. Yesterday his lasix was increased to 60 mg IV tid for better fluid balance. He is now about 3L negative. He is receiving ceftriaxone and doxycycline for respiratory issues. Of note on paracentesis one month back, denice was + at 320. Not many urine studies on outpt chart but historically minimal albuminuria. Past Medical/Surgical History -DM on insulin, metformin -resistant HTN -HFpEF -nonobstructive CAD -hx sick sinus syndrome s/p pacemaker fall 2017 -CKD3 baseline creatinine 1.1-1.3 08/2017 -admission here 08/25- for acute on chronic HFpEF/EDWARD/respiratory failure -admission here fall 2017 vol OL/ diastolic HF/bradycardia -hepatic cirrhosis/ascites > s/p 3L paracentesis 10/06/17 -YECENIA not using cpap -past EtOH abuse; stopped all EtOH 3 yrs ago per [facility] GI note -active tobacco abuse -obesity -s/p lap cholecystectomy and vasectomy Family History Cancer FH: hypertension FH: kidney disease FHx: heart disease Heart disease Lung disease Social History Smoking Status: Current Every Day Smoker Alcohol Use: occasionally Drug Use: none Marital Status: in relationship Housing Status: lives with family Occupation Status: employed Allergies Coded Allergies: Vancomycin (Verified Allergy, Severe, ANAPHYLAXIS, 10/06/17) renal failure BEE STING (Verified Allergy, Intermediate, swelling, 10/06/17) Medications Current Inpatient Medications Medications (Trade) Dose Ordered Sig/Jerica Route Start Time Stop Time Status Last Admin Dose Admin Ioversol (Optiray 320) 111 ml UD PRN IV 10/30/17 17:45 11/03/17 17:44 Heparin Sodium (Porcine) (Heparin Sq 5000 Unit/0.5ml) 5,000 unit Q8 SQ 10/30/17 22:00 11/29/17 21:59 11/01/17 06:16 5,000 UNIT Nitroglycerin (Nitrostat Tab) 0.4 mg UD PRN SL 10/30/17 21:00 11/29/17 20:59 Miscellaneous Information (Icu Protocol For Hyperglycemia) 1 ea PRN PRN N/A 10/30/17 21:00 11/01/17 20:59 Insulin Aspart (novoLOG ASPART) SLIDING SCALE If C... ACHS SC 10/31/17 06:45 11/30/17 06:44 11/01/17 06:24 3 UNITS Glucose (Glucose 40% Gel) 15-30 GRAMS 15 GRAMS... UD PRN PO 10/30/17 21:00 11/29/17 20:59 Glucose (Glucose Chew Tab) 4-8 Tablets 4 Tabl... UD PRN PO 10/30/17 21:00 11/29/17 20:59 Dextrose (Dextrose 50% 50ML Syringe) 25-50ML 25ML FOR ... UD PRN IV 10/30/17 21:00 11/29/17 20:59 Glucagon (Glucagon Inj) 1 mg UD PRN SQ 10/30/17 21:00 11/29/17 20:59 Carbohydrates (Carbohydrates For Hypoglycemia) 15-30 GRAMS 15 grams if BSG 54-69... UD PRN PO 10/30/17 21:00 11/29/17 20:59 Prochlorperazine Edisylate 5 mg/ Syringe 5 ml @ 5 mls/min Q6H PRN IV 10/30/17 21:15 11/29/17 21:14 Aspirin (Ecotrin Tab) 81 mg QAM PO 10/31/17 09:00 11/30/17 08:59 Future Hold Insulin Glargine (Lantus Solostar Pen) 5 units BID SC 10/31/17 09:00 11/30/17 08:59 11/01/17 08:06 5 UNITS Ipratropium [place] (Atrovent 0.02% 0.5MG/2.5ML Neb) 0.5 mg Q4H PRN INH 10/30/17 21:30 11/29/17 21:29 Propofol (Diprivan Iv Emulsion 100ml Vial) 1 dose UD PRN IV 10/30/17 23:18 11/02/17 23:17 11/01/17 08:34 1 DOSE Levalbuterol (Xopenex Hfa Inhaler) 4 puffs Q6R INH 10/31/17 00:00 11/30/17 00:00 11/01/17 01:48 4 PUFFS Ipratropium [place] (Atrovent Hfa Inhaler) 4 puffs Q6R INH 10/31/17 00:00 11/30/17 00:00 11/01/17 01:48 4 PUFFS Doxycycline Hyclate 100 mg/ Dextrose 110 ml @ 50 mls/hr BID IV 10/31/17 09:00 11/10/17 08:59 11/01/17 08:06 50 MLS/HR Pantoprazole Sodium 40 mg/ Syringe 10 ml @ 5 mls/min DAILY IV 10/31/17 09:00 11/30/17 08:59 11/01/17 08:06 5 MLS/MIN Fentanyl Citrate (Fentanyl Inj) 25 mcg Q1H PRN IV 10/30/17 23:30 11/13/17 23:29 11/01/17 05:05 25 MCG Lorazepam (Ativan Inj) 1 mg Q1H PRN IV 10/31/17 01:15 11/30/17 01:14 10/31/17 01:35 1 MG Metoprolol Tartrate (Lopressor Iv) 2.5 mg Q6H IV. 10/31/17 06:00 11/30/17 05:59 11/01/17 06:13 2.5 MG Acetaminophen 650 mg/Empty Bag 65 ml @ 260 mls/hr Q8H PRN IV 10/31/17 03:30 11/30/17 03:29 Atorvastatin Calcium (Lipitor Tab) 40 mg DAILY NG 10/31/17 09:00 11/30/17 08:59 11/01/17 08:06 40 MG Aspirin (Aspirin Chew) 81 mg DAILY NG 10/31/17 09:00 11/30/17 08:59 11/01/17 08:06 81 MG Bacitracin (Bacitracin Oint) 1 appln BID EXT 10/31/17 09:00 11/04/17 21:01 11/01/17 08:07 1 APPLN Albumin Human (Albumin 25%) 12.5 gm Q6 IV 10/31/17 12:00 11/03/17 11:59 11/01/17 06:14 12.5 GM Ceftriaxone Sodium 2000 mg/ Dextrose 70 ml @ 100 mls/hr Q24H IV 10/31/17 14:00 11/10/17 13:59 10/31/17 14:29 100 MLS/HR Furosemide 60 mg/ Syringe 6 ml @ 4 mls/min Q8 IV 10/31/17 22:00 11/30/17 21:59 11/01/17 06:11 4 MLS/MIN Home Meds and Scripts Medications Dose Route/Sig Max Daily Dose Days Date Category Dose Instructions Aldactone (Spironolactone) 100 Mg Tab 100 Mg PO QAM 10/30/17 Reported Fluticasone Propionate 120 Sprays/6000 Mcg Inha 2 Sprays JANNIE DAILY PRN 10/30/17 Reported Zyrtec (Cetirizine HCl) 10 Mg Tab 10 Mg PO DAILY PRN 10/30/17 Reported Furosemide 40 Mg Tab 40 Mg PO BID 10/30/17 Reported TAKE TWO TABLETS EVERY MORNING AND IN THE AFTERNOON Metformin Hydrochloride (Metformin HCl) 500 Mg Tab 500 Mg PO HOLD 10/30/17 Reported MEDICATION CURRENTLY BEING HELD UNTIL OTHERWISE DIRECTED TO TAKE BY PCP Win Juniorikpen (Insulin Glargine) 100 Unit/Ml Inj 70 Units SC HS 10/30/17 Reported Miralax (Polyethylene Glycol 3350) 1 Pow Pow 17 Gm PO DAILY PRN 10/30/17 Reported Advair Diskus 100/50 60 Dose (Fluticasone Prop/Salmeterol) 1 Ea Aerp 1 Puff INH BID 10/30/17 Reported Coreg (Carvedilol) 3.125 Mg Tab 3.125 Mg PO BIDM 10/30/17 Reported Amlodipine Besylate 10 Mg Tab 10 Mg PO DAILY 10/06/17 Reported Lipitor (Atorvastatin Calcium) 40 Mg Tab 40 Mg PO DAILY 08/25/17 Reported Ventolin Hfa (Albuterol) 200 Puffs/32403 Mcg Aers 2 Puffs INH Q6H PRN 04/18/17 Reported Aspirin Ec (Aspirin) 81 Mg Tab 81 Mg PO QAM 04/18/17 Reported Vitamin D 65713 Unit (Ergocalciferol) 50,000 Unit Cap 50,000 Inter.unit PO WK 04/18/17 Reported TAKE THIS MEDICATION EVERY MONDAY Prilosec (Omeprazole) 20 Mg Capcr 20 Mg PO QAM 04/18/17 Reported Zestril (Lisinopril) 40 Mg Tab 40 Mg PO QAM 06/15/16 Reported Review of Systems unable to obtain d/t intubation/sedation Physical Exam Date Time Temp Pulse Resp B/P (MAP) Pulse Ox O2 Delivery O2 Flow Rate FiO2 11/01/17 06:13 60 106/56 11/01/17 06:01 36.7 60 20 106/55 (72) 92 Mechanical Ventilator 11/01/17 05:31 36.7 60 20 115/55 (75) 95 Mechanical Ventilator 11/01/17 05:03 36.6 62 21 139/50 (79) 95 Mechanical Ventilator 11/01/17 04:55 70 11/01/17 04:31 36.5 70 20 122/60 (80) 96 Mechanical Ventilator 11/01/17 04:01 36.5 66 20 106/56 (73) 91 Mechanical Ventilator 11/01/17 04:00 70 11/01/17 03:31 36.5 66 20 105/56 (72) 91 Mechanical Ventilator 11/01/17 03:01 36.6 65 20 111/56 (74) 91 Mechanical Ventilator 11/01/17 02:31 36.6 63 20 113/56 (75) 94 Mechanical Ventilator 11/01/17 02:01 36.7 63 20 110/55 (73) 92 Mechanical Ventilator 11/01/17 01:48 70 11/01/17 01:01 37.0 60 20 108/52 (70) 94 Mechanical Ventilator 11/01/17 00:31 37.2 60 20 111/51 (71) 94 Mechanical Ventilator 11/01/17 00:16 37.2 60 20 114/51 (72) Mechanical Ventilator 11/01/17 00:16 60 118/48 11/01/17 00:00 70 10/31/17 23:31 37.2 61 20 118/48 (71) 91 Mechanical Ventilator 10/31/17 23:01 37.3 61 20 110/50 (70) 93 Mechanical Ventilator 10/31/17 22:55 80 10/31/17 22:31 37.3 60 21 120/47 (71) 95 Mechanical Ventilator 10/31/17 22:02 37.3 62 24 101/68 (79) 95 Mechanical Ventilator 10/31/17 21:31 37.3 60 21 112/47 (68) 93 Mechanical Ventilator 10/31/17 21:01 37.3 60 20 112/46 (68) 92 Mechanical Ventilator 10/31/17 20:31 37.0 61 20 118/47 (70) 90 Mechanical Ventilator 10/31/17 20:01 37.1 60 20 110/44 (66) 90 Mechanical Ventilator 10/31/17 20:00 94 Mechanical Ventilator 80 10/31/17 20:00 80 10/31/17 19:31 37.3 60 20 113/47 (69) 90 Mechanical Ventilator 10/31/17 19:15 80 10/31/17 19:01 37.3 60 20 116/46 (69) 90 Mechanical Ventilator 80 10/31/17 18:01 37.0 60 20 105/46 (65) 90 Mechanical Ventilator 80 10/31/17 17:31 37.5 63 20 106/41 (62) 91 10/31/17 17:29 80 10/31/17 17:01 37.5 60 20 103/40 (61) 91 10/31/17 16:44 60 124/47 10/31/17 16:31 37.5 61 20 124/47 (72) 91 10/31/17 16:01 37.4 60 20 115/50 (71) 92 10/31/17 16:00 80 8/21/18 15:31 37.3 60 20 108/48 (68) 91 10/31/17 15:01 37.2 60 20 107/45 (65) 91 10/31/17 14:32 80 10/31/17 14:31 37.2 63 20 102/49 (66) 92 10/31/17 14:01 37.2 60 20 102/43 (62) 90 10/31/17 13:31 37.2 60 20 100/43 (62) 90 Mechanical Ventilator 10/31/17 13:14 37.3 62 20 99/46 (63) 92 Mechanical Ventilator 10/31/17 12:53 37.2 60 20 106/49 (68) 90 Mechanical Ventilator 10/31/17 12:31 37.2 60 20 107/50 (69) 91 Mechanical Ventilator 80 10/31/17 12:01 37.0 60 20 114/52 (72) 93 Mechanical Ventilator 10/31/17 12:00 100 10/31/17 11:41 60 108/45 10/31/17 11:31 37.0 60 20 108/45 (66) 93 Mechanical Ventilator 10/31/17 11:05 100 10/31/17 11:01 37.0 60 20 120/48 (72) 94 Mechanical Ventilator 10/31/17 10:31 36.9 60 20 93/47 (62) 94 Mechanical Ventilator 10/31/17 10:01 36.9 60 20 92/44 (60) 97 Mechanical Ventilator 10/31/17 09:31 36.9 60 20 92/42 (59) 95 Mechanical Ventilator 10/31/17 09:09 100 10/31/17 09:01 36.9 60 20 105/52 (69) 97 Mechanical Ventilator General Appearance: WD/WN, no apparent distress, + obese, + pertinent finding ( intubated, lightly sedated) Eyes: normal inspection ENT: + pertinent finding (ETT) Neck: supple Respiratory/Chest: + decreased breath sounds Cardiovascular: regular rate, rhythm, + pertinent finding (anasarca) Abdomen: normal bowel sounds, non tender, soft, + pertinent finding (ascites, valdes present w/ ample clear urine) Extremities: + pedal edema, + swelling Neurologic/Psych: + pertinent finding (sedated lightly, murrell, does not follow commands) Skin: normal color, no jaundice, warm/dry Diagnostics Last 24 Hours Test 10/31/17 10:11 10/31/17 11:44 10/31/17 16:42 10/31/17 16:50 Blood Gas Sample Site L Radial Bedside Blood Gas pH (LAB) 7.41 Bedside Blood Gas pCO2 (LAB) 45 mmHg Bedside Blood Gas pO2 (LAB) 72 mmHg Bedside Blood Gas HCO3 (LAB) 28 meq/L Bedside Blood Gas Total CO2 30 mEq/l Bedside Blood Gas Base Excess (LAB) 3.0 meq/L Bedside Blood Gas O2 Saturation 95.0 % Tate Test Pass Oxygen Delivery Device Ventilator Bedside Oxygen Rate (breaths/min) 20 Blood Gas Minute Ventilation 10 Bedside FiO2 100 % Blood Gas Tidal Volume 500 Blood Gas PEEP 8 Bedside Glucose 137 mg/dl 161 mg/dl Urine Random Sodium 45 mEq/L Test 10/31/17 20:41 11/01/17 00:14 11/01/17 04:27 11/01/17 04:29 Bedside Glucose 173 mg/dl 192 mg/dl Sodium Level 136 mmol/L Potassium Level 4.5 mmol/L Chloride Level 97 mmol/L Carbon Dioxide Level 28 mmol/L Anion Gap 11.0 mmol/L Blood Urea Nitrogen 63 mg/dl Creatinine 1.94 mg/dl Est Creatinine Clear Calc Drug Dose 56.4 ml/min Estimated GFR () 43.6 Estimated GFR (Non- 37.6 BUN/Creatinine Ratio 32.3 Random Glucose 210 mg/dl Calcium Level 8.2 mg/dl White Blood Count 16.13 K/uL Red Blood Count 4.78 M/uL Hemoglobin 12.5 g/dL Hematocrit 38.4 % Mean Corpuscular Volume 80.3 fL Mean Corpuscular Hemoglobin 26.2 pg Mean Corpuscular Hemoglobin Concent 32.6 g/dl Platelet Count 266 K/uL Mean Platelet Volume 10.2 fL Neutrophils (%) (Auto) 89.4 % Lymphocytes (%) (Auto) 5.8 % Monocytes (%) (Auto) 4.3 % Eosinophils (%) (Auto) 0.0 % Basophils (%) (Auto) 0.1 % Neutrophils # (Auto) 14.43 K/uL Lymphocytes # (Auto) 0.94 K/uL Monocytes # (Auto) 0.69 K/uL Eosinophils # (Auto) 0.00 K/uL Basophils # (Auto) 0.01 K/uL RDW Standard Deviation 48.3 fL RDW Coefficient of Variation 16.5 % Immature Granulocyte % (Auto) 0.4 % Immature Granulocyte # (Auto) 0.06 K/uL Test 11/01/17 06:09 Bedside Glucose 246 mg/dl Diagnostic Radiology: CT angio Chest 10/30 1. No pulmonary emboli identified although segmental and subsegmental pulmonary arteries suboptimally assessed due to respiratory motion. 2. Small right pleural effusion with right lower lobe airspace opacitysuggestive of atelectasis. 3. Slight improvement in mediastinal and bilateral hilar lymphadenopathy since CT of August 25, 2017. This remains indeterminate. Overall, increase in size and number of upper lobe predominant pulmonary nodules, including perifissural nodules. Metastatic disease is within the differential however the distribution is atypical. The findings raise the possibility of a granulomatous process such as sarcoidosis. Short-term follow-up chest CT in 3 months is recommended as a neoplastic process cannot be excluded. 4. Mild pulmonary edema. 5. Cirrhosis with upper abdominal ascites. Anasarca. 10/30 Abd u/s ascites BL Dopplers 10/30 No VTE Assessment & Plan 56 y/o M w/ severe diastolic HF c/b recurrent volume overload, hepatic and respiratory failure with worsening EDWARD on CKD3 w/ baseline creatinine 1.1-1.3. His BP/HR, chemistries, anemia status are all acceptable but he remains significantly volume overloaded. Also w/ significant leukocytosis - on abtx for SBP prophylaxis/PNA. -repeat uacm and obtain prot/creat ratio for completeness>> orders in -diuretic just increased to 60 mg iv q8h yesterday evening and he is diuresing well so far on this -continue albumin q6h; hold spironolactone -if not 3L negative from 2099 last evening -2099 this evening, recommend increasing lasix to 60 mg qid IV; he is alread 1.3 L negative though -daily bmp -no indication for acute dialysis at this time and likely a poor candidate; will discuss/consider further depending on clinical status Appreciate consult; will follow with you. Care coordinated w/ Dr Clarke
--- NOTE | 2017-11-01 10:45 | Gastroenterology Progress Note ---
Progress Note Date of Service: Nov 01, 2017 Subjective Pt evaluation today including: physical exam, chart review, lab review, review of inpatient medication list Pt remains on mechanical vent. Net - 3L out. Lasix increased to 60mg IV BID yesterday. Cr up to 1.94 Review of Systems Constitutional: + see HPI (Unable to obtain ROS from pt ) Medications Current Inpatient Medications Medications (Trade) Dose Ordered Sig/Jerica Route Start Time Stop Time Status Last Admin Dose Admin Ioversol (Optiray 320) 111 ml UD PRN IV 10/30/17 17:45 11/03/17 17:44 Heparin Sodium (Porcine) (Heparin Sq 5000 Unit/0.5ml) 5,000 unit Q8 SQ 10/30/17 22:00 11/29/17 21:59 11/01/17 06:16 5,000 UNIT Nitroglycerin (Nitrostat Tab) 0.4 mg UD PRN SL 10/30/17 21:00 11/29/17 20:59 Miscellaneous Information ([facility] Protocol For Hyperglycemia) 1 ea PRN PRN N/A 10/30/17 21:00 11/01/17 20:59 Glucose (Glucose 40% Gel) 15-30 GRAMS 15 GRAMS... UD PRN PO 10/30/17 21:00 11/29/17 20:59 Glucose (Glucose Chew Tab) 4-8 Tablets 4 Tabl... UD PRN PO 10/30/17 21:00 11/29/17 20:59 Dextrose (Dextrose 50% 50ML Syringe) 25-50ML 25ML FOR ... UD PRN IV 10/30/17 21:00 11/29/17 20:59 Glucagon (Glucagon Inj) 1 mg UD PRN SQ 10/30/17 21:00 11/29/17 20:59 Carbohydrates (Carbohydrates For Hypoglycemia) 15-30 GRAMS 15 grams if BSG 54-69... UD PRN PO 10/30/17 21:00 11/29/17 20:59 Prochlorperazine Edisylate 5 mg/ Syringe 5 ml @ 5 mls/min Q6H PRN IV 10/30/17 21:15 11/29/17 21:14 Aspirin (Ecotrin Tab) 81 mg QAM PO 10/31/17 09:00 11/30/17 08:59 Future Hold Insulin Glargine (Lantus Solostar Pen) 5 units BID SC 10/31/17 09:00 11/30/17 08:59 11/01/17 08:06 5 UNITS Ipratropium [place] (Atrovent 0.02% 0.5MG/2.5ML Neb) 0.5 mg Q4H PRN INH 10/30/17 21:30 11/29/17 21:29 Propofol (Diprivan Iv Emulsion 100ml Vial) 1 dose UD PRN IV 10/30/17 23:18 11/02/17 23:17 11/01/17 08:34 1 DOSE Levalbuterol (Xopenex Hfa Inhaler) 4 puffs Q6R INH 10/31/17 00:00 11/30/17 00:00 11/01/17 07:12 4 PUFFS Ipratropium [place] (Atrovent Hfa Inhaler) 4 puffs Q6R INH 10/31/17 00:00 11/30/17 00:00 11/01/17 07:12 4 PUFFS Doxycycline Hyclate 100 mg/ Dextrose 110 ml @ 50 mls/hr BID IV 10/31/17 09:00 11/10/17 08:59 11/01/17 08:06 50 MLS/HR Pantoprazole Sodium 40 mg/ Syringe 10 ml @ 5 mls/min DAILY IV 10/31/17 09:00 11/30/17 08:59 11/01/17 08:06 5 MLS/MIN Fentanyl Citrate (Fentanyl Inj) 25 mcg Q1H PRN IV 10/30/17 23:30 11/13/17 23:29 11/01/17 08:57 25 MCG Lorazepam (Ativan Inj) 1 mg Q1H PRN IV 10/31/17 01:15 11/30/17 01:14 10/31/17 01:35 1 MG Metoprolol Tartrate (Lopressor Iv) 2.5 mg Q6H IV. 10/31/17 06:00 11/30/17 05:59 11/01/17 06:13 2.5 MG Acetaminophen 650 mg/Empty Bag 65 ml @ 260 mls/hr Q8H PRN IV 10/31/17 03:30 11/30/17 03:29 Atorvastatin Calcium (Lipitor Tab) 40 mg DAILY NG 10/31/17 09:00 11/30/17 08:59 11/01/17 08:06 40 MG Aspirin (Aspirin Chew) 81 mg DAILY NG 10/31/17 09:00 11/30/17 08:59 11/01/17 08:06 81 MG Bacitracin (Bacitracin Oint) 1 appln BID EXT 10/31/17 09:00 11/04/17 21:01 11/01/17 08:07 1 APPLN Albumin Human (Albumin 25%) 12.5 gm Q6 IV 10/31/17 12:00 11/03/17 11:59 11/01/17 06:14 12.5 GM Ceftriaxone Sodium 2000 mg/ Dextrose 70 ml @ 100 mls/hr Q24H IV 10/31/17 14:00 11/10/17 13:59 10/31/17 14:29 100 MLS/HR Furosemide 60 mg/ Syringe 6 ml @ 4 mls/min Q8 IV 10/31/17 22:00 11/30/17 21:59 11/01/17 06:11 4 MLS/MIN Insulin Aspart (novoLOG ASPART) SLIDING SCALE If C... Q6 SC 11/01/17 12:00 12/01/17 11:59 Objective Vital Signs Date Time Temp Pulse Resp B/P (MAP) Pulse Ox O2 Delivery O2 Flow Rate FiO2 11/01/17 10:00 36.4 60 20 104/55 (71) 90 Mechanical Ventilator 70 11/01/17 08:00 Mechanical Ventilator 70 11/01/17 08:00 70 11/01/17 08:00 36.4 60 20 107/62 (77) 91 Mechanical Ventilator 70 11/01/17 06:13 60 106/56 11/01/17 06:01 36.7 60 20 106/55 (72) 92 Mechanical Ventilator 11/01/17 05:31 36.7 60 20 115/55 (75) 95 Mechanical Ventilator 11/01/17 05:03 36.6 62 21 139/50 (79) 95 Mechanical Ventilator 11/01/17 04:55 70 11/01/17 04:31 36.5 70 20 122/60 (80) 96 Mechanical Ventilator 11/01/17 04:01 36.5 66 20 106/56 (73) 91 Mechanical Ventilator 11/01/17 04:00 70 11/01/17 03:31 36.5 66 20 105/56 (72) 91 Mechanical Ventilator 11/01/17 03:01 36.6 65 20 111/56 (74) 91 Mechanical Ventilator 11/01/17 02:31 36.6 63 20 113/56 (75) 94 Mechanical Ventilator 11/01/17 02:01 36.7 63 20 110/55 (73) 92 Mechanical Ventilator 11/01/17 01:48 70 11/01/17 01:01 37.0 60 20 108/52 (70) 94 Mechanical Ventilator 11/01/17 00:31 37.2 60 20 111/51 (71) 94 Mechanical Ventilator 11/01/17 00:16 37.2 60 20 114/51 (72) Mechanical Ventilator 11/01/17 00:16 60 118/48 11/01/17 00:00 70 10/31/17 23:31 37.2 61 20 118/48 (71) 91 Mechanical Ventilator 10/31/17 23:01 37.3 61 20 110/50 (70) 93 Mechanical Ventilator 10/31/17 22:55 80 10/31/17 22:31 37.3 60 21 120/47 (71) 95 Mechanical Ventilator 10/31/17 22:02 37.3 62 24 101/68 (79) 95 Mechanical Ventilator 10/31/17 21:31 37.3 60 21 112/47 (68) 93 Mechanical Ventilator 10/31/17 21:01 37.3 60 20 112/46 (68) 92 Mechanical Ventilator 10/31/17 20:31 37.0 61 20 118/47 (70) 90 Mechanical Ventilator 10/31/17 20:01 37.1 60 20 110/44 (66) 90 Mechanical Ventilator 10/31/17 20:00 94 Mechanical Ventilator 80 10/31/17 20:00 80 10/31/17 19:31 37.3 60 20 113/47 (69) 90 Mechanical Ventilator 10/31/17 19:15 80 10/31/17 19:01 37.3 60 20 116/46 (69) 90 Mechanical Ventilator 80 10/31/17 18:01 37.0 60 20 105/46 (65) 90 Mechanical Ventilator 80 10/31/17 17:31 37.5 63 20 106/41 (62) 91 10/31/17 17:29 80 10/31/17 17:01 37.5 60 20 103/40 (61) 91 10/31/17 16:44 60 124/47 10/31/17 16:31 37.5 61 20 124/47 (72) 91 10/31/17 16:01 37.4 60 20 115/50 (71) 92 10/31/17 16:00 80 10/31/17 15:31 37.3 60 20 108/48 (68) 91 10/31/17 15:01 37.2 60 20 107/45 (65) 91 10/31/17 14:32 80 10/31/17 14:31 37.2 63 20 102/49 (66) 92 10/31/17 14:01 37.2 60 20 102/43 (62) 90 10/31/17 13:31 37.2 60 20 100/43 (62) 90 Mechanical Ventilator 10/31/17 13:14 37.3 62 20 99/46 (63) 92 Mechanical Ventilator 10/31/17 12:53 37.2 60 20 106/49 (68) 90 Mechanical Ventilator 10/31/17 12:31 37.2 60 20 107/50 (69) 91 Mechanical Ventilator 80 10/31/17 12:01 37.0 60 20 114/52 (72) 93 Mechanical Ventilator 10/31/17 12:00 100 10/31/17 11:41 60 108/45 10/31/17 11:31 37.0 60 20 108/45 (66) 93 Mechanical Ventilator 10/31/17 11:05 100 10/31/17 11:01 37.0 60 20 120/48 (72) 94 Mechanical Ventilator Physical Exam General Appearance: no apparent distress Neck: supple, no JVD, trachea midline Respiratory/Chest: + rhonchi, + pertinent finding (on mechanical vent ) Cardiovascular: regular rate, rhythm, no gallop, no murmur Abdomen: normal bowel sounds, + distended Extremities: + swelling Neurologic/Psych: + pertinent finding (sedated on mechanical vent ) Skin: normal color, no jaundice, no rash Laboratory Results Last 24 Hours Test 10/31/17 11:44 10/31/17 16:42 10/31/17 16:50 10/31/17 20:41 Bedside Glucose 137 mg/dl 161 mg/dl 173 mg/dl Urine Random Sodium 45 mEq/L Test 11/01/17 00:14 11/01/17 04:27 11/01/17 04:29 11/01/17 06:09 Bedside Glucose 192 mg/dl 246 mg/dl Sodium Level 136 mmol/L Potassium Level 4.5 mmol/L Chloride Level 97 mmol/L Carbon Dioxide Level 28 mmol/L Anion Gap 11.0 mmol/L Blood Urea Nitrogen 63 mg/dl Creatinine 1.94 mg/dl Est Creatinine Clear Calc Drug Dose 56.4 ml/min Estimated GFR () 43.6 Estimated GFR (Non- 37.6 BUN/Creatinine Ratio 32.3 Random Glucose 210 mg/dl Calcium Level 8.2 mg/dl White Blood Count 16.13 K/uL Red Blood Count 4.78 M/uL Hemoglobin 12.5 g/dL Hematocrit 38.4 % Mean Corpuscular Volume 80.3 fL Mean Corpuscular Hemoglobin 26.2 pg Mean Corpuscular Hemoglobin Concent 32.6 g/dl Platelet Count 266 K/uL Mean Platelet Volume 10.2 fL Neutrophils (%) (Auto) 89.4 % Lymphocytes (%) (Auto) 5.8 % Monocytes (%) (Auto) 4.3 % Eosinophils (%) (Auto) 0.0 % Basophils (%) (Auto) 0.1 % Neutrophils # (Auto) 14.43 K/uL Lymphocytes # (Auto) 0.94 K/uL Monocytes # (Auto) 0.69 K/uL Eosinophils # (Auto) 0.00 K/uL Basophils # (Auto) 0.01 K/uL RDW Standard Deviation 48.3 fL RDW Coefficient of Variation 16.5 % Immature Granulocyte % (Auto) 0.4 % Immature Granulocyte # (Auto) 0.06 K/uL Test 11/01/17 08:33 Blood Gas Sample Site L Radial Bedside Blood Gas pH (LAB) 7.47 Bedside Blood Gas pCO2 (LAB) 44 mmHg Bedside Blood Gas pO2 (LAB) 56 mmHg Bedside Blood Gas HCO3 (LAB) 32 meq/L Bedside Blood Gas Total CO2 34 mEq/l Bedside Blood Gas Base Excess (LAB) 8.0 meq/L Bedside Blood Gas O2 Saturation 91.0 % Tate Test Pass Oxygen Delivery Device Ventilator Assessment and Plan Patient is a 56 year old male presented with respiratory distress, currently sedated on mechanical vent; GI following for cirrhosis (suspected from ETOH abuse though also hx of + FLORY on cirrhosis workup ? autoimmune liver disease.) and ascites. Last paracentesis done on 10/06/17 w 3.2L ascites removal, fluid analysis showed SAAG >1.1, total protein >2.5; suspected ascites accumulation primarily related to congestive heart failure. He did have increased WBC on ascites fluid ct, was given Cipro for suspected SBP then. Pt remains on vent. Cr up to 1.9 w increased Lasix. Net negative 3L so far. Urine Na 45. Plans - Radiology not able to perform bedside large volume paracentesis. Continue with diuretics for now. When able to, may try to obtain at least diagnostic paracentesis for fluid analysis, cell ct, protein, albumin, culture. - Continue Albumin 25% 12.5g q6h - SBP prophylaxis coverage w Ceftriaxone IV. - Nephrology consulted. - Continue Protonix 40mg IV daily - Discussed with Dr. Trejo (hospitalist) about possible transfer to tertiary care center w Hepatology support for possible liver bx to r/o [facility] and to measure portal pressures. I saw and evaluated the patient this afternoon. Overnight it appears that his creatinine has risen significantly over the last 24 hours. I did have a discussion with the patient's mother with regard to his health given his liver disease, cardiac disease and evolving renal failure. At this point I wonder if the patient would be best served at a tertiary center given the complexity of his medical issues. In the meantime I would suggest continued use of albumin, continue broad-spectrum antibiotics, a nephrology consultation, and continue support with cardiology critical care.
--- NOTE | 2017-11-01 11:46 | Critical Care Progress Note ---
Critical Care Progress Note Date of Service Nov 01, 2017. Attending Dr Clarke Subjective Patient remains intubated and sedated. He has diuresed approximately 3 L since admission. O2 requirements are still relatively high he is on PEEP of 10 FiO2 70% saturating about 93%. Objective Obese male, intubated, sedated Head: Normocephalic atraumatic ENT: Orotracheally intubated, sclera anicteric, conjunctiva normal, PERRLA EOMI Neck: Supple, unable to assess JVD Chest: Distant breath sounds, no wheezing rales or rhonchi Cardiac: Regular rhythm distant heart sounds no murmurs rubs gallops Abdomen: Markedly obese, soft, no tenderness, bowel sounds present Extremities: 3+ anasarca Neuro: Cannot examine patient sedated Assessment & Plan (1) CHF exacerbation Due to diastolic dysfunction with severe total body fluid overload, chronic cor pulmonale with resultant acute on chronic hypercarbic hypoxemic respiratory failure requiring intubation Plan: Continue diuresis, monitor creatinine and potassium Continue mechanical ventilation, low tidal volume lung protective strategy Cardiology is following (2) Cirrhosis of liver Suspect due to previous versus current alcohol abuse along with severe passive congestion. Patient has history of ascites with previous paracentesis Plan: Ultrasound of abdomen to evaluate need for ultrasound-guided paracentesis (3) Diabetes type 2, uncontrolled Sliding scale insulin (4) Tobacco use disorder Discuss smoking cessation strategies once extubated (5) History of alcohol abuse Critical care time 40 minutes Data Medications: Current Inpatient Medications Medications (Trade) Dose Ordered Sig/Jerica Route Start Time Stop Time Status Last Admin Dose Admin Ioversol (Optiray 320) 111 ml UD PRN IV 10/30/17 17:45 11/03/17 17:44 Heparin Sodium (Porcine) (Heparin Sq 5000 Unit/0.5ml) 5,000 unit Q8 SQ 10/30/17 22:00 11/29/17 21:59 11/01/17 06:16 5,000 UNIT Nitroglycerin (Nitrostat Tab) 0.4 mg UD PRN SL 10/30/17 21:00 11/29/17 20:59 Miscellaneous Information ([facility] Protocol For Hyperglycemia) 1 ea PRN PRN N/A 10/30/17 21:00 11/01/17 20:59 Glucose (Glucose 40% Gel) 15-30 GRAMS 15 GRAMS... UD PRN PO 10/30/17 21:00 11/29/17 20:59 Glucose (Glucose Chew Tab) 4-8 Tablets 4 Tabl... UD PRN PO 10/30/17 21:00 11/29/17 20:59 Dextrose (Dextrose 50% 50ML Syringe) 25-50ML 25ML FOR ... UD PRN IV 10/30/17 21:00 11/29/17 20:59 Glucagon (Glucagon Inj) 1 mg UD PRN SQ 10/30/17 21:00 11/29/17 20:59 Carbohydrates (Carbohydrates For Hypoglycemia) 15-30 GRAMS 15 grams if BSG 54-69... UD PRN PO 10/30/17 21:00 11/29/17 20:59 Prochlorperazine Edisylate 5 mg/ Syringe 5 ml @ 5 mls/min Q6H PRN IV 10/30/17 21:15 11/29/17 21:14 Aspirin (Ecotrin Tab) 81 mg QAM PO 10/31/17 09:00 11/30/17 08:59 Future Hold Insulin Glargine (Lantus Solostar Pen) 5 units BID SC 10/31/17 09:00 11/30/17 08:59 11/01/17 08:06 5 UNITS Ipratropium [place] (Atrovent 0.02% 0.5MG/2.5ML Neb) 0.5 mg Q4H PRN INH 10/30/17 21:30 11/29/17 21:29 Propofol (Diprivan Iv Emulsion 100ml Vial) 1 dose UD PRN IV 10/30/17 23:18 11/02/17 23:17 11/01/17 10:46 1 DOSE Levalbuterol (Xopenex Hfa Inhaler) 4 puffs Q6R INH 10/31/17 00:00 11/30/17 00:00 11/01/17 07:12 4 PUFFS Ipratropium [place] (Atrovent Hfa Inhaler) 4 puffs Q6R INH 10/31/17 00:00 11/30/17 00:00 11/01/17 07:12 4 PUFFS Doxycycline Hyclate 100 mg/ Dextrose 110 ml @ 50 mls/hr BID IV 10/31/17 09:00 11/10/17 08:59 11/01/17 08:06 50 MLS/HR Pantoprazole Sodium 40 mg/ Syringe 10 ml @ 5 mls/min DAILY IV 10/31/17 09:00 11/30/17 08:59 11/01/17 08:06 5 MLS/MIN Fentanyl Citrate (Fentanyl Inj) 25 mcg Q1H PRN IV 10/30/17 23:30 11/13/17 23:29 11/01/17 08:57 25 MCG Lorazepam (Ativan Inj) 1 mg Q1H PRN IV 10/31/17 01:15 11/30/17 01:14 10/31/17 01:35 1 MG Metoprolol Tartrate (Lopressor Iv) 2.5 mg Q6H IV. 10/31/17 06:00 11/30/17 05:59 11/01/17 06:13 2.5 MG Acetaminophen 650 mg/Empty Bag 65 ml @ 260 mls/hr Q8H PRN IV 10/31/17 03:30 11/30/17 03:29 Atorvastatin Calcium (Lipitor Tab) 40 mg DAILY NG 10/31/17 09:00 11/30/17 08:59 11/01/17 08:06 40 MG Aspirin (Aspirin Chew) 81 mg DAILY NG 10/31/17 09:00 11/30/17 08:59 11/01/17 08:06 81 MG Bacitracin (Bacitracin Oint) 1 appln BID EXT 10/31/17 09:00 11/04/17 21:01 11/01/17 08:07 1 APPLN Albumin Human (Albumin 25%) 12.5 gm Q6 IV 10/31/17 12:00 11/03/17 11:59 11/01/17 06:14 12.5 GM Ceftriaxone Sodium 2000 mg/ Dextrose 70 ml @ 100 mls/hr Q24H IV 10/31/17 14:00 11/10/17 13:59 10/31/17 14:29 100 MLS/HR Furosemide 60 mg/ Syringe 6 ml @ 4 mls/min Q8 IV 10/31/17 22:00 11/30/17 21:59 11/01/17 06:11 4 MLS/MIN Insulin Aspart (novoLOG ASPART) SLIDING SCALE If C... Q6 SC 11/01/17 12:00 12/01/17 11:59 Vital Signs: Date Time Temp Pulse Resp B/P (MAP) Pulse Ox O2 Delivery O2 Flow Rate FiO2 11/01/17 10:00 36.4 60 20 104/55 (71) 90 Mechanical Ventilator 70 11/01/17 08:00 Mechanical Ventilator 70 11/01/17 08:00 70 11/01/17 08:00 36.4 60 20 107/62 (77) 91 Mechanical Ventilator 70 11/01/17 06:13 60 106/56 11/01/17 06:01 36.7 60 20 106/55 (72) 92 Mechanical Ventilator 11/01/17 05:31 36.7 60 20 115/55 (75) 95 Mechanical Ventilator 11/01/17 05:03 36.6 62 21 139/50 (79) 95 Mechanical Ventilator 11/01/17 04:55 70 11/01/17 04:31 36.5 70 20 122/60 (80) 96 Mechanical Ventilator 11/01/17 04:01 36.5 66 20 106/56 (73) 91 Mechanical Ventilator 11/01/17 04:00 70 11/01/17 03:31 36.5 66 20 105/56 (72) 91 Mechanical Ventilator 11/01/17 03:01 36.6 65 20 111/56 (74) 91 Mechanical Ventilator 11/01/17 02:31 36.6 63 20 113/56 (75) 94 Mechanical Ventilator 11/01/17 02:01 36.7 63 20 110/55 (73) 92 Mechanical Ventilator 11/01/17 01:48 70 11/01/17 01:01 37.0 60 20 108/52 (70) 94 Mechanical Ventilator 11/01/17 00:31 37.2 60 20 111/51 (71) 94 Mechanical Ventilator 11/01/17 00:16 37.2 60 20 114/51 (72) Mechanical Ventilator 11/01/17 00:16 60 118/48 11/01/17 00:00 70 10/31/17 23:31 37.2 61 20 118/48 (71) 91 Mechanical Ventilator 10/31/17 23:01 37.3 61 20 110/50 (70) 93 Mechanical Ventilator 10/31/17 22:55 80 10/31/17 22:31 37.3 60 21 120/47 (71) 95 Mechanical Ventilator 10/31/17 22:02 37.3 62 24 101/68 (79) 95 Mechanical Ventilator 10/31/17 21:31 37.3 60 21 112/47 (68) 93 Mechanical Ventilator 10/31/17 21:01 37.3 60 20 112/46 (68) 92 Mechanical Ventilator 10/31/17 20:31 37.0 61 20 118/47 (70) 90 Mechanical Ventilator 10/31/17 20:01 37.1 60 20 110/44 (66) 90 Mechanical Ventilator 10/31/17 20:00 94 Mechanical Ventilator 80 10/31/17 20:00 80 10/31/17 19:31 37.3 60 20 113/47 (69) 90 Mechanical Ventilator 10/31/17 19:15 80 10/31/17 19:01 37.3 60 20 116/46 (69) 90 Mechanical Ventilator 80 10/31/17 18:01 37.0 60 20 105/46 (65) 90 Mechanical Ventilator 80 10/31/17 17:31 37.5 63 20 106/41 (62) 91 10/31/17 17:29 80 10/31/17 17:01 37.5 60 20 103/40 (61) 91 10/31/17 16:44 60 124/47 10/31/17 16:31 37.5 61 20 124/47 (72) 91 10/31/17 16:01 37.4 60 20 115/50 (71) 92 10/31/17 16:00 80 10/31/17 15:31 37.3 60 20 108/48 (68) 91 10/31/17 15:01 37.2 60 20 107/45 (65) 91 10/31/17 14:32 80 10/31/17 14:31 37.2 63 20 102/49 (66) 92 10/31/17 14:01 37.2 60 20 102/43 (62) 90 10/31/17 13:31 37.2 60 20 100/43 (62) 90 Mechanical Ventilator 10/31/17 13:14 37.3 62 20 99/46 (63) 92 Mechanical Ventilator 10/31/17 12:53 37.2 60 20 106/49 (68) 90 Mechanical Ventilator 10/31/17 12:31 37.2 60 20 107/50 (69) 91 Mechanical Ventilator 80 10/31/17 12:01 37.0 60 20 114/52 (72) 93 Mechanical Ventilator 10/31/17 12:00 100 10/31/17 11:41 60 108/45 Laboratory Results: Last 24 Hours Test 10/31/17 11:44 10/31/17 16:42 10/31/17 16:50 10/31/17 20:41 Bedside Glucose 137 mg/dl 161 mg/dl 173 mg/dl Urine Random Sodium 45 mEq/L Test 11/01/17 00:14 11/01/17 04:27 11/01/17 04:29 11/01/17 06:09 Bedside Glucose 192 mg/dl 246 mg/dl Sodium Level 136 mmol/L Potassium Level 4.5 mmol/L Chloride Level 97 mmol/L Carbon Dioxide Level 28 mmol/L Anion Gap 11.0 mmol/L Blood Urea Nitrogen 63 mg/dl Creatinine 1.94 mg/dl Est Creatinine Clear Calc Drug Dose 56.4 ml/min Estimated GFR () 43.6 Estimated GFR (Non- 37.6 BUN/Creatinine Ratio 32.3 Random Glucose 210 mg/dl Calcium Level 8.2 mg/dl White Blood Count 16.13 K/uL Red Blood Count 4.78 M/uL Hemoglobin 12.5 g/dL Hematocrit 38.4 % Mean Corpuscular Volume 80.3 fL Mean Corpuscular Hemoglobin 26.2 pg Mean Corpuscular Hemoglobin Concent 32.6 g/dl Platelet Count 266 K/uL Mean Platelet Volume 10.2 fL Neutrophils (%) (Auto) 89.4 % Lymphocytes (%) (Auto) 5.8 % Monocytes (%) (Auto) 4.3 % Eosinophils (%) (Auto) 0.0 % Basophils (%) (Auto) 0.1 % Neutrophils # (Auto) 14.43 K/uL Lymphocytes # (Auto) 0.94 K/uL Monocytes # (Auto) 0.69 K/uL Eosinophils # (Auto) 0.00 K/uL Basophils # (Auto) 0.01 K/uL RDW Standard Deviation 48.3 fL RDW Coefficient of Variation 16.5 % Immature Granulocyte % (Auto) 0.4 % Immature Granulocyte # (Auto) 0.06 K/uL Test 11/01/17 08:33 11/01/17 10:30 11/01/17 11:04 Blood Gas Sample Site L Radial Bedside Blood Gas pH (LAB) 7.47 Bedside Blood Gas pCO2 (LAB) 44 mmHg Bedside Blood Gas pO2 (LAB) 56 mmHg Bedside Blood Gas HCO3 (LAB) 32 meq/L Bedside Blood Gas Total CO2 34 mEq/l Bedside Blood Gas Base Excess (LAB) 8.0 meq/L Bedside Blood Gas O2 Saturation 91.0 % Tate Test Pass Oxygen Delivery Device Ventilator Urine Color YELLOW Urine Appearance CLEAR Urine pH 5.5 Urine Specific [place] 1.013 Urine Protein NEG Urine Glucose (UA) NEG Urine Ketones NEG Urine Occult Blood NEG Urine Nitrite NEG Urine Bilirubin NEG Urine Urobilinogen NEG Urine Leukocyte Esterase TRACE Urine WBC (Auto) 1-5 /hpf Urine RBC (Auto) 5-10 /hpf Urine Hyaline Casts (Auto) 1-5 /lpf Urine Epithelial Cells (Auto) 0-5 /lpf Urine Bacteria (Auto) NEG Bedside Glucose 242 mg/dl Problem Qualifiers (1) CHF exacerbation: Heart failure type: diastolic Qualified Codes: I50.33 - Acute on chronic diastolic (congestive) heart failure
--- NOTE | 2017-11-01 14:19 | Progress Note ---
Medicine Progress Note Date & Time of Visit: Nov 01, 2017 at 14:13. Subjective remains on the [facility] vent, sedated not in distress, FIo2 70%, satting 80% no other acute events overnight Objective Last 8 Hrs Date Time Temp Pulse Resp B/P (MAP) Pulse Ox O2 Delivery O2 Flow Rate FiO2 11/01/17 12:17 36.3 60 20 114/57 (76) 90 Mechanical Ventilator 70 11/01/17 12:01 36.4 66 20 114/60 (78) 95 11/01/17 11:39 70 11/01/17 11:31 36.4 61 21 126/62 (83) 95 11/01/17 11:30 36.4 60 21 96 11/01/17 11:30 60 131/67 11/01/17 11:02 36.3 76 20 131/57 (81) 94 11/01/17 11:00 70 11/01/17 10:32 36.2 68 15 111/65 (80) 11/01/17 10:30 36.2 60 20 90 11/01/17 10:01 36.2 58 20 104/55 (71) 89 11/01/17 10:00 36.4 60 20 104/55 (71) 90 Mechanical Ventilator 70 11/01/17 09:31 36.3 60 20 109/56 (73) 91 11/01/17 09:30 36.3 60 20 90 11/01/17 09:01 36.3 60 20 107/54 (71) 89 11/01/17 08:31 36.4 61 20 108/58 (75) 89 11/01/17 08:30 36.4 62 20 89 11/01/17 08:01 36.4 60 20 106/52 (70) 89 11/01/17 08:00 Mechanical Ventilator 70 11/01/17 08:00 70 11/01/17 08:00 36.4 60 20 107/62 (77) 91 Mechanical Ventilator 70 11/01/17 08:00 Mechanical Ventilator 70 11/01/17 07:31 36.4 62 20 107/52 (70) 90 11/01/17 07:30 36.4 62 20 90 11/01/17 07:12 70 Physical Exam: General- sedated, not in distress, no acc muscle use Neck- no JVD Lungs- mild rhonchi anteriorly Heart- regular rhythm; no murmur, normal rate Abdomen- normal bowel sounds, soft, nontender Extremities- no pretibial edema, no calf tenderness Neuro- patient sedated, on mechanical ventilator Skin- warm & dry Laboratory Results: Last 24 Hours Test 10/31/17 16:42 10/31/17 16:50 10/31/17 20:41 11/01/17 00:14 Bedside Glucose 161 mg/dl 173 mg/dl 192 mg/dl Urine Random Sodium 45 mEq/L Test 11/01/17 04:27 11/01/17 04:29 11/01/17 06:09 11/01/17 08:33 Sodium Level 136 mmol/L Potassium Level 4.5 mmol/L Chloride Level 97 mmol/L Carbon Dioxide Level 28 mmol/L Anion Gap 11.0 mmol/L Blood Urea Nitrogen 63 mg/dl Creatinine 1.94 mg/dl Est Creatinine Clear Calc Drug Dose 56.4 ml/min Estimated GFR () 43.6 Estimated GFR (Non- 37.6 BUN/Creatinine Ratio 32.3 Random Glucose 210 mg/dl Calcium Level 8.2 mg/dl White Blood Count 16.13 K/uL Red Blood Count 4.78 M/uL Hemoglobin 12.5 g/dL Hematocrit 38.4 % Mean Corpuscular Volume 80.3 fL Mean Corpuscular Hemoglobin 26.2 pg Mean Corpuscular Hemoglobin Concent 32.6 g/dl Platelet Count 266 K/uL Mean Platelet Volume 10.2 fL Neutrophils (%) (Auto) 89.4 % Lymphocytes (%) (Auto) 5.8 % Monocytes (%) (Auto) 4.3 % Eosinophils (%) (Auto) 0.0 % Basophils (%) (Auto) 0.1 % Neutrophils # (Auto) 14.43 K/uL Lymphocytes # (Auto) 0.94 K/uL Monocytes # (Auto) 0.69 K/uL Eosinophils # (Auto) 0.00 K/uL Basophils # (Auto) 0.01 K/uL RDW Standard Deviation 48.3 fL RDW Coefficient of Variation 16.5 % Immature Granulocyte % (Auto) 0.4 % Immature Granulocyte # (Auto) 0.06 K/uL Bedside Glucose 246 mg/dl Blood Gas Sample Site L Radial Bedside Blood Gas pH (LAB) 7.47 Bedside Blood Gas pCO2 (LAB) 44 mmHg Bedside Blood Gas pO2 (LAB) 56 mmHg Bedside Blood Gas HCO3 (LAB) 32 meq/L Bedside Blood Gas Total CO2 34 mEq/l Bedside Blood Gas Base Excess (LAB) 8.0 meq/L Bedside Blood Gas O2 Saturation 91.0 % Tate Test Pass Oxygen Delivery Device Ventilator Test 11/01/17 10:30 11/01/17 11:04 Urine Color YELLOW Urine Appearance CLEAR Urine pH 5.5 Urine Specific [place] 1.013 Urine Protein NEG Urine Glucose (UA) NEG Urine Ketones NEG Urine Occult Blood NEG Urine Nitrite NEG Urine Bilirubin NEG Urine Urobilinogen NEG Urine Leukocyte Esterase TRACE Urine WBC (Auto) 1-5 /hpf Urine RBC (Auto) 5-10 /hpf Urine Hyaline Casts (Auto) 1-5 /lpf Urine Epithelial Cells (Auto) 0-5 /lpf Urine Bacteria (Auto) NEG Bedside Glucose 242 mg/dl Assessment & Plan ASSESSMENT: Acute hypoxemic, hypercapnic respiratory failure with Metabolic Encephalopathy Acute on Chronic Diastolic CHF -- echo: * -- Conclusions -- * Limited study to assess LV systolic function. * Normal LV chamber size with moderate concentric LVH. * Hyperdynamic LV systolic function, EF >70%. * Paradoxical septal motion is consistent with right ventricular pressure overload, otherwise, no segmental left ventricular wall motion abnormalities are noted. * Small, loculated posterior pericardial effusion without hemodynamic significance. -- on Lasix 60mg IV q8h crea increased to 1.9 appreciate Cardio SVC recommendations Nephro consulted -- [facility] Vent Mgt per [employer]- appreciate the recommendations Acute Renal Failure -- crea increasing, now at 1.9 Nephro consulted Liver Cirrhosis with Ascites -- Abd US: (+) moderate ascites -- GI consulted-- appreciate the recommendations -- on Albumin q6h empiric Ceftri IV for possible SBP -- will eventually need Liver Biopsy to exclude autoimmune liver cirrhosis YECENIA -- CPAP noncompliance. Hypertension, stable. Symptomatic bradycardia status post pacemaker, paced rhythm. DM2 insulin requiring, suboptimal control as of recent inpatient Hemoglobin A1c of 14.1 from August 2017. Ongoing tobacco abuse, past alcohol use DV prophylaxis Heparin sc q8h Disposition pending Current Inpatient Medications: Current Inpatient Medications Medications (Trade) Dose Ordered Sig/Jerica Route Start Time Stop Time Status Last Admin Dose Admin Ioversol (Optiray 320) 111 ml UD PRN IV 10/30/17 17:45 11/03/17 17:44 Heparin Sodium (Porcine) (Heparin Sq 5000 Unit/0.5ml) 5,000 unit Q8 SQ 10/30/17 22:00 11/29/17 21:59 11/01/17 06:16 5,000 UNIT Nitroglycerin (Nitrostat Tab) 0.4 mg UD PRN SL 10/30/17 21:00 11/29/17 20:59 Miscellaneous Information (Icu Protocol For Hyperglycemia) 1 ea PRN PRN N/A 10/30/17 21:00 11/01/17 20:59 Glucose (Glucose 40% Gel) 15-30 GRAMS 15 GRAMS... UD PRN PO 10/30/17 21:00 11/29/17 20:59 Glucose (Glucose Chew Tab) 4-8 Tablets 4 Tabl... UD PRN PO 10/30/17 21:00 11/29/17 20:59 Dextrose (Dextrose 50% 50ML Syringe) 25-50ML 25ML FOR ... UD PRN IV 10/30/17 21:00 11/29/17 20:59 Glucagon (Glucagon Inj) 1 mg UD PRN SQ 10/30/17 21:00 11/29/17 20:59 Carbohydrates (Carbohydrates For Hypoglycemia) 15-30 GRAMS 15 grams if BSG 54-69... UD PRN PO 10/30/17 21:00 11/29/17 20:59 Prochlorperazine Edisylate 5 mg/ Syringe 5 ml @ 5 mls/min Q6H PRN IV 10/30/17 21:15 11/29/17 21:14 Aspirin (Ecotrin Tab) 81 mg QAM PO 10/31/17 09:00 11/30/17 08:59 Future Hold Insulin Glargine (Lantus Solostar Pen) 5 units BID SC 10/31/17 09:00 11/30/17 08:59 11/01/17 08:06 5 UNITS Ipratropium [place] (Atrovent 0.02% 0.5MG/2.5ML Neb) 0.5 mg Q4H PRN INH 10/30/17 21:30 11/29/17 21:29 Propofol (Diprivan Iv Emulsion 100ml Vial) 1 dose UD PRN IV 10/30/17 23:18 11/02/17 23:17 11/01/17 10:46 1 DOSE Levalbuterol (Xopenex Hfa Inhaler) 4 puffs Q6R INH 10/31/17 00:00 11/30/17 00:00 11/01/17 07:12 4 PUFFS Ipratropium [place] (Atrovent Hfa Inhaler) 4 puffs Q6R INH 10/31/17 00:00 11/30/17 00:00 11/01/17 07:12 4 PUFFS Doxycycline Hyclate 100 mg/ Dextrose 110 ml @ 50 mls/hr BID IV 10/31/17 09:00 11/10/17 08:59 11/01/17 08:06 50 MLS/HR Pantoprazole Sodium 40 mg/ Syringe 10 ml @ 5 mls/min DAILY IV 10/31/17 09:00 11/30/17 08:59 11/01/17 08:06 5 MLS/MIN Fentanyl Citrate (Fentanyl Inj) 25 mcg Q1H PRN IV 10/30/17 23:30 11/13/17 23:29 11/01/17 08:57 25 MCG Lorazepam (Ativan Inj) 1 mg Q1H PRN IV 10/31/17 01:15 11/30/17 01:14 10/31/17 01:35 1 MG Metoprolol Tartrate (Lopressor Iv) 2.5 mg Q6H IV. 10/31/17 06:00 11/30/17 05:59 11/01/17 11:30 2.5 MG Acetaminophen 650 mg/Empty Bag 65 ml @ 260 mls/hr Q8H PRN IV 10/31/17 03:30 11/30/17 03:29 Atorvastatin Calcium (Lipitor Tab) 40 mg DAILY NG 10/31/17 09:00 11/30/17 08:59 11/01/17 08:06 40 MG Aspirin (Aspirin Chew) 81 mg DAILY NG 10/31/17 09:00 11/30/17 08:59 11/01/17 08:06 81 MG Bacitracin (Bacitracin Oint) 1 appln BID EXT 10/31/17 09:00 11/04/17 21:01 11/01/17 08:07 1 APPLN Albumin Human (Albumin 25%) 12.5 gm Q6 IV 10/31/17 12:00 11/03/17 11:59 11/01/17 11:34 12.5 GM Ceftriaxone Sodium 2000 mg/ Dextrose 70 ml @ 100 mls/hr Q24H IV 10/31/17 14:00 11/10/17 13:59 10/31/17 14:29 100 MLS/HR Furosemide 60 mg/ Syringe 6 ml @ 4 mls/min Q8 IV 10/31/17 22:00 11/30/17 21:59 11/01/17 06:11 4 MLS/MIN Insulin Aspart (novoLOG ASPART) SLIDING SCALE If C... Q6 SC 11/01/17 12:00 12/01/17 11:59 11/01/17 11:32 5 UNITS
[2017-11-01] MEDS: CEFTRIAXONE SOD INJ 2,000 MG in DEXTROSE 5% 50ML 50 ML IV SCH (14:50)
[2017-11-02] VITALS (34 sets, daily range): BP systolic 96–138; BP diastolic 32–82; PULSE 60–89; TEMP 36.3–37.1; O2SAT 88–95
[2017-11-02] MEDS: METOPROLOL TARTRATE 1 MG/ML VIAL IV. SCH ×5 (00:14→23:31)
[2017-11-02] MEDS: ALBUMIN HUMAN 25% 12.5 GM/50 ML VIAL IV SCH ×2 (00:15→06:00)
[2017-11-02] MEDS: PROPOFOL IV EMULSION 10 MG/ML 100 ML VIAL IV PRN ×5 (00:21→22:04)
[2017-11-02] MEDS: INSULIN ASPART 100 UNITS/ML 3 ML PEN SC SCH ×5 (00:23→23:58)
[2017-11-02] MEDS: LEValbuterol HFA 15GM INHALER INH SCH ×3 (02:00→19:15)
[2017-11-02] MEDS: IPRATROPIUM BROMIDE HFA INHALER INH SCH ×3 (02:01→19:15)
[2017-11-02] MEDS: FENTANYL CITRATE INJ 50 MCG/1 ML 2 ML VIAL IV PRN ×7 (03:31→20:10)
[2017-11-02 04:48] LABS: BASO % 0.2 %; BASO ABS # 0.03 K/uL (0-0.2); EOS % 0.2 %; EOS ABS # 0.03 K/uL (0-0.5); HEMATOCRIT 42.7 % (42-52); HEMOGLOBIN 13.3 g/dL (14.0-18.0); IG# 0.04 K/uL (0.00-0.02); LYMPH % 19.1 %; LYMPH ABS # 3.14 K/uL (1.2-3.4); MEAN CORPUSCULAR HEMOGLOBIN 25.5 pg (25-34); MEAN CORPUSCULAR HGB CONC 31.1 g/dl (32-36); MEAN PLATELET VOLUME 10.2 fL (7.4-10.4); MONO % 7.2 %; MONO ABS # 1.18 K/uL (0.11-0.59); NEUT % 73.1 %; NEUT ABS # 12.03 K/uL (1.4-6.5); PLATELET COUNT 271 K/uL (130-400); RED CELL DISTRIBUTION WIDTH CV 16.6 % (11.5-14.5); WHITE BLOOD COUNT 16.45 K/uL (4.8-10.8)
[2017-11-02 05:09] LABS: CALCIUM 8.8 mg/dl (8.5-10.1); CREATININE 1.53 mg/dl (0.60-1.40); POTASSIUM 3.3 mmol/L (3.5-5.1)
[2017-11-02] MEDS: HEPARIN SOD 5000 UNIT/0.5 ML CARP SQ SCH ×3 (05:53→21:22)
[2017-11-02] MEDS: FUROSEMIDE INJ 60 MG in SYRINGE 0 ML IV SCH (05:59)
--- NOTE | 2017-11-02 07:11 | DIAGNOSTIC IMAGING REPORT ---
CHEST ONE VIEW PORTABLE HISTORY: 56 years-old Male chf acute shortness of breath with congestive heart failure COMPARISON: Chest radiograph 10/30/2017 TECHNIQUE: Portable AP view of the chest FINDINGS: Cardiac silhouette is enlarged, unchanged. Endotracheal tube overlies the midline, 3.8 cm superior to the angel. Enteric tube courses into the region of the gastric lumen, L side the [id number]. Left subclavian pacer is unchanged. Multiple telemetry leads overlie the chest. No pneumothorax. Small bilateral pleural effusions with pulmonary vascular congestion and bilateral interstitial coarsening with bibasilar alveolar opacities, generally unchanged from comparison. Degenerative changes of the shoulders and spine. IMPRESSION: 1. Cardiomegaly with persistent pulmonary edema pattern. 2. Small bilateral pleural effusions with bibasilar opacities suggesting atelectasis. 3. Satisfactory positioning of life support apparatus. The above report was generated using voice recognition software. It may contain grammatical, syntax or spelling errors. Electronically signed by: Camron Granado M.D. 11/02/2017 7:10 AM Dictated Date/Time: 11/02/2017 7:08 AM
[2017-11-02] MEDS: ASPIRIN 81 MG CHEW NG SCH (08:09)
[2017-11-02] MEDS: ATORVASTATIN 40 MG TAB NG SCH (08:09)
[2017-11-02] MEDS: PANTOprazole INJ 40 MG in SYRINGE 0 ML IV SCH (08:10)
[2017-11-02] MEDS: INSULIN GLARGINE SOLOSTAR 100 UNITS/ML 3 ML PEN SC SCH ×2 (08:11→21:21)
[2017-11-02] MEDS: BACITRACIN OINT 15 GM TUBE EXT SCH ×2 (08:15→21:22)
--- NOTE | 2017-11-02 08:31 | Nephrology Progress Note ---
Nephrology Progress Note Date of Service: Nov 02, 2017. Subjective 4.7L negative yesterday, 2.4L negative so far today; Fi02 coming down slightly; still needs high dose sedation Objective Date Time Temp Pulse Resp B/P (MAP) Pulse Ox O2 Delivery O2 Flow Rate FiO2 11/02/17 07:00 36.3 60 20 109/62 (78) 89 11/02/17 06:00 36.3 60 20 104/53 (70) 90 11/02/17 06:00 64 109/53 11/02/17 05:02 60 11/02/17 05:01 36.3 78 24 96/58 (71) 94 Mechanical Ventilator 50 11/02/17 04:10 Mechanical Ventilator 65 11/02/17 04:10 65 11/02/17 04:01 36.5 64 20 106/52 (70) 92 11/02/17 03:00 36.6 60 20 120/59 (79) 93 11/02/17 02:01 36.4 62 20 130/65 (86) 95 Mechanical Ventilator 60 11/02/17 02:01 65 11/02/17 01:00 36.4 60 20 116/59 (78) 92 Mechanical Ventilator 65 11/02/17 00:14 65 137/73 11/02/17 00:10 65 11/02/17 00:10 Mechanical Ventilator 65 11/02/17 00:00 36.4 63 20 137/73 (94) 93 Mechanical Ventilator 65 11/01/17 23:13 70 11/01/17 23:00 36.3 61 20 125/66 (85) 95 Mechanical Ventilator 70 11/01/17 22:01 36.4 80 26 129/76 (93) 94 Mechanical Ventilator 70 11/01/17 21:00 36.4 60 20 110/59 (76) 91 Mechanical Ventilator 70 11/01/17 20:15 70 11/01/17 20:15 Mechanical Ventilator 70 11/01/17 20:00 36.4 60 20 112/57 (75) 92 Mechanical Ventilator 70 11/01/17 19:31 70 11/01/17 19:00 36.3 60 20 110/57 (74) 91 Mechanical Ventilator 70 11/01/17 18:18 60 112/66 11/01/17 18:00 36.4 60 20 112/56 (74) 90 Mechanical Ventilator 70 11/01/17 18:00 36.3 61 20 112/56 (74) 90 18 17:35 70 18 17:30 36.3 61 20 111/57 (75) 90 11/01/17 17:00 36.3 62 20 105/56 (72) 94 11/01/17 16:30 36.3 60 20 112/57 (75) 92 11/01/17 16:00 36.4 62 20 107/55 (72) 92 11/01/17 16:00 36.6 60 20 107/55 (72) 92 Mechanical Ventilator 70 11/01/17 15:31 36.4 60 24 116/62 (80) 92 11/01/17 15:20 36.5 63 20 117/62 (80) 94 11/01/17 15:14 36.5 63 20 117/62 (80) 95 11/01/17 15:01 36.5 68 20 117/62 (80) 96 11/01/17 15:00 36.5 64 20 97 11/01/17 14:31 36.4 66 20 117/63 (81) 95 11/01/17 14:29 70 11/01/17 14:01 36.4 63 20 116/62 (80) 96 11/01/17 14:00 36.4 70 20 95 11/01/17 13:31 36.3 65 20 124/66 (85) 97 11/01/17 13:01 36.2 60 20 120/65 (83) 94 11/01/17 13:00 36.3 64 15 94 11/01/17 12:31 36.4 60 20 104/55 (71) 93 11/01/17 12:17 36.3 60 20 114/57 (76) 90 Mechanical Ventilator 70 11/01/17 12:01 36.4 66 20 114/60 (78) 95 11/01/17 12:01 36.4 66 20 114/60 (78) 95 11/01/17 12:00 36.4 69 20 94 11/01/17 11:39 70 11/01/17 11:31 36.4 61 21 126/62 (83) 95 11/01/17 11:30 36.4 60 21 96 11/01/17 11:30 60 131/67 11/01/17 11:02 36.3 76 20 131/57 (81) 94 11/01/17 11:00 70 11/01/17 10:32 36.2 68 15 111/65 (80) 11/01/17 10:30 36.2 60 20 90 11/01/17 10:01 36.2 58 20 104/55 (71) 89 11/01/17 10:00 36.4 60 20 104/55 (71) 90 Mechanical Ventilator 70 11/01/17 09:31 36.3 60 20 109/56 (73) 91 11/01/17 09:30 36.3 60 20 90 11/01/17 09:01 36.3 60 20 107/54 (71) 89 11/01/17 08:31 36.4 61 20 108/58 (75) 89 11/01/17 08:30 36.4 62 20 89 11/01/17 08:01 36.4 60 20 106/52 (70) 89 11/01/17 08:00 Mechanical Ventilator 70 11/01/17 08:00 70 11/01/17 08:00 36.4 60 20 107/62 (77) 91 Mechanical Ventilator 70 11/01/17 08:00 Mechanical Ventilator 70 Physical Exam: General Appearance: WD/WN, no apparent distress, + obese, + pertinent finding ( intubated, lightly sedated) Eyes: normal inspection ENT: + pertinent finding (ETT) Neck: supple Respiratory/Chest: + decreased breath sounds Cardiovascular: regular rate, rhythm, + pertinent finding (anasarca) Abdomen: normal bowel sounds, non tender, soft, + pertinent finding (ascites, valdes present w/ ample clear urine) Extremities: + pedal edema, + swelling but less peripherally Neurologic/Psych: + pertinent finding (sedated lightly, murrell, does not follow commands) Skin: normal color, no jaundice, warm/dry Current Inpatient Medications Medications (Trade) Dose Ordered Sig/Jerica Route Start Time Stop Time Status Last Admin Dose Admin Ioversol (Optiray 320) 111 ml UD PRN IV 10/30/17 17:45 11/03/17 17:44 Heparin Sodium (Porcine) (Heparin Sq 5000 Unit/0.5ml) 5,000 unit Q8 SQ 10/30/17 22:00 11/29/17 21:59 11/02/17 05:53 5,000 UNIT Nitroglycerin (Nitrostat Tab) 0.4 mg UD PRN SL 10/30/17 21:00 11/29/17 20:59 Glucose (Glucose 40% Gel) 15-30 GRAMS 15 GRAMS... UD PRN PO 10/30/17 21:00 11/29/17 20:59 Glucose (Glucose Chew Tab) 4-8 Tablets 4 Tabl... UD PRN PO 10/30/17 21:00 11/29/17 20:59 Dextrose (Dextrose 50% 50ML Syringe) 25-50ML 25ML FOR ... UD PRN IV 10/30/17 21:00 11/29/17 20:59 Glucagon (Glucagon Inj) 1 mg UD PRN SQ 10/30/17 21:00 11/29/17 20:59 Carbohydrates (Carbohydrates For Hypoglycemia) 15-30 GRAMS 15 grams if BSG 54-69... UD PRN PO 10/30/17 21:00 11/29/17 20:59 Prochlorperazine Edisylate 5 mg/ Syringe 5 ml @ 5 mls/min Q6H PRN IV 10/30/17 21:15 11/29/17 21:14 Aspirin (Ecotrin Tab) 81 mg QAM PO 10/31/17 09:00 11/30/17 08:59 Future Hold Insulin Glargine (Lantus Solostar Pen) 5 units BID SC 10/31/17 09:00 11/30/17 08:59 11/01/17 21:15 5 UNITS Ipratropium [place] (Atrovent 0.02% 0.5MG/2.5ML Neb) 0.5 mg Q4H PRN INH 10/30/17 21:30 11/29/17 21:29 Propofol (Diprivan Iv Emulsion 100ml Vial) 1 dose UD PRN IV 10/30/17 23:18 11/02/17 23:17 11/02/17 05:53 1 DOSE Levalbuterol (Xopenex Hfa Inhaler) 4 puffs Q6R INH 10/31/17 00:00 11/30/17 00:00 11/02/17 02:00 4 PUFFS Ipratropium [place] (Atrovent Hfa Inhaler) 4 puffs Q6R INH 10/31/17 00:00 11/30/17 00:00 11/02/17 02:01 4 PUFFS Pantoprazole Sodium 40 mg/ Syringe 10 ml @ 5 mls/min DAILY IV 10/31/17 09:00 11/30/17 08:59 11/01/17 08:06 5 MLS/MIN Fentanyl Citrate (Fentanyl Inj) 25 mcg Q1H PRN IV 10/30/17 23:30 11/13/17 23:29 11/02/17 04:42 25 MCG Lorazepam (Ativan Inj) 1 mg Q1H PRN IV 10/31/17 01:15 11/30/17 01:14 10/31/17 01:35 1 MG Metoprolol Tartrate (Lopressor Iv) 2.5 mg Q6H IV. 10/31/17 06:00 11/30/17 05:59 11/02/17 06:00 2.5 MG Acetaminophen 650 mg/Empty Bag 65 ml @ 260 mls/hr Q8H PRN IV 10/31/17 03:30 11/30/17 03:29 Atorvastatin Calcium (Lipitor Tab) 40 mg DAILY NG 10/31/17 09:00 11/30/17 08:59 11/01/17 08:06 40 MG Aspirin (Aspirin Chew) 81 mg DAILY NG 10/31/17 09:00 11/30/17 08:59 11/01/17 08:06 81 MG Bacitracin (Bacitracin Oint) 1 appln BID EXT 10/31/17 09:00 11/04/17 21:01 11/01/17 21:17 1 APPLN Albumin Human (Albumin 25%) 12.5 gm Q6 IV 10/31/17 12:00 11/03/17 11:59 11/02/17 06:00 12.5 GM Ceftriaxone Sodium 2000 mg/ Dextrose 70 ml @ 100 mls/hr Q24H IV 10/31/17 14:00 11/10/17 13:59 11/01/17 14:50 100 MLS/HR Furosemide 60 mg/ Syringe 6 ml @ 4 mls/min Q8 IV 10/31/17 22:00 11/30/17 21:59 11/02/17 05:59 4 MLS/MIN Insulin Aspart (novoLOG ASPART) SLIDING SCALE If C... Q6 TX 11/01/17 12:00 12/01/17 11:59 11/02/17 05:58 1 UNITS Last 24 Hours Test 11/01/17 08:33 11/01/17 10:30 11/01/17 11:04 11/01/17 18:07 Blood Gas Sample Site L Radial Bedside Blood Gas pH (LAB) 7.47 Bedside Blood Gas pCO2 (LAB) 44 mmHg Bedside Blood Gas pO2 (LAB) 56 mmHg Bedside Blood Gas HCO3 (LAB) 32 meq/L Bedside Blood Gas Total CO2 34 mEq/l Bedside Blood Gas Base Excess (LAB) 8.0 meq/L Bedside Blood Gas O2 Saturation 91.0 % Tate Test Pass Oxygen Delivery Device Ventilator Urine Color YELLOW Urine Appearance CLEAR Urine pH 5.5 Urine Specific [place] 1.013 Urine Protein NEG Urine Glucose (UA) NEG Urine Ketones NEG Urine Occult Blood NEG Urine Nitrite NEG Urine Bilirubin NEG Urine Urobilinogen NEG Urine Leukocyte Esterase TRACE Urine WBC (Auto) 1-5 /hpf Urine RBC (Auto) 5-10 /hpf Urine Hyaline Casts (Auto) 1-5 /lpf Urine Epithelial Cells (Auto) 0-5 /lpf Urine Bacteria (Auto) NEG Bedside Glucose 242 mg/dl 192 mg/dl Test 11/01/17 18:12 11/02/17 00:18 11/02/17 04:16 11/02/17 05:56 Urine Random Creatinine 30.4 mg/dl Urine Random Total Protein < 5.0 mg/dl Urine Protein/Creatinine Ratio Bedside Glucose 181 mg/dl 168 mg/dl White Blood Count 16.45 K/uL Red Blood Count 5.21 M/uL Hemoglobin 13.3 g/dL Hematocrit 42.7 % Mean Corpuscular Volume 82.0 fL Mean Corpuscular Hemoglobin 25.5 pg Mean Corpuscular Hemoglobin Concent 31.1 g/dl Platelet Count 271 K/uL Mean Platelet Volume 10.2 fL Neutrophils (%) (Auto) 73.1 % Lymphocytes (%) (Auto) 19.1 % Monocytes (%) (Auto) 7.2 % Eosinophils (%) (Auto) 0.2 % Basophils (%) (Auto) 0.2 % Neutrophils # (Auto) 12.03 K/uL Lymphocytes # (Auto) 3.14 K/uL Monocytes # (Auto) 1.18 K/uL Eosinophils # (Auto) 0.03 K/uL Basophils # (Auto) 0.03 K/uL RDW Standard Deviation 50.0 fL RDW Coefficient of Variation 16.6 % Immature Granulocyte % (Auto) 0.2 % Immature Granulocyte # (Auto) 0.04 K/uL Sodium Level 140 mmol/L Potassium Level 3.3 mmol/L Chloride Level 98 mmol/L Carbon Dioxide Level 33 mmol/L Anion Gap 9.0 mmol/L Blood Urea Nitrogen 53 mg/dl Creatinine 1.53 mg/dl Est Creatinine Clear Calc Drug Dose 70.7 ml/min Estimated GFR () 58.1 Estimated GFR (Non- 50.1 BUN/Creatinine Ratio 34.6 Random Glucose 178 mg/dl Calcium Level 8.8 mg/dl Assessment & Plan 56 y/o M w/ severe diastolic HF c/b recurrent volume overload, hepatic and respiratory failure with worsening EDWARD on CKD3 w/ baseline creatinine 1.1-1.3. His BP/HR, chemistries, anemia status are all acceptable but he remains significantly volume overloaded. Also w/ significant leukocytosis - on abtx for SBP prophylaxis/PNA; also steroids just stopped. Urine sediment bland, no proteinuria.. -lower diuretic to 40 mg iv q8h -continue albumin q6h; hold spironolactone -if not 3L on the day by 2100 this evening, recommend increasing lasix to 40 mg qid IV -started standing K supplementation while diuresing w/ loops -cont daily bmp -no indication for acute dialysis at this time and likely a poor candidate; will discuss/consider further depending on clinical status Appreciate consult; will follow with you.
--- NOTE | 2017-11-02 09:14 | Progress Note ---
Medicine Progress Note Date & Time of Visit: Nov 02, 2017 at 09:13. Subjective intubated, sedated FiO2 55% saturation 94% Not in distress Diuresing better No other acute events overnight Objective Last 8 Hrs Date Time Temp Pulse Resp B/P (MAP) Pulse Ox O2 Delivery O2 Flow Rate FiO2 11/02/17 07:00 36.3 60 20 109/62 (78) 89 11/02/17 06:00 36.3 60 20 104/53 (70) 90 11/02/17 06:00 64 109/53 11/02/17 05:02 60 11/02/17 05:01 36.3 78 24 96/58 (71) 94 Mechanical Ventilator 50 11/02/17 04:10 Mechanical Ventilator 65 11/02/17 04:10 65 11/02/17 04:01 36.5 64 20 106/52 (70) 92 11/02/17 03:00 36.6 60 20 120/59 (79) 93 11/02/17 02:01 36.4 62 20 130/65 (86) 95 Mechanical Ventilator 60 11/02/17 02:01 65 Physical Exam: general- sedated, not in distress, no acc muscle use Neck- no JVD Lungs- mild diffuse rhonchi anteriorly Heart-normal rate, regular rhythm; no murmur Abdomen- normal bowel sounds, soft, nontender, moderate distention Extremities- no pretibial edema, no calf tenderness Neuro- patient sedated, on mechanical ventilator Skin- warm & dry Laboratory Results: Last 24 Hours Test 11/01/17 10:30 11/01/17 11:04 11/01/17 18:07 11/01/17 18:12 Urine Color YELLOW Urine Appearance CLEAR Urine pH 5.5 Urine Specific [place] 1.013 Urine Protein NEG Urine Glucose (UA) NEG Urine Ketones NEG Urine Occult Blood NEG Urine Nitrite NEG Urine Bilirubin NEG Urine Urobilinogen NEG Urine Leukocyte Esterase TRACE Urine WBC (Auto) 1-5 /hpf Urine RBC (Auto) 5-10 /hpf Urine Hyaline Casts (Auto) 1-5 /lpf Urine Epithelial Cells (Auto) 0-5 /lpf Urine Bacteria (Auto) NEG Bedside Glucose 242 mg/dl 192 mg/dl Urine Random Creatinine 30.4 mg/dl Urine Random Total Protein < 5.0 mg/dl Urine Protein/Creatinine Ratio Test 11/02/17 00:18 11/02/17 04:16 11/02/17 05:56 Bedside Glucose 181 mg/dl 168 mg/dl White Blood Count 16.45 K/uL Red Blood Count 5.21 M/uL Hemoglobin 13.3 g/dL Hematocrit 42.7 % Mean Corpuscular Volume 82.0 fL Mean Corpuscular Hemoglobin 25.5 pg Mean Corpuscular Hemoglobin Concent 31.1 g/dl Platelet Count 271 K/uL Mean Platelet Volume 10.2 fL Neutrophils (%) (Auto) 73.1 % Lymphocytes (%) (Auto) 19.1 % Monocytes (%) (Auto) 7.2 % Eosinophils (%) (Auto) 0.2 % Basophils (%) (Auto) 0.2 % Neutrophils # (Auto) 12.03 K/uL Lymphocytes # (Auto) 3.14 K/uL Monocytes # (Auto) 1.18 K/uL Eosinophils # (Auto) 0.03 K/uL Basophils # (Auto) 0.03 K/uL RDW Standard Deviation 50.0 fL RDW Coefficient of Variation 16.6 % Immature Granulocyte % (Auto) 0.2 % Immature Granulocyte # (Auto) 0.04 K/uL Sodium Level 140 mmol/L Potassium Level 3.3 mmol/L Chloride Level 98 mmol/L Carbon Dioxide Level 33 mmol/L Anion Gap 9.0 mmol/L Blood Urea Nitrogen 53 mg/dl Creatinine 1.53 mg/dl Est Creatinine Clear Calc Drug Dose 70.7 ml/min Estimated GFR () 58.1 Estimated GFR (Non- 50.1 BUN/Creatinine Ratio 34.6 Random Glucose 178 mg/dl Calcium Level 8.8 mg/dl Date/Time Source Procedure Growth Status 11/02/17 08:55 Blood Blood Culture Pending Ordered 11/02/17 08:55 Blood Blood Culture Pending Ordered Assessment & Plan Acute hypoxemic, hypercapnic respiratory failure with Metabolic Encephalopathy Acute on Chronic Diastolic CHF Underlying obstructive sleep apnea and ascites -- echo: * -- Conclusions -- * Limited study to assess LV systolic function. * Normal LV chamber size with moderate concentric LVH. * Hyperdynamic LV systolic function, EF >70%. * Paradoxical septal motion is consistent with right ventricular pressure overload, otherwise, no segmental left ventricular wall motion abnormalities are noted. * Small, loculated posterior pericardial effusion without hemodynamic significance. --Lasix increased to 60 mg IV every 8 hours diuresed better overnight Creatinine improved from 1.9-1.5 Nephrology consulted Transition today to Lasix 40 mg IV every 8 hours, albumin IV every 6 hours continued Continue to monitor creatinine --FiO2 from 70% noted to 55% Mech Vent Mgt per [employer] Acute Renal Failure -- Creatinine improved from 1.9-1.5 Nephro consulted Liver Cirrhosis with Ascites -- Abd US: (+) moderate ascites Radiology service unable to do no swelling paracentesis at this time -- GI consulted -- on Albumin q6h empiric Ceftri IV for possible SBP --As per GI: consider referral to a tertiary center as the patient may benefit from a transjugular liver biopsy with portal pressure measurement. This would be helpful to determine if the etiology of his liver disease is autoimmune related given the positive FLORY. YECENIA -- CPAP noncompliance. Hypertension, stable. Symptomatic bradycardia status post pacemaker, paced rhythm. DM2 insulin requiring, suboptimal control as of recent inpatient Hemoglobin A1c of 14.1 from August 2017. Ongoing tobacco abuse, past alcohol use DV prophylaxis Heparin sc q8h Disposition I had an extensive discussion with the patient's mother Darling and his sons Wolfgang and Joel and several other family members Together with Dr.Rothfleisch SUJATA Fajardo There were updated regarding patient's medical condition and the decision was made to transfer patient to [facility] for tertiary level of care All questions answered They are all agreeable and comfortable with the plan of care Discussed case with Dr. Mercado of [facility] ICU he kindly accepted the patient Rudolph NAM Current Inpatient Medications: Current Inpatient Medications Medications (Trade) Dose Ordered Sig/Jerica Route Start Time Stop Time Status Last Admin Dose Admin Ioversol (Optiray 320) 111 ml UD PRN IV 10/30/17 17:45 11/03/17 17:44 Heparin Sodium (Porcine) (Heparin Sq 5000 Unit/0.5ml) 5,000 unit Q8 SQ 10/30/17 22:00 11/29/17 21:59 11/02/17 05:53 5,000 UNIT Nitroglycerin (Nitrostat Tab) 0.4 mg UD PRN SL 10/30/17 21:00 11/29/17 20:59 Glucose (Glucose 40% Gel) 15-30 GRAMS 15 GRAMS... UD PRN PO 10/30/17 21:00 11/29/17 20:59 Glucose (Glucose Chew Tab) 4-8 Tablets 4 Tabl... UD PRN PO 10/30/17 21:00 11/29/17 20:59 Dextrose (Dextrose 50% 50ML Syringe) 25-50ML 25ML FOR ... UD PRN IV 10/30/17 21:00 11/29/17 20:59 Glucagon (Glucagon Inj) 1 mg UD PRN SQ 10/30/17 21:00 11/29/17 20:59 Carbohydrates (Carbohydrates For Hypoglycemia) 15-30 GRAMS 15 grams if BSG 54-69... UD PRN PO 10/30/17 21:00 11/29/17 20:59 Prochlorperazine Edisylate 5 mg/ Syringe 5 ml @ 5 mls/min Q6H PRN IV 10/30/17 21:15 11/29/17 21:14 Aspirin (Ecotrin Tab) 81 mg QAM PO 10/31/17 09:00 11/30/17 08:59 Future Hold Insulin Glargine (Lantus Solostar Pen) 5 units BID SC 10/31/17 09:00 11/30/17 08:59 11/02/17 08:11 5 UNITS Ipratropium L[place] (Atrovent 0.02% 0.5MG/2.5ML Neb) 0.5 mg Q4H PRN INH 10/30/17 21:30 11/29/17 21:29 Propofol (Diprivan Iv Emulsion 100ml Vial) 1 dose UD PRN IV 10/30/17 23:18 11/03/17 23:17 11/02/17 08:11 1 DOSE Levalbuterol (Xopenex Hfa Inhaler) 4 puffs Q6R INH 10/31/17 00:00 11/30/17 00:00 11/02/17 02:00 4 PUFFS Ipratropium [place] (Atrovent Hfa Inhaler) 4 puffs Q6R INH 10/31/17 00:00 11/30/17 00:00 11/02/17 02:01 4 PUFFS Pantoprazole Sodium 40 mg/ Syringe 10 ml @ 5 mls/min DAILY IV 10/31/17 09:00 11/30/17 08:59 11/02/17 08:10 5 MLS/MIN Fentanyl Citrate (Fentanyl Inj) 25 mcg Q1H PRN IV 10/30/17 23:30 11/13/17 23:29 11/02/17 08:23 25 MCG Metoprolol Tartrate (Lopressor Iv) 2.5 mg Q6H IV. 10/31/17 06:00 11/30/17 05:59 11/02/17 06:00 2.5 MG Acetaminophen 650 mg/Empty Bag 65 ml @ 260 mls/hr Q8H PRN IV 10/31/17 03:30 11/30/17 03:29 Atorvastatin Calcium (Lipitor Tab) 40 mg DAILY NG 10/31/17 09:00 11/30/17 08:59 11/02/17 08:09 40 MG Aspirin (Aspirin Chew) 81 mg DAILY NG 10/31/17 09:00 11/30/17 08:59 11/02/17 08:09 81 MG Bacitracin (Bacitracin Oint) 1 appln BID EXT 10/31/17 09:00 11/04/17 21:01 11/02/17 08:15 1 APPLN Ceftriaxone Sodium 2000 mg/ Dextrose 70 ml @ 100 mls/hr Q24H IV 10/31/17 14:00 11/10/17 13:59 11/01/17 14:50 100 MLS/HR Insulin Aspart (novoLOG ASPART) SLIDING SCALE If C... Q6 SC 11/01/17 12:00 12/01/17 11:59 11/02/17 05:58 1 UNITS Furosemide 40 mg/ Syringe 4 ml @ 4 mls/min Q8 IV 11/02/17 14:00 11/30/17 21:59 Potassium Chloride (Klor-Con Pwd) 40 meq BID NG 11/02/17 09:00 12/02/17 08:59 Lorazepam (Ativan Inj) 2 mg Q4H PRN IV 11/02/17 08:45 12/02/17 08:44
[2017-11-02] MEDS: LORAZEPAM 2 MG/ML 1 ML VIAL IV PRN ×4 (09:16→17:40)
[2017-11-02] MEDS ORDERED: PEPTAMEN INTENSE VHP 1000ML BAG OG PRN (10:00)
[2017-11-02] MEDS: POTASSIUM CHLORIDE PWD 20 MEQ PACK NG SCH ×2 (11:15→21:19)
--- NOTE | 2017-11-02 11:43 | Gastroenterology Progress Note ---
Progress Note Date of Service: Nov 02, 2017 Subjective Pt evaluation today including: physical exam, chart review, lab review, review of studies, review of inpatient medication list Pt remains on mechanical vent, FiO2 65-70%, sat 90%. Lasix increased to 40mg IV q8hrs, diuresed 5L yesterday. Cr down to 1.5 Review of Systems Constitutional: + see HPI (Pt sedated, intubated. ) Medications Current Inpatient Medications Medications (Trade) Dose Ordered Sig/Jerica Route Start Time Stop Time Status Last Admin Dose Admin Ioversol (Optiray 320) 111 ml UD PRN IV 10/30/17 17:45 11/03/17 17:44 Heparin Sodium (Porcine) (Heparin Sq 5000 Unit/0.5ml) 5,000 unit Q8 SQ 10/30/17 22:00 11/29/17 21:59 11/02/17 05:53 5,000 UNIT Nitroglycerin (Nitrostat Tab) 0.4 mg UD PRN SL 10/30/17 21:00 11/29/17 20:59 Glucose (Glucose 40% Gel) 15-30 GRAMS 15 GRAMS... UD PRN PO 10/30/17 21:00 11/29/17 20:59 Glucose (Glucose Chew Tab) 4-8 Tablets 4 Tabl... UD PRN PO 10/30/17 21:00 11/29/17 20:59 Dextrose (Dextrose 50% 50ML Syringe) 25-50ML 25ML FOR ... UD PRN IV 10/30/17 21:00 11/29/17 20:59 Glucagon (Glucagon Inj) 1 mg UD PRN SQ 10/30/17 21:00 11/29/17 20:59 Carbohydrates (Carbohydrates For Hypoglycemia) 15-30 GRAMS 15 grams if BSG 54-69... UD PRN PO 10/30/17 21:00 11/29/17 20:59 Prochlorperazine Edisylate 5 mg/ Syringe 5 ml @ 5 mls/min Q6H PRN IV 10/30/17 21:15 11/29/17 21:14 Aspirin (Ecotrin Tab) 81 mg QAM PO 10/31/17 09:00 11/30/17 08:59 Future Hold Insulin Glargine (Lantus Solostar Pen) 5 units BID SC 10/31/17 09:00 11/30/17 08:59 11/02/17 08:11 5 UNITS Ipratropium [place] (Atrovent 0.02% 0.5MG/2.5ML Neb) 0.5 mg Q4H PRN INH 10/30/17 21:30 11/29/17 21:29 Propofol (Diprivan Iv Emulsion 100ml Vial) 1 dose UD PRN IV 10/30/17 23:18 11/03/17 23:17 11/02/17 08:11 1 DOSE Levalbuterol (Xopenex Hfa Inhaler) 4 puffs Q6R INH 10/31/17 00:00 11/30/17 00:00 11/02/17 07:15 4 PUFFS Ipratropium [place] (Atrovent Hfa Inhaler) 4 puffs Q6R INH 10/31/17 00:00 11/30/17 00:00 11/02/17 07:15 4 PUFFS Pantoprazole Sodium 40 mg/ Syringe 10 ml @ 5 mls/min DAILY IV 10/31/17 09:00 11/30/17 08:59 11/02/17 08:10 5 MLS/MIN Fentanyl Citrate (Fentanyl Inj) 25 mcg Q1H PRN IV 10/30/17 23:30 11/13/17 23:29 11/02/17 10:40 25 MCG Metoprolol Tartrate (Lopressor Iv) 2.5 mg Q6H IV. 10/31/17 06:00 11/30/17 05:59 11/02/17 11:19 2.5 MG Acetaminophen 650 mg/Empty Bag 65 ml @ 260 mls/hr Q8H PRN IV 10/31/17 03:30 11/30/17 03:29 Atorvastatin Calcium (Lipitor Tab) 40 mg DAILY NG 10/31/17 09:00 11/30/17 08:59 11/02/17 08:09 40 MG Aspirin (Aspirin Chew) 81 mg DAILY NG 10/31/17 09:00 11/30/17 08:59 11/02/17 08:09 81 MG Bacitracin (Bacitracin Oint) 1 appln BID EXT 10/31/17 09:00 11/04/17 21:01 11/02/17 08:15 1 APPLN Ceftriaxone Sodium 2000 mg/ Dextrose 70 ml @ 100 mls/hr Q24H IV 10/31/17 14:00 11/10/17 13:59 11/01/17 14:50 100 MLS/HR Insulin Aspart (novoLOG ASPART) SLIDING SCALE If C... Q6 SC 11/01/17 12:00 12/01/17 11:59 11/02/17 05:58 1 UNITS Furosemide 40 mg/ Syringe 4 ml @ 4 mls/min Q8 IV 11/02/17 14:00 11/30/17 21:59 Potassium Chloride (Klor-Con Pwd) 40 meq BID NG 11/02/17 09:00 12/02/17 08:59 11/02/17 11:15 40 MEQ Lorazepam (Ativan Inj) 2 mg Q4H PRN IV 11/02/17 08:45 12/02/17 08:44 11/02/17 10:40 2 MG Enteral Nutritional Formula (Peptamen Intense VHP) 1,000 ml UD PRN OG 11/02/17 10:00 12/02/17 09:59 11/02/17 11:16 1,000 ML Objective Vital Signs Date Time Temp Pulse Resp B/P (MAP) Pulse Ox O2 Delivery O2 Flow Rate FiO2 11/02/17 11:19 67 130/63 11/02/17 08:00 65 11/02/17 08:00 36.4 69 20 124/82 (96) 95 Mechanical Ventilator 60 11/02/17 08:00 Mechanical Ventilator 55 11/02/17 07:15 55 11/02/17 07:00 36.3 60 20 109/62 (78) 89 11/02/17 06:00 36.3 60 20 104/53 (70) 90 11/02/17 06:00 64 109/53 11/02/17 05:02 60 11/02/17 05:01 36.3 78 24 96/58 (71) 94 Mechanical Ventilator 50 11/02/17 04:10 Mechanical Ventilator 65 11/02/17 04:10 65 11/02/17 04:01 36.5 64 20 106/52 (70) 92 11/02/17 03:00 36.6 60 20 120/59 (79) 93 11/02/17 02:01 36.4 62 20 130/65 (86) 95 Mechanical Ventilator 60 11/02/17 02:01 65 11/02/17 01:00 36.4 60 20 116/59 (78) 92 Mechanical Ventilator 65 11/02/17 00:14 65 137/73 11/02/17 00:10 65 11/02/17 00:10 Mechanical Ventilator 65 11/02/17 00:00 36.4 63 20 137/73 (94) 93 Mechanical Ventilator 65 11/01/17 23:13 70 11/01/17 23:00 36.3 61 20 125/66 (85) 95 Mechanical Ventilator 70 11/01/17 22:01 36.4 80 26 129/76 (93) 94 Mechanical Ventilator 70 11/01/17 21:00 36.4 60 20 110/59 (76) 91 Mechanical Ventilator 70 11/01/17 20:15 70 11/01/17 20:15 Mechanical Ventilator 70 11/01/17 20:00 36.4 60 20 112/57 (75) 92 Mechanical Ventilator 70 11/01/17 19:31 70 11/01/17 19:00 36.3 60 20 110/57 (74) 91 Mechanical Ventilator 70 11/01/17 18:18 60 112/66 11/01/17 18:00 36.4 60 20 112/56 (74) 90 Mechanical Ventilator 70 11/01/17 18:00 36.3 61 20 112/56 (74) 90 11/01/17 17:35 70 11/01/17 17:30 36.3 61 20 111/57 (75) 90 11/01/17 17:00 36.3 62 20 105/56 (72) 94 11/01/17 16:30 36.3 60 20 112/57 (75) 92 11/01/17 16:00 36.4 62 20 107/55 (72) 92 11/01/17 16:00 36.6 60 20 107/55 (72) 92 Mechanical Ventilator 70 11/01/17 15:31 36.4 60 24 116/62 (80) 92 11/01/17 15:20 36.5 63 20 117/62 (80) 94 11/01/17 15:14 36.5 63 20 117/62 (80) 95 11/01/17 15:01 36.5 68 20 117/62 (80) 96 11/01/17 15:00 36.5 64 20 97 11/01/17 14:31 36.4 66 20 117/63 (81) 95 11/01/17 14:29 70 11/01/17 14:01 36.4 63 20 116/62 (80) 96 11/01/17 14:00 36.4 70 20 95 11/01/17 13:31 36.3 65 20 124/66 (85) 97 11/01/17 13:01 36.2 60 20 120/65 (83) 94 11/01/17 13:00 36.3 64 15 94 11/01/17 12:31 36.4 60 20 104/55 (71) 93 11/01/17 12:17 36.3 60 20 114/57 (76) 90 Mechanical Ventilator 70 11/01/17 12:01 36.4 66 20 114/60 (78) 95 11/01/17 12:01 36.4 66 20 114/60 (78) 95 11/01/17 12:00 36.4 69 20 94 11/01/17 11:39 70 Physical Exam General Appearance: no apparent distress Neck: supple, no JVD, trachea midline Respiratory/Chest: no accessory muscle use, + rhonchi, + pertinent finding (on mechanical vent) Cardiovascular: regular rate, rhythm, no gallop, no murmur Abdomen: + abnormal bowel sounds (hypoactive), + distended Extremities: + swelling Neurologic/Psych: + pertinent finding (sedated on mechanical vent) Skin: normal color, no jaundice, no rash Laboratory Results Last 24 Hours Test 11/01/17 18:07 11/01/17 18:12 11/02/17 00:18 11/02/17 04:16 Bedside Glucose 192 mg/dl 181 mg/dl Urine Random Creatinine 30.4 mg/dl Urine Random Total Protein < 5.0 mg/dl Urine Protein/Creatinine Ratio White Blood Count 16.45 K/uL Red Blood Count 5.21 M/uL Hemoglobin 13.3 g/dL Hematocrit 42.7 % Mean Corpuscular Volume 82.0 fL Mean Corpuscular Hemoglobin 25.5 pg Mean Corpuscular Hemoglobin Concent 31.1 g/dl Platelet Count 271 K/uL Mean Platelet Volume 10.2 fL Neutrophils (%) (Auto) 73.1 % Lymphocytes (%) (Auto) 19.1 % Monocytes (%) (Auto) 7.2 % Eosinophils (%) (Auto) 0.2 % Basophils (%) (Auto) 0.2 % Neutrophils # (Auto) 12.03 K/uL Lymphocytes # (Auto) 3.14 K/uL Monocytes # (Auto) 1.18 K/uL Eosinophils # (Auto) 0.03 K/uL Basophils # (Auto) 0.03 K/uL RDW Standard Deviation 50.0 fL RDW Coefficient of Variation 16.6 % Immature Granulocyte % (Auto) 0.2 % Immature Granulocyte # (Auto) 0.04 K/uL Sodium Level 140 mmol/L Potassium Level 3.3 mmol/L Chloride Level 98 mmol/L Carbon Dioxide Level 33 mmol/L Anion Gap 9.0 mmol/L Blood Urea Nitrogen 53 mg/dl Creatinine 1.53 mg/dl Est Creatinine Clear Calc Drug Dose 70.7 ml/min Estimated GFR () 58.1 Estimated GFR (Non- 50.1 BUN/Creatinine Ratio 34.6 Random Glucose 178 mg/dl Calcium Level 8.8 mg/dl Test 11/02/17 05:56 11/02/17 09:16 11/02/17 09:20 Bedside Glucose 168 mg/dl Blood Gas Sample Site L Radial L Radial Bedside Blood Gas pH (LAB) 7.42 7.49 Bedside Blood Gas pCO2 (LAB) 60 mmHg 48 mmHg Bedside Blood Gas pO2 (LAB) < 32 mmHg 67 mmHg Bedside Blood Gas HCO3 (LAB) 39 meq/L 37 meq/L Bedside Blood Gas Total CO2 > 40 mEq/l 38 mEq/l Bedside Blood Gas Base Excess (LAB) 14.0 meq/L 13.0 meq/L Bedside Blood Gas O2 Saturation 56.0 % 94.0 % Tate Test Pass Pass Oxygen Delivery Device Ventilator Ventilator Bedside Oxygen Rate (breaths/min) 2 20 Blood Gas Minute Ventilation 10.3 10.5 Bedside FiO2 55 % 55 % Blood Gas Tidal Volume 500 500 Blood Gas PEEP 10 10 Assessment and Plan Patient is a 56 year old male presented with respiratory distress, currently sedated on mechanical vent; GI following for cirrhosis (suspected from ETOH abuse though also hx of + FLORY on cirrhosis workup ? autoimmune liver disease.) and ascites. MELD 12. Last paracentesis done on 10/06/17 w 3.2L ascites removal, fluid analysis showed SAAG >1.1, total protein >2.5; suspected ascites accumulation primarily related to congestive heart failure. He did have increased WBC on ascites fluid ct, was given Cipro for suspected SBP then. Pt remains on vent. Lasix increased to 40mg IV q8hrs yesterday, diuresed 5L. Cr down to 1.5. Urine Na 45. Nephrology and Cardiology following. Plans - Radiology not able to perform bedside large volume paracentesis. Continue with diuretics for now. When able to, may try to obtain at least diagnostic paracentesis for fluid analysis, cell ct, protein, albumin, culture. Will obtain repeat u/s abd for ascites check today. - Continue Albumin 25% 12.5g q6h - SBP prophylaxis coverage w Ceftriaxone IV. - Continue Protonix 40mg IV daily - Discussed with Dr. Trejo (hospitalist) about possible transfer to tertiary care center w Hepatology support for possible liver bx to r/o [facility] and to measure portal pressures. He will rediscuss w ICU team and family I saw and evaluated the patient with Ms. Camargo. The patient did appear to have improvement of his renal function overnight and continues to have diuresis approximately 5 L negative yesterday. Unfortunately it appears that his respiratory status has not improved significantly. Recommendations Continue with albumin as you are doing Continue with prophylactic ceftriaxone Continue with prophylactic Protonix Agree with transfer to tertiary center for hepatology support
--- NOTE | 2017-11-02 12:40 | Cardiology Follow-Up ---
Subjective Subjective Date of Service: Nov 02, 2017. Pt evaluation today including: conversation w/ patient, physical exam, chart review, lab review, review of studies, review of inpatient medication list Additional Details: Pt seen and examined, sedated, intubated, brother and mother at bedside. No events reported overnight. Remains on vent support with decreased FiO2. Tele reviewed: sinus rhythm without arrhythmia or significant ectopy. Problem List Medical Problems: (1) Chest pain Status: Acute (2) CHF exacerbation Status: Acute (3) Hypomagnesemia Status: Acute (4) Hypoxia Status: Acute (5) Hypoxia Status: Acute (6) Lower extremity edema Status: Acute (7) PICC line infection Status: Acute (8) Pulmonary congestion Status: Acute (9) Pulmonary edema Status: Acute (10) Scrotal edema Status: Acute (11) Swelling of both lower extremities Status: Acute Review of Systems Constitutional: + see HPI (Pt sedated, intubated. ) Respiratory: + shortness of breath, + dyspnea on exertion Cardiac: + edema Musculoskeletal: + joint pain Neurologic: + weakness Psychiatric: + anxiety Endo: + fatigue Objective Vital Signs Last Vital Signs Documentation Date Time Temp Pulse Resp B/P (MAP) Pulse Ox O2 Delivery O2 Flow Rate FiO2 11/02/17 12:00 36.4 62 20 137/68 (91) 95 Mechanical Ventilator 40 10/30/17 21:00 5.0 Physical Exam: General Appearance: WD/WN, no apparent distress, + obese, + pertinent finding ( sedated, intubated) Eyes: bilateral eyes normal inspection, bilateral eyes PERRL, bilateral eyes EOMI ENT: normal ENT inspection, hearing grossly normal, pharynx normal Neck: supple, no adenopathy, thyroid normal, no JVD, no carotid bruits, trachea midline Respiratory/Chest: chest non-tender, normal breath sounds, no respiratory distress, no accessory muscle use, + decreased breath sounds Cardiovascular: regular rate, rhythm, no edema, no JVD, no murmur, + gallop/S4 Abdomen: normal bowel sounds, no pulsatile mass, + distended, + pertinent finding (fluid wave is present) Extremities: non-tender, normal inspection, + pertinent finding Skin: normal color, warm/dry, no rash Lymphatic: no adenopathy Assessment and Plan 1. volume overload likely multifactorial given: diastolic dysfunction, cirrhosis, renal failure and untreated sleep apnea along with medical noncompliance diuresing well appreciate nephrology input, will defer to their dosage titration maintain strict I/O's 2. hypercapnic respiratory failure management as per critical care team still requiring 70% FiO2 3. worsening renal function appreciate nephrology input 4. cirrhosis appreciate GI input I was present for family meeting on 11/01/17 and provided feedback from cardiac standpoint. Family voiced their understanding and gratitude for update. Would agree with transfer to tertiary care center.
[2017-11-02] MEDS ORDERED: BCTO EXT (13:31)
[2017-11-02] MEDS ORDERED: INSDGIPEN SC (13:31)
[2017-11-02] MEDS ORDERED: [UNRECOGNIZED DRUG - CODE] IV (13:31)
[2017-11-02] MEDS ORDERED: ATRINS INH (13:31)
[2017-11-02] MEDS ORDERED: ATRIN INH (13:31)
[2017-11-02] MEDS ORDERED: Potassium Chloride Pwd NG (13:31)
[2017-11-02] MEDS ORDERED: Levalbuterol INH (13:31)
[2017-11-02] MEDS ORDERED: NUTR-930 OG (13:32)
[2017-11-02] MEDS ORDERED: LPRI IV. (13:32)
--- NOTE | 2017-11-02 13:36 | Discharge Instructions ---
Discharge Instructions Date of Service Nov 02, 2017. Admission Reason for Admission: Respiratory Failure, Acute Discharge Discharge Diagnosis / Problem: Acute hypoxic and hypercapnic respiratory failure, acute on chronic CHF Discharge Goals Goal(s): Diagnostic testing, Therapeutic intervention Activity Recommendations Activity Level: Bedrest . Additional Information Patient informed of condition: No (Patient is currently sedated) Advance Directives: No ( unknown) DNR: No ( patient is a full code) Level of Care: Other ([facility]) Communicable Disease: Yes (Contact precautions for nasal swab positive for MRSA ) Prognosis: Other (Guarded) Oxygen at (LPM): Mechanically ventilated [place] Catheter: Yes Instructions / Follow-Up Instructions / Follow-Up Please refer to accompanying hospital discharge summary for further details. Please refer to separate medical reconciliation sheet for updated inpatient medication list. Current Hospital Diet Patient's current hospital diet: Discharge Diet Recommended Diet: N/A (Nasogastric tube feeding) Procedures Procedures Performed: Please refer to hospital discharge summary Pending Studies Studies pending at discharge: yes List of pending studies: Further evaluation and management per [facility] Physician Orders On Transfer Special Precautions: Please refer to accompanying hospital discharge summary for further details. Please refer to separate medical reconciliation sheet for updated inpatient medication list. Laboratory Results Hemoglobin A1c Test 08/25/17 17:20 Range/Units Estimated Average Glucose 358 mg/dl Hemoglobin A1c 14.1 H 4.5-5.6 % Lipid Panel Test 08/26/17 08:00 Range/Units Triglycerides Level 164 H 0-150 mg/dl Cholesterol Level 108 0-200 mg/dl HDL Cholesterol 19 mg/dl Cholesterol/HDL Ratio 5.7 LDL Cholesterol, Calculated 56 mg/dl Medical Emergencies . Who to Call and When: Medical Emergencies: If at any time you feel your situation is an emergency, please call 911 immediately. . Non-Emergent Contact Non-Emergency issues call your: Primary Care Provider . Past History Medical & Surgical History: (1) History of diabetic ulcer of foot (2) Respiratory failure, acute (3) Hypoxia (4) CHF exacerbation (5) Cirrhosis of liver (6) Asthma, Unspecified (7) Esophageal Reflux (8) Hypertension Nos (9) CAD (coronary artery disease) (10) HLD (hyperlipidemia) (11) Diabetes type 2, uncontrolled (12) Tobacco use disorder (13) Diabetic peripheral neuropathy associated with type 2 diabetes mellitus (14) History of alcohol abuse . "Provider Documentation" section prepared by Santos Trejo. . Core Measure Problem Core Measures: None
--- NOTE | 2017-11-02 13:41 | Discharge Summary ---
Discharge Summary Date of Service Nov 02, 2017. Discharge Summary Admission Date: Oct 30, 2017 at 20:17 Discharge Date: Nov 02, 2017 Discharge Disposition: Acute care facility Principal Diagnosis: Acute hypoxemic, hypercapnic respiratory failure with Metabolic Encephalopathy Acute on Chronic Diastolic CHF Underlying obstructive sleep apnea and ascites Secondary Diagnoses/Problems: Please refer to hospital course below. Procedures: ECHOCARDIOGRAM Interpretation Summary * Name: KENDRA MANJARREZ Study Date: 10/31/2017 08:45 AM BP: 112/52 mmHg * [place] [facility] [place]\\S\\1 HR: 60 * : 1960 (M/d/yyyy) Gender: Male Height: 69 in * Age: 56 yrs Ethnicity: [place] Weight: 283 lb * Ordering Physician: Pedro Pablo Barrera DO * Referring Physician: Pedro Pablo Barrera D.O. * Performed By: Jocelyn Williamson RDCS * * Reason For Study: LV FUNCTION, CHF * BSA: 2.4 m2 * -- Conclusions -- * Limited study to assess LV systolic function. * Normal LV chamber size with moderate concentric LVH. * Hyperdynamic LV systolic function, EF >70%. * Paradoxical septal motion is consistent with right ventricular pressure overload, otherwise, no segmental left ventricular wall motion abnormalities are noted. * Small, loculated posterior pericardial effusion without hemodynamic significance. Procedure Details * The study was technically limited. * The study was technically difficult. * There were technical limitations due to patient'ssupine positioning while on mechanical ventilation * A contrast injection of Definity was performed to improve assessment of LV function. * Contrast was injected into an intravenous site in the right arm. * One vial of Definity ultrasound contrast was diluted in normal saline to a total volume of 10 ml. A total of '3' ml of solution was administered during imaging. * Lot # [id number] of Definity utilized for procedure. * Expiration date 09/28. Left Ventricle * The left ventricle is normal in size. * There is moderate concentric left ventricular hypertrophy. * Ejection Fraction = >70 %. * The left ventricle is hyperdynamic. * No segmental left ventricular wall motion abnormalities are noted. * The left ventricular wall motion is normal. * Paradoxical septal motion is consistent with right ventricular volume overload. MMode 2D Measurements and Calculations IVSd 1.0 cm IVSs 1.9 cm LVIDd 5.5 cm LVIDs 3.0 cm LVPWd 1.6 cm LVPWs 2.2 cm IVS/LVPW 0.63 FS 44.5 % EDV(Teich) 145.8 ml ESV(Teich) 36.2 ml EF(Teich) 75.2 % EDV(cubed) 164.0 ml ESV(cubed) 28.1 ml EF(cubed) 82.9 % % IVS thick 81.3 % % LVPW thick 35.4 % LV mass(C)d 317.7 grams LV mass(C)dI 132.7 grams/m\\S\\2 LV mass(C)s 283.9 grams LV mass(C)sI 118.6 grams/m\\S\\2 SV(Teich) 109.7 ml SI(Teich) 45.8 ml/m\\S\\2 SV(cubed) 135.9 ml SI(cubed) 56.8 ml/m\\S\\2 LVAd ap4 38.0 cm\\S\\2 LVLd ap4 8.9 cm EDV(MOD-sp4) 139.2 ml EDV(sp4-el) 137.3 ml LVAs ap4 16.6 cm\\S\\2 LVLs ap4 7.3 cm ESV(MOD-sp4) 31.4 ml ESV(sp4-el) 31.8 ml EF(MOD-sp4) 77.4 % EF(sp4-el) 76.8 % LVAd ap2 30.7 cm\\S\\2 LVLd ap2 7.7 cm EDV(MOD-sp2) 102.9 ml EDV(sp2-el) 103.6 ml LVAs ap2 14.0 cm\\S\\2 LVLs ap2 6.5 cm ESV(MOD-sp2) 24.4 ml ESV(sp2-el) 25.5 ml EF(MOD-sp2) 76.3 % EF(sp2-el) 75.3 % LVLd %diff -15.78 % EDV(MOD-bp) 128.2 ml LVLs %diff -12.50 % ESV(MOD-bp) 28.3 ml EF(MOD-bp) 78.0 % SV(MOD-sp4) 107.8 ml SI(MOD-sp4) 45.0 ml/m\\S\\2 SV(MOD-sp2) 78.5 ml SI(MOD-sp2) 32.8 ml/m\\S\\2 SV(MOD-bp) 100.0 ml SI(MOD-bp) 41.8 ml/m\\S\\2 SV(sp4-el) 105.5 ml SI(sp4-el) 44.1 ml/m\\S\\2 SV(sp2-el) 78.1 ml SI(sp2-el) 32.6 ml/m\\S\\2 CT ANGIOGRAPHY OF THE CHEST, PULMONARY EMBOLUS PROTOCOL CLINICAL HISTORY: Fluid. Abnormal labs. Evaluate for pulmonary embolus. COMPARISON STUDY: Chest CT August 25, 2017 and chest radiograph October 30, 2017. TECHNIQUE: Following IV administration of 107 mL of Optiray-320, helical axial images of the chest were obtained utilizing the pulmonary embolus protocol. Maximal intensity projections and sagittal and coronal reformats were viewed on an independent 3D workstation. IV contrast was administered without complication. A dose lowering technique was utilized adhering to the principles of ALARA. CT DOSE: 731.18 mGy.cm FINDINGS: No pulmonary emboli are identified although segmental and subsegmental pulmonary arteries are suboptimally assessed on this exam. There is no thoracic aortic dissection. Heart is moderately enlarged. There is no pericardial effusion. Extensive coronary artery calcification is noted. Multiple mildly enlarged mediastinal and bilateral hilar lymph nodes have mildly decreased in size since exam of August 25, 2017. An index right paratracheal lymph node shown image 226 of 283 measures 1.5 cm in short axis diameter. It previously measured 1.6 cm. A small right pleural effusion has slightly decreased in size since CT of August 25, 2017. Right lower lobe opacity favors atelectasis. There is no pneumothorax. Several healed left rib fractures are noted. Numerous upper lobe predominant pulmonary nodules are noted. These measure up to 6 mm. Overall, these have increased in number and size since exam of August 25, 2017 however nodules have likely decreased in size. Anasarca is noted. Moderate upper abdominal ascites is noted. Liver is cirrhotic. IMPRESSION: 1. No pulmonary emboli identified although segmental and subsegmental pulmonary arteries suboptimally assessed due to respiratory motion. 2. Small right pleural effusion with right lower lobe airspace opacity suggestive of atelectasis. 3. Slight improvement in mediastinal and bilateral hilar lymphadenopathy since CT of August 25, 2017. This remains indeterminate. Overall, increase in size and number of upper lobe predominant pulmonary nodules, including perifissural nodules. Metastatic disease is within the differential however the distribution is atypical. The findings raise the possibility of a granulomatous process such as sarcoidosis. Short-term follow-up chest CT in 3 months is recommended as a neoplastic process cannot be excluded. 4. Mild pulmonary edema. 5. Cirrhosis with upper abdominal ascites. Anasarca. Electronically signed by: Roberto Shultz M.D. 10/30/2017 6:17 PM ASCITES-ABDOMEN LIMITED CLINICAL HISTORY: Abdominal distention. COMPARISON STUDY: CT of the abdomen and pelvis August 14, 2013. FINDINGS: Moderate abdominal and pelvic ascites is noted. The liver is cirrhotic. IMPRESSION: Moderate ascites. Electronically signed by: Roberto Shultz M.D. 10/30/2017 10:03 PM VENOUS DOPPLER LWR EXT BILA CLINICAL HISTORY: 56 years-old Male presenting with leg swelling. TECHNIQUE: Real-time grayscale and color and spectral Doppler ultrasound imaging of the veins of the bilateral lower extremities was performed. Compression and augmentation were also utilized. COMPARISON: 08/25/2017. FINDINGS: RIGHT: Common femoral vein: Patent. Greater saphenous vein: Patent. Deep femoral vein: Patent. Femoral vein: Patent. Popliteal vein: Patent. Calf veins: Patent. LEFT: Common femoral vein: Patent. Greater saphenous vein: Patent. Deep femoral vein: Patent. Femoral vein: Patent. Popliteal vein: Patent. Calf veins: Patent. Other: Bilateral enlarged though benign appearing lymph nodes in the inguinal regions. Subcutaneous edema in the bilateral lower extremities. IMPRESSION: No evidence of deep venous thrombosis. Electronically signed by: Shawn Ferrara M.D. 10/31/2017 7:00 AM KUB CLINICAL HISTORY: 56 years-old Male presenting with New OG tube inserted. Check placement. . TECHNIQUE: Single supine view of the abdomen was obtained. COMPARISON: 12/15/2016. FINDINGS: Orogastric tube terminates in the gastric body with sidehole also likely contained within the gastric lumen. Cholecystectomy clips noted. Nonobstructive bowel gas pattern. No gross pneumoperitoneum. Allowing for bowel gas and stool, no calcifications to suggest nephrolithiasis. Degenerative changes of the spine. Air bronchograms evident in the retrocardiac region. IMPRESSION: 1. Appropriately positioned orogastric tube. 2. No acute intra-abdominal pathology. 3. Consolidation versus atelectasis at the lung bases. Electronically signed by: Shawn Ferrara M.D. 10/31/2017 11:04 AM Dictated Date/Time: 10/31/2017 11:01 AM CHEST ONE VIEW PORTABLE HISTORY: 56 years-old Male chf acute shortness of breath with congestive heart failure COMPARISON: Chest radiograph 10/30/2017 TECHNIQUE: Portable AP view of the chest FINDINGS: Cardiac silhouette is enlarged, unchanged. Endotracheal tube overlies the midline, 3.8 cm superior to the angel. Enteric tube courses into the region of the gastric lumen, L side the [id number]. Left subclavian pacer is unchanged. Multiple telemetry leads overlie the chest. No pneumothorax. Small bilateral pleural effusions with pulmonary vascular congestion and bilateral interstitial coarsening with bibasilar alveolar opacities, generally unchanged from comparison. Degenerative changes of the shoulders and spine. IMPRESSION: 1. Cardiomegaly with persistent pulmonary edema pattern. 2. Small bilateral pleural effusions with bibasilar opacities suggesting atelectasis. 3. Satisfactory positioning of life support apparatus. The above report was generated using voice recognition software. It may contain grammatical, syntax or spelling errors. Electronically signed by: Camron Granado M.D. 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 Medication Reconciliation New Medications: Bacitracin (Bacitracin Zinc) 45 Appln/15 Gm Oint 1 APPLN EXT BID for 2 Days Insulin Glargine (Lantus Solostar) 100 Unit/Ml Inj 5 UNITS SC BID for 10 Days Ipratropium [place] (Atrovent Hfa) 200 Puffs/3400 Mcg Aers 4 PUFFS INH Q6R for 10 Days Ipratropium [place] (Ipratropium [place]) 0.5 Mg/2.5 Ml Nebu 0.5 MG INH Q4H PRN for Shortness of Breath for 10 Days Metoprolol Tartrate (Metoprolol Tartrate) 1 Mg/Ml Inj 2.5 MG IV. Q6H for 7 Days Nutritional Supplements (Peptamen Bariatric) 1 Liq Liq 1000 ML OG UD PRN for Tube Feeding for 7 Days Propofol (Diprivan) 1 Dose/100 Ml Inj 1 DOSE IV UD PRN for TITRATION for 7 Days [Levalbuterol] () INH 4 PUFFS INH Q6R for 10 Days [Potassium Chloride Pwd] () 20 MEQ PACK 40 MEQ NG BID for 10 Days Continued Medications: Albuterol Hfa (Ventolin Hfa) 200 Puffs/26900 Mcg Aers 2 PUFFS INH Q6H PRN for SOB/Wheezing Aspirin (Aspirin Ec) 81 Mg Tab 81 MG PO QAM Atorvastatin (Lipitor) 40 Mg Tab 40 MG PO DAILY Cetirizine (Zyrtec) 10 Mg Tab 10 MG PO DAILY PRN for Allergy Symptoms Ergocalciferol (Vitamin D 90550 Unit) 50,000 Unit Cap 22253 INTER.UNIT PO WK TAKE THIS MEDICATION EVERY MONDAY Fluticasone Prop/Salmeterol (Advair Diskus 100/50 60 Dose) 1 Ea Aerp 1 PUFF INH BID, INHALER Fluticasone Propionate (Fluticasone Propionate) 120 Sprays/6000 Mcg Inha 2 SPRAYS JANNIE DAILY PRN for Allergy Symptoms Omeprazole (Prilosec) 20 Mg Capcr 20 MG PO QAM Polyethylene Glycol 3350 (Miralax) 1 Pow Pow 17 GM PO DAILY PRN for Constipation, GM Discontinued Medications: Amlodipine Besylate (Amlodipine Besylate) 10 Mg Tab 10 MG PO DAILY Carvedilol (Coreg) 3.125 Mg Tab 3.125 MG PO BIDM, TAB Furosemide (Furosemide) 40 Mg Tab 40 MG PO BID TAKE TWO TABLETS EVERY MORNING AND IN THE AFTERNOON Insulin Glargine (Basaglar Kwikpen) 100 Unit/Ml Inj 70 UNITS SC HS Lisinopril (Zestril) 40 Mg Tab 40 MG PO QAM, TAB Metformin HCl (Metformin Hydrochloride) 500 Mg Tab 500 MG PO HOLD MEDICATION CURRENTLY BEING HELD UNTIL OTHERWISE DIRECTED TO TAKE BY PCP Spironolactone (Aldactone) 100 Mg Tab 100 MG PO QAM, TAB Admission Information HPI (per Admitting provider): CHIEF COMPLAINT: Abnormal labs, fluid as per records. PRIMARY CARE PHYSICIAN: Dr. Savage. HISTORY OF PRESENT ILLNESS: History obtained from patient, ER provider, family, and records. Limited history from the patient secondary to lethargic state. Medical history significant for chronic diastolic heart failure, EF of 55-60%, symptomatic bradycardia status post PPM, nonocclusive CAD; COPD/restrictive lung disease as per records, YECENIA, CPAP intolerance, DM2, insulin requiring, ongoing tobacco abuse, cirrhosis, past alcohol abuse, chronic anemia (baseline hemoglobin of 12-13) Ongoing tobacco abuse Recent confinement last August 2017 for decompensated heart failure. 2D echo during confinement showed EF of 55-60% grossly normal valvular structure and function. PFTs showed restrictive lung disease. Patient [place] with [facility] [place] [facility]. Complaints of worsening abdominal bloating, lower extremity edema and dyspnea, progressive weight gain. Patient refused ER recommendations. Diuretics titrated. Outpatient blood work showed increase in creatinine 1.8. 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 Patient denies cough symptoms. Patient's legs noted to be red as per mother. At the Emergency Room, the patient received Lasix. Later on noted to be unresponsive. BiPAP initiated. MEDICAL HISTORY: As above. OPERATIONS: Vasectomy, cholecystectomy, pacemaker placement. HOME MEDICATIONS: Include Prilosec, metformin, MiraLax, Aldactone, vitamin D, Advair, fluticasone, furosemide, Zestril, Ventolin, aspirin, Lipitor, amlodipine, Coreg, Zyrtec. ALLERGIES: TO BEE STING, VANCOMYCIN. FAMILY HISTORY: Cannot be obtained. PERSONAL AND SOCIAL HISTORY: Ongoing tobacco abuse as per children, past alcohol abuse. 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 REVIEW OF SYSTEMS: Could not be reliably obtained. Physical Exam (per Admitting): PHYSICAL EXAMINATION: VITAL SIGNS: Blood pressure noted to be 134/69, pulse rate 74, RR 24, T 37 O2 sats 88 on room air, later 90 on BiPAP. GENERAL: Noted to be lethargic, obese, no respiratory distress. SKIN: Pallor, warm. HEENT: Partial alopecia. Pale palpebral conjunctivae. No ptosis. Dry mucosa. BiPAP in place NECK: Short, supple. CHEST: Decreased breath sounds, bilateral crackles. HEART: Regular rate and rhythm. No murmur. ABDOMEN: Some distention, nontender. EXTREMITIES: LE erythema, no tenderness. NEUROLOGIC: Lethargic. No facial asymmetry. Gait and stance not assessed. Hospital Course Acute hypoxemic, hypercapnic respiratory failure with Metabolic Encephalopathy Acute on Chronic Diastolic CHF Underlying obstructive sleep apnea and ascites -- echo: * -- Conclusions -- * Limited study to assess LV systolic function. * Normal LV chamber size with moderate concentric LVH. * Hyperdynamic LV systolic function, EF >70%. * Paradoxical septal motion is consistent with right ventricular pressure overload, otherwise, no segmental left ventricular wall motion abnormalities are noted. * Small, loculated posterior pericardial effusion without hemodynamic significance. 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 This would be helpful to determine if the etiology of his liver disease is autoimmune related given the positive FLORY. YECENIA -- CPAP noncompliance. Hypertension, stable. Symptomatic bradycardia status post pacemaker, paced rhythm. DM2 insulin requiring, suboptimal control as of recent inpatient Hemoglobin A1c of 14.1 from August 2017. Ongoing tobacco abuse, past alcohol use DV prophylaxis Heparin sc q8h Disposition I had an extensive discussion with the patient's mother Darling and his sons Wolfgang and Joel and several other family members Together with Dr.Rothfleisch SUJATA Fajardo There were updated regarding patient's medical condition and the decision was made to transfer patient to [facility] for tertiary level of care All questions answered They are all agreeable and comfortable with the plan of care Discussed case with Dr. Mercado of [facility] ICU he kindly accepted the patient Rudolph NAM Total time spent on discharge = 90 minutes This includes examination of the patient, discharge planning, medication reconciliation, and communication with other providers. Discharge Instructions Discharge Instructions Date of Service Nov 02, 2017. Admission Reason for Admission: Respiratory Failure, Acute Discharge Discharge Diagnosis / Problem: Acute hypoxic and hypercapnic respiratory failure, acute on chronic CHF Discharge Goals Goal(s): Diagnostic testing, Therapeutic intervention Activity Recommendations Activity Level: Bedrest . Additional Information Patient informed of condition: No (Patient is currently sedated) Advance Directives: No ( unknown) DNR: No ( patient is a full code) Level of Care: Other ([facility]) Communicable Disease: Yes (Contact precautions for nasal swab positive for MRSA ) Prognosis: Other (Guarded) Oxygen at (LPM): Mechanically ventilated Ashby Catheter: Yes Instructions / Follow-Up Instructions / Follow-Up Please refer to accompanying hospital discharge summary for further details. Please refer to separate medical reconciliation sheet for updated inpatient medication list. Current Hospital Diet Patient's current hospital diet: Discharge Diet Recommended Diet: N/A (Nasogastric tube feeding) Procedures Procedures Performed: Please refer to hospital discharge summary Pending Studies Studies pending at discharge: yes List of pending studies: Further evaluation and management per [facility] Physician Orders On Transfer Special Precautions: Please refer to accompanying hospital discharge summary for further details. Please refer to separate medical reconciliation sheet for updated inpatient medication list. Laboratory Results Hemoglobin A1c Test 08/25/17 17:20 Range/Units Estimated Average Glucose 358 mg/dl Hemoglobin A1c 14.1 H 4.5-5.6 % Lipid Panel Test 08/26/17 08:00 Range/Units Triglycerides Level 164 H 0-150 mg/dl Cholesterol Level 108 0-200 mg/dl HDL Cholesterol 19 mg/dl Cholesterol/HDL Ratio 5.7 LDL Cholesterol, Calculated 56 mg/dl Medical Emergencies . Who to Call and When: Medical Emergencies: If at any time you feel your situation is an emergency, please call 911 immediately. . Non-Emergent Contact Non-Emergency issues call your: Primary Care Provider . Past History Medical & Surgical History: (1) History of diabetic ulcer of foot (2) Respiratory failure, acute (3) Hypoxia (4) CHF exacerbation (5) Cirrhosis of liver (6) Asthma, Unspecified (7) Esophageal Reflux (8) Hypertension Nos (9) CAD (coronary artery disease) (10) HLD (hyperlipidemia) (11) Diabetes type 2, uncontrolled (12) Tobacco use disorder (13) Diabetic peripheral neuropathy associated with type 2 diabetes mellitus (14) History of alcohol abuse . "Provider Documentation" section prepared by Santos Trejo. . Core Measure Problem Core Measures: None
--- NOTE | 2017-11-02 13:45 | Critical Care Progress Note ---
Critical Care Progress Note Date of Service Nov 02, 2017. Attending Dr Clarke Subjective Patient has remained hemodynamically stable overnight, intubated and sedated. Thus far his I&O are -8800 cc and his weight is down 7.2 kg. Oxygen requirements have decreased and he is now on 50% FiO2. An extensive family conference was held today and family has requested transfer to [facility] for higher level of care and patient has been accepted pending bed availability. Objective Obese male, intubated, sedated Head: Normocephalic atraumatic ENT: Orotracheally intubated, sclera anicteric, conjunctiva normal, PERRLA EOMI Neck: Supple, unable to assess JVD Chest: Distant breath sounds, no wheezing rales or rhonchi Cardiac: Regular rhythm distant heart sounds no murmurs rubs gallops Abdomen: Markedly obese, soft, no tenderness, bowel sounds present Extremities: 2+ anasarca Neuro: Cannot examine patient sedated Assessment & Plan (1) CHF exacerbation Due to diastolic dysfunction with severe total body fluid overload, chronic cor pulmonale with resultant acute on chronic hypercarbic hypoxemic respiratory failure requiring intubation Plan: Continue diuresis, monitor creatinine and replete potassium Continue mechanical ventilation, low tidal volume lung protective strategy Cardiology is following (2) Cirrhosis of liver Suspect due to previous versus current alcohol abuse along with severe passive congestion. Patient has history of ascites with previous paracentesis Plan: GI feels that he will ultimately need liver biopsy but is not currently stable enough for that (3) Diabetes type 2, uncontrolled Sliding scale insulin (4) Tobacco use disorder Discuss smoking cessation strategies once extubated (5) History of alcohol abuse Disposition: Patient has been accepted at [facility] and we are awaiting a bed assignment. Critical care time 40 minutes Data Medications: Current Inpatient Medications Medications (Trade) Dose Ordered Sig/Jerica Route Start Time Stop Time Status Last Admin Dose Admin Ioversol (Optiray 320) 111 ml UD PRN IV 10/30/17 17:45 11/03/17 17:44 Heparin Sodium (Porcine) (Heparin Sq 5000 Unit/0.5ml) 5,000 unit Q8 SQ 10/30/17 22:00 11/29/17 21:59 11/02/17 05:53 5,000 UNIT Nitroglycerin (Nitrostat Tab) 0.4 mg UD PRN SL 10/30/17 21:00 11/29/17 20:59 Glucose (Glucose 40% Gel) 15-30 GRAMS 15 GRAMS... UD PRN PO 10/30/17 21:00 11/29/17 20:59 Glucose (Glucose Chew Tab) 4-8 Tablets 4 Tabl... UD PRN PO 10/30/17 21:00 11/29/17 20:59 Dextrose (Dextrose 50% 50ML Syringe) 25-50ML 25ML FOR ... UD PRN IV 10/30/17 21:00 11/29/17 20:59 Glucagon (Glucagon Inj) 1 mg UD PRN SQ 10/30/17 21:00 11/29/17 20:59 Carbohydrates (Carbohydrates For Hypoglycemia) 15-30 GRAMS 15 grams if BSG 54-69... UD PRN PO 10/30/17 21:00 11/29/17 20:59 Prochlorperazine Edisylate 5 mg/ Syringe 5 ml @ 5 mls/min Q6H PRN IV 10/30/17 21:15 11/29/17 21:14 Aspirin (Ecotrin Tab) 81 mg QAM PO 10/31/17 09:00 11/30/17 08:59 Future Hold Insulin Glargine (Lantus Solostar Pen) 5 units BID SC 10/31/17 09:00 11/30/17 08:59 11/02/17 08:11 5 UNITS Ipratropium [place] (Atrovent 0.02% 0.5MG/2.5ML Neb) 0.5 mg Q4H PRN INH 10/30/17 21:30 11/29/17 21:29 Propofol (Diprivan Iv Emulsion 100ml Vial) 1 dose UD PRN IV 10/30/17 23:18 11/03/17 23:17 11/02/17 08:11 1 DOSE Levalbuterol (Xopenex Hfa Inhaler) 4 puffs Q6R INH 10/31/17 00:00 11/30/17 00:00 11/02/17 07:15 4 PUFFS Ipratropium [place] (Atrovent Hfa Inhaler) 4 puffs Q6R INH 10/31/17 00:00 11/30/17 00:00 11/02/17 07:15 4 PUFFS Pantoprazole Sodium 40 mg/ Syringe 10 ml @ 5 mls/min DAILY IV 10/31/17 09:00 11/30/17 08:59 11/02/17 08:10 5 MLS/MIN Fentanyl Citrate (Fentanyl Inj) 25 mcg Q1H PRN IV 10/30/17 23:30 11/13/17 23:29 11/02/17 10:40 25 MCG Metoprolol Tartrate (Lopressor Iv) 2.5 mg Q6H IV. 10/31/17 06:00 11/30/17 05:59 11/02/17 11:19 2.5 MG Acetaminophen 650 mg/Empty Bag 65 ml @ 260 mls/hr Q8H PRN IV 10/31/17 03:30 11/30/17 03:29 Atorvastatin Calcium (Lipitor Tab) 40 mg DAILY NG 10/31/17 09:00 11/30/17 08:59 11/02/17 08:09 40 MG Aspirin (Aspirin Chew) 81 mg DAILY NG 10/31/17 09:00 11/30/17 08:59 11/02/17 08:09 81 MG Bacitracin (Bacitracin Oint) 1 appln BID EXT 10/31/17 09:00 11/04/17 21:01 11/02/17 08:15 1 APPLN Ceftriaxone Sodium 2000 mg/ Dextrose 70 ml @ 100 mls/hr Q24H IV 10/31/17 14:00 11/10/17 13:59 11/01/17 14:50 100 MLS/HR Insulin Aspart (novoLOG ASPART) SLIDING SCALE If C... Q6 SC 11/01/17 12:00 12/01/17 11:59 11/02/17 11:37 1 UNITS Furosemide 40 mg/ Syringe 4 ml @ 4 mls/min Q8 IV 11/02/17 14:00 11/30/17 21:59 Potassium Chloride (Klor-Con Pwd) 40 meq BID NG 11/02/17 09:00 12/02/17 08:59 11/02/17 11:15 40 MEQ Lorazepam (Ativan Inj) 2 mg Q4H PRN IV 11/02/17 08:45 12/02/17 08:44 11/02/17 09:16 2 MG Enteral Nutritional Formula (Peptamen Intense VHP) 1,000 ml UD PRN OG 11/02/17 10:00 12/02/17 09:59 11/02/17 11:16 1,000 ML Vital Signs: Date Time Temp Pulse Resp B/P (MAP) Pulse Ox O2 Delivery O2 Flow Rate FiO2 11/02/17 12:00 36.4 62 20 137/68 (91) 95 Mechanical Ventilator 40 11/02/17 12:00 36.7 65 19 137/68 (91) 92 11/02/17 12:00 40 11/02/17 11:45 55 11/02/17 11:30 36.7 61 18 138/63 (88) 93 11/02/17 11:19 67 130/63 11/02/17 11:00 36.7 64 18 130/63 (85) 92 11/02/17 10:31 36.7 60 18 136/61 (86) 90 11/02/17 10:00 36.6 60 18 134/72 (92) 90 11/02/17 09:30 36.4 71 20 136/69 (91) 95 11/02/17 09:00 36.4 60 20 120/60 (80) 94 11/02/17 08:30 36.4 67 20 108/55 (72) 93 11/02/17 08:02 36.4 75 22 125/32 (63) 90 11/02/17 08:00 36.4 71 12 125/32 (63) 91 11/02/17 08:00 65 11/02/17 08:00 Mechanical Ventilator 55 11/02/17 08:00 36.4 69 20 124/82 (96) 95 Mechanical Ventilator 60 11/02/17 08:00 Mechanical Ventilator 55 11/02/17 07:59 36.4 77 25 125/32 (63) 90 11/02/17 07:56 36.4 61 20 125/32 (63) 91 11/02/17 07:32 36.3 73 22 125/32 (63) 90 11/02/17 07:15 55 11/02/17 07:00 36.3 60 20 109/62 (78) 89 11/02/17 07:00 36.3 60 20 109/62 (78) 89 11/02/17 06:00 36.3 60 20 104/53 (70) 90 11/02/17 06:00 64 109/53 11/02/17 05:02 60 11/02/17 05:01 36.3 78 24 96/58 (71) 94 Mechanical Ventilator 50 11/02/17 04:10 Mechanical Ventilator 65 11/02/17 04:10 65 11/02/17 04:01 36.5 64 20 106/52 (70) 92 11/02/17 03:00 36.6 60 20 120/59 (79) 93 11/02/17 02:01 36.4 62 20 130/65 (86) 95 Mechanical Ventilator 60 11/02/17 02:01 65 11/02/17 01:00 36.4 60 20 116/59 (78) 92 Mechanical Ventilator 65 11/02/17 00:14 65 137/73 11/02/17 00:10 65 11/02/17 00:10 Mechanical Ventilator 65 11/02/17 00:00 36.4 63 20 137/73 (94) 93 Mechanical Ventilator 65 11/01/17 23:13 70 11/01/17 23:00 36.3 61 20 125/66 (85) 95 Mechanical Ventilator 70 11/01/17 22:01 36.4 80 26 129/76 (93) 94 Mechanical Ventilator 70 11/01/17 21:00 36.4 60 20 110/59 (76) 91 Mechanical Ventilator 70 11/01/17 20:15 70 11/01/17 20:15 Mechanical Ventilator 70 11/01/17 20:00 36.4 60 20 112/57 (75) 92 Mechanical Ventilator 70 11/01/17 19:31 70 11/01/17 19:00 36.3 60 20 110/57 (74) 91 Mechanical Ventilator 70 18 18:18 60 112/66 18 18:00 36.4 60 20 112/56 (74) 90 Mechanical Ventilator 70 11/01/17 18:00 36.3 61 20 112/56 (74) 90 18 17:35 70 18 17:30 36.3 61 20 111/57 (75) 90 18 17:00 36.3 62 20 105/56 (72) 94 11/01/17 16:30 36.3 60 20 112/57 (75) 92 11/01/17 16:00 36.4 62 20 107/55 (72) 92 11/01/17 16:00 36.6 60 20 107/55 (72) 92 Mechanical Ventilator 70 11/01/17 15:31 36.4 60 24 116/62 (80) 92 11/01/17 15:20 36.5 63 20 117/62 (80) 94 11/01/17 15:14 36.5 63 20 117/62 (80) 95 11/01/17 15:01 36.5 68 20 117/62 (80) 96 11/01/17 15:00 36.5 64 20 97 11/01/17 14:31 36.4 66 20 117/63 (81) 95 11/01/17 14:29 70 11/01/17 14:01 36.4 63 20 116/62 (80) 96 11/01/17 14:00 36.4 70 20 95 Laboratory Results: Last 24 Hours Test 11/01/17 18:07 11/01/17 18:12 11/02/17 00:18 11/02/17 04:16 Bedside Glucose 192 mg/dl 181 mg/dl Urine Random Creatinine 30.4 mg/dl Urine Random Total Protein < 5.0 mg/dl Urine Protein/Creatinine Ratio White Blood Count 16.45 K/uL Red Blood Count 5.21 M/uL Hemoglobin 13.3 g/dL Hematocrit 42.7 % Mean Corpuscular Volume 82.0 fL Mean Corpuscular Hemoglobin 25.5 pg Mean Corpuscular Hemoglobin Concent 31.1 g/dl Platelet Count 271 K/uL Mean Platelet Volume 10.2 fL Neutrophils (%) (Auto) 73.1 % Lymphocytes (%) (Auto) 19.1 % Monocytes (%) (Auto) 7.2 % Eosinophils (%) (Auto) 0.2 % Basophils (%) (Auto) 0.2 % Neutrophils # (Auto) 12.03 K/uL Lymphocytes # (Auto) 3.14 K/uL Monocytes # (Auto) 1.18 K/uL Eosinophils # (Auto) 0.03 K/uL Basophils # (Auto) 0.03 K/uL RDW Standard Deviation 50.0 fL RDW Coefficient of Variation 16.6 % Immature Granulocyte % (Auto) 0.2 % Immature Granulocyte # (Auto) 0.04 K/uL Sodium Level 140 mmol/L Potassium Level 3.3 mmol/L Chloride Level 98 mmol/L Carbon Dioxide Level 33 mmol/L Anion Gap 9.0 mmol/L Blood Urea Nitrogen 53 mg/dl Creatinine 1.53 mg/dl Est Creatinine Clear Calc Drug Dose 70.7 ml/min Estimated GFR () 58.1 Estimated GFR (Non- 50.1 BUN/Creatinine Ratio 34.6 Random Glucose 178 mg/dl Calcium Level 8.8 mg/dl Test 11/02/17 05:56 11/02/17 09:16 11/02/17 09:20 11/02/17 11:34 Bedside Glucose 168 mg/dl 179 mg/dl Blood Gas Sample Site L Radial L Radial Bedside Blood Gas pH (LAB) 7.42 7.49 Bedside Blood Gas pCO2 (LAB) 60 mmHg 48 mmHg Bedside Blood Gas pO2 (LAB) < 32 mmHg 67 mmHg Bedside Blood Gas HCO3 (LAB) 39 meq/L 37 meq/L Bedside Blood Gas Total CO2 > 40 mEq/l 38 mEq/l Bedside Blood Gas Base Excess (LAB) 14.0 meq/L 13.0 meq/L Bedside Blood Gas O2 Saturation 56.0 % 94.0 % Tate Test Pass Pass Oxygen Delivery Device Ventilator Ventilator Bedside Oxygen Rate (breaths/min) 2 20 Blood Gas Minute Ventilation 10.3 10.5 Bedside FiO2 55 % 55 % Blood Gas Tidal Volume 500 500 Blood Gas PEEP 10 10 Problem Qualifiers (1) CHF exacerbation: Heart failure type: diastolic Qualified Codes: I50.33 - Acute on chronic diastolic (congestive) heart failure
--- NOTE | 2017-11-02 14:03 | DIAGNOSTIC IMAGING REPORT ---
ASCITES-ABDOMEN LIMITED CLINICAL HISTORY: 56 years-old Male presenting with ascites check. TECHNIQUE: Real-time grayscale ultrasound imaging of the abdomen was performed for a focused evaluation for ascites. COMPARISON: 10/30/2017. FINDINGS: All 4 quadrants of the abdomen were evaluated for ascites. A small to moderate amount of simple appearing ascites noted in the upper and lower quadrants. IMPRESSION: 1. Small to moderate amount of simple appearing ascites in the abdomen and pelvis. This is slightly less than on the prior exam. Electronically signed by: Shawn Ferrara M.D. 11/02/2017 2:02 PM Dictated Date/Time: 11/02/2017 2:00 PM
[2017-11-02] MEDS: FUROSEMIDE INJ 40 MG in SYRINGE 0 ML IV SCH ×2 (14:45→21:20)
[2017-11-02] MEDS: CEFTRIAXONE SOD INJ 2,000 MG in DEXTROSE 5% 50ML 50 ML IV SCH (14:45)
[2017-11-03] VITALS: BP 139/71; PULSE 79; TEMP 37.2; O2SAT 93
[2017-11-03] MEDS: PROPOFOL IV EMULSION 10 MG/ML 100 ML VIAL IV PRN (00:41)
[2017-11-03 01:00] VITALS: BP 117/65; PULSE 78; TEMP 37.4; O2SAT 93
[2017-11-03 02:00] VITALS: BP 123/74; PULSE 88; TEMP 37.5
== END 2017-11-03 03:02 | disposition short-term general hospital (02) | DRG 208 ==
LOC: C.EDB 15:34 → C.MSICU 20:17 → ENRESERV 20:29
PROVIDERS: ADMIT Internal Medicine; ATTEND Internal Medicine
PROC: 5A1945Z Respiratory Ventilation, 24-96 Consecutive Hours (ICD-10-PCS; principal; 2017-10-30)
PROC: 0BH17EZ Insertion of Endotracheal Airway into Trachea, Via Natural or Artificial Opening (ICD-10-PCS; principal; 2017-10-30)
DX: J96.01 Acute respiratory failure with hypoxia (principal); G93.41 Metabolic encephalopathy; I13.0 Hypertensive heart and chronic kidney disease with heart failure and stage 1 through stage 4 chronic kidney disease, or unspecified chronic kidney disease; I50.33 Acute on chronic diastolic (congestive) heart failure; N17.9 Acute kidney failure, unspecified; E87.2 Acidosis; R18.8 Other ascites; J96.02 Acute respiratory failure with hypercapnia; I25.10 Atherosclerotic heart disease of native coronary artery without angina pectoris; E78.5 Hyperlipidemia, unspecified; E11.22 Type 2 diabetes mellitus with diabetic chronic kidney disease; N18.3 Chronic kidney disease, stage 3 (moderate); E11.40 Type 2 diabetes mellitus with diabetic neuropathy, unspecified; G47.33 Obstructive sleep apnea (adult) (pediatric); F17.200 Nicotine dependence, unspecified, uncomplicated; I49.5 Sick sinus syndrome; I27.81 Cor pulmonale (chronic); E11.65 Type 2 diabetes mellitus with hyperglycemia; K74.60 Unspecified cirrhosis of liver; Z79.4 Long term (current) use of insulin; Z79.82 Long term (current) use of aspirin; Z79.84 Long term (current) use of oral hypoglycemic drugs; Z79.899 Other long term (current) drug therapy; Z95.0 Presence of cardiac pacemaker; Z91.19 Patient's noncompliance with other medical treatment and regimen; Z88.1 Allergy status to other antibiotic agents; Z91.14 Patient's other noncompliance with medication regimen